=== PATIENT | male | born 1955 | race Caucasian/White ===

== ENCOUNTER 2021-12-29 08:08 | Outpatient (CLI) | payer OTHER, SELFPAY ==
--- NOTE | ~2021-12-29 | XR_ITS ---
XR abdomen/kub 1V 12/29/2021 08:18 INDICATION: Renal stones TECHNIQUE: KUB COMPARISON: None FINDINGS: Bowel gas pattern is normal. Moderate colonic fecal loading. There is no evidence of free a ir, mass, organomegaly, ascites or obstruction. No abnormal calculi are seen. The bones appear inta ct. IMPRESSION: 1: No acute abdominal abnormality identified. Reviewed, dictated and finalized at location B.
== END 2021-12-29 08:09 | disposition home or self-care (01) ==
PROVIDERS: PCP Family Medicine; Visit Provider Family Medicine
DX: Z00.00 Encounter for general adult medical examination without abnormal findings (principal); N20.0 Calculus of kidney
CPT/HCPCS: 74018

== ENCOUNTER 2022-06-02 14:26 | Outpatient (CLI) | payer MEDICARE, SELFPAY ==
[2022-06-02 20:29] LABS: Basophils Absolute Auto 0.1 K/mm3 (0.0-0.1); Basophils Percent Auto 0.6 % (0.2-1.2); Eosinophils Absolute Auto 0.2 K/mm3 (0-0.3); Eosinophils Percent Auto 2.6 % (0-4.4); Hematocrit 42.1 % (42.0-52.0); Hemoglobin 14.1 g/dL (14.0-18.0); Immature Granulocyte Absolute 0.05 K/mm3 (0.00-0.031); Immature Granulocyte Percent A 0.6 % (0-0.5); Lymphocytes Absolute Auto 2.09 K/mm3 (0.9-3.2); Lymphocytes Percent Auto 24.6 % (18.3-44.2); Mean Corpuscular HGB Conc 33.5 g/dl (32-36); Mean Corpuscular Hemoglobin 32.3 pg (26-34); Mean Corpuscular Volume 96.6 fl (80-100); Mean Platelet Volume 10.9 fl (7.4-10.4); Monocytes Percent Auto 11.6 % (2.6-8.5); Neutrophils Absolute Auto 5.1 K/mm3 (1.3-6.7); Platelet Count Result 265 k/mm3 (150-375); Red Blood Count 4.36 M/mm3 (4.6-6.20); White Blood Count 8.5 K/mm3 (4.5-10.0)
[2022-06-02 20:52] LABS: Prostate Specific Antigen 0.3 ng/mL (< OR = 4.0)
[2022-06-02 21:16] LABS: Alanine Aminotransferase 25 U/L (6-50); Albumin Level 4.4 g/dL (3.5-5.1); Alkaline Phosphatase 56 U/L (38-126); Anion Gap 5 mmol/L (8-16); Aspartate Amino Transferase 38 U/L (17-59); Bilirubin,Total 0.4 mg/dL (0.2-1.3); Blood Urea Nitrogen 17 mg/dL (9-20); Calcium 9.3 mg/dL (8.4-10.2); Carbon Dioxide 31 mmol/L (22-30); Chloride 102 mmol/L (98-107); Estimated Glomerular Filt Rate > 60; Glucose 85 mg/dL (65-110); HDL Direct 59 mg/dL; Potassium 4.6 mmol/L (3.4-5.0); Sodium 138 mmol/L (137-145); Triglycerides 96 mg/dL (<150)
[2022-06-02 21:22] LABS: Creatinine Urine 55.4 mg/dL
[2022-06-02 22:09] LABS: MALB Creatinine Ratio < 10.8 mg/g (0-30); Microalbumin Urine Random < 6.0 mg/L (0-16.7)
[2022-06-02 22:15] LABS: LDL Cholesterol Direct 63 mg/dL
[2022-06-02 22:19] LABS: Cholesterol 144 mg/dL (0-200)
[2022-06-04 11:24] LABS: Hemoglobin A1C 5.6 % (<5.7)
== END 2022-06-02 14:27 | disposition home or self-care (01) ==
PROVIDERS: PCP Family Medicine; Visit Provider Family Medicine
DX: E11.9 Type 2 diabetes mellitus without complications (principal); Z12.5 Encounter for screening for malignant neoplasm of prostate
CPT/HCPCS: 36415; 80053; 80061; 82043; 83036; 84153; 85025; G0103

== ENCOUNTER 2022-06-08 14:38 | Outpatient (CLI) | payer MEDICARE, SELFPAY ==
[2022-06-08 21:28] LABS: Appearance Urine Cloudy (Clear); Bilirubin Urine Negative (Negative); Blood Urine Negative (Negative); Color Urine Yellow (Yellow); Glucose Urine UA Negative (Negative); Ketones Urine Trace mg/dL (Negative); Leukocyte Esterase Ur 1+ LEU/UL (Negative); Nitrate Urine Positive (Negative); Protein Urine 1+ mg/dL (Negative); Specific Grav Ur 1.025 (1.001-1.035); pH Urine 5.5 (5.0-9.0)
[2022-06-08 21:38] LABS: Bacteria Urine Trace /hpf; Calcium Oxalate Crystals Urine Present /hpf; Mucus Urine Moderate /lpf; Squamous Epithelial Cell Urine Rare /hpf (Few); WBC Urine >75 /hpf
[2022-06-08 21:39] LABS: Add Urine Microscopic? YES
== END 2022-06-08 14:39 | disposition home or self-care (01) ==
PROVIDERS: PCP Family Medicine; Visit Provider Family Medicine
DX: R31.9 Hematuria, unspecified (principal)
CPT/HCPCS: 81001; 87077; 87086; 87186

== ENCOUNTER 2022-07-14 13:52 | Outpatient (CLI) | payer MEDICARE, SELFPAY ==
--- NOTE | ~2022-07-14 | XR_ITS ---
EXAMINATION: XR chest 2V Exam Date/Time: 07/14/2022 13:55 DIRECTOR OF RADIO SERVICES HISTORY: R50.9 - Fever, unspecified Comparison: None available. RESULT: Lines, tubes, and devices: None. Lungs and pleura: Increased AP diameter and diaphragm flattening. Mild cuffing and scattered reticul onodular opacities. Multiple calcified granulomas. Cardiomediastinal silhouette: Mild arch calcification. Other: No acute osseous or upper abdominal finding. Old right distal clavicular fracture, healed in deformity. IMPRESSION: Pulmonary opacities may represent mild bronchiolitis, as can be seen with atypical infection, asthma, aspiration, and small airways disease, overlying chronic emphysematous change. Reviewed, dictated and finalized at location K. [employer]OR OF RADIO SERVICES IMPRESSION: Pulmonary opacities may represent mild bronchiolitis, as can be seen with atypi norma infection, asthma, aspiration, and small airways disease, overlying chronic emphysematous change.
[2022-07-14 18:43] LABS: Hematocrit 40.8 % (42.0-52.0); Hemoglobin 13.6 g/dL (14.0-18.0); Mean Corpuscular HGB Conc 33.3 g/dl (32-36); Mean Corpuscular Hemoglobin 33.2 pg (26-34); Mean Corpuscular Volume 99.5 fl (80-100); Mean Platelet Volume 11.3 fl (7.4-10.4); Platelet Count Result 224 k/mm3 (150-375); Red Cell Distribution Width 12.1 % (11.5-14.5); White Blood Count 9.1 K/mm3 (4.5-10.0)
[2022-07-14 19:30] LABS: Appearance Urine Clear (Clear); Bilirubin Urine Negative (Negative); Blood Urine 2+ (Negative); Color Urine Yellow (Yellow); Glucose Urine UA Negative (Negative); Ketones Urine Negative (Negative); Leukocyte Esterase Ur 1+ LEU/UL (NEGATIVE); Nitrate Urine Negative (Negative); Protein Urine Negative (Negative)
[2022-07-14 19:31] LABS: Bacteria Urine Trace /hpf; Mucus Urine Rare /lpf; Squamous Epithelial Cell Urine Rare /hpf (Few); WBC Urine 21-30 /hpf (0-3)
[2022-07-14 19:58] LABS: Add Urine Microscopic? YES
== END 2022-07-14 13:53 | disposition home or self-care (01) ==
LOC: ANHBWCLAB 13:53
PROVIDERS: PCP Family Medicine; Visit Provider Family Medicine
DX: R50.9 Fever, unspecified (principal); R91.8 Other nonspecific abnormal finding of lung field
CPT/HCPCS: 36415; 71046; 81001; 85027; 87077; 87086; 87186

== ENCOUNTER 2022-11-04 08:27 | Outpatient (CLI) | payer MEDICARE, SELFPAY ==
[2022-11-04 19:50] LABS: Hematocrit 40.8 % (42.0-52.0); Hemoglobin 13.3 g/dL (14.0-18.0); Mean Corpuscular HGB Conc 32.6 g/dl (32-36); Mean Corpuscular Hemoglobin 32.5 pg (26-34); Mean Corpuscular Volume 99.8 fl (80-100); Platelet Count Result 254 k/mm3 (150-375); Red Blood Count 4.09 M/mm3 (4.6-6.20); White Blood Count 7.5 K/mm3 (4.5-10.0)
[2022-11-04 20:24] LABS: Anion Gap 8 mmol/L (8-16); Blood Urea Nitrogen 18 mg/dL (9-20); Carbon Dioxide 30 mmol/L (22-30); Chloride 99 mmol/L (98-107); Cholesterol 120 mg/dL (0-200); Estimated Glomerular Filt Rate > 60; Glucose 85 mg/dL (65-110); HDL Direct 50 mg/dL; Potassium 4.2 mmol/L (3.4-5.0); Sodium 137 mmol/L (137-145); Triglycerides 68 mg/dL (<150)
[2022-11-04 20:34] LABS: LDL Cholesterol Direct 54 mg/dL
[2022-11-04 22:29] LABS: Hemoglobin A1C 5.5 % (<5.7)
== END 2022-11-04 08:28 | disposition home or self-care (01) ==
LOC: ANHBWCLAB 08:28
PROVIDERS: PCP Family Medicine; Visit Provider Nurse Practitioner Adult Health
DX: D64.9 Anemia, unspecified (principal); E11.9 Type 2 diabetes mellitus without complications
CPT/HCPCS: 36415; 80048; 80061; 83036; 85027

== ENCOUNTER 2022-12-09 12:13 | Outpatient (CLI) | payer MEDICARE, SELFPAY ==
[2022-12-09 19:40] LABS: Iron 117 ug/dL (49-181)
[2022-12-09 19:49] LABS: Percent Iron Saturation 36 % (20-50)
== END 2022-12-09 12:14 | disposition home or self-care (01) ==
PROVIDERS: PCP Family Medicine; Visit Provider Nurse Practitioner Adult Health
DX: D64.9 Anemia, unspecified (principal)
CPT/HCPCS: 36415; 82728; 83540; 83550

== ENCOUNTER 2022-12-10 12:52 | Outpatient (CLI) | payer MEDICARE, SELFPAY ==
[2022-12-10 20:58] LABS: IFOB Positive Control Positive; Immunochemical Fecal Occult Bl Negative (N)
== END 2022-12-10 12:53 | disposition home or self-care (01) ==
LOC: ANHBWCLAB 12:53
PROVIDERS: PCP Family Medicine; Visit Provider Nurse Practitioner Adult Health
DX: D64.9 Anemia, unspecified (principal)
CPT/HCPCS: 82274

== ENCOUNTER 2023-01-19 15:01 | Outpatient (CLI) | payer MEDICARE, SELFPAY ==
--- NOTE | ~2023-01-19 | CT_ITS ---
EXAMINATION: CT abdomen pelvis wo con DATE: 01/19/2023 15:15 INDICATION: Umbilical hernia without gangrene TECHNIQUE: Computed tomography (CT) of the abdomen and pelvis was performed without intravenous contr ast. The dose-length product (DLP) was 790.12 mGy-cm. Automated exposure control and iterative recons truction technique were employed. COMPARISON: None FINDINGS: Minimal dependent atelectasis is present in the lung bases. The heart size is normal. There is a 3 mm nodule of the left lower lobe, likely old granulomatous disease. Punctate calcifications i n an otherwise normal spleen likely represent healed granulomatous disease. The liver, pancreas, gall bladder, and adrenal glands are normal. There is a 4 mm nonobstructing stone of the right kidney uppe r pole. There is a 4 mm stone of the proximal right ureter without significant hydronephrosis. The le ft kidney is unremarkable. No pathologically enlarged abdominal or pelvic lymph nodes are identified. No free intraperitoneal gas or evidence of bowel obstruction. There is a small fat-containing umbili norma hernia with a 12 mm mild. There are moderate size right, and small left inguinal hernias containi ng fat. 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 IMPRESSION: 1. Umbilical and bilateral inguinal hernias containing fat. 2. 4 mm stone of the proximal right ureter without significant hydronephrosis. 3. Nonobstructing right nephrolithiasis. Reviewed, dictated and finalized at location L.
== END 2023-01-19 15:02 | disposition home or self-care (01) ==
PROVIDERS: PCP Family Medicine; Visit Provider Nurse Practitioner Adult Health
DX: K42.9 Umbilical hernia without obstruction or gangrene (principal); K40.20 Bilateral inguinal hernia, without obstruction or gangrene, not specified as recurrent; N20.0 Calculus of kidney; N20.1 Calculus of ureter
CPT/HCPCS: 74176

== ENCOUNTER 2023-03-16 10:59 | Outpatient (CLI) | payer MEDICARE, SELFPAY ==
--- NOTE | 2023-03-16 11:09 | ECG_ITS ---
Measurements Intervals [place] Rate: 64 P: 62 TX: 156 QRS: 61 QRSD: 85 T: 62 QT: 406 QTc: 421 Interpretive Statements SINUS RHYTHM EARLY REPOLARIZATION [ST ELEVATION WITH NORMALLY INFLECTED T WAVE] NO PREVIOUS ECG AVAILABLE FOR COMPARISON Electronically Signed On 03-16-2023 11:44:09 CDT by Rachid Holder M.D.
[2023-03-16 12:34] LABS: Anion Gap 7 mmol/L (8-16); Blood Urea Nitrogen 13 mg/dL (9-20); Calcium 9.1 mg/dL (8.4-10.2); Carbon Dioxide 28 mmol/L (22-30); Chloride 101 mmol/L (98-107); Estimated Glomerular Filt Rate 41; Glucose 97 mg/dL (65-110); Potassium 4.4 mmol/L (3.4-5.0); Sodium 136 mmol/L (137-145)
== END 2023-03-16 11:00 | disposition home or self-care (01) ==
LOC: ANHSURGERY 11:06
PROVIDERS: Anesthesiology; PCP Family Medicine; Visit Provider Surgery
DX: Z01.818 Encounter for other preprocedural examination (principal); K43.9 Ventral hernia without obstruction or gangrene; I15.2 Hypertension secondary to endocrine disorders; E11.59 Type 2 diabetes mellitus with other circulatory complications
CPT/HCPCS: 36415; 80048; 86850; 86900; 86901; 93005

== ENCOUNTER 2023-03-19 05:14 | Day surgery (SDC) | payer MEDICARE, SELFPAY ==
--- NOTE | 2023-03-15 09:08 | PC.NURSE ---
Report to the Outpatient Waiting Room, entrance under the green pavilion located off [facility], at time _0830 on date __03/19/23 . Planned Procedure Time: ___1030 . Time changes happen often and if your time is changed the preop area will call you the afternoon before. - You and your visitor will be asked to self-screen and do not enter if you have any COVID symptoms. - A mask is optional within the hospital at this time. Patients may have clear liquids (water, carbonated beverages, clear teas, apple juice) until 3 hours prior to surgery with a maximum of 20 ounces. - No food from midnight until time of surgery - Infants may have breast milk until 4 hours before surgery, infant formula 6 hours prior to surgery. - Children will be allowed to drink immediately following surgery. If applicable, please bring a bottle or sippy cup to assist with drinking. Juice, water, soda, and popsicles are readily available. For infants on formula, please bring formula the day of surgery. Pacifiers are allowed. Take the following medications with a SIP of water the morning of surgery: ____NONE DO NOT STOP ANY OF YOUR OTHER PRESCRIPTION MEDICATIONS PRIOR TO SURGERY ?EXCEPT THE FOLLOWING Medications to discontinue per physician ___ALL VITAMINS AND SUPPLEMENTS 3 DAYS PRE OP.LAST DOSE 03/15/23 HIBICLENS SHOWER MORNING OF SURGERY Please no make-up, nail haitian, hairspray, perfume, deodorant, or body powder the day of surgery. No jewelry (including any body piercings) or valuables the day of surgery, leave them at home. Please take a shower or bath the night before, or the morning of, surgery with an antibacterial soap. Wear comfortable, loose fitting clothing. Children are encouraged to wear pajamas. - Jewelry must be removed prior to entering the operating room. Rings and piercings that are not removed may be cut off. - The hospital will not accept responsibility for valuables. - Please leave all valuables, including medications, at home the day of surgery. If you are going home after surgery, a licensed form setter/driver must drive you home. - NO public transportation without another adult if you receive anesthesia. - We recommend that an adult stay with you for 24 hours following discharge. - We also recommend that you do not drive, make important decision, drink alcoholic beverages, or take any drugs that were not prescribed by your health care provider for at least 24 hours after your discharge time. For Pediatric surgeries, we recommend two adults accompany the child home. Follow any additional instructions given to you from your surgeon. If you or anyone in your household have experienced Covid symptoms in the past week, please notify your surgeon or the nurse liaison at the phone number below for possible testing. Telephone instructions given to ___PATIENT and asked if any additional questions and then verbalized understanding. Patient advised to call surgeon office or pre surgery nurse liaison [phone] if any additional questions.
[2023-03-15 09:14] VITALS: BMI 31.1
[2023-03-19] VITALS (11 sets, daily range): BP systolic 103–121; BP diastolic 62–80; PULSE 61–71; RESP 16–18; TEMP 36.1–36.5; O2SAT 97–100
[2023-03-19] MEDS: KETOROLAC 15 MG/ML VIAL (*BKC) IV PUSH (09:00)
[2023-03-19] MEDS: ACETAMINOPHEN 500 MG TABLET 1000 MG PO (09:00)
[2023-03-19] MEDS: LACTATED RINGERS 1,000 ML 30 ML IV CONT ×2 (09:00→13:20)
--- NOTE | 2023-03-19 09:24 | WPDANESEPPF ---
Anes - Initial Pre Proc Eval Procedure: Operation Date: 03/19/23 10:30 Proposed Procedures p Robotic Assisted Laparoscopic Ventral Hernia Repair With Mesh - Jeffry Burton MD Date/Time: 03/19/23 09:24 Surgeon: Jeffry Burton MD Pre Op Diagnosis: Reducible Ventral Hernia Patient Data Age: 67 Gender: M Height: 1.73 m Weight: 92.99 kg Allergies Allergy/AdvReac Type Severity Reaction Status Date / Time No Known Allergies Allergy Verified 03/15/23 09:03 Home Medications Medication Instructions Recorded Confirmed Type atorvastatin 20 mg tablet See Rx Instructions .Route 01/25/23 03/15/23 Rx .COMPLEX #90 tabs metformin 1,000 mg tablet See Rx Instructions .Route 01/25/23 03/15/23 Rx .COMPLEX #180 tabs olmesartan 40 mg tablet See Rx Instructions .Route 01/25/23 03/15/23 Rx .COMPLEX #90 tabs pantoprazole 40 mg tablet,delayed See Rx Instructions .Route 01/25/23 03/15/23 Rx release .COMPLEX #90 tabs cholecalciferol (vitamin D3) 50 50 mcg PO DAILY 03/15/23 03/15/23 History mcg (2,000 unit) capsule multivit with minerals-iron 18 1 tablet PO DAILY 03/15/23 03/15/23 History mg-folic ac 400 mcg-vit K 25 mcg tablet (Adults Multivitamin) Patient hx anesthesia problems: post op nausea/vomiting Family hx anesthesia problems: none Results Review: All pre-operative results and documents have been reviewed as part of the pre-operative evaluation. [facility] Past Medical History Medical History Diabetes Type 2 GERD (gastroesophageal reflux disease) Hepatitis C Hypertension Surgical History Surgical History History of appendectomy 1978 History of hernia surgery 1984 History of rotator cuff surgery Both R and L shoulders in 2011 and 2016 Family History Family History Father Alcohol abuse Asthma Cancer Hypertension Diabetes mellitus Mother Hypertension Cerebrovascular accident Grandparent Cancer Heart disease Grandparent Cancer Social History Social History Smoking status: Never smoker Second hand tobacco smoke exposure: No Alcohol intake: never Substance use: never Substance use type: does not use Lack of Transportation: No Lack of Food: Never True Current Housing: I Have Housing Concerned About Future Housing: No Difficulty Paying Gas/Electric Bills: No Difficulty Paying for Meds: No Currently Unemployed: No Education: High School Diploma/GED Difficulty w/ Childcare or Family Care: No Living arrangements: with family Occupation/Education: retired Gender identity (if verbalized by the patient): Male Spiritual care concerns: No Agree to blood products: Yes Anes - Eval Final PreProcedure Day of Procedure 03/19/23 09:24 Patient weight: obese Heart: regular rate and rhythm Lungs: clear to auscultation Airway: Mallampati scale class II Neurological: alert and oriented Last oral intake: >/= 8 hours ASA classification: III Emergent: no Anesthetic plan: proceed Anesthesia type and monitoring: general ETT and standard monitoring Results Review: All pre-operative results and documents have been reviewed as part of the pre-operative evaluation. Informed Consent: The patient's anesthetic plan and its attendant risks and benefits were discussed with the patient/family/POA. Questions were solicited and answers provided to the satisfaction of the patient/family/POA.
[2023-03-19 09:44] LABS: Glucose Point of Care 109 mg/dl (65-105)
[2023-03-19] MEDS: SCOPOLAMINE 1.5 MG PATCH TRANSDERM (10:08)
--- NOTE | 2023-03-19 10:20 | PM.IMHP ---
H&P: HPI History of Present Illness Date/Time: 03/19/23 10:20 Chief Complaint: Ventral hernia Narrative: Aquilino is a 67 y/o male who presents with an umbilical hernia at the request of Heather Yeboah APRN. Patient reports symptoms starting over a year ago. He has a bulge that is causing discomfort with pressure and is reducible. CT abdomen pelvis wo con was done on 01/19/23 which showed an umbilical and bilateral inguinal hernias containing fat. He has a surgical history of open appendectomy and left inguinal hernia repair. He is a type 2 diabetic and currently takes Metformin daily. His last HbA1c was 5.6. Review of Systems Review of Systems: The remainder of the review of systems to include constitutional, HEENT, cardiovascular, respiratory, GI, , integumentary, musculoskeletal, endocrine, immunologic, hematologic, psychiatric, and neurologic are all negative except for which is mentioned above in the HPI. [facility] Past Medical History Medical History Diabetes Type 2 GERD (gastroesophageal reflux disease) Hepatitis C Hypertension Surgical History Surgical History History of appendectomy 1979 History of hernia surgery 1984 History of rotator cuff surgery Both R and L shoulders in 2011 and 2016 Family History Family History Father Alcohol abuse Asthma Cancer Hypertension Diabetes mellitus Mother Hypertension Cerebrovascular accident Grandparent Cancer Heart disease Grandparent Cancer Social History Social History Smoking status: Never smoker Second hand tobacco smoke exposure: No Alcohol intake: never Substance use: never Substance use type: does not use Lack of Transportation: No Lack of Food: Never True Current Housing: I Have Housing Concerned About Future Housing: No Difficulty Paying Gas/Electric Bills: No Difficulty Paying for Meds: No Currently Unemployed: No Education: High School Diploma/GED Difficulty w/ Childcare or Family Care: No Living arrangements: with family Occupation/Education: retired Gender identity (if verbalized by the patient): Male Spiritual care concerns: No Agree to blood products: Yes Meds Home Medications and Allergies Home Medications Medication Instructions Recorded Confirmed Type atorvastatin 20 mg tablet See Rx Instructions .Route 01/25/23 03/15/23 Rx .COMPLEX #90 tabs metformin 1,000 mg tablet See Rx Instructions .Route 01/25/23 03/15/23 Rx .COMPLEX #180 tabs olmesartan 40 mg tablet See Rx Instructions .Route 01/25/23 03/15/23 Rx .COMPLEX #90 tabs pantoprazole 40 mg tablet,delayed See Rx Instructions .Route 01/25/23 03/15/23 Rx release .COMPLEX #90 tabs cholecalciferol (vitamin D3) 50 50 mcg PO DAILY 03/15/23 03/15/23 History mcg (2,000 unit) capsule multivit with minerals-iron 18 1 tablet PO DAILY 03/15/23 03/15/23 History mg-folic ac 400 mcg-vit K 25 mcg tablet (Adults Multivitamin) Allergies Allergy/AdvReac Type Severity Reaction Status Date / Time No Known Allergies Allergy Verified 03/19/23 10:00 Vital Signs Vital Signs - 24 hr 03/19/23 10:01 Temperature 36.5 C Pulse Rate 61 Respiratory Rate 16 Blood Pressure 120/72 Pulse Oximetry 98 Oxygen Delivery Room Air Exam Const: General: comfortable and no acute distress Neck: Neck: supple and no JVD Resp: Effort & Inspection: normal respiratory effort Auscultation: clear to auscultation bilaterally Cardio: Rate: regular rate Rhythm: regular rhythm GI: Other: Inspection: normal to inspection Palpation/Percussion: Yes non-tender, Yes no guarding and No Rebound tenderness present Other: 1.5cm umbilical hernia defect that is easily reducible. In the epigastric region he also has a rectus skyler
--- NOTE | 2023-03-19 10:22 | WPDHPUPDATE1 ---
History and Physical Update Update Date/Time: 03/19/23 10:22 History and Physical has been reviewed, including an updated exam of the patient. There are NO changes in the patient's condition. Risks, benefits, and alternatives have been discussed and questions answered. Patient agrees to proceed with procedure.
[2023-03-19] MEDS: ceFAZolin 2 GM/D5W 50 ML 2 GM/50 ML BAG IVPB (10:33)
[2023-03-19] MEDS: BUPivacaine HCL 0.5% PF 30 ML VIAL 20 ML INFILTRATE (11:19)
[2023-03-19] MEDS: LIDO 1%/EPINEPHRINE 1:100,000 20 ML VIAL INFILTRATE (11:19)
[2023-03-19 13:44] LABS: Glucose Point of Care 101 mg/dl (65-105)
[2023-03-19] MEDS: fentaNYL CITRATE INJ (*CRX) 100 MCG/2 ML VIAL 25 MCG IV PUSH ×4 (14:19→14:31)
[2023-03-19] MEDS: oxyCODONE HCL (*CRX) 5 MG TAB IR PO (15:17)
--- NOTE | 2023-03-19 21:37 | W.PM.PROC2 ---
Procedure Note - Detailed Date of Procedure 03/19/23 Pre-op Diagnosis Reducible Ventral Hernia Post-op Diagnosis Same Procedure Performed Robotic assisted laparoscopic reducible ventral hernia repair with transabdominal pre-peritoneal placement (DYLAN) of Bard Soft Mesh (defect = 2 cm) Surgeon Jeffry Burton MD Corporate Associate Attorney [employer] Anesthesia General Indications Pt has a 2 cm reducible periumbilical primary ventral hernia that is enlarging and starting to cause soreness. Findings 2 cm reducible periumbilical ventral hernia. Small associated lower epigastric diastasis with about 2 cm. Description of Procedure After informed consent was obtained, the patient was taken to the OR and placed supine on the OR table. General endotracheal anesthesia was induced and a matthews catheter was placed to decompress the bladder. The abdomen was then prepped and draped in the usual sterile fashion. A time out was performed confirming the patient's name and procedure to be done and confirming that he got perioperative IV abx. I then started by placing a 10 mm Optiview port in the LUQ abd wall under direct vision. Once inside the abdomen, I insufflated to a pressure of 15 mm of mercury with CO2. I then placed additional 8 mm robotic trocars along the left lateral abdominal wall under direct vision. The robot was docked to the pt's right side and the arms were attached to the ports. I then scrubbed out of the procedure to sit down at the robotic console. I first started by creating a pre-peritoneal flap on the left side and carefully extending it across the midline taking care to not make any holes in the peritoneum. The dissection was done superiorly to the upper epigastric region and inferiorly to about 8 cm below the umbilicus. I continued the pre-peritoneal dissection to the right side of the abdominal wall until I had at least 5 cm of space to place the mesh around the defect. Lastly I reduced the hernia sac out of the defect. I then closed the defect which was 2 cm in diameter and the epigastric diastasis with a running #1 PDS Stratifix suture. This closed the defect and recreated the inverted umbilicus as well as plication of the epigastric diastasis. I then chose a piece of Bard Soft Mesh measuring 15 x 15 cm and placed it in the abdomen through the scheduling assistant port. I then placed the mesh in the dissected pre-peritoneal space in a waqar configuration. I then cut away the excess mesh and removed it from the abdomen. I secured the mesh circumferentially with multiple running 2-0 absorbable V-lock sutures. I then reapproximated the edges of the peritoneum with a running 2-0 V-lock suture covering all the mesh and excluding the bare mesh from coming in direct contact with the viscera. I then had the robot undocked from the pt's bedside and the robotic instruments removed. I scrubbed back into the procedure and removed all the ports under direct visualization. All the port sites were hemostatic. I then irrigated the port sites with saline solution and closed the 10 mm port site at the fascia level with a 0 vicryl suture. The port sites were then closed at the skin with a running 4-0 monocryl suture. Skin glue and an abdominal binder was placed. The patient tolerated the procedure well no complications. All sponges, needles, and instrument counts were correct at the end procedure. EBL was 25___cc. The patient was awakened and taken to recovery in stable and satisfactory condition. Implants 15 x 15 cm Bard Soft Mesh in pre-peritoneal space. Estimated Blood Loss 25 Urine Output -200.0 Drains No Packing No Pathology None sent Complications No immediate complications Condition Stable Disposition PACU [facility] Billing Surgery - Charge Forward: Surgery Billing
== END 2023-03-19 16:30 | disposition home or self-care (01) ==
PROVIDERS: PCP Family Medicine; Visit Provider Surgery
PROC: (CPT 49591; principal; 2023-03-19 10:30)
DX: K43.9 Ventral hernia without obstruction or gangrene (principal); E11.9 Type 2 diabetes mellitus without complications; I10 Essential (primary) hypertension; K21.9 Gastro-esophageal reflux disease without esophagitis; Z86.19 Personal history of other infectious and parasitic diseases; E66.9 Obesity, unspecified; Z68.31 Body mass index [BMI] 31.0-31.9, adult; Z79.84 Long term (current) use of oral hypoglycemic drugs
CPT/HCPCS: 49591; S2900; 36415; 80048; 82948; 86850; 86900; 86901; 93005; A9270; C1781; J0690; J1170; J1885; J2250; J2405; J2704; J3010; J7120

== ENCOUNTER 2023-03-21 11:36 | Emergency (ER) | payer MEDICARE, SELFPAY ==
[2023-03-21] VITALS (27 sets, daily range): BP systolic 114–129; BP diastolic 61–79; PULSE 55–70; RESP 10–21; TEMP 36.3; O2SAT 94–100
--- NOTE | ~2023-03-21 | CT_ITS ---
EXAMINATION: CT abdomen pelvis w con DATE: 03/21/2023 15:35 INDICATION: Nausea, vomiting and leukocytosis post recent umbilical hernia repair TECHNIQUE: Computed tomography (CT) of the abdomen and pelvis was performed with 100 mL Omnipaque-350 intravenous contrast. Automated exposure control and iterative reconstruction technique were employe d. The dose-length product was 1015.13 mGy-cm. COMPARISON: 01/19/2023 FINDINGS: Atelectasis in the lingula and bilateral lower lobes. Calcified nodules in the right middle and left lower lobes in a few scattered small splenic calcific lesions consistent with old granulomatous disea se. Heart size is normal. No pericardial or pleural effusion. Mild focal hepatic steatosis at the lig amentum teres. Mild focal thickening of the gallbladder wall thickening of the fundus which is typica l for focal adenomyomatosis. Pancreas, left kidney and bilateral adrenal glands are normal. There are a couple 3-4 mm nonobstructing stones at an upper pole calyx of the left kidney. Additional 304 mm s tone at the distal right ureter positioned 2 cm above the level of the ureterovesicular junction. The re is however no associated hydroureteronephrosis. 5 mm low-attenuation cyst at the lower pole of the right kidney. Postoperative change of interval umbilical hernia repair with mild stranding in the im mediately underlying fat. Bowels are unremarkable. Moderate-sized fat-containing right inguinal herni a. Bladder is normal. Prostatomegaly measuring 4.3 x 3.6 cm. No free intraperitoneal gas or fluid. No pathologically enlarged abdominal or pelvic lymphadenopathy. Osteitis pubis and mild lumbar and lowe r thoracic spondylosis. IMPRESSION: 1. Right urolithiasis including a 3 to 4 mm stone in the distal right ureter but without hydrouretero nephrosis. 2. Moderate-sized fat-containing right inguinal hernia. 3. Postoperative change of interval umbilical hernia repair. Reviewed, dictated and finalized at location A. [facility] [employer] IMPRESSION: 1. Right urolithiasis including a 3 to 4 mm stone in the distal right ureter bu t without hydroureteronephrosis. 2. Moderate-sized fat-containing right inguinal hernia. 3. Postoperative change of interval umbilical hernia repair.
--- NOTE | ~2023-03-21 | CT_ITS ---
EXAMINATION: CT brain wo con INDICATION: Dizziness and vertigo COMPARISON: None TECHNIQUE: Standard unenhanced head CT. The dose-length product (DLP) was 605.33 mGy-cm. The mA was a djusted according to patient size. Iterative reconstruction technique was employed. FINDINGS: No intracranial hemorrhage, acute infarction, or abnormal mass lesion. The ventricles are n ormal. No abnormal mass effect or midline shift. The roca-white matter differentiation is normal. The basal cisterns are patent. The orbits are normal. The paranasal sinuses, mastoids and calvarium are normal. IMPRESSION: 1. No acute intracranial abnormality. Reviewed, dictated and finalized at location F. N'S STUDIES PROFESSOR
[2023-03-21 12:00] LABS: Basophils Percent Auto 0.3 % (0.2-1.2); Eosinophils Absolute Auto 0.1 K/mm3 (0-0.3); Eosinophils Percent Auto 0.7 % (0-4.4); Hematocrit 39.6 % (42.0-52.0); Hemoglobin 13.2 g/dL (14.0-18.0); Immature Granulocyte Absolute 0.04 K/mm3 (0.00-0.031); Immature Granulocyte Percent A 0.3 % (0-0.5); Lymphocytes Absolute Auto 0.83 K/mm3 (0.9-3.2); Lymphocytes Percent Auto 6.8 % (18.3-44.2); Mean Corpuscular HGB Conc 33.3 g/dl (32-36); Mean Corpuscular Hemoglobin 32.4 pg (26-34); Mean Corpuscular Volume 97.3 fl (80-100); Mean Platelet Volume 10.4 fl (7.4-10.4); Monocytes Percent Auto 8.4 % (2.6-8.5); Neutrophils Absolute Auto 10.2 K/mm3 (1.3-6.7); Neutrophils Percent Auto 83.5 % (45.5-73.1); Platelet Count Result 244 k/mm3 (150-375); Red Blood Count 4.07 M/mm3 (4.6-6.20); Red Cell Distribution Width 11.8 % (11.5-14.5); White Blood Count 12.2 K/mm3 (4.5-10.0)
[2023-03-21 12:18] LABS: Alanine Aminotransferase 21 U/L (6-50); Albumin Level 4.3 g/dL (3.5-5.1); Alkaline Phosphatase 61 U/L (38-126); Anion Gap 6 mmol/L (8-16); Aspartate Amino Transferase 29 U/L (17-59); Bilirubin,Total 0.9 mg/dL (0.2-1.3); Blood Urea Nitrogen 12 mg/dL (9-20); Calcium 9.4 mg/dL (8.4-10.2); Carbon Dioxide 29 mmol/L (22-30); Chloride 100 mmol/L (98-107); Estimated CRCL calculation 79 ml/min; Estimated Glomerular Filt Rate > 60; Glucose 191 mg/dL (65-110); Lipase 28 U/L (23-300); Sodium 135 mmol/L (137-145)
[2023-03-21 12:52] LABS: Appearance Urine Clear (Clear); Bacteria Urine None Seen /hpf; Bilirubin Urine Negative (Negative); Blood Urine 1+ (Negative); Color Urine Yellow (Yellow); Glucose Urine UA 2+ mg/dL (Negative); Ketones Urine 3+ mg/dL (Negative); Leukocyte Esterase Ur Trace LEU/UL (Negative); Nitrate Urine Negative (Negative); Non Pathogenic Casts 0-2; Protein Urine Trace mg/dL (Negative); Specific Grav Ur 1.021 (1.001-1.035); Squamous Epithelial Cell Urine None seen /hpf (Few); WBC Urine 0-5 /hpf
[2023-03-21 13:11] LABS: Add Urine Microscopic? YES
[2023-03-21] MEDS: SODIUM CHLORIDE 0.9% IV 1,000 ML 999 ML IV CONT ×2 (13:23)
[2023-03-21] MEDS: MECLIZINE HCL 25 MG TABLET PO (13:23)
--- NOTE | 2023-03-21 14:12 | ED.NAVMDI ---
HPI - Nausea/Vomiting/Diarrhea General Chief complaint: Nausea/Vomiting/Diarrhea Stated complaint: N/V x 2.5 hours Time Seen by Provider: 03/21/23 12:32 Source: patient Mode of arrival: EMS Limitations: no limitations History of Present Illness HPI Narrative: Patient is a 67-year-old male who presents to the ED via EMS with report of dizziness, nausea, vomiting. Patient reports he had an umbilical hernia repair on 03/[address] Burton. Patient has been taking oxycodone at home for the pain and doing fairly well. He states pain was improved this morning but patient suddenly developed room spinning dizziness while drinking his coffee this morning. He began having nausea and vomiting. Unable to keep down food or drink, which prompted him to contact EMS. EMS did administer 4 mg of morphine in route to the ED. Patient does still feel slightly dizzy, denies current nausea. No previous history of vertigo. Denies ear pain, focal weakness or numbness, confusion, vision changes, headache, slurred speech. Related Data Home Medications Medication Instructions Recorded Confirmed cholecalciferol (vitamin D3) 50 50 mcg PO DAILY 03/15/23 03/15/23 mcg (2,000 unit) capsule multivit with minerals-iron 18 1 tablet PO DAILY 03/15/23 03/15/23 mg-folic ac 400 mcg-vit K 25 mcg tablet (Adults Multivitamin) Allergies Allergy/AdvReac Type Severity Reaction Status Date / Time No Known Allergies Allergy Verified 03/19/23 10:00 Review of Systems Review of Systems: CONSTITUTIONAL: Denies fever, chills, or sweats. EYES: Denies visual changes. CARDIOVASCULAR: Denies chest pain. RESPIRATORY: Denies dyspnea. GASTROINTESTINAL: See HPI. GENITOURINARY: Denies dysuria or hematuria. MUSCULOSKELETAL: Denies back pain, joint pain, or myalgia. NEUROLOGIC: See HPI. All systems reviewed & are unremarkable except as noted in HPI and below PMFSH Past Medical History Medical History Diabetes Type 2 GERD (gastroesophageal reflux disease) Hepatitis C Hypertension Surgical History Surgical History History of appendectomy 1978 History of hernia surgery 1983 History of rotator cuff surgery Both R and L shoulders in 2012 and 2016 Family History Family History Father Alcohol abuse Asthma Cancer Hypertension Diabetes mellitus Mother Hypertension Cerebrovascular accident Grandparent Cancer Heart disease Grandparent Cancer Social History Social History Smoking status: Never smoker Second hand tobacco smoke exposure: No Alcohol intake: never Substance use: never Substance use type: does not use Lack of Transportation: No Lack of Food: Never True Current Housing: I Have Housing Concerned About Future Housing: No Difficulty Paying Gas/Electric Bills: No Difficulty Paying for Meds: No Currently Unemployed: No Education: High School Diploma/GED Difficulty w/ Childcare or Family Care: No Living arrangements: with family Occupation/Education: retired Gender identity (if verbalized by the patient): Male Spiritual care concerns: No Agree to blood products: Yes Exam Narrative: GENERAL: Well appearing, obese with BMI of 31.2, non-toxic, in no acute distress. HEAD: Normocephalic, atraumatic. EENT: PERRL/EOMI, conjunctivae clear bilaterally. Very slight left-sided fatigable nystagmus. TMs clear bilaterally. No cerumen impaction. No evidence of AOE/AOM. THROAT: Pharynx clear, no exudate. MMs dry. NECK: Supple. No adenopathy, no masses. RESPIRATORY: Airway patent, respirations nonlabored. Clear to auscultation bilaterally, no rales, rhonchi, wheezing. CARDIOVASCULAR: Regular rate and rhythm without murmurs, rubs, or gallops. Peripheral pulses 2+
== END 2023-03-21 16:43 | disposition home or self-care (01) ==
PROVIDERS: Student in an Organized Health Care Education/Training Program; Emergency Provider Physician Assistant; PCP Family Medicine
DX: N20.1 Calculus of ureter (principal); E86.0 Dehydration; H81.10 Benign paroxysmal vertigo, unspecified ear; R11.2 Nausea with vomiting, unspecified; E11.9 Type 2 diabetes mellitus without complications; I10 Essential (primary) hypertension; Z79.891 Long term (current) use of opiate analgesic
CPT/HCPCS: 36415; 70450; 74177; 80053; 81001; 83690; 85025; 96360; 99284; A9270; J7030; Q9967

== ENCOUNTER 2023-08-24 11:20 | Outpatient (CLI) | payer MEDICARE, SELFPAY ==
[2023-08-24 18:51] LABS: Hematocrit 42.8 % (42.0-52.0); Hemoglobin 13.5 g/dL (14.0-18.0); Mean Corpuscular HGB Conc 31.5 g/dl (32-36); Mean Corpuscular Hemoglobin 32.1 pg (26-34); Mean Corpuscular Volume 101.9 fl (80-100); Mean Platelet Volume 11.4 fl (7.4-10.4); Platelet Count Result 280 k/mm3 (150-375); Red Cell Distribution Width 12.2 % (11.5-14.5); White Blood Count 5.3 K/mm3 (4.5-10.0)
[2023-08-24 19:15] LABS: Alanine Aminotransferase 28 U/L (6-50); Albumin Level 4.6 g/dL (3.5-5.1); Alkaline Phosphatase 57 U/L (38-126); Anion Gap 7 mmol/L (4-12); Aspartate Amino Transferase 63 U/L (17-59); Bilirubin,Total 0.8 mg/dL (0.2-1.3); Blood Urea Nitrogen 12 mg/dL (9-20); Calcium 9.7 mg/dL (8.4-10.2); Carbon Dioxide 28 mmol/L (22-30); Chloride 103 mmol/L (98-107); Cholesterol 135 mg/dL (0-200); Estimated Glomerular Filt Rate > 60; Glucose 115 mg/dL (65-110); HDL Direct 52 mg/dL; Potassium 4.5 mmol/L (3.4-5.0); Sodium 138 mmol/L (137-145); Triglycerides 72 mg/dL (<150)
[2023-08-24 19:26] LABS: LDL Cholesterol Direct 72 mg/dL
[2023-08-24 20:15] LABS: Prostate Specific Antigen 0.3 ng/mL (< OR = 4.0)
[2023-08-24 20:27] LABS: Iron 121 ug/dL (49-181)
[2023-08-24 20:39] LABS: Percent Iron Saturation 39 % (20-50)
[2023-08-24 21:18] LABS: Creatinine Urine 57.2 mg/dL
[2023-08-24 21:20] LABS: MALB Creatinine Ratio 16.8 mg/g (0-30); Microalbumin Urine Random 9.6 mg/L (0-16.7)
[2023-08-24 22:47] LABS: Hemoglobin A1C 5.6 % (<5.7)
== END 2023-08-24 11:21 | disposition home or self-care (01) ==
PROVIDERS: PCP Family Medicine; Visit Provider Family Medicine
DX: Z12.5 Encounter for screening for malignant neoplasm of prostate (principal); D64.9 Anemia, unspecified; E11.59 Type 2 diabetes mellitus with other circulatory complications; I15.2 Hypertension secondary to endocrine disorders; K42.9 Umbilical hernia without obstruction or gangrene; R35.0 Frequency of micturition; L98.9 Disorder of the skin and subcutaneous tissue, unspecified
CPT/HCPCS: 36415; 80053; 80061; 82043; 82607; 83036; 83540; 83550; 84153; 85027; G0103

== ENCOUNTER 2023-09-21 07:00 | Outpatient (NON) | payer MEDICARE, SELFPAY | END 2023-09-21 07:01 | disposition home or self-care (01) | LOC: ANHLAB 09-22 08:50 | PROVIDERS: PCP Family Medicine; Visit Provider Internal Medicine Gastroenterology | DX: Z12.11 Encounter for screening for malignant neoplasm of colon (principal); D12.5 Benign neoplasm of sigmoid colon | CPT/HCPCS: 88305 ==

== ENCOUNTER 2023-09-21 08:08 | Day surgery (SDC) | payer MEDICARE, SELFPAY ==
[2023-08-24 15:17] VITALS: BMI 33.1
[2023-09-06 08:44] VITALS: BMI 31.1
[2023-09-21 09:04] VITALS: BP 130/79; PULSE 56; RESP 18; TEMP 36.3; O2SAT 100
[2023-09-21] MEDS: LACTATED RINGERS 1,000 ML 150 ML IV CONT (09:08)
[2023-09-21 09:17] LABS: Glucose Point of Care 110 mg/dl (65-105)
--- NOTE | 2023-09-21 09:17 | WPDANESEPPF ---
Anes - Initial Pre Proc Eval Procedure: Operation Date: 09/21/23 10:30 Proposed Procedures p Screening Colonoscopy - Parveen Blanca MD Date/Time: 09/21/23 09:17 Surgeon: Parveen Blanca MD Pre Op Diagnosis: Neoplasm Screening Patient Data Age: 68 Gender: M Height: 1.73 m Weight: 92.3 kg Last Vital Signs Temp 36.3 C L 09/21/23 09:04 Pulse 56 L 09/21/23 09:04 Resp 18 09/21/23 09:04 BP 130/79 09/21/23 09:04 Pulse Ox 100 09/21/23 09:04 O2 Del Method Room Air 09/21/23 09:04 Allergies Allergy/AdvReac Type Severity Reaction Status Date / Time No Known Allergies Allergy Verified 09/21/23 09:03 Home Medications Medication Instructions Recorded Confirmed Type cholecalciferol (vitamin D3) 50 50 mcg PO DAILY 03/15/23 09/21/23 History mcg (2,000 unit) capsule multivit with minerals-iron 18 1 tablet PO DAILY 03/15/23 09/21/23 History mg-folic ac 400 mcg-vit K 25 mcg tablet (Adults Multivitamin) atorvastatin 20 mg tablet 20 mg PO DAILY 09/06/23 09/21/23 History metformin 1,000 mg tablet 1,000 mg PO DAILY 09/06/23 09/21/23 History olmesartan 40 mg tablet 40 mg PO DAILY 09/06/23 09/21/23 History pantoprazole 40 mg tablet,delayed 40 mg PO DAILY 09/06/23 09/21/23 History release vitamin B complex 1 cap PO DAILY 09/06/23 09/21/23 History Patient hx anesthesia problems: none Family hx anesthesia problems: none Results Review: All pre-operative results and documents have been reviewed as part of the pre-operative evaluation. [facility] Past Medical History Medical History Diabetes Type 2 GERD (gastroesophageal reflux disease) Hepatitis C Hypertension Surgical History Surgical History History of appendectomy 1978 History of hernia surgery 1983 History of rotator cuff surgery Both R and L shoulders in 2011 and 2016 History of ventral hernia repair Robotic assisted laparoscopic reducible ventral hernia repair with transabdominal pre-peritoneal placement (DYLAN) of Bard Soft Mesh (defect = 2 cm) on 03/19/23 Family History Family History Father Alcohol abuse Asthma Cancer Hypertension Diabetes mellitus Mother Hypertension Cerebrovascular accident Grandparent Cancer Heart disease Grandparent Cancer Social History Social History Smoking status: Never smoker Second hand tobacco smoke exposure: No Alcohol intake: never Substance use: current Substance use type: marijuana Last use: 2X weekly Lack of Transportation: No Lack of Food: Never True Current Housing: I Have Housing Concerned About Future Housing: No Difficulty Paying Gas/Electric Bills: No Difficulty Paying for Meds: No Currently Unemployed: No Education: High School Diploma/GED Difficulty w/ Childcare or Family Care: No Living arrangements: with family Occupation/Education: retired Gender identity (if verbalized by the patient): Male Spiritual care concerns: No Agree to blood products: Yes Anes - Eval Final PreProcedure Day of Procedure 09/21/23 09:17 Patient weight: obese Heart: regular rate and rhythm Lungs: clear to auscultation Airway: Mallampati scale class II Neurological: alert and oriented Last oral intake: >/= 8 hours ASA classification: III Emergent: no Anesthetic plan: proceed Anesthesia type and monitoring: general GIVS and standard monitoring Results Review: All pre-operative results and documents have been reviewed as part of the pre-operative evaluation. Informed Consent: The patient's anesthetic plan and its attendant risks and benefits were discussed with the patient/family/POA. Questions were solicited and answers provided to the satisfaction of the patient/family/POA.
--- NOTE | 2023-09-21 09:18 | PM.HPGS ---
History of Present Illness History of Present Illness Consent: Risks, benefits, and alternatives have been discussed and questions answered. Patient agrees to proceed with procedure. Chief complaint: Neoplasm Screening Narrative: Aquilino Esparza is a 68 year old male referred for colon cancer screening. He has history of colon polyps. His colonoscopy was 5 years ago. Review of Systems Review of Systems: All systems reviewed & are unremarkable except as noted in HPI and below PMFSH Past Medical History Medical History Diabetes Type 2 GERD (gastroesophageal reflux disease) Hepatitis C Hypertension Surgical History Surgical History History of appendectomy 1978 History of hernia surgery 1983 History of rotator cuff surgery Both R and L shoulders in 2011 and 2015 History of ventral hernia repair Robotic assisted laparoscopic reducible ventral hernia repair with transabdominal pre-peritoneal placement (DYLAN) of Bard Soft Mesh (defect = 2 cm) on 03/19/23 Family History Family History Father Alcohol abuse Asthma Cancer Hypertension Diabetes mellitus Mother Hypertension Cerebrovascular accident Grandparent Cancer Heart disease Grandparent Cancer Social History Social History Smoking status: Never smoker Second hand tobacco smoke exposure: No Alcohol intake: never Substance use: current Substance use type: marijuana Last use: 2X weekly Lack of Transportation: No Lack of Food: Never True Current Housing: I Have Housing Concerned About Future Housing: No Difficulty Paying Gas/Electric Bills: No Difficulty Paying for Meds: No Currently Unemployed: No Education: High School Diploma/GED Difficulty w/ Childcare or Family Care: No Living arrangements: with family Occupation/Education: retired Gender identity (if verbalized by the patient): Male Spiritual care concerns: No Agree to blood products: Yes Meds Home Medications and Allergies Home Medications Medication Instructions Recorded Confirmed Type cholecalciferol (vitamin D3) 50 50 mcg PO DAILY 03/15/23 09/21/23 History mcg (2,000 unit) capsule multivit with minerals-iron 18 1 tablet PO DAILY 03/15/23 09/21/23 History mg-folic ac 400 mcg-vit K 25 mcg tablet (Adults Multivitamin) atorvastatin 20 mg tablet 20 mg PO DAILY 09/06/23 09/21/23 History metformin 1,000 mg tablet 1,000 mg PO DAILY 09/06/23 09/21/23 History olmesartan 40 mg tablet 40 mg PO DAILY 09/06/23 09/21/23 History pantoprazole 40 mg tablet,delayed 40 mg PO DAILY 09/06/23 09/21/23 History release vitamin B complex 1 cap PO DAILY 09/06/23 09/21/23 History Allergies Allergy/AdvReac Type Severity Reaction Status Date / Time No Known Allergies Allergy Verified 09/21/23 09:03 Vital Signs Vital Signs - 24 hr 09/21/23 09:04 Temperature 36.3 C L Pulse Rate 56 L Respiratory Rate 18 Blood Pressure 130/79 Pulse Oximetry 100 Oxygen Delivery Room Air Exam Const: General: alert Orientation/consciousness: patient oriented x3 Resp: Auscultation: clear to auscultation bilaterally Cardio: Rate: regular rate Rhythm: regular rhythm GI: GI Palp: Yes Soft to palpation and No Tenderness to palpation present (GI) Neuro: General: patient oriented x3 Assessment and Plan Assessment and plan (1) Colon cancer screening: Code(s): Z12.11 - Encounter for screening for malignant neoplasm of colon Status: Acute Assessment and Plan: Colonoscopy with possible biopsy or polypectomy or cautery or injection of substances.
[2023-09-21 10:30] VITALS: BP 94/63; PULSE 57; RESP 14; O2SAT 97
[2023-09-21 10:40] VITALS: BP 97/70; PULSE 58; RESP 16; O2SAT 98
--- NOTE | 2023-09-21 10:42 | WPDANESPN ---
Anes - Prog Note Post-Op Date/Time: 09/21/23 10:42 Cardiovascular status: normal Respiratory status: normal Airway patency: baseline Mental status: baseline Post-Op hydration status: normal Vital Signs: Last Vital Signs Temp 36.3 C L 09/21/23 09:04 Pulse 57 L 09/21/23 10:30 Resp 14 09/21/23 10:30 BP 94/63 L 09/21/23 10:30 Pulse Ox 97 09/21/23 10:30 O2 Del Method Room Air 09/21/23 10:30 Pain Score (VAS): 0/10 I/O: Intake & Output 09/20/23 09/21/23 09/21/23 23:59 07:59 15:59 Intake Total 400 Balance 400 09/21/23 09:12 POC Capillary Glucose 110 H Patient Feedback: Patient satisfied with anesthetic care.
[2023-09-21 10:50] VITALS: BP 114/72; PULSE 54; RESP 16; O2SAT 100
== END 2023-09-21 11:10 | disposition home or self-care (01) ==
PROVIDERS: PCP Family Medicine; Visit Provider Internal Medicine Gastroenterology
PROC: 0DJD8ZZ Inspection of Lower Intestinal Tract, Via Natural or Artificial Opening Endoscopic (ICD-10-PCS; CPT 45378; principal; 2023-09-21 10:30)
DX: Z12.11 Encounter for screening for malignant neoplasm of colon (principal); D12.5 Benign neoplasm of sigmoid colon; K64.4 Residual hemorrhoidal skin tags
CPT/HCPCS: 45385

== ENCOUNTER 2024-01-24 09:42 | Outpatient (CLI) | payer MEDICARE, SELFPAY ==
[2024-01-24 19:12] LABS: Alanine Aminotransferase 33 U/L (6-50); Albumin Level 3.9 g/dL (3.5-5.1); Alkaline Phosphatase 62 U/L (38-126); Aspartate Amino Transferase 84 U/L (17-59); Bilirubin,Total 0.5 mg/dL (0.2-1.3)
[2024-01-24 20:44] LABS: Hepatitis B Surface Antigen Negative (Negative)
[2024-01-24 20:50] LABS: HAV RESULT Negative (Negative); Hepatitis B Core IgM Result Negative (Negative)
[2024-01-24 21:09] LABS: Hepatitis C Virus Antibody Reactive (Negative)
[2024-01-25 00:36] LABS: Iron 103 ug/dL (49-181)
[2024-01-25 00:46] LABS: Percent Iron Saturation 36 % (20-50)
[2024-01-27 15:39] LABS: Hepatitis C RNA, Quant PCR <15 NOT DETECTED IU/mL (NOT DETECTED)
== END 2024-01-24 09:43 | disposition home or self-care (01) ==
PROVIDERS: PCP Family Medicine; Visit Provider Family Medicine
DX: R74.01 Elevation of levels of liver transaminase levels (principal); D64.9 Anemia, unspecified
CPT/HCPCS: 36415; 80074; 80076; 82728; 83540; 83550; 87522

== ENCOUNTER 2024-01-31 15:08 | Outpatient (CLI) | payer MEDICARE, SELFPAY ==
--- NOTE | ~2024-01-31 | XR_ITS ---
3 VIEWS LUMBAR SPINE Ordering provider: Heather Yeboah APRN History: . M54.50 - Low back pain, unspecified . Comparison: None. FINDINGS: VERTEBRAL BODIES: No visible fracture or subluxation. DISK SPACES: Narrowing of the disc T12-L1, L1-L2, L4-L5 and L5-S1. SOFT TISSUES: Normal. Left sacroiliitis. IMPRESSION: No acute osseous abnormality lumbar spine. Reviewed, dictated and finalized at location A.
== END 2024-01-31 15:09 | disposition home or self-care (01) ==
PROVIDERS: PCP Nurse Practitioner Adult Health; Visit Provider Nurse Practitioner Adult Health
DX: M54.50 Low back pain, unspecified (principal); E11.9 Type 2 diabetes mellitus without complications
CPT/HCPCS: 72100

== ENCOUNTER 2024-02-01 09:58 | Outpatient (CLI) | payer MEDICARE, SELFPAY ==
[2024-02-01 18:50] LABS: Cholesterol 123 mg/dL (0-200); HDL Direct 41 mg/dL; Triglycerides 68 mg/dL (<150)
[2024-02-01 19:01] LABS: LDL Cholesterol Direct 66 mg/dL
[2024-02-01 19:32] LABS: Hemoglobin A1C 6.1 % (<5.7)
== END 2024-02-01 09:59 | disposition home or self-care (01) ==
PROVIDERS: PCP Nurse Practitioner Adult Health; Visit Provider Nurse Practitioner Adult Health
DX: E11.9 Type 2 diabetes mellitus without complications (principal)
CPT/HCPCS: 36415; 80061; 83036

== ENCOUNTER 2024-04-05 09:10 | Outpatient (CLI) | payer MEDICARE, SELFPAY ==
--- NOTE | ~2024-04-05 | US_ITS ---
EXAMINATION: US soft tissue groin RT DATE: 04/05/2024 09:33 INDICATION: Other specified soft tissue disorders. Right groin lump. TECHNIQUE: Multiple grayscale and Doppler ultrasound images of the right groin were obtained. COMPARISON: CT abdomen and pelvis 03/21/2023 FINDINGS: There is prominent fat in the right inguinal canal. IMPRESSION: 1. Prominent fat in the right inguinal canal, which may be a hernia or may be the normal postoperativ e appearance after hernia surgery. Reviewed, dictated and finalized at location A. ERSHIP RECRUITER IMPRESSION: 1. Prominent fat in the right inguinal canal, which may be a hernia or may be t he normal postoperative appearance after hernia surgery.
== END 2024-04-05 09:11 | disposition home or self-care (01) ==
LOC: GOSHIMG 09:11
PROVIDERS: PCP Surgery; Visit Provider Nurse Practitioner Adult Health
DX: M79.89 Other specified soft tissue disorders (principal)
CPT/HCPCS: 76882

== ENCOUNTER 2024-05-01 10:23 | Outpatient (CLI) | payer MEDICARE, SELFPAY ==
--- NOTE | 2024-05-01 10:30 | ECG_ITS ---
Test Date: 2024-05-01 10:43:53 Measurements Intervals [place] Rate: 73 P: 53 [place]: 161 QRS: 59 QRSD: 86 T: 50 QT: 387 QTc: 428 Interpretive Statements SINUS RHYTHM WARNING: DATA QUALITY MAY AFFECT INTERPRETATION No previous ECG available for comparison Electronically Signed On 05-01-2024 12:06:30 TILE APPLICATOR by Rashaun Freeman M.D.
[2024-05-01 11:17] LABS: Anion Gap 6 mmol/L (4-12); Blood Urea Nitrogen 22 mg/dL (9-20); Calcium 9.5 mg/dL (8.4-10.2); Carbon Dioxide 30 mmol/L (22-30); Chloride 101 mmol/L (98-107); Estimated Glomerular Filt Rate 60; Glucose 118 mg/dL (65-110); Potassium 4.2 mmol/L (3.4-5.0); Sodium 137 mmol/L (137-145)
== END 2024-05-01 10:24 | disposition home or self-care (01) ==
LOC: ANHSURGERY 10:28
PROVIDERS: Anesthesiology; PCP Nurse Practitioner Adult Health; Visit Provider Surgery
DX: Z01.818 Encounter for other preprocedural examination (principal); K40.90 Unilateral inguinal hernia, without obstruction or gangrene, not specified as recurrent; E11.59 Type 2 diabetes mellitus with other circulatory complications; I15.2 Hypertension secondary to endocrine disorders
CPT/HCPCS: 36415; 80048; 86850; 86900; 86901; 93005

== ENCOUNTER 2024-05-03 00:02 | Day surgery (SDC) | payer MEDICARE, SELFPAY ==
[2024-04-24 12:03] VITALS: BMI 30.4
--- NOTE | 2024-04-27 08:37 | PC.NURSE ---
Report to the Outpatient Waiting Room, entrance under the green pavilion located off [facility], at time ___10:30____ on date ___05/13/24____. Planned Procedure Time: ____12:30pm____.? Time changes happen often and if your time is changed the preop area will call you the afternoon before. - You and your visitor will be asked to self-screen and do not enter if you have any COVID symptoms. Please call surgeon if you need to reschedule. - A mask is optional within the hospital at this time. Patients may have clear liquids (water, carbonated beverages, clear teas, apple juice) until 3 hours prior to surgery(9:30am) with a maximum of 20 ounces. - No food from midnight until time of surgery and no smoking. This includes no chewing gum, candy or mints. Take only the following medications with a SIP of water on the morning of surgery: ___none DO NOT STOP ANY OF YOUR OTHER PRESCRIPTION MEDICATIONS PRIOR TO SURGERY EXCEPT THE FOLLOWING Medications to discontinue per physician hold all vitamins/supplements 3 days pre-op per anesthesia Date to take last dose 04/29/24 Please no make-up, nail telugu, hairspray, perfume, deodorant, or body powder the day of surgery.? No jewelry (including any body piercings) or valuables the day of surgery, leave them at home.? Please take a shower or bath the night before, or the morning of, surgery with an antibacterial soap.? Wear comfortable, loose fitting clothing.? Children are encouraged to wear pajamas. - Jewelry must be removed prior to entering the operating room.? Rings and piercings that are not removed may be cut off. - The hospital will not accept responsibility for valuables.? - Please leave all valuables, including medications, at home the day of surgery. If you are going home after surgery, a licensed bellman driver must drive you home.? - NO public transportation without another adult if you receive anesthesia. - We recommend that an adult stay with you for 24 hours following discharge. - We also recommend that you do not drive, make important decision, drink alcoholic beverages, or take any drugs that were not prescribed by your health care provider for at least 24 hours after your discharge time. Follow any additional instructions given to you from your surgeon. Telephone instructions given to ___patient and asked if any additional questions and then verbalized understanding. Patient advised to call surgeon office or pre surgery nurse liaison [phone] if any additional questions.
[2024-05-03] VITALS (9 sets, daily range): BP systolic 106–125; BP diastolic 53–77; PULSE 60–72; RESP 14–20; TEMP 36.2–36.3; O2SAT 92–100
[2024-05-03] MEDS: ACETAMINOPHEN 500 MG TABLET 1000 MG PO (11:00)
[2024-05-03] MEDS: LACTATED RINGERS 1,000 ML 30 ML IV CONT ×2 (11:10→14:44)
[2024-05-03] MEDS: KETOROLAC 15 MG/ML VIAL (*BKC) IV PUSH ×2 (11:12→14:18)
[2024-05-03 11:15] LABS: Glucose Point of Care 88 mg/dl (65-105)
--- NOTE | 2024-05-03 11:36 | P.PNAN_ITS ---
Anes - Initial Pre Proc Eval Procedure: Operation Date: 05/03/24 12:30 Proposed Procedures p Robotic Assisted Laparoscopic Right Inguinal Hernia Repair with Mesh - Jeffry Burton MD Date/Time: 05/03/24 11:36 Surgeon: Jeffry Burton MD Pre Op Diagnosis: Reducible Rt Ing Hernia Patient Data Age: 69 Gender: M Height: 1.73 m Weight: 91 kg Allergies Allergy/AdvReac Type Severity Reaction Status Date / Time No Known Allergies Allergy Verified 05/03/24 10:51 Home Medications ?Medication ?Instructions ?Recorded ?Confirmed ?Type cholecalciferol (vitamin D3) 50 50 mcg PO DAILY 03/15/23 05/03/24 History mcg (2,000 unit) capsule multivit with minerals-iron 18 1 tablet PO DAILY 03/15/23 05/03/24 History mg-folic ac 400 mcg-vit K 25 mcg tablet (Adults Multivitamin) vitamin B complex 1 cap PO DAILY 09/06/23 05/03/24 History atorvastatin 20 mg tablet 20 mg PO DAILY #90 tabs 11/22/23 05/03/24 Rx olmesartan 40 mg tablet 40 mg PO DAILY #90 tabs 11/22/23 05/03/24 Rx metformin 1,000 mg tablet See Rx Instructions .Route 12/02/23 05/03/24 Rx .COMPLEX #180 tabs pantoprazole 40 mg tablet,delayed See Rx Instructions .Route 01/18/24 05/03/24 Rx release .COMPLEX #90 tabs ciprofloxacin HCl 500 mg tablet 500 mg PO BID 04/24/24 05/03/24 History Laboratory Tests 05/03/24 11:10 POC Capillary Glucose 88 mg/dl (65-105) Patient hx anesthesia problems: none Family hx anesthesia problems: none Results Review: All pre-operative results and documents have been reviewed as part of the pre- operative evaluation. [facility] Past Medical History Medical History Hypertension GERD (gastroesophageal reflux disease) Hepatitis C Diabetes Type 2 Surgical History Surgical History History of ventral hernia repair Robotic assisted laparoscopic reducible ventral hernia repair with transabdominal pre-peritoneal placement (DYLAN) of Bard Soft Mesh (defect = 2 cm) on 11/3/23 History of hernia surgery 1984 History of rotator cuff surgery Both R and L shoulders in 2012 and 2016 History of appendectomy 1979 Family History Family History Father Alcohol abuse Asthma Cancer Hypertension Diabetes mellitus Mother Hypertension Cerebrovascular accident Grandparent Cancer Heart disease Grandparent Cancer Social History Social History Smoking status: Never smoker Second hand tobacco smoke exposure: No Alcohol intake: never Substance use: current Substance use type: marijuana Last use: 2X weekly Lack of Transportation: No Lack of Food: Never True Current Housing: I Have Housing Concerned About Future Housing: No Difficulty Paying Gas/Electric Bills: No Difficulty Paying for Meds: No Currently Unemployed: No Education: High School Diploma/GED Difficulty w/ Childcare or Family Care: No Living arrangements: with family Occupation/Education: retired Gender identity (if verbalized by the patient): Male Spiritual care concerns: No Agree to blood products: Yes Anes - Eval Final PreProcedure Day of Procedure 05/03/24 11:36 Patient weight: obese Heart: regular rate and rhythm Lungs: clear to auscultation Airway: Mallampati scale class II Neurological: alert and oriented Last oral intake: >/= 8 hours ASA classification: III Emergent: no Anesthetic plan: proceed Anesthesia type and monitoring: general ETT and standard monitoring Results Review: All pre-operative results and documents have been reviewed as part of the pre- operative evaluation. Informed Consent: The patient's anesthetic plan and its attendant risks and benefits were discussed with the patient/family/POA. Questions were solicited and answers provided to the satisfaction of the patient/family/POA.
--- NOTE | 2024-05-03 11:37 | WPDHPUPDATE1 ---
History and Physical Update Update Date/Time: 05/03/24 11:37 History and Physical has been reviewed, including an updated exam of the patient. There are NO changes in the patient's condition. Risks, benefits, and alternatives have been discussed and questions answered. Patient agrees to proceed with procedure.
[2024-05-03] MEDS: ceFAZolin 2 GM/D5W 50 ML 2 GM/50 ML BAG IVPB (11:51)
[2024-05-03] MEDS: BUPivacaine HCL 0.5% PF 30 ML VIAL INFILTRATE (12:14)
[2024-05-03] MEDS: LIDO 1%/EPINEPHRINE 1:100,000 20 ML VIAL 30 ML INFILTRATE (12:15)
[2024-05-03] MEDS: oxyCODONE HCL (*CRX) 5 MG TAB IR PO (16:13)
[2024-05-03 16:20] LABS: Glucose Point of Care 67 mg/dl (65-105)
[2024-05-03 16:20] LABS: Glucose Point of Care 102 mg/dl (65-105)
--- NOTE | 2024-05-03 16:46 | W.PM.PROC2 ---
Procedure Note - Detailed Date of Procedure 05/03/24 Pre-op Diagnosis Reducible Rt Ing Hernia Post-op Diagnosis Other (Incarcerated indirect right inguinal hernia) Procedure Performed robotic assisted laparoscopic incarcerated right inguinal hernia repair with Bard 3D mid weight mesh. Surgeon Jeffry Burton MD Item Repair Manager ALBER Roberts Anesthesia General Indications Patient is a 69-year-old gentleman presented with complaints of having a bulge in his right groin region. On examination he was found have a moderate size reducible right inguinal hernia. He presents now for a robotic assisted laparoscopic right inguinal hernia repair with mesh. Findings The patient had an indirect right inguinal hernia defect. It was rather large. There was a large hernia sac which protruded into the right inguinal canal. Within the hernia sac was incarcerated adherent cecum which was not constricted to cause a bowel obstruction. There also adhesions of the omentum to the right lower quadrant abdominal wall as well as adhesions of the proximal ascending colon to the abdominal wall which had to be dissected free to get to the right groin. A [id number] extra-large Bard 3D mid weight mesh was used for the repair. Description of Procedure After informed consent was obtained patient brought to the operating room where he was placed supine position and general endotracheal anesthesia was administered. The abdomen and bilateral groin regions were then prepped and draped usual sterile fashion. A time-out was then performed correctly identifying the patient as well as procedure to be performed. Site marking was verified. He was given perioperative IV antibiotics. I then entered the left upper quadrant the abdomen utilizing a 5mm Optiview port. Once inside the abdomen insufflated to adequate pneumoperitoneum of 15mmHg of CO2. There were few adhesions of the omentum to the periumbilical region where there was a piece of old mesh from a prior hernia repair of the abdominal wall. I placed additional robotic trocar ports across the mid abdomen and then proceeded to divide these adhesions with laparoscopic hook cautery so that I could see the right lower quadrant of the abdomen. In the right lower quadrant the abdomen there were adhesions of the omentum to the anterior abdominal wall into the lateral abdominal wall as well as some adhesions of the proximal ascending colon to that area. I could also see that there was a indirect right inguinal hernia defect which was rather large and a portion of the cecum was incarcerated in the hernia sac although was not causing a bowel obstruction. The cecum could be partially reduced but was still adherent to the hernia sac. I then proceeded to bring the App[employer] robot to the patient's bedside and docked and attaching the robotic arms to the robotic ports. Robotic instruments were then advanced into the abdomen under direct visualization. Then switched out the mm bedside trocar system port to a 10mm trocar port. I scrubbed out the procedure sent down the robotic console to perform the dissection robotically. Utilizing hook cautery and a Cadiere grasper I very carefully performed adhesiolysis of the omentum and proximal ascending colon off of the right lower quadrant abdominal wall. This then allowed me to further visualize the anatomy and felt to be best to try to dissect in a pre transversalis plane laterally due to the stripping of the peritoneum with the adhesiolysis of the proximal ascending colon off the abdominal wall. I then started flap laterally just medial to the anterior suprailiac spine on the right side. It was carried across the lower abdominal wall past the midline actually to the left median umbilical ligament. I dissected in the midline taking down the bladder and continued dissection down to the pubic symphysis and the right pubic tubercle. Laterally I then entered the pre transversalis plane dissected this flap medially until I got to the cord structures and internal ring were I then transitioned into a preperitoneal flap. I was then able to dissect to the large indirect inguinal hernia sac out of the dilated internal ring. The cecum which was adherent to the hernia sac was reduced out of the internal ring and inguinal canal. I then continued dissection of the transversalis fascia and peritoneal flap proximally up onto the psoas muscle. The vas deferens and testicular vessels were identified preserved without injury. The flap was dissected back proximally so that after placement of the mesh the edge of the mesh were not roll up with closure of the flap. I then measured the space and confirmed that a piece of Bard 3D mid weight mesh measuring [id number] would be appropriate for the repair. The mesh was placed into the abdomen through the bedside university administrative assistant port site and then spread out over the floor of the pelvis to cover the internal ring and indirect space as well as the intact direct space and the femoral space. The mesh was then secured to the tissues at the pubic tubercle with interrupted 2-0 Vicryl sutures. Laterally the mesh was secured to the muscle medial and anterior to the right anterior suprailiac spine. Additional suture was placed at the area the potential direct space. The mesh laid out very nicely and was secured in place without any tension. I then made sure all the area was hemostatic. I then proceeded to close the peritoneal flap utilizing a running 2-0 absorbable V lock suture. Once the flap was completely closed a couple small holes within the peritoneal flap was then closed utilizing interrupted 2-0 Vicryl sutures. At this point the mesh was completely excluded from the intra-abdominal viscera. I then proceeded to scrub back in the procedure and had the de Damaso robot and instruments undocked from the patient's bedside. Under direct visualization I then had all the instruments and robotic ports removed from the abdomen. The periumbilical trocar port fascial defect was closed utilizing a 0 Prolene suture due to having placed the port through the area the mesh. The left upper quadrant 10mm trocar port fascial defect was closed utilizing a 0 Vicryl suture. All the incisions were then cleaned and then closed with a running subcuticular 4 Monocryl suture at the skin level. Skin glue was then applied all the incisions. The patient tolerated the procedure well no complications. All sponges, needles, and instrument counts were correct at the end procedure. EBL was _20__cc. The patient was awakened and taken to recovery in stable and satisfactory condition. Implants extra-large Bard 3D mid weight mesh measuring [id number] oriented for right groin region. Estimated Blood Loss 20 Drains No Packing No Pathology None sent Complications No immediate complications Condition Stable Disposition PACU [facility] Billing Surgery - Charge Forward: Surgery Billing
== END 2024-05-03 17:11 | disposition home or self-care (01) ==
PROVIDERS: PCP Nurse Practitioner Adult Health; Visit Provider Surgery
PROC: 8E0Y4CZ Robotic Assisted Procedure of Lower Extremity, Percutaneous Endoscopic Approach (ICD-10-PCS; CPT 49650; principal; 2024-05-03 12:30)
DX: K40.30 Unilateral inguinal hernia, with obstruction, without gangrene, not specified as recurrent (principal); E11.9 Type 2 diabetes mellitus without complications; I10 Essential (primary) hypertension; Z79.84 Long term (current) use of oral hypoglycemic drugs; F12.90 Cannabis use, unspecified, uncomplicated; E66.9 Obesity, unspecified; Z68.31 Body mass index [BMI] 31.0-31.9, adult
CPT/HCPCS: 49650; S2900; 82948; A9270; C1781; J0690; J1885; J2003; J2004; J2250; J2371; J2405; J2704; J3010; J7030; J7120

== ENCOUNTER 2024-06-06 12:18 | Outpatient (CLI) | payer MEDICARE, SELFPAY ==
--- NOTE | ~2024-06-06 | MR_ITS ---
MRI of the lumbar spine Clinical History: Back pain Technique: Axial T2-weighted images, and sagittal T1-weighted, T2-weighted, and T2 fat-sat images wer e acquired. Findings: There is no fracture or subluxation of the lumbar spine. Vertebral bodies maintain normal h eight and alignment. There are mild reactive bony changes about the L4-L5 disc space. No suspicious b one marrow signal abnormalities seen. At L1-L2, L2-L3, L3-L4, there is no significant disc bulge or herniation. There are mild facet joint degenerative changes at these levels. No spinal canal stenosis or neural foraminal narrowing at these levels. At L4-L5, there is severe degenerative disc narrowing. There is diffuse disc bulge with possible supe rimposed left paracentral protrusion, with severe facet arthropathy. There is mild central canal sten osis/thecal sac compression with left lateral recess stenosis. There is moderate to advanced left kailee ral foraminal narrowing. Right neural foramen preserved. At L5-S1, there is minimal disc bulge with moderate facet arthropathy. No central canal stenosis or n eural foraminal narrowing. Paravertebral soft tissues are unremarkable. Impression: Advanced degenerative spondylosis at L4-L5 level, as detailed above. Mild degenerative changes otherwise. Reviewed, dictated and finalized at location . [employer] Impression: Advanced degenerative spondylosis at L4-L5 level, as detailed above. Mild degenerative changes otherwise.
== END 2024-06-06 12:19 | disposition home or self-care (01) ==
PROVIDERS: PCP Anesthesiology Pain Medicine; Visit Provider Anesthesiology Pain Medicine
DX: M47.817 Spondylosis without myelopathy or radiculopathy, lumbosacral region (principal); M54.50 Low back pain, unspecified; G89.29 Other chronic pain
CPT/HCPCS: 72148

== ENCOUNTER 2024-07-18 07:05 | Day surgery (SDC) | payer MEDICARE, SELFPAY ==
[2024-06-28 14:31] VITALS: BMI 29.8
--- NOTE | 2024-07-18 07:50 | PM.HPGS ---
History of Present Illness History of Present Illness Consent: Risks, benefits, and alternatives have been discussed and questions answered. Patient agrees to proceed with procedure. Chief complaint: Lumbosacral spondylosis, chronic low back pain Narrative: Aquilino Esparza is a 69 year old male with chronic, recalcitrant and disabling bilateral lumbosacral back pain secondary to degenerative spondylosis with failure to respond to aggressive conservative measures including PT, oral and topical analgesics, opioid and nonopioid analgesics, rest, time and activity/behavioral modification over the past 1-2 years who presents for diagnostic/prognostic medial branch blocks of the bilateral L3, L4, L5 medial branches/dorsal ramus(#1) addressing the ipsilateral L4-5, L5-S1 facet joints under fluoroscopic guidance and with contrast control. Review of Systems Review of Systems: Patient denies any new infectious, allergic, cardiopulmonary, neurologic or constitutional symptoms or changes in activity tolerance or exercise capacity including new or progressive SOB/PICHARDO, peripheral edema, productive cough, dysuria, nausea/vomiting, diarrhea, weight change, fevers/chills/night sweats, new or progressive neurologic deficit, cognitive or mood changes since last seen, except as documented in the HPI. All systems reviewed & are unremarkable except as noted in HPI and below PMFSH Past Medical History Medical History (Updated 05/29/24 @ 13:44 by Jose Randhawa MD) Sacroiliitis Hypertension GERD (gastroesophageal reflux disease) Hepatitis C Diabetes Type 2 Surgical History Surgical History H/O inguinal hernia repair 05/03/24 robotic assisted laparoscopic incarcerated right inguinal hernia repair with Bard 3D mid weight mesh Dr. Burton History of ventral hernia repair Robotic assisted laparoscopic reducible ventral hernia repair with transabdominal pre-peritoneal placement (DYLAN) of Bard Soft Mesh (defect = 2 cm) on 03/19/23 History of hernia surgery 1983 History of rotator cuff surgery Both R and L shoulders in 2011 and 2016 History of appendectomy 1978 Family History Family History Father Alcohol abuse Asthma Cancer Hypertension Diabetes mellitus Mother Hypertension Cerebrovascular accident Grandparent Cancer Heart disease Grandparent Cancer Social History Social History Smoking status: Never smoker Second hand tobacco smoke exposure: No Alcohol intake: never Substance use: never Substance use type: does not use Last use: 2X weekly Lack of Transportation: No Lack of Food: Never True Current Housing: I Have Housing Concerned About Future Housing: No Difficulty Paying Gas/Electric Bills: No Difficulty Paying for Meds: No Currently Unemployed: No Education: High School Diploma/GED Difficulty w/ Childcare or Family Care: No Living arrangements: with family Additional living arrangements comments: Occupation/Education: retired Gender identity (if verbalized by the patient): Male Spiritual care concerns: No Agree to blood products: Yes Meds Home Medications and Allergies Home Medications ?Medication ?Instructions ?Recorded ?Confirmed ?Type cholecalciferol (vitamin D3) 50 50 mcg PO DAILY 03/15/23 07/18/24 History mcg (2,000 unit) capsule multivit with minerals-iron 18 1 tablet PO DAILY 03/15/23 07/18/24 History mg-folic ac 400 mcg-vit K 25 mcg tablet (Adults Multivitamin) vitamin B complex 1 cap PO DAILY 09/06/23 07/18/24 History atorvastatin 20 mg tablet 20 mg PO DAILY #90 tabs 11/22/23 07/18/24 Rx olmesartan 40 mg tablet 40 mg PO DAILY #90 tabs 11/22/23 07/18/24 Rx metformin 1,000 mg tablet See Rx Instructions .Route 12/02/23 07/18/24 Rx .COMPLEX #180 tabs pantoprazole 40 mg tablet,delayed See Rx Instructions .Route 01/18/24 07/18/24 Rx release .COMPLEX #90 tabs Allergies Allergy/AdvReac Type Severity Reaction Status Date / Time No Known Allergies Allergy Verified 07/18/24 07:42 Exam Narrative: The patient's physical exam is essentially unchanged from prior examination on 05/29/2024. Specifically, patient demonstrates normal lung capacity, tidal volume and respiratory rate without wheezes, crackles, rales or rubs. Heart rate and rhythm are regular without murmurs, gallops or rubs. No JVD. Pulses 2+ globally without increasing peripheral edema. AAOx3 with no evidence of confusion, intoxication or altered mental state, NC/AT without acute distress or altered consciousness. Speech, cognition, mood, insight and judgment at baseline and within normal limits. Assessment and Plan Assessment and plan (1) Lumbosacral spondylosis without myelopathy: Code(s): M47.817 - Spondylosis without myelopathy or radiculopathy, lumbosacral region Status: Acute Assessment and Plan: Proceed as planned with diagnostic/prognostic medial branch blocks of the bilateral L3, L4, L5 medial branches/dorsal ramus(#1) addressing the ipsilateral L4-5, L5-S1 facet joints under fluoroscopic guidance and with contrast control. (2) Chronic low back pain: Code(s): M54.50 - Low back pain, unspecified; G89.29 - Other chronic pain Status: Acute
--- NOTE | 2024-07-18 07:52 | WPDHPUPDATE1 ---
History and Physical Update Update Date/Time: 07/18/24 07:52 History and Physical has been reviewed, including an updated exam of the patient. There are NO changes in the patient's condition. Risks, benefits, and alternatives have been discussed and questions answered. Patient agrees to proceed with procedure.
--- NOTE | 2024-07-18 07:52 | W.PM.PROC2 ---
Procedure Note - Detailed Date of Procedure 07/18/24 Pre-op Diagnosis Lumbosacral spondylosis, chronic low back pain Post-op Diagnosis Same Procedure Performed Diagnostic bilateral Lumbar Medial Branch/Dorsal Ramus Blocks at L3, L4, L5 Treating the bilateral L4-5, L5-S1 Facet Joints Under Fluoroscopic Guidance and with Contrast Control. (4 levels blocked). Surgeon Jose Randhawa MD Pattern Grader None. Anesthesia Local Description of Procedure INFORMED CONSENT: Risks, benefits and alternatives to the procedure were discussed in detail with the patient who expressed explicit understanding and consent to proceed. Patient was informed verbally and in written form regarding the risks associated with the procedure including the low risk of serious infection, bleeding/bruising, allergic reaction, nerve or organ injury, paralysis, procedural site pain or discomfort, worsening pain and/or mobility, failure to treat and/or disfigurement. The patient expressed explicit understanding and consent to proceed. All materials required for the procedure were available prior to procedure start. Site and side were marked prior to procedure and confirmed in the presence of the patient. PROCEDURE IN DETAIL: The patient was brought to the procedural suite and placed in the prone position. Patient was made comfortable with use of pillows under the head/chest, hips and ankles. Skin overlying the injection site on the affected side(s) was prepared broadly with ChloraPrep applicator and draped in a sterile manner. Aseptic technique was used throughout. The endplates of the vertebral bodies at the site(s) of interest were aligned in the AP view. Ipsilateral oblique angulation was utilized to optimize visualization of the intersection between the superior articulating process and transverse process at each target site. Local anesthesia was established by infiltration with approximately 5 mL of 1% lidocaine via a 1-1/2 inch 27-gauge needle. A 25-gauge 5.0 inch Quincke spinal needle was advanced until the needle tip contacted periosteum at the target site, right L3. Lateral view was utilized to confirm the appropriate placement of the needle tip just anterior to the facet line and superior to the pedicle. In the Lateral view, 0.25 mL of Omnipaque 300 contrast medium was injected after negative aspiration for CSF, blood or other bodily fluid, showing appropriate extra-articular spread of contrast without evidence of intravascular, foraminal or intrathecal placement. A 0.5 mL solution of 0.5% PF bupivacaine was injected after negative repeat aspiration. Appropriate spread of the injectate was confirmed with washout of previously injected contrast. No parasthesias were elicited. Needle was removed completely intact without difficulty. The same exact procedure was repeated for all remaining levels on the ipsilateral side, right L4, L5 medial branches/dorsal ramus, modified as necessary to accommodate for the new target location with identical findings and results and no evidence of complication. The same exact procedure was repeated for all remaining levels on the contralateral side, left L3, L4, L5 medial branches/dorsal ramus, modified as necessary to accommodate for the new target location with identical findings and results and no evidence of complication. Images were saved and documented in the patient chart. Patient's skin was cleaned and sterile bandage applied. The patient tolerated the procedure well. The patient was transported to the recovery area in stable condition where they were observed for an appropriate amount of time prior to discharge, without evidence of complication. Patient was instructed on the appropriate completion of a pain diary over the next 12-24 hours. The patient was instructed to avoid excessive activity for the next 48 hours, including climbing and frequent use of stairs. Showers only for 48 hours. They were instructed not to drive or operate heavy machinery for 24 hours. They are to monitor for severe headaches, fevers, chills, night sweats, erythema/swelling at the site or any other signs of infection, bleeding/bruising, bowel or bladder changes as well as new pain, weakness or numbness in the upper or lower extremity. Should they notice these changes, they are instructed to call our office immediately or report directly to the nearest Emergency Department if no answer or if after posted office hours. COMPLICATIONS: None COMMENTS: None CONTRAST WASTED: 28.5mL Omnipaque 300. Complications No immediate complications Condition Stable Disposition Same day [facility] Billing Surgery - Charge Forward: Surgery Billing
[2024-07-18 07:53] VITALS: BMI 30.5
[2024-07-18 07:54] VITALS: BP 111/83; PULSE 60; RESP 20; TEMP 36.3; O2SAT 97
[2024-07-18 08:22] VITALS: BP 114/59; PULSE 58; RESP 16; O2SAT 95
[2024-07-18 08:27] VITALS: BP 119/69; PULSE 63; RESP 12; O2SAT 97
[2024-07-18 08:33] VITALS: BP 131/74; PULSE 63; RESP 12; O2SAT 97
[2024-07-18] MEDS: LIDOCAINE 1% PF INJ 5 ML VIAL XX (08:34)
[2024-07-18] MEDS: BUPivacaine HCL 0.5% 10 ML AMP INFILTRATE (08:35)
[2024-07-18 08:40] VITALS: BP 109/77; PULSE 58; RESP 18; O2SAT 96
== END 2024-07-18 08:52 | disposition home or self-care (01) ==
PROVIDERS: PCP Nurse Practitioner Adult Health; Visit Provider Anesthesiology Pain Medicine
PROC: (CPT 64493; principal; 2024-07-18 08:30)
DX: M47.817 Spondylosis without myelopathy or radiculopathy, lumbosacral region (principal); M54.50 Low back pain, unspecified; G89.29 Other chronic pain
CPT/HCPCS: 64493; 64494 ×2; 64495 ×2; 99199

== ENCOUNTER 2024-08-01 11:03 | Outpatient (CLI) | payer MEDICARE, SELFPAY ==
--- OUTSIDE RECORDS SUMMARY | 2024-08-01 12:42 | XMS_ITS | Encounter Summary ---
Author Organization [facility] [place] Address [address] [place] [address] Care Team Providers Care Jackspooler Name Role Phone Unavailable Primary Care Provider Unavailabl e Prior Encounters Date Type Department Care Team Description 02/04/2022 8:30 AM CDT Office Visit [facility] [address] [place] [phone] Rhea Meyer DDS 12/13/2021 11:00 AM CDT Office Visit [facility] [address] [place] [address] [place] [phone] Rhea Meyer DDS 12/12/2021 9:15 AM CDT Office Visit [facility] [address] [place] [phone] Rhea Meyer DDS 12/12/2021 9:00 AM CDT Office Visit [facility] [address] [place], [place] [address] [phone] 09/18/2021 11:00 AM CDT Office Visit [facility] [address] [place] [address] [place] [phone] 06/05/2019 Converted CPS Chart Documents [facility] [address] [place] [phone] <No scans attached> 06/05/2019 Converted 13x Documents [facility] [address], [place] [address] <No scans attached> Last Filed Vital Signs Vital Sign Reading Time Taken Comments Blood Pressure 115/67 12/13/2021 11:31 AM CDT Pulse 69 12/13/2021 11:31 AM CDT Temperature - - Respiratory Rate - - Oxygen Saturation - - Inhaled Oxygen Concentration - - Weight - - Height - - Body Mass Index - - Plan of Treatment Not on file Procedures Procedure Name Priority Date/Time Associated Diagnosis Comments 31 CEMENT CROWN Routine 02/04/2022 8:30 AM CDT NC X-RAY Routine 02/04/2022 8:30 AM CDT NC X-RAY Routine 02/04/2022 8:30 AM CDT 18 CEMENT CROWN Routine 02/04/2022 8:30 AM CDT 31 CORE BUILDUP, INCLUDING ANY PINS WHEN REQUIRED Routine 12/13/2021 11:00 AM CDT 31 [facility] MADE CROWN POST Routine 12/13/2021 11:00 AM CDT 18 CORE BUILDUP, INCLUDING ANY PINS WHEN REQUIRED Routine 12/13/2021 11:00 AM CDT 18 [facility] MADE CROWN POST Routine 12/13/2021 11:00 AM CDT PERIODIC ORAL EVALUATION - ESTABLISHED PATIENT Routine 12/12/2021 9:15 AM CDT ORAL HYGIENE INSTRUCTIONS Routine 2021 9:00 AM CDT TOPICAL APPLICATION OF FLUORIDE VARNISH Routine 12/12/2021 9:00 AM CDT PERIO MAINTENANCE Routine 12/12/2021 9:0 0 AM CDT RADHA DECON Routine 12/12/2021 9:00 AM CDT ORAL HYGIENE INSTRUCTIONS Routine 2021 11:00 AM CDT RADHA DECON Routine 09/18/2021 11:00 AM CDT PERIO MAINTENANCE Routine 09/18/2021 11: 00 AM CDT PERIODIC ORAL EVALUATION - ESTABLISHED PATIENT Routine 06/11/2021 2:00 AM MANAGER OFFICE SERVICES PERIO MAINTENANCE Routine 06/11/2021 2:0 0 AM MANAGER OFFICE SERVICES ORAL HYGIENE INSTRUCTIONS Routine 2021 2:00 AM MANAGER OFFICE SERVICES 1 RADHA DECON Routine 06/11/2021 2:00 AM MANAGER OFFICE SERVICES CANCELLED APPOINTMENT Routine 05/30/2021 2:00 AM MANAGER OFFICE SERVICES 19 LIMITED ORAL EVALUATION - PROBLEM FOCUSED Routine 04/16/2021 2:00 AM MANAGER OFFICE SERVICES ADDITIONAL X-RAY Routine 04/16/2021 2:00 AM MANAGER OFFICE SERVICES SINGLE X-RAY Routine 04/16/2021 2:00 AM MANAGER OFFICE SERVICES INTRAORAL PHOTO Routine 04/16/2021 2:00 AM MANAGER OFFICE SERVICES PERIODIC ORAL EVALUATION - ESTABLISHED PATIENT Routine 02/12/2021 2:00 AM CDT PERIO MAINTENANCE Routine 02/10/2021 2:0 0 AM CDT ORAL HYGIENE INSTRUCTIONS Routine 2020 2:00 AM CDT 1 RADHA DECON Routine 02/10/2021 2:00 AM CDT PERIO MAINTENANCE Routine 11/05/2020 2:0 0 AM CDT ORAL HYGIENE INSTRUCTIONS Routine 2020 2:00 AM CDT 1 RADHA DECON Routine 11/05/2020 2:00 AM CDT ORAL HYGIENE INSTRUCTIONS Routine 2020 2:00 AM MANAGER OFFICE SERVICES LL RADHA DECON/QD Routine 07/22/2020 2:00 AM MANAGER OFFICE SERVICES LL PERIODONTAL SCALING AND ROOT PLANING - ONE TO THREE TEETH PER QUADRANT Routine 07/22/2020 2:00 AM MANAGER OFFICE SERVICES LL ANTIBACT IRR/QUAD Routine 07/22/2020 2:00 AM MANAGER OFFICE SERVICES PERIODIC ORAL EVALUATION - ESTABLISHED PATIENT Routine 06/26/2020 2:00 AM MANAGER OFFICE SERVICES ORAL HYGIENE INSTRUCTIONS Routine 2020 2:00 AM MANAGER OFFICE SERVICES LR RADHA DECON/QD Routine 06/26/2020 2:00 AM MANAGER OFFICE SERVICES UR RADHA DECON/QD Routine 06/26/2020 2:00 AM MANAGER OFFICE SERVICES UR PERIODONTAL SCALING AND ROOT PLANING - ONE TO THREE TEETH PER QUADRANT Routine 06/26/2020 2:00 AM MANAGER OFFICE SERVICES LR PERIODONTAL SCALING AND ROOT PLANING - ONE TO THREE TEETH PER QUADRANT Routine 06/26/2020 2:00 AM MANAGER OFFICE SERVICES UR ANTIBACT IRR/QUAD Routine 06/26/2020 2:00 AM MANAGER OFFICE SERVICES LR ANTIBACT IRR/QUAD Routine 06/26/2020 2:00 AM MANAGER OFFICE SERVICES CHLORHEXIDINE Routine 06/26/2020 2:00 AM MANAGER OFFICE SERVICES INTRAORAL - COMPREHENSIVE SERIES OF RADIOGRAPHIC IMAGES Routine 06/26/2020 2:00 AM MANAGER OFFICE SERVICES INTRAORAL PHOTO Routine 06/26/2020 2:00 AM MANAGER OFFICE SERVICES INTRAORAL PHOTO Routine 06/26/2020 2:00 AM MANAGER OFFICE SERVICES INTRAORAL PHOTO Routine 06/26/2020 2:00 AM MANAGER OFFICE SERVICES INTRAORAL PHOTO Routine 06/26/2020 2:00 AM MANAGER OFFICE SERVICES INTRAORAL PHOTO Routine 06/26/2020 2:00 AM MANAGER OFFICE SERVICES INTRAORAL PHOTO Routine 06/26/2020 2:00 AM MANAGER OFFICE SERVICES INTRAORAL PHOTO Routine 06/26/2020 2:00 AM MANAGER OFFICE SERVICES INTRAORAL PHOTO Routine 06/26/2020 2:00 AM MANAGER OFFICE SERVICES CANCELLED APPOINTMENT Routine 02/24/2020 2:00 AM CDT MISSED APPOINTMENT Routine 02/13/2020 2: 00 AM CDT PERIO CONSULT Routine 02/12/2020 2:00 AM CDT CANCELLED APPOINTMENT Routine 12/25/2019 2:00 AM CDT PERIODIC ORAL EVALUATION - ESTABLISHED PATIENT Routine 06/22/2019 2:00 AM MANAGER OFFICE SERVICES ORAL HYGIENE INSTRUCTIONS Routine 2019 2:00 AM MANAGER OFFICE SERVICES PROPHYLAXIS - ADULT Routine 06/22/2019 2 :00 AM MANAGER OFFICE SERVICES 13 DO AMALGAM 2 SURFACE Routine 11/12/19 19 2:00 AM CDT 31 O AMALGAM 1 SURFACE Routine 9 2:00 AM CDT 12 O AMALGAM 1 SURFACE Routine 9 2:00 AM CDT 4 O AMALGAM 1 SURFACE Routine 11/11/2018 2:00 AM CDT 29 ENDODONTIC THERAPY, MOLAR TOOTH (EXCLUDING FINAL SCIENTOLOGIST) Routine 11/11/2018 2:00 AM CDT 14 ENDODONTIC THERAPY, MOLAR TOOTH (EXCLUDING FINAL SCIENTOLOGIST) Routine 11/11/2018 2:00 AM CDT 14 CROWN PFG POST Routine 11/11/2018 2:0 0 AM CDT 30 CROWN PFM POST Routine 11/11/2018 2:0 0 AM CDT 19 CROWN PFM POST Routine 11/11/2018 2:0 0 AM CDT 3 CROWN PFM POST Routine 11/11/2018 2:00 AM CDT COMPREHENSIVE ORAL EVALUATION - NEW OR ESTABLISHED PATIENT Routine 11/11/2018 2:00 AM CDT ORAL HYGIENE INSTRUCTIONS Routine 2018 2:00 AM CDT PROPHYLAXIS - ADULT Routine 11/11/2018 2 :00 AM CDT PANORAMIC RADIOGRAPHIC IMAGE Routine 11/11/2018 2:00 AM CDT INTRAORAL - COMPREHENSIVE SERIES OF RADIOGRAPHIC IMAGES Routine 11/11/2018 2:00 AM CDT INTRAORAL PHOTO Routine 11/11/2018 2:00 AM CDT INTRAORAL PHOTO Routine 11/11/2018 2:00 AM CDT INTRAORAL PHOTO Routine 11/11/2018 2:00 AM CDT INTRAORAL PHOTO Routine 11/11/2018 2:00 AM CDT 2 MOD COMPOSITE FILLING Routine 11/12/19 19 2:00 AM CDT 20 O COMPOSITE FILLING Routine 9 2:00 AM CDT 18 O COMPOSITE FILLING Routine 9 2:00 AM CDT 15 O COMPOSITE FILLING Routine 9 2:00 AM CDT Visit Diagnoses Not on file Insurance [address] [place], [place] [address]O
--- OUTSIDE RECORDS SUMMARY | 2024-08-01 12:42 | XMS_ITS | Data Portability ---
Author Organization [facility], Main Office Address [address] [address] Assessment Encounter Date Assessment Date Assessment LastModified by Organization Details LastModified Time 08/12/2017 08/12/2017 Pending labs for chronic medical conditions. Not available 08/12/2017 19:12:12 Plan of Treatment Reminders Order Date Submit Date Provider Last Modified By Organization Details Last Modified Time Details Appointments None recorded. Lab uric acid, serum or plasma 2019 020 [facility], [address], [address], 0 05:02:26 urinalysis complete, reflex culture 2019 020 [facility], [address] [address], [place], [address], 0 05:02:26 CBC w/ auto diff 2019 020 [facility], [address] [address], [place], [address], 0 05:02:26 lipid panel, serum 2019 020 [facility], [address] [address], [place], [address], 0 05:02:26 CMP, serum or plasma 2019 020 [facility], [address] [facility] [address], [place], [address], 0 05:02:26 microalbum in, urine 2019 020 [facility], [address], [place], [address], 0 05:02:26 HbA1c (hemoglobi n A1c), blood 2019 020 [facility], [address], [place], [address], 0 05:02:26 uric acid, serum or plasma 2018 019 [facility], [address], [place], [address], 0 05:02:57 CMP, serum or plasma 2018 019 [facility], [address] [facility] [address], [place], [address], 0 05:02:57 lipid panel, serum 2018 019 [facility], [address], [place], [address], 0 05:02:57 CBC w/ auto diff 2018 019 [facility], [address] [facility] [address], [place], [address], 0 05:02:57 glucose, fingerstic k, blood 2018 019 [email or web address] Main Office, [address] [facility], [address], [place], [address], 9 12:11:10 HbA1c (hemoglobi n A1c), blood 2018 019 [facility], [address], [place], [address], 0 05:02:57 microalbum in, urine 2018 019 [facility], [address], [place], [address], 0 05:02:57 uric acid, serum or plasma 2018 019 [facility], [address] [facility] [address], [place], [address], 9 05:02:28 urinalysis complete, reflex culture 2018 019 [facility], [facility] [address] [facility] [address], [place], [address], 9 05:02:28 CBC w/ auto diff 2018 019 [facility], [facility] [address] [facility], [place], [address], 9 05:02:28 glucose, fingerstic k, blood 2018 019 [email or web address] Main Office, [address] [facility], [address], [place], [address], 9 09:24:19 microalbum in, urine 2018 019 [facility], [facility] [address] [facility], [place], [address], 9 05:02:28 HbA1c (hemoglobi n A1c), blood 2018 019 [facility], [facility] [address] [facility], [place], [address], 9 05:02:28 lipid panel, serum 2018 019 [facility], [facility] [address], [place], [address], 9 05:02:28 CMP, serum or plasma 2018 019 [facility], [facility] [address] [address], [place], [address], 9 05:02:28 hepatitis C RNA, quant, PCR, serum 2017 018 [facility], [facility] [address] [address], [place], [address], 9 05:00:49 uric acid, serum or plasma 2017 018 [facility], [facility] [address] [address], [place], [address], 9 05:00:48 urinalysis complete, reflex culture 2017 018 [facility], [facility] [address] [address], [place], [address], 9 05:00:48 CMP, serum or plasma 2017 018 [facility], [facility] [address] [address], [place], [address], 9 05:00:48 lipid panel, serum 2017 018 [facility], [facility] [address] [address], [place], [address], 9 05:00:49 microalbum in, urine 2017 018 [facility], [facility] [address] [address], [place], [address], 9 05:00:49 HbA1c (hemoglobi n A1c), blood 2017 018 [facility], [facility] [address] [address], [place], [address], 9 05:00:48 microalbum in, urine 2017 018 [facility], [facility] [address] [address], [place], [address], 8 05:00:43 HbA1c (hemoglobi n A1c), blood 2017 018 [facility], [address], [place], [address], 8 05:00:43 CMP, serum or plasma 2017 018 [facility], [address], [place], [address], 8 05:00:43 lipid panel, serum 2017 018 [facility], [address], [place], [address], 8 05:00:43 urinalysis complete, reflex culture 2017 018 [facility], [address], [place], [address], 8 05:00:44 uric acid, serum or plasma 2017 018 [facility], [address], [place], [address], 8 05:00:44 CBC w/ auto diff 2017 018 [facility], [address], [place], [address], 8 05:00:43 PT/PTT, plasma 2017 018 [facility], [address], [place], [address], 8 05:00:43 Referral None recorded. Procedures None recorded. Surgeries None recorded. Imaging XR, chest, 2 view 2017 018 SONIDO Ezchrist, [address], [place], [address], 8 17:42:07 Medication Orders olmesartan 40 mg tablet 2019 020 [id number] [address] [place], [address], 0 11:20:28 pantoprazo le 40 mg tablet,del ayed release 2019 020 [id number], [address] [place], [address], 0 12:46:10 metformin ER 1,000 mg tablet,ext ended release 24hr (osmotic) 2019 020 [id number], [address] [place], [address], 0 12:46:10 pantoprazo le 40 mg tablet,del ayed release 2018 019 INTERFACE [facility], [facility] [place], [address], 9 15:13:05 olmesartan 40 mg tablet 2018 019 INTERFACE [facility], [facility] [place], [address], 9 12:11:12 metformin ER 1,000 mg tablet,ext ended release 24hr (osmotic) 2018 019 INTERFACE [facility], [facility] [place], [address], 9 15:13:05 irbesartan 300 mg tablet 2018 019 [email or web address] [facility], [facility] [place], [address], 9 11:39:49 pantoprazo le 40 mg tablet,del ayed release 2018 019 INTERFACE [facility], [facility], BERENICE [place], [address], 9 09:24:22 metformin ER 1,000 mg tablet,ext ended release 24hr (osmotic) 2018 019 INTERFACE [facility], [facility] [place], [address], 9 09:24:24 Patient TargetsNo targets recorded. Patient InstructionsNo instructions recorded. Reason for Referral None Reported. Results Created Date Observation Date Name Description Value Unit Range Abnormal Flag Note LastModifiedBy Organization Detail LastModifiedTime 02/07/20 19 02/06/2019 gluco love doane rstic k, blood Blood Glucose: mg/dl 126 Not Available Main O ffice [address] [facility] [address], [place], [address], 02/06/2019 11:43:02 08/17/19 19 08/16/2018 gluco love doane rstic k, blood Blood Glucose: mg/dl 107 Not Available Main O ffice [address] [facility] [address], [place], [address], 08/16/2018 09:11:53 08/14/19 18 08/13/2017 CBC w/ auto diff WBC 5.9 K/uL 3.8-10 .6 Not Available [facility] [address] [facility] [address], [place], [address], 08/14/2017 06:09:41 08/14/19 18 08/13/2017 CBC w/ auto diff RBC 4.58 M/uL 4.40-5 .90 Not Available [facility] [address] [facility] [address], [place], [address], 08/14/2017 06:09:41 08/14/19 18 08/13/2017 CBC w/ auto diff hemoglobin 14.3 gm/dL 14.0-1 8.0 Not Available [facility] [address] [facility] [address], [place], [address], 08/14/2017 06:09:41 08/14/19 18 08/13/2017 CBC w/ auto diff hematocrit 40.9 % 40.0-5 2.0 Not Available [facility] [address] [address], [place], [address], 08/14/2017 06:09:41 08/14/19 18 08/13/2017 CBC w/ auto diff MCV 89 fL 80-100 Not Available [facility] [address] [address], [place], [address], 08/14/2017 06:09:41 08/14/19 18 08/13/2017 CBC w/ auto diff MCH 31.2 pg 26.0-3 4.0 Not Available [facility] [address] [address], [place], [address], 08/14/2017 06:09:41 08/14/19 18 08/13/2017 CBC w/ auto diff MCHC 35.0 g/dL 31.0-3 7.0 Not Available [facility] [address] [place] [address], [place], [address], 08/14/2017 06:09:41 08/14/19 18 08/13/2017 CBC w/ auto diff RDW 11.8 % 12.0-1 5.0 low Not Available [facility] [address] [place] [address], [place], [address], 08/14/2017 06:09:41 08/14/19 18 08/13/2017 CBC w/ auto diff MPV 11.0 fL 9.4-12 .9 Not Available [facility] [address] [address], [place], [address], 08/14/2017 06:09:41 08/14/19 18 08/13/2017 CBC w/ auto diff platelet count 269 K/uL 130-40 0 Not Available [facility] [address] [address], [place], [address], 08/14/2017 06:09:41 08/14/19 18 08/13/2017 CBC w/ auto diff diff type Automa benny diff Not Available [facility] [address] [address], [place], [address], 08/14/2017 06:09:41 08/14/19 18 08/13/2017 CBC w/ auto diff abs neutrophils 2.9 K/uL 1.8-7. 7 Not Available [facility] [address] [address], [place], [address], 08/14/2017 06:09:41 08/14/19 18 08/13/2017 CBC w/ auto diff abs lymphocytes 2.0 K/uL 1.0-4. 8 Not Available [facility] [address] [address], [place], [address], 08/14/2017 06:09:41 08/14/19 18 08/13/2017 CBC w/ auto diff abs monocytes 0.8 K/uL 0.12-1 .00 Not Available [facility] [address] [address], [place], [address], 08/14/2017 06:09:41 08/14/19 18 08/13/2017 CBC w/ auto diff abs eosinophils 0.2 K/uL 0.00-0 .60 Not Available [facility] [address] [address], [place], [address], 08/14/2017 06:09:41 08/14/19 18 08/13/2017 CBC w/ auto diff abs basophils 0.1 K/uL 0.00-0 .30 Not Available [facility] [address] [address], [place], [address], 08/14/2017 06:09:41 08/14/19 18 08/13/2017 CBC w/ auto diff neutrophil 48 % 45-73 Not Available [facility] [address] [address], [place], [address], 08/14/2017 06:09:41 08/14/19 18 08/13/2017 CBC w/ auto diff lymphocyte 35 % 18-44 Not Available [facility] [address] [address], [place], [address], 08/14/2017 06:09:41 08/14/19 18 08/13/2017 CBC w/ auto diff monocyte 13 % 4-10 high Not Available [facility] [address] [address], [place], [address], 08/14/2017 06:09:41 08/14/19 18 08/13/2017 CBC w/ auto diff eosinophil 3 % 0-4 Not Available [facility] [address] [address], [place], [address], 08/14/2017 06:09:41 08/14/19 18 08/13/2017 CBC w/ auto diff basophil 1 % 0-1 [facility] n [address] [facility] [address] [facility] [address] [phone] Ronald ramires MD Not Available [facility] [address] [place] [address], [place], [address], 08/14/2017 06:09:41 08/14/19 18 08/13/2017 urina lysis compl ete, refle x cultu re urine color Yellow yellow Not Available [facility] [address] [place] [address], [place], [address], 08/14/2017 06:29:45 08/14/19 18 08/13/2017 urina lysis compl ete, refle x cultu re urine clarity Clear clear Not Available [facility] [address] [place] [address], [place], [address], 08/14/2017 06:29:45 08/14/19 18 08/13/2017 urina lysis compl ete, refle x cultu re urine specific gravity 1.019 1.005- 1.030 Not Available [facility] [address] [place] [address], [place], [address], 08/14/2017 06:29:45 08/14/19 18 08/13/2017 urina lysis compl ete, refle x cultu re urine pH 6.0 5.0-8. 5 Not Available [address] [address], [place], [address], 08/14/2017 06:29:45 08/14/19 18 08/13/2017 urina lysis compl ete, refle x cultu re urine glucose Negati ve mg/dL negati ve Not Available [address] [address], [place], [address], 08/14/2017 06:29:45 08/14/19 18 08/13/2017 urina lysis compl ete, refle x cultu re urine ketones Negati ve mg/dL negati ve Not Available [address] [address], [place], [address], 08/14/2017 06:29:45 08/14/19 18 08/13/2017 urina lysis compl ete, refle x cultu re urobilinogen 1.0 eu/dL 0.2-1. 0 Not Available [address] [address], [place], [address], 08/14/2017 06:29:45 08/14/19 18 08/13/2017 urina lysis compl ete, refle x cultu re urine bilirubin Negati ve negati ve Not Available [address] [address], [place], [address], 08/14/2017 06:29:45 08/14/19 18 08/13/2017 urina lysis compl ete, refle x cultu re urine blood Negati ve negati ve Not Available [address] [address], [place], [address], 08/14/2017 06:29:45 08/14/19 18 08/13/2017 urina lysis compl ete, refle x cultu re urine protein Negati ve negati ve Not Available [address] [address], [place], [address], 08/14/2017 06:29:45 08/14/19 18 08/13/2017 urina lysis compl ete, refle x cultu re leukocyte esterase Negati ve negati ve Not Available [facility] [address] [address], [place], [address], 08/14/2017 06:29:45 08/14/19 18 08/13/2017 urina lysis compl ete, refle x cultu re urine nitrates Negati ve negati ve Not Available [facility] [address] [address], [place], [address], 08/14/2017 06:29:45 08/14/19 18 08/13/2017 urina lysis compl ete, refle x cultu re white cells 1 /hpf 0-4 Not Available [facility] [address] [address], [place], [address], 08/14/2017 06:29:45 08/14/19 18 08/13/2017 urina lysis compl ete, refle x cultu re red cells 2 /hpf 0-5 [facility] [address] [address], [place], [address], 08/14/2017 06:29:45 08/14/19 18 08/13/2017 urina lysis compl ete, refle x cultu re squamous epithelial cells <1 /hpf 0-2 Not Available [facility] [address] [address], [place], [address], 08/14/2017 06:29:45 08/14/19 18 08/13/2017 urina lysis compl ete, refle x cultu re urine bacteria Negati ve negati ve Not Available [facility] [address] [facility] [address], [place], [address], 08/14/2017 06:29:45 08/14/19 18 08/13/2017 urina lysis compl ete, refle x cultu re cast <1 /lpf Not Available [facility] [address] [address], [place], [address], 08/14/2017 06:29:45 08/14/19 18 08/13/2017 urina lysis compl ete, refle x cultu re reflex to culture Result s Below CULTU RE NOT INDIC ATED [facility] [address] [facility] [address] [facility] [address] [phone] Ronald ramires MD Not Available [facility] [address] [place] [address], [place], [address], 08/14/2017 06:29:45 08/14/19 18 08/13/2017 micro album in, urine creatinine, urine 130.0 mg/dL (Note ) Range not estab lishe d for urine Not Available [facility] [address] [place] [address], [place], [address], 08/14/2017 06:49:42 08/14/19 18 08/13/2017 micro album in, urine microalbumin , urine 6 mg/L <30 Not Available Med [facility]ance [address] [place] [address], [place], [address], 08/14/2017 06:49:42 08/14/19 18 08/13/2017 micro album in, urine microalbumin /creat ratio 5 mg/g_ cret 0-30 [facility] n [address] [facility] [address] [facility] [address] [phone] Ronald ramires MD Not Available [facility] [address] [place] [address], [place], [address], 08/14/2017 06:49:42 08/14/19 18 08/13/2017 CMP, serum or plasm a glucose, fasting 130 mg/dL 70-99 high Not Available [facility] [address] [place] [address], [place], [address], 08/14/2017 07:19:59 08/14/19 18 08/13/2017 CMP, serum or plasm a BUN 16 mg/dL 9-23 Not Available [facility] [address] [place] [address], [place], [address], 08/14/2017 07:19:59 08/14/19 18 08/13/2017 CMP, serum or plasm a creatinine 0.93 mg/dL 0.60-1 .30 Not Available [facility] [address] [facility] 121, [place], [address], 08/14/2017 07:19:59 08/14/19 18 08/13/2017 CMP, serum or plasm a sodium 138 mEq/L 132-14 6 Not Available [facility] [address] [address], [place], [address], 08/14/2017 07:19:59 08/14/19 18 08/13/2017 CMP, serum or plasm a potassium 4.2 mEq/L 3.5-5. 5 Not Available [facility] [address] [address], [place], [address], 08/14/2017 07:19:59 08/14/19 18 08/13/2017 CMP, serum or plasm a chloride 102 mEq/L 99-109 Not Available [facility] [address] [address], [place], [address], 08/14/2017 07:19:59 08/14/19 18 08/13/2017 CMP, serum or plasm a CO2 27 mEq/L 22-33 Not Available [facility] [address] [address], [place], [address], 08/14/2017 07:19:59 08/14/19 18 08/13/2017 CMP, serum or plasm a anion gap 13.2 mEq/L 10-20 Not Available [facility] [address] [address], [place], [address], 08/14/2017 07:19:59 08/14/19 18 08/13/2017 CMP, serum or plasm a calcium 9.7 mg/dL 8.7-10 .4 Not Available [facility] [address] [address], [place], [address], 08/14/2017 07:19:59 08/14/19 18 08/13/2017 CMP, serum or plasm a albumin 4.3 g/dL 3.2-4. 8 Not Available [facility] [address], [place], [address], 08/14/2017 07:19:59 08/14/19 18 08/13/2017 CMP, serum or plasm a protein, total 6.4 g/dL 5.7-8. 2 Not Available [facility] [address], [place], [address], 08/14/2017 07:19:59 08/14/19 18 08/13/2017 CMP, serum or plasm a bilirubin, total 0.7 mg/dL 0.3-1. 2 Not Available [facility] [address] [facility] 121, [place], [address], 08/14/2017 07:19:59 08/14/19 18 08/13/2017 CMP, serum or plasm a ALT (SGPT) 34 U/L 10-49 Not Available [facility] [address] [facility] [address], [place], [address], 08/14/2017 07:19:59 08/14/19 18 08/13/2017 CMP, serum or plasm a AST (SGOT) 30 U/L 0-33 Not Available [facility] [address] [facility] [address], [place], [address], 08/14/2017 07:19:59 08/14/19 18 08/13/2017 CMP, serum or plasm a alk phosphatase 51 U/L 45-129 Not Available [facility] [address] [facility] [address], [place], [address], 08/14/2017 07:19:59 08/14/19 18 08/13/2017 CMP, serum or plasm a BUN/creatini ne ratio 17.2 ratio 10-26 Not Available [facility] [address] [facility] [address], [place], [address], 08/14/2017 07:19:59 08/14/19 18 08/13/2017 CMP, serum or plasm a globulin calculated 2.1 g/dL 2.0-3. 8 Not Available [facility] [address] [address], [place], [address], 08/14/2017 07:19:59 08/14/19 18 08/13/2017 CMP, serum or plasm a A/G ratio 2.0 ratio 0.9-2. 5 Not Available [facility] [address] [place] [address] [address], [place], [address], 08/14/2017 07:19:59 08/14/19 18 08/13/2017 CMP, serum or plasm a eGFR aa >90 mL/mi n/1.7 3m2 >60 Not Available [facility] [address] [place] [address] [address], [place], [address], 08/14/2017 07:19:59 08/14/19 18 08/13/2017 CMP, serum or plasm a eGFR 88 mL/mi n/1.7 3m2 >60 eGFR Refer ence Range s: Kat l: >90 mL/mi n/1.7 3m2 Moder ate Decre ase: 30-59 mL/mi n/1.7 3m2 Sever e Decre ase: 15-29 mL/mi n/1.7 3m2 Kidne y Failu re: <15 mL/mi n/1.7 3m2 Note: Estim ation of GFR using the MDRD equat ion is only valid for patie nts with an eGFR less than 60 mL/mi n/1.7 3m2. The repor t conta ins both eGFR for non-A f[place] n Ameri cans and eGFR AA for Afric an Ameri cans. F med fusio n [address] [facility] [address] [facility] [address] [phone] Ronald ramires MD Not Available [facility] [address] [place] [address] [address], [place], [address], 08/14/2017 07:19:59 08/14/19 18 08/13/2017 lipid panel , serum cholesterol, total 210 mg/dL <200 high The [facility]io n[facility] [employer] i[employer] n and the Natio nal Maria G st[employer] l [employer]ca tion Progr am (NCEP ) have set the follo wing lipid panel guide lines for adult s ages 20 and up: Khanh able: < 200 mg/dL Borde rline high: 200-2 39 mg/dL High: > or = 240 mg/dL Not Available [facility] [address] [facility] 121, [place], [address], 08/14/2017 07:20:01 08/14/19 18 08/13/2017 lipid panel , serum triglyceride 87 mg/dL <150 The [facility]io nal Lipid Ass[employer] iatio n and the Natio nal Maria G [employer] l [employer]ca tion Progr am (NCEP ) have set the follo wing lipid panel guide lines for adult s ages 20 and up: Kat l: < 150 mg/dL Borde rline : 150 - 199 mg/dL High: 200 - 499 mg/dL Very High: > or = 500 mg/dL Not Available [facility] [address] [facility] 121, [place], [address], 08/14/2017 07:20:01 08/14/19 18 08/13/2017 lipid panel , serum HDL cholesterol 38 mg/dL >40 low The [facility]io n[employer] Lipid [employer] iatio n and the Natio nal [employer] l [employer]ca tion Progr am (NCEP ) have set the follo wing lipid panel guide lines for adult s ages 20 and up: Male: > or = 40 mg/dL Femal e: > or = 50 mg/dL Not Available [facility] [address] [facility] 121, [place], [address], 08/14/2017 07:20:01 08/14/19 18 08/13/2017 lipid panel , serum LDL calculated 155 mg/dL <100 high The Natio n[facility] Lipid Ass[employer] iatio n and the Natio nal Maria [employer]ero l Educa tion Progr am (NCEP ) have set the follo wing lipid panel guide lines for adult s ages 20 and up: Khanh able: < 100 mg/dL Above Khanh able: 100 - 129 mg/dL Borde rline high: 130 - 159 mg/dL High: 160 - 189 mg/dL Very High: > or = 190 mg/dL Not Available [facility] [address] [address], [place], [address], 08/14/2017 07:20:01 08/14/19 18 08/13/2017 lipid panel , serum ldlhdl 4.08 ratio Not Available [facility] [address] [address], [place], [address], 08/14/2017 07:20:01 08/14/19 18 08/13/2017 lipid panel , serum LDL/HDL risk See Note (Note ) Male Femal e Below Kellogg ge Risk 0.00- 2.28 0.00- 2.34 Kellogg ge Risk 2.29- 4.90 2.35- 4.12 Moder ate Risk 4.91- 7.12 4.13- 5.56 High Risk 7.13- 20.00 5.57- 20.00 Not Available [facility] [address] [address], [place], [address], 08/14/2017 07:20:01 08/14/19 18 08/13/2017 lipid panel , serum total chol/HDL ratio (calculat 5.5 ratio 0.0-5. 0 high [facility] med fusio n 2501 [facility] [address] [facility] [address] [phone] Ronald ramires MD Not Available [facility] [address] [address], [place], [address], 08/14/2017 07:20:01 08/14/19 18 08/13/2017 uric acid, serum or plasm a uric acid 5.7 mg/dL 3.7-9. 2 MD[facility] med fusio n [address] [facility] [address] [place] [address] [phone] Ronald ramires MD Not Available [facility] [address], [address], 08/14/2017 07:20:04 08/14/19 18 08/13/2017 HbA1c (hemo globi n A1c), blood hemoglobin A1C w/o EAG 6.9 % <5.7 high Per Ameri can Di[facility]ne Ass[facility] iatio n, in patie nts witho ut hemog lobin opath y, HbA1c >6.4% is diagn ostic of diabe dianne when accom panie d with unequ ivoca l hyper glyce zack. In the absen ce of unequ ivoca l hyper glyce zack, resul ts shoul d be confi rmed by faby jackson. (Note ) No inter feren ce has been obser malik with HbA1c fract ion quant ifica tion due to the prese nce of major abnor mal hemog lobin s Hb S, Hb C, Hb D and Hb E, excep t Gonzalo' s hemog lobin . Abnor mal life span of red blood cells , as found in hemol ytic anemi as, polyc ythem ia or posts plene ctomy , may affec t the level s of HbA1c . Indiv idual s with recen t signi fican t blood loss exhib it false ly low HbA1c value s due to a highe r fract ion of young red blood cells . [facility] med fusio n [address] [facility] [address] [facility] [address] [phone] Ronald ramires MD Not Available [facility] [address] [facility] 121, [place], [address], 08/14/2017 07:54:47 08/14/19 18 08/13/2017 PT/PT T, plasm a prothrombin time 11.7 sec 9.0-12 .0 Not Available [facility] [address] [facility] 121, [place], [address], 08/14/2017 09:49:51 08/14/19 18 08/13/2017 PT/PT T, plasm a INR 1.1 (Note ) Couma rin Antic oagul ant Thera peuti c Range s (INR) : 2.0-3 .0 Proph ylaxi s and Treat ment of Venou s Throm boemb olism 2.5-3 .5 Preve ntion of Recur rent Throm boemb olism or treat ment for Prost hetic Heart Valve s Not Available [facility] [address] [place] [address], [place], [address], 08/14/2017 09:49:51 08/14/19 18 08/13/2017 PT/PT T, plasm a APTT 25.2 sec 22-32 [facility] med slim n [address] [facility] [address] [place] [address] [phone] Ronald ramires MD Not Available [facility] [address] [place] [address], [place], [address], 08/14/2017 09:49:51 12/21/19 18 12/20/2017 urina lysis compl ete, refle x cultu re urine color Yellow yellow Not Available Med Shadi Varela[address] [place] [address], [address], 12/21/2017 07:09:55 12/21/19 18 12/20/2017 urina lysis compl ete, refle x cultu re urine clarity Clear clear Not Available Med Shadi Varela[address] [place] [address], [place], [address], 12/21/2017 07:09:55 12/21/19 18 12/20/2017 urina lysis compl ete, refle x cultu re urine specific gravity 1.014 1.005- 1.030 Not Available [facility] Nichole[address] [place] [address], [place], [address], 12/21/2017 07:09:55 12/21/19 18 12/20/2017 urina lysis compl ete, refle x cultu re urine pH 6.0 5.0-8. 5 Not Available [facility] Nichole[address] [place] [address], [place], [address], 12/21/2017 07:09:55 12/21/19 18 12/20/2017 urina lysis compl ete, refle x cultu re urine glucose Negati ve mg/dL negati ve Not Available [facility] [address] [place] [address] 121, [place], [address], 12/21/2017 07:09:55 12/21/19 18 12/20/2017 urina lysis compl ete, refle x cultu re urine ketones Negati ve mg/dL negati ve Not Available Med [address] [address], [place], [address], 12/21/2017 07:09:55 12/21/19 18 12/20/2017 urina lysis compl ete, refle x cultu re urobilinogen 0.2 eu/dL 0.2-1. 0 Not Available [address] [address], [place], [address], 12/21/2017 07:09:55 12/21/19 18 12/20/2017 urina lysis compl ete, refle x cultu re urine bilirubin Negati ve negati ve Not Available [address] [address], [place], [address], 12/21/2017 07:09:55 12/21/19 18 12/20/2017 urina lysis compl ete, refle x cultu re urine blood Negati ve negati ve Not Available [address] [address], [place], [address], 12/21/2017 07:09:55 12/21/19 18 12/20/2017 urina lysis compl ete, refle x cultu re urine protein Negati ve negati ve Not Available Med [address] [address], [place], [address], 12/21/2017 07:09:55 12/21/19 18 12/20/2017 urina lysis compl ete, refle x cultu re leukocyte esterase Negati ve negati ve Not Available Med [address] [address], [place], [address], 12/21/2017 07:09:55 12/21/19 18 12/20/2017 urina lysis compl ete, refle x cultu re urine nitrates Negati ve negati ve Not Available [facility] [address] [address], [place], [address], 12/21/2017 07:09:55 12/21/19 18 12/20/2017 urina lysis compl ete, refle x cultu re white cells <1 /hpf 0-4 Not Available Med Fu lee ann [address] [place] [address], [place], [address], 12/21/2017 07:09:55 12/21/19 18 12/20/2017 urina lysis compl ete, refle x cultu re red cells 1 /hpf 0-5 Not Available Med Fusi on [address] [place] [address], [place], [address], 12/21/2017 07:09:55 12/21/19 18 12/20/2017 urina lysis compl ete, refle x cultu re squamous epithelial cells <1 /hpf 0-2 Not Available Med Fu lee ann [address] [place] [address], [place], [address], 12/21/2017 07:09:55 12/21/19 18 12/20/2017 urina lysis compl ete, refle x cultu re urine bacteria Negati ve negati ve Not Available [facility] [address] [place] [address], [place], [address], 12/21/2017 07:09:55 12/21/19 18 12/20/2017 urina lysis compl ete, refle x cultu re cast <1 /lpf Not Available [facility] [address] [place] [address], [address], 12/21/2017 07:09:55 12/21/19 18 12/20/2017 urina lysis compl ete, refle x cultu re reflex to culture Result s Below CULTU RE NOT INDIC ATED MDF med fusio n [address] [place] [address] [address] [place] [address] [phone] Ronald ramires MD Not Available Med [facility] [address] [facility] 121, [place], [address], 12/21/2017 07:09:55 12/21/19 18 12/20/2017 CMP, serum or plasm a glucose, fasting 117 mg/dL 70-99 high Not Available [facility] Shadi nance [address] [facility] 121, [place], [address], 12/21/2017 08:19:58 12/21/19 18 12/20/2017 CMP, serum or plasm a BUN 10 mg/dL 9-23 Not Available [facility] [address] [facility] 121, [place], [address], 12/21/2017 08:19:58 12/21/19 18 12/20/2017 CMP, serum or plasm a creatinine 0.81 mg/dL 0.60-1 .30 Not Available [facility] Olu [address] [place] [address], [place], [address], 12/21/2017 08:19:58 12/21/1912/20/2017 CMP, serum or plasm a sodium 139 mEq/L 132-14 6 Not Available [address] [place] [address] [address] [address], [place], [address], 12/21/2017 08:19:58 12/21/1912/20/2017 CMP, serum or plasm a potassium 4.3 mEq/L 3.5-5. 5 Not Available [facility] [address] [address], [place], [address], 12/21/2017 08:19:58 12/21/19 18 12/20/2017 CMP, serum or plasm a chloride 104 mEq/L 99-109 Not Available Med Slim [address] [address], [place], [address], 12/21/2017 08:19:58 12/21/19 18 12/20/2017 CMP, serum or plasm a CO2 25 mEq/L 22-33 Not Available [facility] Fusion [address] [place] [address], [place], [address], 12/21/2017 08:19:58 12/21/19 18 12/20/2017 CMP, serum or plasm a anion gap 14.3 mEq/L 10-20 Not Available Med Fusi on [address] [facility] 121, [place], [address], 12/21/2017 08:19:58 12/21/19 18 12/20/2017 CMP, serum or plasm a calcium 9.3 mg/dL 8.7-10 .4 Not Available [facility] [address] [facility] 121, [place], [address], 12/21/2017 08:19:58 12/21/19 18 12/20/2017 CMP, serum or plasm a albumin 4.4 g/dL 3.2-4. 8 Not Available [facility] [address] [facility] 121, [place], [address], 12/21/2017 08:19:58 12/21/19 18 12/20/2017 CMP, serum or plasm a protein, total 6.9 g/dL 5.7-8. 2 Not Available [facility] [address] [facility] 121, [place], [address], 12/21/2017 08:19:58 12/21/19 18 12/20/2017 CMP, serum or plasm a bilirubin, total 0.8 mg/dL 0.3-1. 2 Not Available [facility] [address] [facility] 121, [place], [address], 12/21/2017 08:19:58 12/21/1912/20/2017 CMP, serum or plasm a ALT (SGPT) 29 U/L 10-49 Not Available Med Fus ion [address] [facility] 121, [place], [address], 12/21/2017 08:19:58 12/21/19 18 12/20/2017 CMP, serum or plasm a AST (SGOT) 24 U/L 0-33 Not Available Med [facility] [address] [facility] 121, [place], [address], 12/21/2017 08:19:58 12/21/19 18 12/20/2017 CMP, serum or plasm a alk phosphatase 51 U/L 45-129 Not Available [facility] Olu Matthews [address] [facility] 121, [place], [address], 12/21/2017 08:19:58 12/21/19 18 12/20/2017 CMP, serum or plasm a BUN/creatini ne ratio 12.3 ratio 10-26 Not Available [facility] Shadi Varela [address] [facility] 121, [place], [address], 12/21/2017 08:19:58 12/21/19 18 12/20/2017 CMP, serum or plasm a globulin calculated 2.5 g/dL 2.0-3. 8 Not Available [facility] Olu Matthews [address] [facility] 121, [place], [address], 12/21/2017 08:19:58 12/21/19 18 12/20/2017 CMP, serum or plasm a A/G ratio 1.8 ratio 0.9-2. 5 Not Available [facility] Olu Varela [address] [facility] 121, [place], [address], 12/21/2017 08:19:58 12/21/19 18 12/20/2017 CMP, serum or plasm a eGFR aa >90 mL/mi n/1.7 3m2 >60 Not Available [facility] Olu Varela [address] [facility] 121, [place], [address], 12/21/2017 08:19:58 12/21/19 18 12/20/2017 CMP, serum or plasm a eGFR >90 mL/mi n/1.7 3m2 >60 eGFR Refer ence Range s: Kat l: >90 mL/mi n/1.7 3m2 Moder ate Decre ase: 30-59 mL/mi n/1.7 3m2 Sever e Decre ase: 15-29 mL/mi n/1.7 3m2 Kidne y Failu re: <15 mL/mi n/1.7 3m2 Note: Estim ation of GFR using the MDRD equat ion is only valid for patie nts with an eGFR less than 60 mL/mi n/1.7 3m2. The repor t conta ins both eGFR for non-A f[place] n Ameri cans and eGFR AA for Afric an Ameri cans. MDF med fusio n [address] [facility] [address] [facility] [address] [phone] Ronald ramires MD Not Available [facility] [address] [facility] 121, [place], [address], 12/21/2017 08:19:58 12/21/19 18 12/20/2017 lipid panel , serum cholesterol, total 202 mg/dL <200 high The [employer]io n[employer] i[employer] n and the Natio nal [employer] t[employer] am (NCEP ) have set the follo wing lipid panel guide lines for adult s ages 20 and up: Khanh able: < 200 mg/dL Borde rline high: 200-2 39 mg/dL High: > or = 240 mg/dL Not Available [facility] [address] [facility] 121, [place], [address], 12/21/2017 08:20:01 12/21/19 18 12/20/2017 lipid panel , serum triglyceride 73 mg/dL <150 The [employer]io n[employer] i[employer] n and the Natio nal [employer]ca tion Progr am (NCEP ) have set the follo wing lipid panel guide lines for adult s ages 20 and up: Kat l: < 150 mg/dL Borde rline : 150 - 199 mg/dL High: 200 - 499 mg/dL Very High: > or = 500 mg/dL Not Available [facility] [address] [facility] 121, [place], [address], 12/21/2017 08:20:01 12/21/19 18 12/20/2017 lipid panel , serum HDL cholesterol 52 mg/dL >40 The Natio nal Lip[employer] i[employer] n and the Natio nal [employer]ca tion Progr am (NCEP ) have set the follo wing lipid panel guide lines for adult s ages 20 and up: Male: > or = 40 mg/dL Femal e: > or = 50 mg/dL Not Available [facility] [address] [facility] 121, [place], [address], 12/21/2017 08:20:01 12/21/19 18 12/20/2017 lipid panel , serum LDL calculated 135 mg/dL <100 high The Natio nal Lipid [employer] i[employer] n and the Natio nal [employer]ca tion Progr am (NCEP ) have set the [facility] lipid panel guide lines for adult s ages 20 and up: Khanh able: < 100 mg/dL Above Khanh able: 100 - 129 mg/dL Borde rline high: 130 - 159 mg/dL High: 160 - 189 mg/dL Very High: > or = 190 mg/dL Not Available [facility] [address] [place] [address] 121, [place], [address], 12/21/2017 08:20:01 12/21/19 18 12/20/2017 lipid panel , serum ldlhdl 2.60 ratio Not Available [facility] [address] [place] [address] 121, [place], [address], 12/21/2017 08:20:01 12/21/19 18 12/20/2017 lipid panel , serum LDL/HDL risk See Note (Note ) Male Femal e Below Kellogg ge Risk 0.00- 2.28 0.00- 2.34 Kellogg ge Risk 2.29- 4.90 2.35- 4.12 Moder ate Risk 4.91- 7.12 4.13- 5.56 High Risk 7.13- 20.00 5.57- 20.00 Not Available [facility] [address] [place] [address] 121, [place], [address], 12/21/2017 08:20:01 12/21/19 18 12/20/2017 lipid panel , serum total chol/HDL ratio (calculat 3.9 ratio 0.0-5. 0 MDF med fusio n [address] [facility] [address] [facility] [address] [phone] Ronald ramires MD Not Available [facility] [address] [facility] 121, [place], [address], 12/21/2017 08:20:01 12/21/19 18 12/20/2017 uric acid, serum or plasm a uric acid 6.3 mg/dL 3.7-9. 2 MD med fusio n 2501 [facility] 121,[address] [place] [address] [phone] Ronald ramires MD Not Available [facility] [address] [place] [address] 121, [place], [address], 12/21/2017 08:20:03 12/21/19 18 12/20/2017 HbA1c (hemo globi n A1c), blood hemoglobin A1C w/o EAG 5.5 % <5.7 (Note ) No inter feren ce has been obser malik with HbA1c fract ion quant ifica tion due to the prese nce of major abnor mal hemog lobin s Hb S, Hb C, Hb D and Hb E, excep t Gonzalo' s hemog lobin . Abnor mal life span of red blood cells , as found in hemol ytic anemi as, polyc ythem ia or posts plene ctomy , may affec t the level s of HbA1c . Indiv idual s with recen t signi fican t blood loss exhib it false ly low HbA1c value s due to a highe r fract ion of young red blood cells . med fusio n 25[address] [facility] 121,[address] [place] [address] [phone] Ronald ramires MD Not Available [facility] [address] [facility] 121, [place], [address], 12/21/2017 09:44:46 12/21/19 18 12/20/2017 micro album in, urine creatinine, urine 91.2 mg/dL (Note ) Range not estab lishe d for urine Not Available [facility] [address] [facility] 121, [place], [address], 12/21/2017 17:09:50 12/21/19 18 12/20/2017 micro album in, urine microalbumin , urine <6 mg/L <30 Not Available Med Shadi nance [address] [facility] 121, [place], [address], 12/21/2017 17:09:50 12/21/19 18 12/20/2017 micro album in, urine microalbumin /creat ratio <7 mg/g_ cret 0-30 MDF med vijayflorina n [address] [facility] [address] [place] [address] [phone] Ronald ramires MD Not Available [facility] Olu [address] [place] [address] 121, [place], [address], 12/21/2017 17:09:50 12/21/19 18 12/20/2017 hepat itis C RNA, quant , PCR, serum specimen source Serum Not Available [facility] Shadi nance [address] [place] [address], [place], [address], 12/22/2017 16:24:46 12/21/19 18 12/20/2017 hepat itis C RNA, quant , PCR, serum result UnDete ct undete ct HCV RNA is Not-D etect ed Not Available [facility] Olu [address] [place] [address] 121, [place], [address], 12/22/2017 16:24:46 12/21/19 18 12/20/2017 hepat itis C RNA, quant , PCR, serum linearity range Result s Below 15 to 100,0 00,00 0 IU/mL (1.18 to 8.00 log IU/mL ) Not Available [facility] Olu [address] [place] [address] 121, [place], [address], 12/22/2017 16:24:46 12/21/19 18 12/20/2017 hepat itis C RNA, quant , PCR, serum reference range Result s Below Refer ence Range : Targe t Not Detec benny (Note ) METHO DOLOG Y: Quant itati ve Real- Time Polym erase Chain React ion (PCR) . DISCL AIMER : NAN HCV Test 2.0 is not inten ded for use as a scree gigi test for the prese nce of virus in blood or blood produ cts. MDF med fusio n [address] [facility] [address] [place] [address] [phone] Ronald ramires MD Not Available [facility] [address] [facility] 121, [place], [address], 12/22/2017 16:24:46 08/17/19 19 08/16/2018 CBC w/ auto diff WBC 5.9 K/uL 3.8-10 .6 Not Available [facility] [address] [facility] 121, [place], [address], 08/17/2018 06:00:34 08/17/1908/16/2018 CBC w/ auto diff RBC 4.55 M/uL 4.40-5 .90 Not Available [facility] [address] [place] [address], [place], [address], 08/17/2018 06:00:34 08/17/19 19 08/16/2018 CBC w/ auto diff hemoglobin 14.6 g/dL 14.0-1 8.0 Not Available [facility] [address] [place] [address], [place], [address], 08/17/2018 06:00:34 08/17/1908/16/2018 CBC w/ auto diff hematocrit 43.4 % 40.0-5 2.0 Not Available [facility] [address] [place] [address], [place], [address], 08/17/2018 06:00:34 08/17/1908/16/2018 CBC w/ auto diff MCV 95 fL 80-100 Not Available [facility] [address] [place] [address], [place], [address], 08/17/2018 06:00:34 08/17/1908/16/2018 CBC w/ auto diff MCH 32.1 pg 26.0-3 4.0 Not Available [facility] [address] [place] [address], [place], [address], 08/17/2018 06:00:34 08/17/19 19 08/16/2018 CBC w/ auto diff MCHC 33.6 g/dL 31.0-3 7.0 Not Available [address], [address], 08/17/2018 06:00:34 08/17/19 19 08/16/2018 CBC w/ auto diff RDW 12.0 % 12.0-1 5.0 Not Available [address] [address], [place], [address], 08/17/2018 06:00:34 08/17/19 19 08/16/2018 CBC w/ auto diff MPV 10.7 fL 8.8-12 .8 Not Available [address], [address], 08/17/2018 06:00:34 08/17/1908/16/2018 CBC w/ auto diff platelet count 257 K/uL 130-40 0 Not Available [address], [address], 08/17/2018 06:00:34 08/17/1908/16/2018 CBC w/ auto diff diff type Automa benny diff Not Available [address], [address], 08/17/2018 06:00:34 08/17/19 19 08/16/2018 CBC w/ auto diff abs neutrophils 3.0 K/uL 1.8-7. 7 Not Available [address], [address], 08/17/2018 06:00:34 08/17/19 19 08/16/2018 CBC w/ auto diff abs lymphocytes 1.9 K/uL 1.0-4. 8 Not Available [address], [address], 08/17/2018 06:00:34 08/17/19 19 08/16/2018 CBC w/ auto diff abs monocytes 0.8 K/uL 0.1-1. 0 Not Available [facility] [address] [address], [place], [address], 08/17/2018 06:00:34 08/17/19 19 08/16/2018 CBC w/ auto diff abs eosinophils 0.2 K/uL 0.0-0. 6 Not Available [facility] [address] [address], [place], [address], 08/17/2018 06:00:34 08/17/19 19 08/16/2018 CBC w/ auto diff abs basophils 0.0 K/uL 0.0-0. 3 Not Available [facility] [address] [place] [address], [address], 08/17/2018 06:00:34 08/17/19 19 08/16/2018 CBC w/ auto diff neutrophil 50 % 45-73 Not Available Med Fus ion [address], [address], 08/17/2018 06:00:34 08/17/19 19 08/16/2018 CBC w/ auto diff lymphocyte 32 % 18-44 Not Available Med [facility] [address] [address], [place], [address], 08/17/2018 06:00:34 08/17/19 19 08/16/2018 CBC w/ auto diff monocyte 13 % 4-10 high Not Available Med Fusio n [address] [address], [place], [address], 08/17/2018 06:00:34 08/17/19 19 08/16/2018 CBC w/ auto diff eosinophil 4 % 0-4 Not Available Med Fus ion [address], [address], 08/17/2018 06:00:34 08/17/19 19 08/16/2018 CBC w/ auto diff basophil 1 % 0-1 MDF med fusio n [address] [facility] [address] [facility] [address] [phone] Ronald ramires MD Not Available [address] [address], [place], [address], 08/17/2018 06:00:34 08/17/1908/16/2018 urina lysis compl ete, refle x cultu re urine color Yellow yellow Not Available [address] [address], [place], [address], 08/17/2018 06:19:45 08/17/1908/16/2018 urina lysis compl ete, refle x cultu re urine clarity Clear clear Not Available [address] [address], [place], [address], 08/17/2018 06:19:45 08/17/1908/16/2018 urina lysis compl ete, refle x cultu re urine specific gravity 1.021 1.005- 1.030 Not Available [address] [address], [place], [address], 08/17/2018 06:19:45 08/17/1908/16/2018 urina lysis compl ete, refle x cultu re urine pH 6.0 5.0-8. 5 Not Available [address] [address], [place], [address], 08/17/2018 06:19:45 08/17/1908/16/2018 urina lysis compl ete, refle x cultu re urine glucose Negati ve mg/dL negati ve Not Available [address] [address], [place], [address], 08/17/2018 06:19:45 08/17/1908/16/2018 urina lysis compl ete, refle x cultu re urine ketones Negati ve mg/dL negati ve Not Available [address] [address], [place], [address], 08/17/2018 06:19:45 08/17/1908/1608/16/2018 urina lysis compl ete, refle x cultu re urobilinogen 0.2 eu/dL 0.2-1. 0 Not Available [facility] [address] [facility] 121, [place], [address], 08/17/2018 06:19:45 08/17/1908/16/2018 urina lysis compl ete, refle x cultu re urine bilirubin Negati ve negati ve Not Available [facility] [address] [facility] 121, [place], [address], 08/17/2018 06:19:45 08/17/1908/16/2018 urina lysis compl ete, refle x cultu re urine blood Negati ve negati ve Not Available [facility] [address] [facility] 121, [place], [address], 08/17/2018 06:19:45 08/17/1908/16/2018 urina lysis compl ete, refle x cultu re urine protein Negati ve negati ve Not Available Med [facility] [address] [facility] 121, [place], [address], 08/17/2018 06:19:45 08/17/1908/16/2018 urina lysis compl ete, refle x cultu re leukocyte esterase Negati ve negati ve Not Available [facility] [address] [facility] 121, [place], [address], 08/17/2018 06:19:45 08/17/1908/16/2018 urina lysis compl ete, refle x cultu re urine nitrates Negati ve negati ve Not Available [facility] [address] [facility] 121, [place], [address], 08/17/2018 06:19:45 08/17/1908/16/2018 urina lysis compl ete, refle x cultu re white cells <1 /hpf 0-4 Not Available Med Fu lee ann [address] [facility] 121, [place], [address], 08/17/2018 06:19:45 08/17/19 19 08/16/2018 urina lysis compl ete, refle x cultu re red cells 1 /hpf 0-5 Not Available Med Fusi on [address] [facility] 121, [place], [address], 08/17/2018 06:19:45 08/17/1908/16/2018 urina lysis compl ete, refle x cultu re squamous epithelial cells <1 /hpf 0-2 Not Available Med Fu lee ann [address] [facility] 121, [place], [address], 08/17/2018 06:19:45 08/17/1908/16/2018 urina lysis compl ete, refle x cultu re urine bacteria Negati ve negati ve Not Available [facility] [address] [place] [address], [place], [address], 08/17/2018 06:19:45 08/17/1908/16/2018 urina lysis compl ete, refle x cultu re cast,hyaline <1 /lpf Not Available Med F usion [address] [address], [place], [address], 08/17/2018 06:19:45 08/17/1908/16/2018 urina lysis compl ete, refle x cultu re reflex to culture Result s Below CULTU RE NOT INDIC ATED MDF med fusio n [address] [facility] [address] [place] [address] [phone] Ronald ramires MD Not Available [facility] [address] [place] [address] 121, [place], [address], 08/17/2018 06:19:45 08/17/1908/16/2018 CMP, serum or plasm a glucose, fasting 106 mg/dL 70-99 high Not Available Med Fu lee ann [address] [place] [address] 121, [place], [address], 08/17/2018 08:10:04 08/17/19 19 08/16/2018 CMP, serum or plasm a BUN 11 mg/dL 9-23 Not Available [facility] [address] [address], [place], [address], 08/17/2018 08:10:04 08/17/19 19 08/16/2018 CMP, serum or plasm a creatinine 0.92 mg/dL 0.60-1 .30 Not Available [facility] [address] [place] [address], [place], [address], 08/17/2018 08:10:04 08/17/19 19 08/16/2018 CMP, serum or plasm a sodium 140 mEq/L 132-14 6 Not Available [facility] [address] [place] [address], [place], [address], 08/17/2018 08:10:04 08/17/19 19 08/16/2018 CMP, serum or plasm a potassium 4.6 mEq/L 3.5-5. 5 Not Available [facility] [address] [place] [address], [place], [address], 08/17/2018 08:10:04 08/17/19 19 08/16/2018 CMP, serum or plasm a chloride 105 mEq/L 99-109 Not Available Med Fusio n [address] [place] [address], [place], [address], 08/17/2018 08:10:04 08/17/1908/16/2018 CMP, serum or plasm a CO2 28 mEq/L 22-33 Not Available [facility] [address] [place] [address], [place], [address], 08/17/2018 08:10:04 08/17/19 19 08/16/2018 CMP, serum or plasm a anion gap 11.6 mEq/L 10-20 Not Available Med Fusi on [address] [place] [address], [place], [address], 08/17/2018 08:10:04 08/17/19 19 08/16/2018 CMP, serum or plasm a calcium 9.4 mg/dL 8.7-10 .4 Not Available [facility] [address], [place], [address], 08/17/2018 08:10:04 08/17/1908/16/2018 CMP, serum or plasm a albumin 4.5 g/dL 3.2-4. 8 Not Available [facility] [address] [facility] 121, [place], [address], 08/17/2018 08:10:04 08/17/1908/16/2018 CMP, serum or plasm a protein, total 6.3 g/dL 5.7-8. 2 Not Available [facility] [address], [place], [address], 08/17/2018 08:10:04 08/17/1908/16/2018 CMP, serum or plasm a bilirubin, total 0.9 mg/dL 0.3-1. 2 Not Available [facility] [address] [facility] 121, [place], [address], 08/17/2018 08:10:04 08/17/1908/16/2018 CMP, serum or plasm a ALT (SGPT) 19 U/L 10-49 Not Available Med F[facility] ion [address] [facility] [address], [place], [address], 08/17/2018 08:10:04 08/17/1908/16/2018 CMP, serum or plasm a AST (SGOT) 24 U/L 15-40 Not Available Med [facility] [address] [facility] 121, [place], [address], 08/17/2018 08:10:04 08/17/1908/16/2018 CMP, serum or plasm a alk phosphatase 46 U/L 45-129 Not Available [facility] [address], [place], [address], 08/17/2018 08:10:04 08/17/1908/16/2018 CMP, serum or plasm a BUN/creatini ne ratio 12.0 ratio 10-26 Not Available Med Fu lee ann [address] [facility] 121, [place], [address], 08/17/2018 08:10:04 08/17/19 19 08/16/2018 CMP, serum or plasm a globulin calculated 1.8 g/dL 2.0-3. 8 low Not Available [facility] [facility] 121, [place], [address], 08/17/2018 08:10:04 08/17/19 19 08/16/2018 CMP, serum or plasm a A/G ratio 2.5 ratio 0.9-2. 5 Not Available [facility] [address] [place] [address] [address], [place], [address], 08/17/2018 08:10:04 08/17/19 19 08/16/2018 CMP, serum or plasm a eGFR aa >90 mL/mi n/1.7 3m2 >60 Not Available [facility] [address] [facility] [address], [place], [address], 08/17/2018 08:10:04 08/17/19 19 08/16/2018 CMP, serum or plasm a eGFR 89 mL/mi n/1.7 3m2 >60 eGFR Refer ence Range s: Kat l: >90 mL/mi n/1.7 3m2 Moder ate Decre ase: 30-59 mL/mi n/1.7 3m2 Sever e Decre ase: 15-29 mL/mi n/1.7 3m2 Kidne y Failu re: <15 mL/mi n/1.7 3m2 Note: Estim ation of GFR using the MDRD equat ion is only valid for patie nts with an eGFR less than 60 mL/mi n/1.7 3m2. The repor t conta ins both eGFR for non-A frica n Ameri cans and eGFR AA for Afric an Ameri cans. ALEXI med fusio n [address] [facility] ay [address] [facility] [address] [phone] Ronald ramires MD Not Available [facility] 2501 [facility] 121, [place], [address], 08/17/2018 08:10:04 08/17/19 19 08/16/2018 lipid panel , serum cholesterol, total 188 mg/dL <200 The Natio nal Lipid Ass[employer] iatio n and the Natio nal Maria G stero l Educa tion Progr am (NCEP ) have set the follo wing lipid panel guide lines for adult s ages 20 and up: Khanh able: < 200 mg/dL Borde rline high: 200-2 39 mg/dL High: > or = 240 mg/dL Not Available [facility] [address] [facility] 121, [place], [address], 08/17/2018 08:10:07 08/17/1908/16/2018 lipid panel , serum triglyceride 99 mg/dL <150 The Natio nal Lipid Assoc iatio n and the Natio nal Maria G stero l Educa tion Progr am (NCEP ) have set the follo wing lipid panel guide lines for adult s ages 20 and up: Kat l: < 150 mg/dL Borde rline : 150 - 199 mg/dL High: 200 - 499 mg/dL Very High: > or = 500 mg/dL Not Available [facility] [address] [facility] 121, [place], [address], 08/17/2018 08:10:07 08/17/1908/16/2018 lipid panel , serum HDL cholesterol 53 mg/dL >40 The Natio nal Lipid Assoc iatio n and the Natio nal Maria G stero l Educa tion Progr am (NCEP ) have set the follo wing lipid panel guide lines for adult s ages 20 and up: Male: > or = 40 mg/dL Femal e: > or = 50 mg/dL Not Available [facility] [facility], [place], [address], 08/17/2018 08:10:07 08/17/1908/16/2018 lipid panel , serum LDL calculated 115 mg/dL <100 high The Natio nal Lipid Assoc iatio n and the Natio nal Maria G stero l Educa tion Progr am (NCEP ) have set the follo wing lipid panel guide lines for adult s ages 20 and up: Khanh able: < 100 mg/dL Above Khanh able: 100 - 129 mg/dL Borde rline high: 130 - 159 mg/dL High: 160 - 189 mg/dL Very High: > or = 190 mg/dL Not Available [facility] [address] [address], [place], [address], 08/17/2018 08:10:07 08/17/19 19 08/16/2018 lipid panel , serum ldlhdl 2.17 ratio Not Available [facility] [address] [address], [place], [address], 08/17/2018 08:10:07 08/17/1908/16/2018 lipid panel , serum LDL/HDL risk See Note (Note ) Male Femal e Below Kellogg ge Risk 0.00- 2.28 0.00- 2.34 Kellogg ge Risk 2.29- 4.90 2.35- 4.12 Moder ate Risk 4.91- 7.12 4.13- 5.56 High Risk 7.13- 20.00 5.57- 20.00 Not Available [facility] [address] [address], [place], [address], 08/17/2018 08:10:07 08/17/19 19 08/16/2018 lipid panel , serum total chol/HDL ratio (calculat 3.5 ratio 0.0-5. 0 MDF med fusio n 2501 [facility] 121,[address] [facility] [address] [phone] Ronald ramires MD Not Available [facility] [address] [address], [place], [address], 08/17/2018 08:10:07 08/17/1908/16/2018 uric acid, serum or plasm a uric acid 5.4 mg/dL 3.7-9. 2 MDF med fusio n 2501 [facility] 121,[address] [facility] [address] [phone] Ronald ramires MD Not Available [facility] [address] [address], [place], [address], 08/17/2018 08:10:09 08/17/19 19 08/16/2018 HbA1c (hemo globi n A1c), blood hemoglobin A1C w/o EAG 6.1 % <5.7 high Per Ameri can Diabe dianne Assoc iatio n, patie nts who have an HbA1c from 5.7 to 6.4 are consi dered at an incre ased risk fro devel oping diabe dianne in the futur e. (Note ) No inter feren ce has been obser malik with HbA1c fract ion quant ifica tion due to the prese nce of major abnor mal hemog lobin s Hb S, Hb C, Hb D and Hb E, excep t Gonzalo' s hemog lobin . Abnor mal life span of red blood cells , as found in hemol ytic anemi as, polyc ythem ia or posts plene ctomy , may affec t the level s of HbA1c . Indiv idual s with recen t signi fican t blood loss exhib it false ly low HbA1c value s due to a highe r fract ion of young red blood cells . [facility],[address] [facility] [address] [phone] Ronald ramires MD Not Available [facility] 2501 [facility] 121, [place], [address], 08/17/2018 08:30:01 08/17/19 19 08/16/2018 micro album in, urine creatinine, urine 158.1 mg/dL (Note ) Range not estab lishe d for urine Not Available [facility] [facility], [place], [address], 08/17/2018 11:29:55 08/17/1908/16/2018 micro album in, urine microalbumin , urine <6 mg/L <30 Not Available Med [facility] lee ann [facility] [facility] 121, [place], [address], 08/17/2018 11:29:55 08/17/1908/16/2018 micro album in, urine microalbumin /creat ratio <4 mg/g_ cret 0-30 MDF med fusio n 2501 [facility] ay [address] [facility] [address] [phone] Ronald ramires MD Not Available [facility] [address] [place] [address], [place], [address], 08/17/2018 11:29:55 02/08/2002/07/2019 CBC w/ auto diff WBC 5.4 K/uL 3.8-10 .6 Not Available [facility] [address] [place] [address], [place], [address], 02/08/2019 07:38:57 02/08/2002/07/2019 CBC w/ auto diff RBC 4.44 M/uL 4.40-5 .90 Not Available [facility] [address] [place] [address], [place], [address], 02/08/2019 07:38:57 02/08/2002/07/2019 CBC w/ auto diff hemoglobin 14.3 g/dL 14.0-1 8.0 Not Available [facility] [address] [place] [address], [place], [address], 02/08/2019 07:38:57 02/08/2002/07/2019 CBC w/ auto diff hematocrit 43.9 % 40.0-5 2.0 Not Available [facility] [address] [place] [address], [place], [address], 02/08/2019 07:38:57 02/08/2002/07/2019 CBC w/ auto diff MCV 99 fL 80-100 Not Available [facility] [address] [place] [address], [address], 02/08/2019 07:38:57 02/08/2002/07/2019 CBC w/ auto diff MCH 32.2 pg 26.0-3 4.0 Not Available [facility] [address] [place] [address], [place], [address], 02/08/2019 07:38:57 02/08/20 19 02/07/2019 CBC w/ auto diff MCHC 32.6 g/dL 31.0-3 7.0 Not Available [facility] [address] [address], [place], [address], 02/08/2019 07:38:57 02/08/2002/07/2019 CBC w/ auto diff RDW 11.9 % 12.0-1 5.0 low Not Available [facility] [address] [place] [address], [place], [address], 02/08/2019 07:38:57 02/08/2002/07/2019 CBC w/ auto diff MPV 10.9 fL 8.8-12 .8 Not Available [facility] [address] [place] [address], [place], [address], 02/08/2019 07:38:57 02/08/2002/07/2019 CBC w/ auto diff platelet count 271 K/uL 130-40 0 Not Available [facility] [address] [place] [address], [place], [address], 02/08/2019 07:38:57 02/08/2002/07/2019 CBC w/ auto diff diff type Automa benny diff Not Available [facility] [address] [place] [address], [place], [address], 02/08/2019 07:38:57 02/08/2002/07/2019 CBC w/ auto diff abs neutrophils 2.8 K/uL 1.8-7. 7 Not Available [facility] [address] [place] [address], [place], [address], 02/08/2019 07:38:57 02/08/2002/07/2019 CBC w/ auto diff abs lymphocytes 1.8 K/uL 1.0-4. 8 Not Available [facility] [address] [place] [address], [place], [address], 02/08/2019 07:38:57 02/08/20 02/07/2019 CBC w/ auto diff abs monocytes 0.7 K/uL 0.1-1. 0 Not Available [facility] [address], [address], 02/08/2019 07:38:57 02/08/20 19 02/07/2019 CBC w/ auto diff abs eosinophils 0.1 K/uL 0.0-0. 6 Not Available [facility] [address] [place] [address], [address], 02/08/2019 07:38:57 02/08/20 19 02/07/2019 CBC w/ auto diff abs basophils 0.0 K/uL 0.0-0. 3 Not Available [facility] [address] [place] [address], [address], 02/08/2019 07:38:57 02/08/2002/07/2019 CBC w/ auto diff neutrophil 51 % 45-73 Not Available [facility] [address] [place] [address], [address], 02/08/2019 07:38:57 02/08/2002/07/2019 CBC w/ auto diff lymphocyte 33 % 18-44 Not Available [facility] [address] [place] [address], [address], 02/08/2019 07:38:57 02/08/2002/07/2019 CBC w/ auto diff monocyte 13 % 4-10 high Not Available [facility] [address] [address], [place], [address], 02/08/2019 07:38:57 02/08/2002/07/2019 CBC w/ auto diff eosinophil 2 % 0-4 Not Available Med [facility] [address], [address], 02/08/2019 07:38:57 02/08/2002/07/2019 CBC w/ auto diff basophil 1 % 0-1 MDF med fusio n 2501 [facility] 121,[address] [facility] [address] [phone] Ronald ramires MD Not Available [facility] [address] [place] [address], [place], [address], 02/08/2019 07:38:57 02/08/20 19 02/07/2019 urina lysis compl ete, refle x cultu re urine color Yellow yellow Not Available [facility] [address] [address], [place], [address], 02/08/2019 07:59:13 02/08/20 19 02/07/2019 urina lysis compl ete, refle x cultu re urine clarity Turbid clear abnormal Not Available [facility] [address] [address], [place], [address], 02/08/2019 07:59:13 02/08/2002/07/2019 urina lysis compl ete, refle x cultu re urine specific gravity 1.016 1.005- 1.030 Not Available [facility] [address] [place] [address], [place], [address], 02/08/2019 07:59:13 02/08/20 19 02/07/2019 urina lysis compl ete, refle x cultu re urine pH 6.5 5.0-8. 5 Not Available [address] [address], [place], [address], 02/08/2019 07:59:13 02/08/2002/07/2019 urina lysis compl ete, refle x cultu re urine glucose Negati ve mg/dL negati ve Not Available Med [address] [address], [place], [address], 02/08/2019 07:59:13 02/08/2002/07/2019 urina lysis compl ete, refle x cultu re urine ketones Negati ve mg/dL negati ve Not Available Med [address] [address], [place], [address], 02/08/2019 07:59:13 02/08/20 19 02/07/2019 urina lysis compl ete, refle x cultu re urobilinogen 0.2 eu/dL 0.2-1. 0 Not Available [facility] [address] [address], [place], [address], 02/08/2019 07:59:13 02/08/20 19 02/07/2019 urina lysis compl ete, refle x cultu re urine bilirubin Negati ve negati ve Not Available Med [address] [address], [place], [address], 02/08/2019 07:59:13 02/08/20 19 02/07/2019 urina lysis compl ete, refle x cultu re urine blood Negati ve negati ve Not Available [address] [address] [address], [place], [address], 02/08/2019 07:59:13 02/08/20 19 02/07/2019 urina lysis compl ete, refle x cultu re urine protein Negati ve negati ve Not Available [facility] [address] [address], [place], [address], 02/08/2019 07:59:13 02/08/20 19 02/07/2019 urina lysis compl ete, refle x cultu re leukocyte esterase Negati ve negati ve Not Available Med [address] [address], [place], [address], 02/08/2019 07:59:13 02/08/2002/07/2019 urina lysis compl ete, refle x cultu re urine nitrites Negati ve negati ve Not Available [facility] [address] [address], [place], [address], 02/08/2019 07:59:13 02/08/2002/07/2019 urina lysis compl ete, refle x cultu re white blood cells <1 /hpf 0-4 Not Available Med [facility] [address] [address], [place], [address], 02/08/2019 07:59:13 02/08/20 19 02/07/2019 urina lysis compl ete, refle x cultu re red blood cells 2 /hpf 0-5 Not Available [facility] Sh[address] [place] [address], [place], [address], 02/08/2019 07:59:13 02/08/20 19 02/07/2019 urina lysis compl ete, refle x cultu re squamous epithelial cells 1 /hpf 0-2 Not Available [address] [address], [place], [address], 02/08/2019 07:59:13 02/08/20 19 02/07/2019 urina lysis compl ete, refle x cultu re urine bacteria Negati ve negati ve Not Available [facility] Olu [address] [place] [address], [place], [address], 02/08/2019 07:59:13 02/08/20 19 02/07/2019 urina lysis compl ete, refle x cultu re cast, hyaline <1 /lpf 0-2 Not Available [facility] Shadi [address] [place] [address], [place], [address], 02/08/2019 07:59:13 02/08/20 19 02/07/2019 urina lysis compl ete, refle x cultu re reflex to culture Result s Below CULTU RE NOT INDIC ATED MDF med fusio n [facility] [address] [place] [address] [phone] Ronald ramires MD Not Available [facility] Olu [address] [place] [address], [place], [address], 02/08/2019 07:59:13 02/08/20 19 02/07/2019 CMP, serum or plasm a glucose, fasting 111 mg/dL 70-99 high Not Available [facility] Shadi lee annmadison [address] [place] [address], [place], [address], 02/08/2019 08:53:20 02/08/2002/07/2019 CMP, serum or plasm a BUN 13 mg/dL 9-23 Not Available [facility] [address] [address], [place], [address], 02/08/2019 08:53:20 02/08/2002/07/2019 CMP, serum or plasm a creatinine 0.88 mg/dL 0.60-1 .30 Not Available [facility] [address] [address], [place], [address], 02/08/2019 08:53:20 02/08/2002/07/2019 CMP, serum or plasm a sodium 140 mEq/L 132-14 6 Not Available [facility] [address] [place] [address], [place], [address], 02/08/2019 08:53:20 02/08/2002/07/2019 CMP, serum or plasm a potassium 4.9 mEq/L 3.5-5. 5 Not Available [facility] [address] [place] [address], [place], [address], 02/08/2019 08:53:20 02/08/2002/07/2019 CMP, serum or plasm a chloride 104 mEq/L 99-109 Not Available [facility] [address] [place] [address], [place], [address], 02/08/2019 08:53:20 02/08/2002/07/2019 CMP, serum or plasm a CO2 29 mEq/L 22-33 Not Available [facility] [address] [place] [address], [place], [address], 02/08/2019 08:53:20 02/08/2002/07/2019 CMP, serum or plasm a anion gap 11.9 mEq/L 10-20 Not Available [facility] on [address] [place] [address], [place], [address], 02/08/2019 08:53:20 02/08/2002/07/2019 CMP, serum or plasm a calcium 9.9 mg/dL 8.7-10 .4 Not Available [facility] [address], [place], [address], 02/08/2019 08:53:20 02/08/2002/07/2019 CMP, serum or plasm a albumin 4.6 g/dL 3.2-4. 8 Not Available [facility] [address] [facility] 121, [place], [address], 02/08/2019 08:53:20 02/08/2002/07/2019 CMP, serum or plasm a protein, total 6.6 g/dL 5.7-8. 2 Not Available [facility] [address], [place], [address], 02/08/2019 08:53:20 02/08/2002/07/2019 CMP, serum or plasm a bilirubin, total 0.7 mg/dL 0.3-1. 2 Not Available [facility] [address], [place], [address], 02/08/2019 08:53:20 02/08/2002/07/2019 CMP, serum or plasm a ALT (SGPT) 17 U/L 10-49 Not Available [facility] [address], [place], [address], 02/08/2019 08:53:20 02/08/2002/07/2019 CMP, serum or plasm a AST (SGOT) 25 U/L 15-40 Not Available [facility] [address], [place], [address], 02/08/2019 08:53:20 02/08/2002/07/2019 CMP, serum or plasm a alk phosphatase 46 U/L 45-129 Not Available [facility] [address], [place], [address], 02/08/2019 08:53:20 02/08/2002/07/2019 CMP, serum or plasm a BUN/creatini ne ratio 14.8 ratio 10-26 Not Available Med [facility] lee ann 2501 [facility] 121, [place], [address], 02/08/2019 08:53:20 02/08/2002/07/2019 CMP, serum or plasm a globulin calculated 2.0 g/dL 2.0-3. 8 Not Available [facility] [address] [place] [address] 121, [place], [address], 02/08/2019 08:53:20 02/08/2002/07/2019 CMP, serum or plasm a A/G ratio 2.3 ratio 0.9-2. 5 Not Available [facility] [address] [place] [address] 121, [place], [address], 02/08/2019 08:53:20 02/08/2002/07/2019 CMP, serum or plasm a eGFR aa >90 mL/mi n/1.7 3m2 >60 Not Available [facility] [address] [place] [address] 121, [place], [address], 02/08/2019 08:53:20 02/08/2002/07/2019 CMP, serum or plasm a eGFR >90 mL/mi n/1.7 3m2 >60 eGFR Refer ence Range s: Kat l: >90 mL/mi n/1.7 3m2 Moder ate Decre ase: 30-59 mL/mi n/1.7 3m2 Sever e Decre ase: 15-29 mL/mi n/1.7 3m2 Kidne y Failu re: <15 mL/mi n/1.7 3m2 Note: Estim ation of GFR using the MDRD equat ion is only valid for patie nts with an eGFR less than 60 mL/mi n/1.7 3m2. The repor t conta ins both eGFR for non-A frica n Ameri cans and eGFR AA for Afric an Ameri cans. ALEXI med fusio n [address] [facility] [address] [facility] [address] [phone] Ronald ramires MD Not Available [facility] [address] [facility] 121, [place], [address], 02/08/2019 08:53:20 02/08/2002/07/2019 lipid panel , serum cholesterol, total 194 mg/dL <200 The Natio nal Lipid Assoc iatio n and the Natio nal Maria G stero l Educa tion Progr am (NCEP ) have set the follo wing lipid panel guide lines for adult s ages 20 and up: Khanh able: < 200 mg/dL Borde rline high: 200-2 39 mg/dL High: > or = 240 mg/dL Not Available [facility] [address] [facility] 121, [place], [address], 02/08/2019 08:53:38 02/08/2002/07/2019 lipid panel , serum triglyceride 73 mg/dL <150 The Natio nal Lipid Assoc iatio n and the Natio nal Maria G stero l Educa tion Progr am (NCEP ) have set the follo wing lipid panel guide lines for adult s ages 20 and up: Kat l: < 150 mg/dL Borde rline : 150 - 199 mg/dL High: 200 - 499 mg/dL Very High: > or = 500 mg/dL Not Available [facility] [address] [place] [address] 121, [place], [address], 02/08/2019 08:53:38 02/08/2002/07/2019 lipid panel , serum HDL cholesterol 54 mg/dL >40 The Natio nal Lipid Assoc iatio n and the Natio nal Maria G stero l Educa tion Progr am (NCEP ) have set the follo wing lipid panel guide lines for adult s ages 20 and up: Male: > or = 40 mg/dL Femal e: > or = 50 mg/dL Not Available [facility] 25[address] [facility] 121, [place], [address], 02/08/2019 08:53:38 02/08/2002/07/2019 lipid panel , serum LDL calculated 125 mg/dL <100 high The Natio nal Lipid Assoc iatio n and the Natio nal Maria G stero l Educa tion Progr am (NCEP ) have set the [facility] lipid panel guide lines for adult s ages 20 and up: Khanh able: < 100 mg/dL Above Khanh able: 100 - 129 mg/dL Borde rline high: 130 - 159 mg/dL High: 160 - 189 mg/dL Very High: > or = 190 mg/dL Not Available [facility] [address] [address], [place], [address], 02/08/2019 08:53:38 02/08/2002/07/2019 lipid panel , serum ldlhdl 2.31 ratio Not Available [facility] [address] [address], [place], [address], 02/08/2019 08:53:38 02/08/2002/07/2019 lipid panel , serum LDL/HDL risk See Note (Note ) Male Femal e Below Kellogg ge Risk 0.00- 2.28 0.00- 2.34 Kellogg ge Risk 2.29- 4.90 2.35- 4.12 Moder ate Risk 4.91- 7.12 4.13- 5.56 High Risk 7.13- 20.00 5.57- 20.00 Not Available [facility] [address] [address], [place], [address], 02/08/2019 08:53:38 02/08/2002/07/2019 lipid panel , serum total chol/HDL ratio (calculat 3.6 ratio 0.0-5. 0 MDF med fusio n 25[address] [facility] [address] [facility] [address] [phone] Ronald ramires MD Not Available [facility] [address] [address], [place], [address], 02/08/2019 08:53:38 02/08/2002/07/2019 uric acid, serum or plasm a uric acid 5.1 mg/dL 3.7-9. 2 MDF med fusio n 2501 [facility] 121,[address] [facility] [address] [phone] Ronald ramires MD Not Available [facility], [place], [address], 02/08/2019 08:53:55 02/08/20 19 02/07/2019 HbA1c (hemo globi n A1c), blood hemoglobin A1C w/o EAG 5.8 % <5.7 high Per Ameri can [facility] Ass[facility] iatio n, patie nts who have an HbA1c from 5.7 to 6.4 are consi dered at an incre ased risk fro devel oping diabe dianne in the futur e. (Note ) No inter feren ce has been obser malik with HbA1c fract ion quant ifica tion due to the prese nce of major abnor mal hemog lobin s Hb S, Hb C, Hb D and Hb E, excep t Gonzalo' s hemog lobin . Abnor mal life span of red blood cells , as found in hemol ytic anemi as, polyc ythem ia or posts plene ctomy , may affec t the level s of HbA1c . Indiv idual s with recen t signi fican t blood loss exhib it false ly low HbA1c value s due to a highe r fract ion of young red blood cells . MDF med fusio n 2501 [facility] [address] [facility] [address] [phone] Ronald ramires MD Not Available [facility] [facility], [place], [address], 02/08/2019 12:57:27 08/10/19 20 08/10/2019 urina lysis compl ete, refle x cultu re urine color Yellow yellow Not Available Med [facility] ann [address] [facility] 121, [place], [address], 08/11/2019 06:00:12 08/10/1908/10/2019 urina lysis compl ete, refle x cultu re urine clarity Clear clear Not Available Med [facility] ann 2501 [facility] 121, [place], [address], 08/11/2019 06:00:12 08/10/19 20 08/10/2019 urina lysis compl ete, refle x cultu re urine specific gravity 1.028 1.005- 1.030 Not Available [address] [address], [place], [address], 08/11/2019 06:00:12 08/10/19 20 08/10/2019 urina lysis compl ete, refle x cultu re urine pH 6.0 5.0-8. 5 Not Available [address] [address], [place], [address], 08/11/2019 06:00:12 08/10/1908/10/2019 urina lysis compl ete, refle x cultu re urine glucose Negati ve mg/dL negati ve Not Available [address] [address], [place], [address], 08/11/2019 06:00:12 08/10/19 20 08/10/2019 urina lysis compl ete, refle x cultu re urine ketones Negati ve mg/dL negati ve Not Available [address] [address], [place], [address], 08/11/2019 06:00:12 08/10/19 20 08/10/2019 urina lysis compl ete, refle x cultu re urobilinogen 1.0 eu/dL 0.2-1. 0 Not Available [address] [address], [place], [address], 08/11/2019 06:00:12 08/10/1908/10/2019 urina lysis compl ete, refle x cultu re urine bilirubin Negati ve negati ve Not Available [address] [address], [place], [address], 08/11/2019 06:00:12 08/10/19 20 08/10/2019 urina lysis compl ete, refle x cultu re urine blood Negati ve negati ve Not Available [address] [address], [place], [address], 08/11/2019 06:00:12 08/10/19 20 08/10/2019 urina lysis compl ete, refle x cultu re urine protein Negati ve negati ve Not Available [address] [address], [place], [address], 08/11/2019 06:00:12 08/10/19 20 08/10/2019 urina lysis compl ete, refle x cultu re leukocyte esterase Negati ve negati ve Not Available [address] [address], [place], [address], 08/11/2019 06:00:12 08/10/19 20 08/10/2019 urina lysis compl ete, refle x cultu re urine nitrites Negati ve negati ve Not Available [address] [address], [place], [address], 08/11/2019 06:00:12 08/10/19 20 08/10/2019 urina lysis compl ete, refle x cultu re white blood cells 1 /hpf 0-4 Not Available [address] [address], [place], [address], 08/11/2019 06:00:12 08/10/19 20 08/10/2019 urina lysis compl ete, refle x cultu re red blood cells 1 /hpf 0-5 Not Available [address] [address], [place], [address], 08/11/2019 06:00:12 08/10/19 20 08/10/2019 urina lysis compl ete, refle x cultu re squamous epithelial cells 1 /hpf 0-2 Not Available [address] [address], [place], [address], 08/11/2019 06:00:12 08/10/19 20 08/10/2019 urina lysis compl ete, refle x cultu re urine bacteria Negati ve negati ve Not Available [facility] [address] [address], [place], [address], 08/11/2019 06:00:12 08/10/19 20 08/10/2019 urina lysis compl ete, refle x cultu re cast, hyaline <1 /lpf 0-2 Not Available Med [facility] [place] [address] [place] [address], [place], [address], 08/11/2019 06:00:12 08/10/19 20 08/10/2019 urina lysis compl ete, refle x cultu re reflex to culture Result s Below CULTU RE NOT INDIC ATED MDF med fusio n 2501 [facility] [address] [facility] [address] [phone] Ronald ramires MD Not Available [facility] [address] [place] [address], [place], [address], 08/11/2019 06:00:12 08/10/19 20 08/10/2019 CBC w/ auto diff WBC 5.8 K/uL 3.8-10 .6 Not Available [facility] [address] [place] [address], [place], [address], 08/11/2019 06:22:37 08/10/19 20 08/10/2019 CBC w/ auto diff RBC 4.79 M/uL 4.40-5 .90 Not Available [facility] [address] [place] [address], [place], [address], 08/11/2019 06:22:37 08/10/19 20 08/10/2019 CBC w/ auto diff hemoglobin 15.4 g/dL 14.0-1 8.0 Not Available [facility] [address] [place] [address], [id number], 08/11/2019 06:22:37 08/10/19 20 08/10/2019 CBC w/ auto diff hematocrit 45.4 % 40.0-5 2.0 Not Available [facility] [address] [place] [address], [address], 08/11/2019 06:22:37 08/10/19 20 08/10/2019 CBC w/ auto diff MCV 95 fL 80-100 Not Available [facility] [address] [address], [place], [address], 08/11/2019 06:22:37 08/10/1908/10/2019 CBC w/ auto diff MCH 32.2 pg 26.0-3 4.0 Not Available [facility] [address] [address], [place], [address], 08/11/2019 06:22:37 08/10/1908/10/2019 CBC w/ auto diff MCHC 33.9 g/dL 31.0-3 7.0 Not Available [facility] [address] [address], [place], [address], 08/11/2019 06:22:37 08/10/1908/10/2019 CBC w/ auto diff RDW 11.8 % 12.0-1 5.0 low Not Available [facility] [address] [place] [address], [place], [address], 08/11/2019 06:22:37 08/10/1908/10/2019 CBC w/ auto diff MPV 11.0 fL 8.8-12 .8 Not Available [facility] [address] [place] [address], [place], [address], 08/11/2019 06:22:37 08/10/1908/10/2019 CBC w/ auto diff platelet count 283 K/uL 130-40 0 Not Available [facility] [address] [address], [place], [address], 08/11/2019 06:22:37 08/10/1908/10/2019 CBC w/ auto diff diff type Automa benny diff Not Available [facility] [address] [place] [address], [place], [address], 08/11/2019 06:22:37 08/10/1908/10/2019 CBC w/ auto diff abs neutrophils 3.1 K/uL 1.8-7. 7 Not Available [facility] [address] [address], [place], [address], 08/11/2019 06:22:37 08/10/19 20 08/10/2019 CBC w/ auto diff abs lymphocytes 1.9 K/uL 1.0-4. 8 Not Available [facility] [address] [address], [place], [address], 08/11/2019 06:22:37 08/10/19 20 08/10/2019 CBC w/ auto diff abs monocytes 0.6 K/uL 0.1-1. 0 Not Available [facility] [address] [address], [place], [address], 08/11/2019 06:22:37 08/10/19 20 08/10/2019 CBC w/ auto diff abs eosinophils 0.2 K/uL 0.0-0. 6 Not Available [facility] [address] [address], [place], [address], 08/11/2019 06:22:37 08/10/19 20 08/10/2019 CBC w/ auto diff abs basophils 0.0 K/uL 0.0-0. 3 Not Available [facility] [address] [address], [place], [address], 08/11/2019 06:22:37 08/10/19 20 08/10/2019 CBC w/ auto diff neutrophil 54 % 45-73 Not Available [facility] [address] [address], [place], [address], 08/11/2019 06:22:37 08/10/19 20 08/10/2019 CBC w/ auto diff lymphocyte 32 % 18-44 Not Available [facility] [address] [address], [place], [address], 08/11/2019 06:22:37 08/10/19 20 08/10/2019 CBC w/ auto diff monocyte 10 % 4-10 Not Available [facility], [place], [address], 08/11/2019 06:22:37 08/10/19 20 08/10/2019 CBC w/ auto diff eosinophil 3 % 0-4 Not Available [facility] [address] [facility] 121, [place], [address], 08/11/2019 06:22:37 08/10/19 20 08/10/2019 CBC w/ auto diff basophil 1 % 0-1 [facility] med [facility] n [address] [facility] [address] [place] [address] [phone] Ronald ramires MD Not Available [facility] [address] [facility] 121, [place], [address], 08/11/2019 06:22:37 08/10/19 20 08/10/2019 HbA1c (hemo globi n A1c), blood hemoglobin A1C w/o EAG 5.8 % <5.7 high Per Ameri can [facility] n, patie nts who have an HbA1c from 5.7 to 6.4 are consi dered at an incre ased risk fro devel oping diabe dianne in the futur e. (Note ) No inter feren ce has been obser malik with HbA1c fract ion quant ifica tion due to the prese nce of major abnor mal hemog lobin s Hb S, Hb C, Hb D and Hb E, excep t Gonzalo' s hemog lobin . Abnor mal life span of red blood cells , as found in hemol ytic anemi as, polyc ythem ia or posts plene ctomy , may affec t the level s of HbA1c . Indiv idual s with recen t signi fican t blood loss exhib it false ly low HbA1c value s due to a highe r fract ion of young red blood cells . [facility] [facility] [place] [address] [phone] Ronald ramires MD Not Available [facility] [address] [facility] 121, [place], [address], 08/11/2019 07:54:29 08/10/1908/10/2019 CMP, serum or plasm a glucose, fasting 116 mg/dL 70-99 high Not Available [facility] [address] [facility] 121, [place], [address], 08/11/2019 08:15:23 08/10/19 20 08/10/2019 CMP, serum or plasm a BUN 16 mg/dL 9-23 Not Available [facility] [address] [facility] 121, [place], [address], 08/11/2019 08:15:23 08/10/1908/10/2019 CMP, serum or plasm a creatinine 0.92 mg/dL 0.60-1 .30 Not Available [facility] [address] [place] [address] 121, [place], [address], 08/11/2019 08:15:23 08/10/19 20 08/10/2019 CMP, serum or plasm a sodium 137 mEq/L 132-14 6 Not Available [address], [place], [address], 08/11/2019 08:15:23 08/10/19 20 08/10/2019 CMP, serum or plasm a potassium 4.6 mEq/L 3.5-5. 5 Not Available [facility] [address] [place] [address] 121, [place], [address], 08/11/2019 08:15:23 08/10/1908/10/2019 CMP, serum or plasm a chloride 101 mEq/L 99-109 Not Available [facility] [address] [facility] 121, [place], [address], 08/11/2019 08:15:23 08/10/1908/10/2019 CMP, serum or plasm a CO2 28 mEq/L 22-33 Not Available [facility] [address] [place] [address] 121, [place], [address], 08/11/2019 08:15:23 08/10/1903 0808/10/2019 CMP, serum or plasm a anion gap 12.6 mEq/L 10-20 Not Available [facility] [address] [address], [place], [address], 08/11/2019 08:15:23 08/10/19 20 08/10/2019 CMP, serum or plasm a calcium 10.0 mg/dL 8.7-10 .4 Not Available [facility] [address] [address], [place], [address], 08/11/2019 08:15:23 08/10/19 20 08/10/2019 CMP, serum or plasm a albumin 4.8 g/dL 3.2-4. 8 Not Available [facility] [address] [address], [place], [address], 08/11/2019 08:15:23 08/10/19 20 08/10/2019 CMP, serum or plasm a protein, total 6.7 g/dL 5.7-8. 2 Not Available [facility] [address] [address], [place], [address], 08/11/2019 08:15:23 08/10/19 20 08/10/2019 CMP, serum or plasm a bilirubin, total 0.9 mg/dL 0.3-1. 2 Not Available [facility] [address] [address], [place], [address], 08/11/2019 08:15:23 08/10/19 20 08/10/2019 CMP, serum or plasm a ALT (SGPT) 23 U/L 10-49 Not Available [facility] [address] [address], [place], [address], 08/11/2019 08:15:23 08/10/19 20 08/10/2019 CMP, serum or plasm a AST (SGOT) 20 U/L 15-40 Not Available [facility] [address] [address], [place], [address], 08/11/2019 08:15:23 08/10/19 20 08/10/2019 CMP, serum or plasm a alk phosphatase 45 U/L 45-129 Not Available [address] [address], [place], [address], 08/11/2019 08:15:23 08/10/19 20 08/10/2019 CMP, serum or plasm a BUN/creatini ne ratio 17.4 ratio 10-26 Not Available [facility] [address] [address], [place], [address], 08/11/2019 08:15:23 08/10/19 20 08/10/2019 CMP, serum or plasm a globulin calculated 1.9 g/dL 2.0-3. 8 low Not Available [address] [address], [place], [address], 08/11/2019 08:15:23 08/10/19 20 08/10/2019 CMP, serum or plasm a A/G ratio 2.5 ratio 0.9-2. 5 Not Available [address] [address], [place], [address], 08/11/2019 08:15:23 08/10/19 20 08/10/2019 CMP, serum or plasm a eGFR aa >90 mL/mi n/1.7 3m2 >60 Not Available [address] [address], [place], [address], 08/11/2019 08:15:23 08/10/19 20 08/10/2019 CMP, serum or plasm a eGFR 89 mL/mi n/1.7 3m2 >60 eGFR Refer ence Range s: Kat l: >90 mL/mi n/1.7 3m2 Moder ate Decre ase: 30-59 mL/mi n/1.7 3m2 Sever e Decre ase: 15-29 mL/mi n/1.7 3m2 Kidne y Failu re: <15 mL/mi n/1.7 3m2 Note: Estim ation of GFR using the MDRD equat ion is only valid for patie nts with an eGFR less than 60 mL/mi n/1.7 3m2. The repor t conta ins both eGFR for non-A frica n Ameri cans and eGFR AA for Afric an Ameri cans. [facility] [address] [facility] [address] [facility] [address] [phone] Ronald ramires MD Not Available [facility] [address] [facility] 121, [place], [address], 08/11/2019 08:15:23 08/10/19 20 08/10/2019 lipid panel , serum cholesterol, total 189 mg/dL <200 The [facility] n[facility] [employer] i[facility] n and the Natio nal [employer] t[employer] am (NCEP ) have set the follo wing lipid panel guide lines for adult s ages 20 and up: Khanh able: < 200 mg/dL Borde rline high: 200-2 39 mg/dL High: > or = 240 mg/dL Not Available [facility] [address] [facility] 121, [place], [address], 08/11/2019 08:15:42 08/10/19 20 08/10/2019 lipid panel , serum triglyceride 81 mg/dL <150 The [facility]io n[facility] Lip[employer] i[employer] n and the Natio nal [employer]ca tion Progr am (NCEP ) have set the follo wing lipid panel guide lines for adult s ages 20 and up: Kat l: < 150 mg/dL Borde rline : 150 - 199 mg/dL High: 200 - 499 mg/dL Very High: > or = 500 mg/dL Not Available [facility] [address] [facility] 121, [place], [address], 08/11/2019 08:15:42 08/10/19 20 08/10/2019 lipid panel , serum HDL cholesterol 49 mg/dL >40 The [facility]io n[facility] Lip[employer] iatio n and the Natio nal [employer]ca tion Progr am (NCEP ) have set the follo wing lipid panel guide lines for adult s ages 20 and up: Male: > or = 40 mg/dL Femal e: > or = 50 mg/dL Not Available [facility] [address] [facility] 121, [place], [address], 08/11/2019 08:15:42 08/10/19 20 08/10/2019 lipid panel , serum LDL calculated 124 mg/dL <100 high The Natio nal Lipid Ass[employer] iatio n and the Natio nal [employer]ca tion Progr am (NCEP ) have set the [facility] lipid panel guide lines for adult s ages 20 and up: Khanh able: < 100 mg/dL Above Khanh able: 100 - 129 mg/dL Borde rline high: 130 - 159 mg/dL High: 160 - 189 mg/dL Very High: > or = 190 mg/dL Not Available [facility] [address] [place] [address], [place], [address], 08/11/2019 08:15:42 08/10/19 20 08/10/2019 lipid panel , serum ldlhdl 2.53 ratio Not Available [facility] [address] [place] [address], [place], [address], 08/11/2019 08:15:42 08/10/19 20 08/10/2019 lipid panel , serum LDL/HDL risk See Note (Note ) Male Femal e Below Kellogg ge Risk 0.00- 2.28 0.00- 2.34 Kellogg ge Risk 2.29- 4.90 2.35- 4.12 Moder ate Risk 4.91- 7.12 4.13- 5.56 High Risk 7.13- 20.00 5.57- 20.00 Not Available [facility] [address] [place] [address] [address], [place], [address], 08/11/2019 08:15:42 08/10/19 20 08/10/2019 lipid panel , serum total chol/HDL ratio (calculat 3.9 ratio 0.0-5. 0 [facility] n [address] [place] [address] [address] [facility] [address] [phone] Ronald ramires MD Not Available [facility] [address] [place] [address] 121, [place], [address], 08/11/2019 08:15:42 08/10/19 20 08/10/2019 uric acid, serum or plasm a uric acid 6.1 mg/dL 3.7-9. 2 [facility] [address] [facility] [address] [facility] [address] [phone] Ronald ramires MD Not Available [facility] [address] [address], [place], [address], 08/11/2019 08:16:47 08/10/19 20 08/10/2019 micro album in, urine creatinine, urine 168.2 mg/dL (Note ) Range not estab lishe d for urine Not Available [facility] [address] [place] [address], [place], [address], 08/11/2019 15:08:31 08/10/19 20 08/10/2019 micro album in, urine microalbumin , urine 13 mg/L <30 Not Available [facility] [address] [address], [place], [address], 08/11/2019 15:08:31 08/10/19 20 08/10/2019 micro album in, urine microalbumin /creat ratio 8 mg/g_ cret 0-30 [facility] [address] [facility] [address] [facility] [address] [phone] Ronald ramires MD Not Available [facility] [address] [place] [address], [place], [address], 08/11/2019 15:08:31 08/13/19 18 08/12/2017 elect fridaar diogr am No observ ation record ed. [email or web address] Not Available 2017 09:12:09 08/18/19 18 XR, chest , 2 view No observ ation record ed. SONIDO Hernandez [address], [place], [address], 08/23/2017 11:16:36 Result Notes None recorded. Problems Name Problem SNOMED Code Status Onset Date Resolution Date Notes Provider Name and Address Organization Details Recorded Time Essential hypertension 62069351 Active 2016 [facility] 16:57:25 Diabetes mellitus 98543358 Active 2016 [facility] 16:57:33 Gastroesophage al reflux disease 806655505 Active 2016 [facility] 17:03:19 Problem Notes None recorded. Procedures Surgical History Date Name Laterality Status Provider Name and Address Organization Details Recorded Time 08/10/19 20 Pulse Oximetry completed [facility] 08/10/2019 10:55:59 08/17/19 19 Pulse Oximetry completed [facility] 08/16/2018 09:10:56 12/21/19 18 [facility] 10:09:57 08/13/19 18 Pulse Oximetry completed [facility] 08/12/2017 18:28:55 02/16/20 17 Pulse Oximetry completed [facility] 02/15/2017 17:09:33 01/09/20 12 Arthroscopic Surgery completed [facility] 08/16/2018 09:03:56 Appendectomy completed [facility] 02/15/2017 17:04:30 Hernia Repair completed [facility] 02/15/2017 17:04:49 Vasectomy completed [facility] 08/16/2018 09:03:56 Imaging Results Imaging Date Name Status LastModified by Organization Details LastModified Time 08/12/2017 electrocardiogram completed Informa tion not available 08/13/2017 09:12:09 08/17/2017 XR, chest, 2 view completed SONIDO Hernandez [address], [place], [address], 08/23/2017 11:16:36 Procedure Notes None recorded. Medical Equipment None Reported. Allergies No known drug allergies Medications Name Sig Start Date Stop Date Status Note LastModified by Organization Details LastModified Time cyclobenzap rine 10 mg tablet 08/09 completed Not Available Not Available Not Available acetazolami de 125 mg tablet Take 1 tablet twice a day by oral route. 08/09 completed Not Available Not Available Not Available ondansetron HCl 4 mg tablet 08/09 completed Not Available Not Available Not Available hydrocodone 10 mg-acetamin ophen 325 mg tablet 08/09 completed Not Available Not Available Not Available amoxicillin 400 mg-potassiu m clavulanate 57 mg/5 mL oral suspension 08/09 completed Not Available Not Available Not Available meloxicam 7.5 mg tablet active Not Available Not Available Not Available hydrocodone 7.5 mg-acetamin ophen 325 mg tablet 08/09 completed Not Available Not Available Not Available pantoprazol e 40 mg tablet,carmenza yed release TAKE 1 TABLET BY MOUTH EVERY DAY active Not Available Not Available No t Available metformin 1,000 mg tablet active Not Available Not Available Not Available scopolamine 1 mg over 3 days transdermal patch Apply 1 patch every 72 hours by transderm al route as needed. 08/09 completed Not Available Not Available Not Available methylpredn isolone 4 mg tablets in a dose pack active Not Available Not Available Not Available losartan 100 mg tablet Please specify direction s, refills and quantity active Not Available Not Available No t Available irbesartan 300 mg tablet TAKE 1 TABLET BY MOUTH EVERY DAY 02/06 completed Not Available Not Available Not Available olmesartan 40 mg tablet Take 1 tablet every day by oral route in the morning for 90 days. active Not Available Not Available No t Available metformin ER 1,000 mg tablet,exte nded release 24hr (osmotic) TAKE 1 TABLET BY MOUTH TWICE A DAY 2019 active Not Available Not Available Not Avai lable metformin ER 1,000 mg 24 hr tablet,exte nded release (gastric reten.) 02/15 completed Not Available Not Available Not Available Clenpiq 10 mg-3.5 gram-12 gram/160 mL oral solution 08/09 completed Not Available Not Available Not Available Vitals Date Recorded Body height Heart rate Body temperature Body mass index (BMI) Body weight Oxygen saturation Oxygen saturation in Arterial blood by Pulse oximetry Systolic blood pressure Diastolic blood pressure Provider Name and Address Organization Details Last Updated DateTime 9 172.72 cm 81 /min 98.5 [degF] 32.7 kg/m2 86205.3 6 g 98 % 98 % 130 mm[Hg] 78 mm[Hg] [facility] 9 11:39:38 Date Recorded Body height Body temperature Heart rate Body mass index (BMI) Body weight Oxygen saturation Oxygen saturation in Arterial blood by Pulse oximetry Systolic blood pressure Diastolic blood pressure Provider Name and Address Organization Details Last Updated DateTime 0 172.72 cm 98.1 [degF] 80 /min 33.5 kg/m2 82603.3 2 g 98 % 98 % 124 mm[Hg] 80 mm[Hg] [facility] 0 10:58:59 Date Recorded Body height Heart rate Body temperature Body mass index (BMI) Body weight Oxygen saturation Oxygen saturation in Arterial blood by Pulse oximetry Systolic blood pressure Diastolic blood pressure Provider Name and Address Organization Details Last Updated DateTime 8 172.72 cm 92 /min 98.8 [degF] 37.1 kg/m2 958844. 54 g 97 % 97 % 128 mm[Hg] 82 mm[Hg] [facility] 8 18:32:28 Date Recorded Body height Heart rate Body temperature Body mass index (BMI) Body weight Oxygen saturation Oxygen saturation in Arterial blood by Pulse oximetry Systolic blood pressure Diastolic blood pressure Provider Name and Address Organization Details Last Updated DateTime 8 172.72 cm 75 /min 98 [degF] 34.1 kg/m2 819661. 69 g 97 % 97 % 130 mm[Hg] 82 mm[Hg] [facility] 8 10:12:07 Date Recorded Body height Heart rate Body temperature Body mass index (BMI) Body weight Oxygen saturation Oxygen saturation in Arterial blood by Pulse oximetry Systolic blood pressure Diastolic blood pressure Provider Name and Address Organization Details Last Updated DateTime 9 172.72 cm 80 /min 98.5 [degF] 33.9 kg/m2 684132. 1 g 98 % 98 % 138 mm[Hg] 82 mm[Hg] [facility] 9 09:11:50 Social History Question Answer Notes LastModified by Organizat ion Details LastModified Time Tobacco Smoking Status Never Smoker Not Available [facility] 03/12/2020 03:15:14 What Is Your Level Of Alcohol Consumption? Occasional [id number] Information not available 03/12/2020 What Is Your Level Of Caffeine Consumption? Moderate [id number] Information not available 03/12/2020 What Was The Date Of Your Most Recent Tobacco Screening? 08/16/2018 [id number] Information not available 03/12/2020 Sex: Unknown Functional Status None recorded. Mental Status None recorded. Family History Relationship Description Onset Age of this Age Resolved Age Notes LastModified by Organization Details LastModified Time Father Family history of malignant neoplasm lung [email or web address] Not available 2016 17:03:41 Father Essential hypertension [email or web address] Not available 06/2016 17:03:59 Mother Essential hypertension [email or web address] Not available 06/2016 17:03:59 Medical History Condition Response Coronary Artery Disease N Other N Gout N Blood Diseases N Kidney Stones N Hyperthyroidism N Breast Cancer N Abuse/Domestic Violence (or history of) N Hypothyroidism N Lung Disease N Depression N COPD N Defects or Inherited Disease N Difficulty Swallowing N Anesthesia Complications N Headaches/Migraines N Meniere's disease N Anxiety Disorder N Breast Problem (or history of) N Muscle, Joint, or Bone Problems N Obesity N Vision or Eye Problems N Arthritis N Polyps N Infertility N Varicosities N Stroke N Endometriosis N Bladder or Kidney Problems N High Cholesterol N Liver Disease N Fibromyalgia N Kidney Disease N Allergies/Hayfever N Ear or Hearing Problems N Cancer (or history of) N Thyroid Problems N GI Problems N ADD/ADHD N Skin Problems N Eating Disorder N Anemia N MRSA exposure N Constipation N Mental Illness N Ovarian Cancer (or history of) N Diabetes Y Seizures/Epilepsy N Tuberculosis N AIDS/HIV N Congestive Heart Failure (CHF) N Eczema N Diverticulitis N Asthma N Reflux/GERD Y Hepatitis N Heart Disease N Pulmonary Embolism N Hypertension Y Chronic Ear Infections N Osteoporosis N Autism Spectrum Disorder (ASD) N Thrombophilias N Immunizations Vaccine Type Date Status Note Provider Nam e and Address Organization Details Recorded Time Hep B, adult 05/22/2015 [facility] 17:02:29 Hep A, adult 05/22/2015 [facility]2017 17:02:44 Past Encounters Encounter ID Performer Location Encounter Start Date Encounter Closed Date Diagnosis/Indication Diagnosis SNOMED-CT Code Diagnosis ICD10 Code Diagnosis Note [id number] Jerry Ayoub MD Main Office [id number] [facility] [address] [place] [address] 02/15/2017 16:54:19 02/15/2017 18:36:29 Essential hypertension 24764517 I10 Patient stable on current regimen. Discussed with patient the current diagnosis, prognosis, and treatment plan including risks, benefits, alternativ es, contraindi cations of any medication (s). Patient will monitor and record home blood pressures and return to clinic if average blood pressures >140 systolic and/or >90 diastolic, experienci ng any symptoms such as but not limited to chest pain, SOB, headaches, dizziness, peripheral edema, tachycardi a, palpitatio ns, syncope, or for any questions or concerns. Routine f/u for evaluation and labs advised every 6 months if patient continues to be stable on current regimen. All questions answered. Patient demonstrat ed understand ing. Gastroesop hageal reflux disease 591027449 K21.9 Patient stable on PPIs. Symptoms well-contr olled. Discussed dietary modificati ons, including reducing fatty food, caffeine, spicy food, carbonated beverage intake, to reduce episodes. Patient is {{willing not willing}} to adopt diet modificati ons.Discus sed elevating head of the bed and avoiding lying supine after meals. As noted above, discussed with patient the current diagnosis, prognosis, and treatment plan including risks, benefits, alternativ es, contraindi cations of any medication (s). F/U for any new or worsening symptoms. Otherwise f/u in 6 months. All questions answered. Patient demonstrat ed understand ing. Type 2 skyler betes mellitus without complication 752635204 E11.9 Pending labs. Discussed ADA recommenda tions concerning management of diabetes. Discussed with patient the current diagnosis, prognosis, and treatment plan including risks, benefits, alternativ es, contraindi cations of any medication (s). All questions answered. Patient [facility] understand ing. [id number] Jerry Ayoub MD Main Office [address] [address] 08/12/2017 18:20:53 08/12/2017 19:14:51 Pre-surgery evaluation [id number] Z01.818 Pending CXR, labs as requested. Will provide medical clearance pending results. Patient to call Dr Davis for cardiac clearance. EKG within normal limits. Diabetes mellitus 124418 09 E11.9 Essential hypertension 70012862 I10 [id number] Jerry Ayoub MD Main Office [address] [id number] 12/20/2017 09:56:30 12/20/2017 12:13:32 History of hepatitis C 6504085704 9101 Z86.19 Patient with a history of Hep C. Treated. Wants to check viral load. Diabetes mellitus 397770 09 E11.9 Pending labs for further eval. NO refills needed at this time. Discussed with patient the current diagnosis, prognosis, and treatment plan including risks, benefits, alternativ es, contraindi cations of any medication (s). All questions answered. [facility]. F/U after labs if uncontroll ed or sooner for any symptoms, questiosn, or concerns. Otherwise f/u recommende d every 6 mo. Essential hypertension 07092503 I10 Patient stable on current regimen. NO refills needed at this time.Discu ssed with patient the current diagnosis, prognosis, and treatment plan including risks, benefits, alternativ es, contraindi cations of any medication (s). Patient will monitor and record home blood pressures and return to clinic if average blood pressures >135 systolic and/or >85 diastolic, experienci ng any symptoms such as but not limited to chest pain, SOB, headaches, dizziness, peripheral edema, tachycardi a, palpitatio ns, syncope, or for any questions or concerns. Routine f/u for evaluation and labs advised at 6 month intervals if patient continues to be stable on current regimen. All questions answered. Patient [facility] [facility]. [id number] Jerry Ayoub MD Main Office [address] [facility] [address] [place] [address] 08/16/2018 09:00:24 08/16/2018 09:24:56 Type 2 diabetes mellitus without complication [id number] E11.9 Patient stable on current regimen. Discussed with patient the current diagnosis, prognosis, and treatment plan including risks, benefits, alternativ es, contraindi cations of any medication (s). Patient will monitor and record home blood glucose readings if above or below normal range or if experienci ng any symptoms such as but not limited to chest pain, SOB, headaches, dizziness, peripheral edema, tachycardi a, palpitatio ns, syncope, increased frequency of urination, increased thirt, vision changes, numbness/t ingling in the extremitie s, or for any questions or concerns. Routine f/u for evaluation and labs advised at 6 month intervals if patient continues to be stable on current regimen. All questions answered. Patient demonstrat ed understand ing. Gastroesop hageal reflux disease without esophagitis [id number] K21.9 Patient stable on PPIs. Symptoms well-contr olled. Discussed dietary modificati ons, including reducing fatty food, caffeine, spicy food, carbonated beverage intake, to reduce episodes. Patient is {{willing* not willing}} to adopt diet modificati ons.Discus sed elevating head of the bed and avoiding lying supine after meals. As noted above, discussed with patient the current diagnosis, prognosis, and treatment plan including risks, benefits, alternativ es, contraindi cations of any medication (s). F/U for any new or worsening symptoms. Otherwise f/u in 6 months. All questions answered. Patient demonstrat ed understand ing. Essential hypertension [id number] I10 Patient stable on current regimen.Di scussed with patient the current diagnosis, prognosis, and treatment plan including risks, benefits, alternativ es, contraindi cations of any medication (s). Patient will monitor and record home blood pressures and return to clinic if average blood pressures >130-135 systolic and/or >80-85 diastolic, experienci ng any symptoms such as but not limited to chest pain, SOB, headaches, dizziness, peripheral edema, tachycardi a, palpitatio ns, syncope, or for any questions or concerns. Routine f/u for evaluation and labs advised at 3-6 month intervals if patient continues to be stable on current regimen. All questions answered. [facility]. Hyperlipidemia [id number] E78.5 Not on statin at this time. Will recheck lipids.Dis cussed appropriat e dietary choices and intensifyi ng an exercise regimen as tolerated. Will follow-up after repeat labs if uncontroll ed or sooner for any symptoms, adverse effects, questions, or concerns. Otherwise follow-up at 3-6 month intervals. Discussed with patient the current diagnosis, prognosis, and treatment plan including risks, benefits, alternativ es, contraindi cations of any medication (s). All questions answered. [address] [facility] Main Office [address] [facility] [address] [place] [address] 02/06/2019 11:19:57 02/06/2019 12:00:42 Gastroesophageal reflux disease [id number] K21.9 Patient stable on PPIs. Symptoms well-contr olled. Discussed dietary modificati ons, including reducing fatty food, caffeine, spicy food, carbonated beverage intake, to reduce episodes. Patient is {{willing* not willing}} to adopt diet modificati ons.Discus sed elevating head of the bed and avoiding lying supine after meals. As noted above, discussed with patient the current diagnosis, prognosis, and treatment plan including risks, benefits, alternativ es, contraindi cations of any medication (s). F/U for any new or worsening symptoms. Otherwise f/u in 6 months. All questions answered. Patient [facility]. Essential hypertension [id number] I10 Patient stable on current regimen. Will get fasting labs.Discu ssed with patient the current diagnosis, prognosis, and treatment plan including risks, benefits, alternativ es, contraindi cations of any medication (s). Patient will monitor and record home blood pressures and return to clinic if average blood pressures >130-135 systolic and/or >80-85 diastolic, experienci ng any symptoms such as but not limited to chest pain, SOB, headaches, dizziness, peripheral edema, tachycardi a, palpitatio ns, syncope, or for any questions or concerns. Routine f/u for evaluation and labs advised at 6 months if patient continues to be stable on current regimen. All questions answered. Patient [facility]. Diabetes mellitus [id number] E11.9 Patient stable on current regimen. Discussed with patient the current diagnosis, prognosis, and treatment plan including risks, benefits, alternativ es, contraindi cations of any medication (s). Patient will monitor and record home blood glucose readings if above or below normal range or if experienci ng any symptoms such as but not limited to chest pain, SOB, headaches, dizziness, peripheral edema, tachycardi a, palpitatio ns, syncope, increased frequency of urination, increased thirt, vision changes, numbness/t ingling in the extremitie s, or for any questions or concerns. Routine f/u for evaluation and labs advised at 6 month intervals if patient continues to be stable on current regimen. All questions answered. Patient [facility]. [address] Jerry Ayoub MD Main Office [address] [facility] [address] [place] [address] 08/10/2019 10:39:11 08/10/2019 11:23:17 Essential hypertension [id number] I10 Patient stable on current regimen. Will get fasting labs. Blood pressures well-contr olled.Disc ussed with patient the current diagnosis, prognosis, and treatment plan including risks, benefits, alternativ es, contraindi cations of any medication (s). Patient will monitor and record home blood pressures and return to clinic if average blood pressures >130-135 systolic and/or >80-85 diastolic, experienci ng any symptoms such as but not limited to chest pain, SOB, headaches, dizziness, peripheral edema, tachycardi a, palpitatio ns, syncope, or for any questions or concerns. Routine f/u for evaluation and labs advised at 6 months if patient continues to be stable on current regimen. All questions answered. [facility]. Type 2 skyler betes mellitus without complication [id number] E11.9 Patient stable on current regimen. Diabetes well-contr olled per previous check.Disc ussed with patient the current diagnosis, prognosis, and treatment plan including risks, benefits, alternativ es, contraindi cations of any medication (s). Patient will monitor and record home blood glucose readings if above or below normal range or if experienci ng any symptoms such as but not limited to chest pain, SOB, headaches, dizziness, peripheral edema, tachycardi a, palpitatio ns, syncope, increased frequency of urination, increased thirt, vision changes, numbness/t ingling in the extremitie s, or for any questions or concerns. Routine f/u for evaluation and labs advised at 6 month intervals if patient continues to be stable on current regimen. All questions answered. Patient demonstrat ed understand ing. Gastroesop hageal reflux disease without esophagitis [id number] K21.9 Patient stable on PPIs. Symptoms well-contr olled. Discussed dietary modificati ons, including reducing fatty food, caffeine, spicy food, carbonated beverage intake, to reduce episodes. Patient is {{willing* not willing}} to adopt diet modificati ons.Discus sed elevating head of the bed and avoiding lying supine after meals. As noted above, discussed with patient the current diagnosis, prognosis, and treatment plan including risks, benefits, alternativ es, contraindi cations of any medication (s). F/U for any new or worsening symptoms. Otherwise f/u in 6 months. All questions answered. Patient demonstrat ed understand ing. Obesity [id number] E66.9 Patient is Class I obese by BMI. Body mass index 30+ - obesity [id number] Z68.33 Depression screening [id number] Z13.31 Screen for depression with PHQ-2/PHQ- 9 with a NEGATIVE result. Score 0 Health Concerns Section Related Observation LastModified by Organization Detai ls LastModified Time None Recorded Concern Status LastModified by Organization Details LastModified Time None Recorded Advance Directives Directive None Recorded Payers Encounter Date Sequence Insurance Name Policy Number Policy Rudd Covered Member ID Rudd Member ID Guarantor Name 08/12/2017 1 [facility] [id number] Jessie Clement Isaias [id number] [employer] 12/20/2017 1 [facility] [id number] Jessie Esparza [id number] Aquilino Isaias 08/16/2018 1 [facility] [id number] Jessie Esparza [id number] [facility] 02/06/2019 1 [facility] [id number] Jessie Esparza [id number] Aquilino Isaias 08/10/2019 1 [facility] [id number] Jessie Esparza [id number] [facility] Notes Date Note Type Note Provider Name and Address Organization Details Recorded Time 08/13/19 18 text/htm l Pre-OpReported bypatient.Surgery to be Performed:09/07/17 Context/Condition Being Addressed:Right shoulder rotator cuff repair Severity:moderate Risk Factorsno cognitive impairment; no functional impairment; no malnutrition; no frailty; able to climb a flight of stairs (exercise capacity>4 METS); no obstructive sleep apnea; non-smoker; no alcohol misuse; no illicit drug use; no chronic cardiopulmonary condition;obese Anesthesia hx:no hx of anesthesia complications; no allergy to anesthetic agents; no family history of anesthesia complications Functional Ability:able to walk up stairs; able to perform heavy work around the house; no difficulty walking up hills Post-Op Support:no need for assistanceNotes:Patient also required to [place] [address], [address] 08/12/2017 19:13:37 12/21/19 18 text/htm l DiabetesReported bypatient.Duration:chronic Control:usually well controlled Compliance:compliant with medications; compliant with follow-up visits Self Care:not monitoring home glucose Associated Symptoms:no weight gain; no weight loss; no dizziness; no sweats; no headaches; no confusion; no increased thirst; no increased appetite; no increased urination; no blurred vision; no numbness of feet; no calluses on feet; no fatigue; no blurred vision; no paresthesias; itching in legsNotes:Current medications: metformin ER 100mg tabs - 1 tab dailyPatient states that he has lost approx 20 pounds and is hoping to eventually discontinue his chronic meds.Hypertension F/UReported bypatient.Medications:taking medications as directed; no side effects from medication Lifestyle:regular exercise; limiting/avoiding salt Associated Symptoms:no dizziness; no lightheadedness; no chest pain; no shortness of breath; no palpitations; no edema; no calf pain with exertion; no headacheNotes:Current anti-HTN medications: irbesartan 300mg tabs - 1 tab po dailyConcomitant Chronic Conditions: DM, GERDReflux/GERDReported bypatient.Symptomsheartburn Quality:burning Severity:improving Duration:present 5 or more years Onset/Timing:abrupt onset Context:non-smoker Alleviating Factors:proton pump inhibitors Aggravating Factors:worsened by food Associated Symptoms:no frequent coughing; no feeling of fullness/mass in throat; no hoarsenessNotes:Symptoms well-controlled [place] [address] [facility] [address], [place], [address], [facility] 12/20/2017 12:12:36 08/17/19 19 text/htm l DiabetesReported bypatient.Duration:chronic Control:usually well controlled; hemoglobin A1C goal is less than 6.5 (5.5% (12/20/17)) Compliance:compliant with medications; compliant with follow-up visits Self Care:not monitoring home glucose Associated Symptoms:no weight gain; no weight loss; no dizziness; no sweats; no headaches; no confusion; no increased thirst; no increased appetite; no increased urination; no blurred vision; no numbness of feet; no calluses on feet; no fatigue; no blurred vision; no paresthesias; itching in legsNotes:current medications: metformin ER 1000 - 1 tab simon BIDHyperlipidemiaReported bypatient.Duration:chronic Control:usually well controlled (with lifestyle changes) Current Therapy:currently taking: (no medication); last cholesterol level: 202 date: (12/20/17); last LDL level: 132 date:; last triglyceride level: 73 date:; last HDL level: 52 date: Risk Factors:diabetes;hypertension;o besityHypertension F/UReported bypatient.Medications:taking medications as directed; no side effects from medication; checks blood pressure at home, range: Lifestyle:regular exercise; limiting/avoiding salt Associated Symptoms:no dizziness; no lightheadedness; no chest pain; no shortness of breath; no palpitations; no edema; no calf pain with exertion; no headacheNotes:Current anti-HTN medications: irbesartan 300mg - 1 tab po dailyConcomitant Chronic Conditions: DM, GERDReflux/GERDReported bypatient.Symptomsheartburn Quality:burning Severity:improving Duration:present 5 or more years Onset/Timing:abrupt onset Context:non-smoker Alleviating Factors:proton pump inhibitors Aggravating Factors:worsened by food Associated Symptoms:no frequent coughing; no feeling of fullness/mass in throat; no hoarsenessNotes:Requesting refill on pantoprazole DR 40mg - 1 [place] [address] [address] [address], [place], [address], [facility] 08/16/2018 09:24:36 02/07/20 19 text/htm l DiabetesReported bypatient.Review finger sticks:post breakfast: 126 Duration:chronic Control:usually well controlled; hemoglobin A1C goal is less than 6.5 (5.5% (12/20/17)) Compliance:compliant with medications; compliant with follow-up visits Self Care:not monitoring home glucose Associated Symptoms:no weight gain; no weight loss; no dizziness; no sweats; no headaches; no confusion; no increased thirst; no increased appetite; no increased urination; no blurred vision; no numbness of feet; no calluses on feet; no fatigue; no blurred vision; no paresthesias; itching in legsNotes:current medications: metformin ER 1000 - 1 tab simon BIDpatient requesting refill to mail orderHyperlipidemiaReported bypatient.Duration:chronic Control:usually well controlled (with lifestyle changes) Current Therapy:currently taking: (no medication); last cholesterol level: 202 date: (12/20/17); last LDL level: 132 date:; last triglyceride level: 73 date:; last HDL level: 52 date: Risk Factors:diabetes;hypertension;o besityHypertension F/UReported bypatient.Medications:taking medications as directed; no side effects from medication; checks blood pressure at home, range: Lifestyle:regular exercise; limiting/avoiding salt Associated Symptoms:no dizziness; no lightheadedness; no chest pain; no shortness of breath; no palpitations; no edema; no calf pain with exertion; no headacheNotes:Current anti-HTN medications: olmesartan 40mg 1 tab po daily.patient requesting refill to local pharmacy for this med only.Concomitant Chronic Conditions: DM, GERDReflux/GERDReported bypatient.Symptomsheartburn Quality:burning Severity:improving Duration:present 5 or more years Onset/Timing:abrupt onset Context:non-smoker Alleviating Factors:proton pump inhibitors Aggravating Factors:worsened by food Associated Symptoms:no frequent coughing; no feeling of fullness/mass in throat; no hoarsenessNotes:Requesting refill on pantoprazole DR 40mg - 1 tab po dailymail order [facility] 02/07/2019 10:13:43 08/10/19 20 text/htm l DiabetesReported bypatient.Review finger sticks:post breakfast: 126 Duration:chronic Control:usually well controlled; hemoglobin A1C goal is less than 6.5 (5.8 (02/07/19)) Compliance:compliant with medications; compliant with follow-up visits Self Care:not monitoring home glucose Associated Symptoms:no weight gain; no weight loss; no dizziness; no sweats; no headaches; no confusion; no increased thirst; no increased appetite; no increased urination; no blurred vision; no numbness of feet; no calluses on feet; no fatigue; no blurred vision; no paresthesias; itching in legsNotes:current medications: metformin ER 1000mg tabs - 1 tab simon BIDPatient requesting refill.Hypertension F/UReported bypatient.Medications:taking medications as directed; no side effects from medication; checks blood pressure at home, range: Lifestyle:regular exercise; limiting/avoiding salt Associated Symptoms:no dizziness; no lightheadedness; no chest pain; no shortness of breath; no palpitations; no edema; no calf pain with exertion; no headacheNotes:Current anti-HTN medications: olmesartan 40mg tabs - 1 tab po dailypatient requesting refill.Concomitant Chronic Conditions: DM, GERDReflux/GERDReported bypatient.Symptomsheartburn Quality:burning Severity:improving Duration:present 5 or more years Onset/Timing:abrupt onset Context:non-smoker Alleviating Factors:proton pump inhibitors Aggravating Factors:worsened by food Associated Symptoms:no frequent coughing; no feeling of fullness/mass in throat; no hoarsenessNotes:Requesting refill on pantoprazole DR 40mg tabs - 1 tab po dailyDoing well on current regimen. [place] [address] [address] [address], [place], [address], [facility] 08/10/2019 13:41:07
--- OUTSIDE RECORDS SUMMARY | 2024-08-01 12:43 | XMS_ITS | Clinical Summary ---
Author Organization [facility] [address] [place] [address] Care Team Providers Care Flux Plant Operator Name Role Phone Unavailable Primary Care Provider Unavailabl e Allergies Active Allergy Reactions Criticality Noted Date Comments Penicillins 06/30/2017 Medications atorvastatin (LIPITOR) 20 mg tablet 2 Active aspirin 81 mg chewable tablet Chew 81 mg 1 (one) time each day. Active atorvastatin (LIPITOR) 20 mg tablet TAKE 1 TABLET BY MOUTH EVERYDAY AT BEDTIME 2 Active atorvastatin (LIPITOR) 20 mg tablet TAKE 1 TABLET BY MOUTH EVERYDAY AT BEDTIME 2 Active cholecalciferol (VITAMIN D-3) 25 mcg (1,000 unit) capsule 1 Active diphenhydrAMINE (BENADRYL) 50 mg capsule Take 50 mg by mouth 1 (one) time each day if needed. Active metFORMIN (GLUCOPHAGE) 1,000 mg tablet Take 1,000 mg by mouth in the morning and 1,000 mg in the evening. Take with meals. 2 Active metFORMIN (GLUCOPHAGE) 1,000 mg tablet Take 1 tablet by mouth in the morning and 1 tablet in the evening. Take with meals. 2 Active metFORMIN (GLUMETZA) 1,000 mg 24 hr tablet 0 Active olmesartan (BENICAR) 40 mg tablet Take 1 tablet by mouth 1 (one) time each day. 2 Active olmesartan (BENICAR) 40 mg tablet Take 40 mg by mouth 1 (one) time each day. 2 Active pantoprazole (PROTONIX) 40 mg EC tablet 2 Active pantoprazole (PROTONIX) 40 mg EC tablet Take 40 mg by mouth 1 (one) time each day. 2 Active pseudoephedrine (SUDAFED) 30 mg tablet Take 30 mg by mouth 1 (one) time each day. Active salicylic acid 3 % ointment APPLY 1 PAD TOPICALLY 2 TIMES DAILY 2 Active tamsulosin (FLOMAX) 0.4 mg 24 hr capsule 2 Active tamsulosin (FLOMAX) 0.4 mg 24 hr capsule Take 0.4 mg by mouth. 2 Active Active Problems Problem Noted Date Diagnosed Date History of hepatitis C 09/18/2021 Overview (09/18/2021): successfully treated HLD (hyperlipidemia) 09/18/2021 SHILPA on CPAP 09/18/2021 Complete tear of right rotator cuff 07/14/2017 Fatty liver 09/11/2015 Immunity status testing 09/11/2015 GERD without esophagitis 01/30/2015 Overview (09/18/2021): Last Assessment & Plan: Diagnosed this year by Dr. Voss. Currently on Protonix 40 mg OD. Elevated liver enzymes 01/30/2015 Overview (09/18/2021): Last Assessment & Plan: Patient has hepatocellular pattern of liver injury. Etiology unclear. Could be related to underlying chronic Hep C infection. Will do comprehensive work up for diagnosis of other etiologies for elevated liver enzymes. Last Assessment & Plan: Patient has hepatocellular pattern of liver injury. Etiology unclear. Could be related to underlying chronic Hep C infection. Will do comprehensive work up for diagnosis of other etiologies for elevated liver enzymes. Essential hypertension 01/30/2015 Overview (09/18/2021): Last Assessment & Plan: BP relatively well controlled. On Irbesartan daily. Continue follow up with PCP. 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 He was never treated before. Will consider him starting treatment with [facility] for 12 week. 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 He was never treated before. Will consider him starting treatment with [facility] for 12 week. Diabetes type 2, controlled 05/17/2012 Social History Tobacco Use Types Packs/Day Years Used Date Smoking Tobacco: Never Smokeless Tobacco: Never Tobacco Cessation:Counseling Given: Not Answered Alcohol Use Standard Drinks/Week Comments Not Currently 0 (1 standard drink = 0.6 oz pur e alcohol) Sex and Gender Information Value Date Recorded Sex Assigned at Not on file Legal Sex Male 4:12 PM PST Gender Identity Not on file Sexual Orientation Not on file Last Filed Vital Signs Vital Sign Reading Time Taken Comments Blood Pressure 115/67 12/13/2021 11:31 AM CDT Pulse 69 12/13/2021 11:31 AM CDT Temperature - - Respiratory Rate - - Oxygen Saturation - - Inhaled Oxygen Concentration - - Weight - - Height - - Body Mass Index - - Plan of Treatment Health Maintenance Due Date Last Done Comments Dental X-Ray: Bitewings 12/25/2020 06/26/2020 Periodontal Maintenance 03/15/2022 12/13/19 22, 09/18/2021, 06/11/2021, Additional history exists Dental Oral Exam 06/15/2022 12/12/2021, , 02/12/2021, Additional history exists Scaling and Root Planing 08/05/2022 021, 06/26/2020, 06/26/2020 Dental X-Ray: Panoramic 12/29/2022 12/29/2019, 11/11 Dental X-Ray: Full Mouth 06/28/2024 022, 06/26/2020, 11/11/2018 Meningococcal B Vaccine Aged Out No l onger eligible based on patient's age to complete this topic Procedures Procedure Name Priority Date/Time Associated Diagnosis Comments PERIODIC ORAL EVALUATION - ESTABLISHED PATIENT Routine 12/12/2021 9:15 AM CDT PERIO MAINTENANCE Routine 12/12/2021 9:0 0 AM CDT LL PERIODONTAL SCALING AND ROOT PLANING - ONE TO THREE TEETH PER QUADRANT Routine 07/22/2020 2:00 AM FAITH DOCTOR INTRAORAL - COMPREHENSIVE SERIES OF RADIOGRAPHIC IMAGES Routine 06/26/2020 2:00 AM FAITH DOCTOR PANORAMIC RADIOGRAPHIC IMAGE Routine 11/11/2018 2:00 AM CDT from Last 3 Months or Most Recently Relevant to Health Maintenance Insurance [address] [place], [place] [id number]
[2024-08-01 19:43] LABS: Alanine Aminotransferase 31 U/L (6-50); Albumin Level 4.5 g/dL (3.5-5.1); Alkaline Phosphatase 62 U/L (38-126); Anion Gap 7 mmol/L (4-12); Aspartate Amino Transferase 71 U/L (17-59); Bilirubin,Total 0.9 mg/dL (0.2-1.3); Blood Urea Nitrogen 24 mg/dL (9-20); Calcium 9.5 mg/dL (8.4-10.2); Carbon Dioxide 29 mmol/L (22-30); Chloride 101 mmol/L (98-107); Cholesterol 150 mg/dL (0-200); Estimated Glomerular Filt Rate > 60; Glucose 108 mg/dL (65-110); HDL Direct 53 mg/dL; Potassium 4.7 mmol/L (3.4-5.0); Sodium 137 mmol/L (137-145); Triglycerides 71 mg/dL (<150)
[2024-08-01 19:54] LABS: LDL Cholesterol Direct 73 mg/dL
[2024-08-01 20:03] LABS: Hemoglobin A1C 5.4 % (<5.7)
[2024-08-01 20:04] LABS: Vitamin D 25 Hydroxy 66.5 ng/mL
[2024-08-01 20:13] LABS: Creatinine Urine 104.9 mg/dL
[2024-08-01 20:14] LABS: Prostate Specific Antigen 0.2 ng/mL (< OR = 4.0)
[2024-08-01 20:39] LABS: MALB Creatinine Ratio < 5.7 mg/g (0-30); Microalbumin Urine Random < 6.0 mg/L (0-16.7)
== END 2024-08-01 11:04 | disposition home or self-care (01) ==
LOC: ANHBWCLAB 11:04
PROVIDERS: PCP Nurse Practitioner Adult Health; Visit Provider Nurse Practitioner Adult Health
DX: E55.9 Vitamin D deficiency, unspecified (principal); E11.9 Type 2 diabetes mellitus without complications; Z12.5 Encounter for screening for malignant neoplasm of prostate
CPT/HCPCS: 36415; 80053; 80061; 82043; 82306; 82565; 83036; 84153; G0103

== ENCOUNTER 2024-08-17 10:17 | Outpatient (CLI) | payer MEDICARE, SELFPAY ==
--- OUTSIDE RECORDS SUMMARY | 2024-08-17 11:04 | XMS_ITS | Encounter Summary ---
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 Name Role Phone Unavailable Primary Care Provider Unavailabl e Prior Encounters Date Type Department Care Team Description 02/04/2022 8:30 AM CDT [facility] Visit [facility] [address] [place] [address] [place] [address] Rhea Meyer DDS 12/13/2021 11:00 AM CDT Office Visit [facility] [address] [place] [address] [place] [address] Rhea Meyer DDS 12/12/2021 9:15 AM CDT Office Visit [facility] [address] [place] [phone] Rhea Meyer DDS 12/12/2021 9:00 AM CDT Office Visit [facility] [address] [place], [place] [address] [address] 09/18/2021 11:00 AM CDT Office Visit [facility] [address] [place], [place] [address] [address] 06/05/2019 Converted CPS Chart Documents [facility] [address] [place] [id number] <No scans attached> 06/05/2019 Converted 13x Documents [facility] [address], [place] [address] <No scans attached> Last Filed [...] - ESTABLISHED PATIENT Routine 06/11/2021 2:00 AM NURSE OB PERIO MAINTENANCE Routine 06/11/2021 2:0 0 AM NURSE OB ORAL HYGIENE INSTRUCTIONS Routine 2021 2:00 AM NURSE OB 1 RADHA DECON Routine 06/11/2021 2:00 AM NURSE OB CANCELLED APPOINTMENT Routine 05/30/2021 2:00 AM NURSE OB 19 LIMITED ORAL EVALUATION - PROBLEM FOCUSED Routine 04/16/2021 2:00 AM NURSE OB ADDITIONAL X-RAY Routine 04/16/2021 2:00 AM NURSE OB SINGLE X-RAY Routine 04/16/2021 2:00 AM NURSE OB INTRAORAL PHOTO Routine 04/16/2021 2:00 AM NURSE OB PERIODIC ORAL EVALUATION - ESTABLISHED PATIENT Routine [...] ORAL HYGIENE INSTRUCTIONS Routine 2020 2:00 AM NURSE OB LL RADHA DECON/QD Routine 07/22/2020 2:00 AM NURSE OB LL PERIODONTAL SCALING AND ROOT PLANING - ONE TO THREE TEETH PER QUADRANT Routine 07/22/2020 2:00 AM NURSE OB LL ANTIBACT IRR/QUAD Routine 07/22/2020 2:00 AM NURSE OB PERIODIC ORAL EVALUATION - ESTABLISHED PATIENT Routine 06/26/2020 2:00 AM NURSE OB ORAL HYGIENE INSTRUCTIONS Routine 2020 2:00 AM NURSE OB LR RADHA DECON/QD Routine 06/26/2020 2:00 AM NURSE OB UR RADHA DECON/QD Routine 06/26/2020 2:00 AM NURSE OB UR PERIODONTAL SCALING AND ROOT PLANING - ONE TO THREE TEETH PER QUADRANT Routine 06/26/2020 2:00 AM NURSE OB LR PERIODONTAL SCALING AND ROOT PLANING - ONE TO THREE TEETH PER QUADRANT Routine 06/26/2020 2:00 AM NURSE OB UR ANTIBACT IRR/QUAD Routine 06/26/2020 2:00 AM NURSE OB LR ANTIBACT IRR/QUAD Routine 06/26/2020 2:00 AM NURSE OB CHLORHEXIDINE Routine 06/26/2020 2:00 AM NURSE OB INTRAORAL - COMPREHENSIVE SERIES OF RADIOGRAPHIC IMAGES Routine 06/26/2020 2:00 AM NURSE OB INTRAORAL PHOTO Routine 06/26/2020 2:00 AM NURSE OB INTRAORAL PHOTO Routine 06/26/2020 2:00 AM NURSE OB INTRAORAL PHOTO Routine 06/26/2020 2:00 AM NURSE OB INTRAORAL PHOTO Routine 06/26/2020 2:00 AM NURSE OB INTRAORAL PHOTO Routine 06/26/2020 2:00 AM NURSE OB INTRAORAL PHOTO Routine 06/26/2020 2:00 AM NURSE OB INTRAORAL PHOTO Routine 06/26/2020 2:00 AM NURSE OB INTRAORAL PHOTO Routine 06/26/2020 2:00 AM NURSE OB CANCELLED APPOINTMENT Routine 02/24/2020 2:00 AM CDT MISSED APPOINTMENT Routine 02/13/2020 2: 00 AM CDT PERIO CONSULT Routine 02/12/2020 2:00 AM CDT CANCELLED APPOINTMENT Routine 12/25/2019 2:00 AM CDT PERIODIC ORAL EVALUATION - ESTABLISHED PATIENT Routine 06/22/2019 2:00 AM NURSE OB ORAL HYGIENE INSTRUCTIONS Routine 2019 2:00 AM NURSE OB PROPHYLAXIS - ADULT Routine 06/22/2019 2 :00 AM NURSE OB 13 DO AMALGAM 2 SURFACE Routine 11/12/19 19 2:00 AM CDT 31 O AMALGAM 1 SURFACE Routine 9 2:00 AM CDT 12 O AMALGAM 1 SURFACE Routine 9 2:00 AM CDT 4 O AMALGAM 1 SURFACE Routine 11/11/2018 2:00 AM CDT 29 ENDODONTIC THERAPY, MOLAR TOOTH (EXCLUDING FINAL SAMARITAN) Routine 11/11/2018 2:00 AM CDT 14 ENDODONTIC THERAPY, MOLAR TOOTH (EXCLUDING FINAL SAMARITAN) Routine 11/11/2018 2:00 AM CDT 14 CROWN [...] CDT Visit Diagnoses Not on file Insurance [address] [place], [place] [address]
--- OUTSIDE RECORDS SUMMARY | 2024-08-17 11:05 | XMS_ITS | Clinical Summary ---
Author Organization [facility] Address [address] [facility] [place] [address] Care Team Providers Care Funeral Car Driver Name Role Phone Unavailable Primary Care Provider [...] TEETH PER QUADRANT Routine 07/22/2020 2:00 AM SHAFT MECHANIC INTRAORAL - COMPREHENSIVE SERIES OF RADIOGRAPHIC IMAGES Routine 06/26/2020 2:00 AM SHAFT MECHANIC PANORAMIC RADIOGRAPHIC IMAGE Routine 11/11/2018 2:00 AM CDT from Last 3 Months or Most Recently Relevant to Health Maintenance Insurance [address] [place], [place] [id number]
--- OUTSIDE RECORDS SUMMARY | 2024-08-17 11:05 | XMS_ITS | Data Portability ---
Author Organization [facility], Main Office Address [address] [address] Assessment Encounter Date Assessment Date Assessment LastModified by Organization Details LastModified Time 08/12/2017 08/12/2017 Pending labs for chronic medical conditions. Not available 08/12/2017 19:12:12 Plan of Treatment Reminders Order Date Submit Date Provider Last Modified By Organization Details Last Modified Time Details Appointments None recorded. Lab uric acid, serum or plasma 2019 020 [facility], [address], [address], 0 05:02:26 urinalysis complete, reflex culture 2019 020 [facility], [address] [address], [place], [address], 0 05:02:26 CBC w/ auto diff 2019 020 [facility], [address] [address], [place], [address], 0 05:02:26 lipid panel, serum 2019 020 [facility], [address] [address], [place], [address], 0 05:02:26 CMP, serum or plasma 2019 020 [facility], [address] [facility] [address], [place], [address], 0 05:02:26 microalbum in, urine 2019 020 [facility], [address], [place], [address], 0 05:02:26 HbA1c (hemoglobi n A1c), blood 2019 020 [facility], [address], [place], [address], 0 05:02:26 uric acid, serum or plasma 2018 019 [facility], [address], [place], [address], 0 05:02:57 CMP, serum or plasma 2018 019 [facility], [address] [facility], [place], [address], 0 05:02:57 lipid panel, serum 2018 019 [facility], [address], [place], [address], 0 05:02:57 CBC w/ auto diff 2018 019 [facility], [address] [facility], [place], [address], 0 05:02:57 glucose, fingerstic k, blood 2018 019 [email or web address] Main Office, [address] [facility] [address], [place], [address], 9 12:11:10 HbA1c (hemoglobi n A1c), blood 2018 019 [facility], [address], [place], [address], 0 05:02:57 microalbum in, urine 2018 019 [facility], [address], [place], [address], 0 05:02:57 uric acid, serum or plasma 2018 019 [facility], [address] [facility], [place], [address], 9 05:02:28 urinalysis complete, reflex culture 2018 019 [facility], [facility] [address] [facility] [address], [place], [address], 9 05:02:28 CBC w/ auto diff 2018 019 [facility], [facility] [address] [facility], [place], [address], 9 05:02:28 glucose, fingerstic k, blood 2018 019 [email or web address] Main Office, [address] [facility] [address], [place], [address], 9 09:24:19 microalbum in, urine 2018 019 [facility], [facility] [address] [facility], [place], [address], 9 05:02:28 HbA1c (hemoglobi n A1c), blood 2018 019 [facility], [facility] [address] [facility], [place], [address], 9 05:02:28 lipid panel, serum 2018 019 [facility], [facility] [address], [place], [address], 9 05:02:28 CMP, serum or plasma 2018 019 [facility], [facility] [address] [address], [place], [address], 9 05:02:28 hepatitis C RNA, quant, PCR, serum 2017 018 [facility], [facility] [address] [address], [place], [address], 9 05:00:49 uric acid, serum or plasma 2017 018 [facility], [facility] [address] [address], [place], [address], 9 05:00:48 urinalysis complete, reflex culture 2017 018 [facility], [facility] [address] [address], [place], [address], 9 05:00:48 CMP, serum or plasma 2017 018 [facility], [facility] [address] [address], [place], [address], 9 05:00:48 lipid panel, serum 2017 018 [facility], [facility] [address] [address], [place], [address], 9 05:00:49 microalbum in, urine 2017 018 [facility], [facility] [address] [address], [place], [address], 9 05:00:49 HbA1c (hemoglobi n A1c), blood 2017 018 [facility], [facility] [address] [address], [place], [address], 9 05:00:48 microalbum in, urine 2017 018 [facility], [facility] [address] [address], [place], [address], 8 05:00:43 HbA1c (hemoglobi n A1c), blood 2017 018 [facility], [address], [place], [address], 8 05:00:43 CMP, serum or plasma 2017 018 [facility], [address], [place], [address], 8 05:00:43 lipid panel, serum 2017 018 [facility], [address], [place], [address], 8 05:00:43 urinalysis complete, reflex culture 2017 018 [facility], [address], [place], [address], 8 05:00:44 uric acid, serum or plasma 2017 018 [facility], [address], [place], [address], 8 05:00:44 CBC w/ auto diff 2017 018 [facility], [address], [place], [address], 8 05:00:43 PT/PTT, plasma 2017 018 [facility], [address], [place], [address], 8 05:00:43 Referral None recorded. Procedures None recorded. Surgeries None recorded. Imaging XR, chest, 2 view 2017 018 SONIDO Ezchrist, [address], [place], [address], 8 17:42:07 Medication Orders olmesartan 40 mg tablet 2019 020 [id number], [address] [place], [address], 0 11:20:28 pantoprazo le 40 mg tablet,del ayed release 2019 020 [id number], [address] [place], [address], 0 12:46:10 metformin ER 1,000 mg tablet,ext ended release 24hr (osmotic) 2019 020 [id number], [address] [place], [address], 0 12:46:10 pantoprazo le 40 mg tablet,del ayed release [address] [facility] [place], [address], 9 15:13:05 olmesartan 40 mg tablet 2018 019 [facility]FACE [facility], [place], [address], 9 12:11:12 metformin ER 1,000 mg tablet,ext ended release 24hr (osmotic) [address] [facility], [place], [address], 9 15:13:05 irbesartan 300 mg tablet 2018 019 [email or web address] [facility], [place], [address], 9 11:39:49 pantoprazo le 40 mg tablet,del ayed release [address] [facility], [facility], BERENICE Milligan, [address], 9 09:24:22 metformin ER 1,000 mg tablet,ext ended release 24hr (osmotic) 2018 019 [facility], [place], [address], 9 09:24:24 Patient TargetsNo targets recorded. Patient InstructionsNo instructions recorded. Reason for Referral None Reported. Results Created Date Observation Date Name Description Value Unit Range Abnormal Flag Note LastModifiedBy Organization Detail LastModifiedTime 02/07/20 19 02/06/2019 gluco love doane rstic k, blood Blood Glucose: mg/dl 126 Not Available Main O ffice [address] [facility] [address], [place], [address], 02/06/2019 11:43:02 08/17/19 19 08/16/2018 gluco love doane rstic k, blood Blood Glucose: mg/dl 107 Not Available Main O ffice [address] [facility] [address], [place], [address], 08/16/2018 09:11:53 08/14/19 18 08/13/2017 CBC w/ auto diff WBC 5.9 K/uL 3.8-10 .6 Not Available [facility] [address] [facility] [address], [place], [address], 08/14/2017 06:09:41 08/14/19 18 08/13/2017 CBC w/ auto diff RBC 4.58 M/uL 4.40-5 .90 Not Available [facility] [address] [facility] [address], [place], [address], 08/14/2017 06:09:41 08/14/19 18 08/13/2017 CBC w/ auto diff hemoglobin 14.3 gm/dL 14.0-1 8.0 Not Available [facility] [address] [facility] [address], [place], [address], 08/14/2017 06:09:41 08/14/19 18 08/13/2017 CBC w/ auto diff hematocrit 40.9 % 40.0-5 2.0 Not Available [facility] [address] [address], [place], [address], 08/14/2017 06:09:41 08/14/19 18 08/13/2017 CBC w/ auto diff MCV 89 fL 80-100 Not Available [facility] [address] [address], [place], [address], 08/14/2017 06:09:41 08/14/19 18 08/13/2017 CBC w/ auto diff MCH 31.2 pg 26.0-3 4.0 Not Available [facility] [address] [address], [place], [address], 08/14/2017 06:09:41 08/14/19 18 08/13/2017 CBC w/ auto diff MCHC 35.0 g/dL 31.0-3 7.0 Not Available [facility] [address] [place] [address], [place], [address], 08/14/2017 06:09:41 08/14/19 18 08/13/2017 CBC w/ auto diff RDW 11.8 % 12.0-1 5.0 low Not Available [facility] [address] [place] [address], [place], [address], 08/14/2017 06:09:41 08/14/19 18 08/13/2017 CBC w/ auto diff MPV 11.0 fL 9.4-12 .9 Not Available [facility] [address] [address], [place], [address], 08/14/2017 06:09:41 08/14/19 18 08/13/2017 CBC w/ auto diff platelet count 269 K/uL 130-40 0 Not Available [facility] [address] [address], [place], [address], 08/14/2017 06:09:41 08/14/19 18 08/13/2017 CBC w/ auto diff diff type Automa benny diff Not Available [facility] [address] [address], [place], [address], 08/14/2017 06:09:41 08/14/19 18 08/13/2017 CBC w/ auto diff abs neutrophils 2.9 K/uL 1.8-7. 7 Not Available [facility] [address] [address], [place], [address], 08/14/2017 06:09:41 08/14/19 18 08/13/2017 CBC w/ auto diff abs lymphocytes 2.0 K/uL 1.0-4. 8 Not Available [facility] [address] [address], [place], [address], 08/14/2017 06:09:41 08/14/19 18 08/13/2017 CBC w/ auto diff abs monocytes 0.8 K/uL 0.12-1 .00 Not Available [facility] [address] [address], [place], [address], 08/14/2017 06:09:41 08/14/19 18 08/13/2017 CBC w/ auto diff abs eosinophils 0.2 K/uL 0.00-0 .60 Not Available [facility] [address] [address], [place], [address], 08/14/2017 06:09:41 08/14/19 18 08/13/2017 CBC w/ auto diff abs basophils 0.1 K/uL 0.00-0 .30 Not Available [facility] [address] [address], [place], [address], 08/14/2017 06:09:41 08/14/19 18 08/13/2017 CBC w/ auto diff neutrophil 48 % 45-73 Not Available [facility] [address] [address], [place], [address], 08/14/2017 06:09:41 08/14/19 18 08/13/2017 CBC w/ auto diff lymphocyte 35 % 18-44 Not Available [facility] [address] [address], [place], [address], 08/14/2017 06:09:41 08/14/19 18 08/13/2017 CBC w/ auto diff monocyte 13 % 4-10 high Not Available [facility] [address] [address], [place], [address], 08/14/2017 06:09:41 08/14/19 18 08/13/2017 CBC w/ auto diff eosinophil 3 % 0-4 Not Available [facility] [address] [address], [place], [address], 08/14/2017 06:09:41 08/14/19 18 08/13/2017 CBC w/ auto diff basophil 1 % 0-1 [facility] [address] [facility] [address] [facility] [address] [phone] Ronald ramires MD Not Available [facility] [address] [place] [address], [place], [address], 08/14/2017 06:09:41 08/14/19 18 08/13/2017 urina lysis compl ete, refle x cultu re urine color Yellow yellow Not Available [facility] [address] [place] [address], [place], [address], 08/14/2017 06:29:45 08/14/19 18 08/13/2017 urina lysis compl ete, refle x cultu re urine clarity Clear clear Not Available [facility] [address] [place] [address], [place], [address], 08/14/2017 06:29:45 08/14/19 18 08/13/2017 urina lysis compl ete, refle x cultu re urine specific gravity 1.019 1.005- 1.030 Not Available [facility] [address] [place] [address], [place], [address], 08/14/2017 06:29:45 08/14/19 18 08/13/2017 urina lysis compl ete, refle x cultu re urine pH 6.0 5.0-8. 5 Not Available [address] [address], [place], [address], 08/14/2017 06:29:45 08/14/19 18 08/13/2017 urina lysis compl ete, refle x cultu re urine glucose Negati ve mg/dL negati ve Not Available [address] [address], [place], [address], 08/14/2017 06:29:45 08/14/19 18 08/13/2017 urina lysis compl ete, refle x cultu re urine ketones Negati ve mg/dL negati ve Not Available [address] [address], [place], [address], 08/14/2017 06:29:45 08/14/19 18 08/13/2017 urina lysis compl ete, refle x cultu re urobilinogen 1.0 eu/dL 0.2-1. 0 Not Available [address] [address], [place], [address], 08/14/2017 06:29:45 08/14/19 18 08/13/2017 urina lysis compl ete, refle x cultu re urine bilirubin Negati ve negati ve Not Available [address] [address], [place], [address], 08/14/2017 06:29:45 08/14/19 18 08/13/2017 urina lysis compl ete, refle x cultu re urine blood Negati ve negati ve Not Available [address] [address], [place], [address], 08/14/2017 06:29:45 08/14/19 18 08/13/2017 urina lysis compl ete, refle x cultu re urine protein Negati ve negati ve Not Available [address] [address], [place], [address], 08/14/2017 06:29:45 08/14/19 18 08/13/2017 urina lysis compl ete, refle x cultu re leukocyte esterase Negati ve negati ve Not Available [facility] [address] [address], [place], [address], 08/14/2017 06:29:45 08/14/19 18 08/13/2017 urina lysis compl ete, refle x cultu re urine nitrates Negati ve negati ve Not Available [facility] [address] [address], [place], [address], 08/14/2017 06:29:45 08/14/19 18 08/13/2017 urina lysis compl ete, refle x cultu re white cells 1 /hpf 0-4 Not Available [facility] [address] [address], [place], [address], 08/14/2017 06:29:45 08/14/19 18 08/13/2017 urina lysis compl ete, refle x cultu re red cells 2 /hpf 0-5 [facility] [address] [address], [place], [address], 08/14/2017 06:29:45 08/14/19 18 08/13/2017 urina lysis compl ete, refle x cultu re squamous epithelial cells <1 /hpf 0-2 Not Available [facility] ann [address] [address], [place], [address], 08/14/2017 06:29:45 08/14/19 18 08/13/2017 urina lysis compl ete, refle x cultu re urine bacteria Negati ve negati ve Not Available [facility] [address] [facility] [address], [place], [address], 08/14/2017 06:29:45 08/14/19 18 08/13/2017 urina lysis compl ete, refle x cultu re cast <1 /lpf Not Available [facility] [address] [address], [place], [address], 08/14/2017 06:29:45 08/14/19 18 08/13/2017 urina lysis compl ete, refle x cultu re reflex to culture Result s Below CULTU RE NOT INDIC ATED [facility] [address] [facility] [address] [facility] [address] [phone] Ronald ramires MD Not Available [facility] [address] [place] [address], [place], [address], 08/14/2017 06:29:45 08/14/19 18 08/13/2017 micro album in, urine creatinine, urine 130.0 mg/dL (Note ) Range not estab lishe d for urine Not Available [facility] [address] [place] [address], [place], [address], 08/14/2017 06:49:42 08/14/19 18 08/13/2017 micro album in, urine microalbumin , urine 6 mg/L <30 Not Available Med Shadi nance [address] [place] [address], [place], [address], 08/14/2017 06:49:42 08/14/19 18 08/13/2017 micro album in, urine microalbumin /creat ratio 5 mg/g_ cret 0-30 [facility] [address] [facility] [address] [facility] [address] [phone] Ronald ramires MD Not Available [facility] [address] [place] [address], [place], [address], 08/14/2017 06:49:42 08/14/19 18 08/13/2017 CMP, serum or plasm a glucose, fasting 130 mg/dL 70-99 high Not Available [facility] [address] [place] [address], [place], [address], 08/14/2017 07:19:59 08/14/19 18 08/13/2017 CMP, serum or plasm a BUN 16 mg/dL 9-23 Not Available [facility] [address] [place] [address], [place], [address], 08/14/2017 07:19:59 08/14/19 18 08/13/2017 CMP, serum or plasm a creatinine 0.93 mg/dL 0.60-1 .30 Not Available [facility] [address] [facility] [address], [place], [address], 08/14/2017 07:19:59 08/14/19 18 08/13/2017 CMP, serum or plasm a sodium 138 mEq/L 132-14 6 Not Available [facility] [address] [address], [place], [address], 08/14/2017 07:19:59 08/14/19 18 08/13/2017 CMP, serum or plasm a potassium 4.2 mEq/L 3.5-5. 5 Not Available [facility] [address] [address], [place], [address], 08/14/2017 07:19:59 08/14/19 18 08/13/2017 CMP, serum or plasm a chloride 102 mEq/L 99-109 Not Available [facility] [address] [address], [place], [address], 08/14/2017 07:19:59 08/14/19 18 08/13/2017 CMP, serum or plasm a CO2 27 mEq/L 22-33 Not Available [facility] [address] [address], [place], [address], 08/14/2017 07:19:59 08/14/19 18 08/13/2017 CMP, serum or plasm a anion gap 13.2 mEq/L 10-20 Not Available [facility] [address] [address], [place], [address], 08/14/2017 07:19:59 08/14/19 18 08/13/2017 CMP, serum or plasm a calcium 9.7 mg/dL 8.7-10 .4 Not Available [facility] [address] [address], [place], [address], 08/14/2017 07:19:59 08/14/19 18 08/13/2017 CMP, serum or plasm a albumin 4.3 g/dL 3.2-4. 8 Not Available [facility] [address], [place], [address], 08/14/2017 07:19:59 08/14/19 18 08/13/2017 CMP, serum or plasm a protein, total 6.4 g/dL 5.7-8. 2 Not Available [facility] [address], [place], [address], 08/14/2017 07:19:59 08/14/19 18 08/13/2017 CMP, serum or plasm a bilirubin, total 0.7 mg/dL 0.3-1. 2 Not Available [facility] [address] [facility] [address], [place], [address], 08/14/2017 07:19:59 08/14/19 18 08/13/2017 CMP, serum or plasm a ALT (SGPT) 34 U/L 10-49 Not Available [facility] [address] [facility] [address], [place], [address], 08/14/2017 07:19:59 08/14/19 18 08/13/2017 CMP, serum or plasm a AST (SGOT) 30 U/L 0-33 Not Available [facility] [address] [facility] [address], [place], [address], 08/14/2017 07:19:59 08/14/19 18 08/13/2017 CMP, serum or plasm a alk phosphatase 51 U/L 45-129 Not Available [facility] [address] [facility] [address], [place], [address], 08/14/2017 07:19:59 08/14/19 18 08/13/2017 CMP, serum or plasm a BUN/creatini ne ratio 17.2 ratio 10-26 Not Available [facility] [address] [facility] [address], [place], [address], 08/14/2017 07:19:59 08/14/19 18 08/13/2017 CMP, serum or plasm a globulin calculated 2.1 g/dL 2.0-3. 8 Not Available [facility] [address] [address], [place], [address], 08/14/2017 07:19:59 08/14/19 18 08/13/2017 CMP, serum or plasm a A/G ratio 2.0 ratio 0.9-2. 5 Not Available [facility] [address] [place] [address] [address], [place], [address], 08/14/2017 07:19:59 08/14/19 18 08/13/2017 CMP, serum or plasm a eGFR aa >90 mL/mi n/1.7 3m2 >60 Not Available [facility] [address] [place] [address], [place], [address], 08/14/2017 07:19:59 08/14/19 18 08/13/2017 CMP, serum [...] Ameri cans. F med fusio n [address] [facility] [address] [facility] [address] [phone] Ronald ramires MD Not Available [facility] [address] [place] [address], [place], [address], 08/14/2017 07:19:59 08/14/19 18 08/13/2017 lipid panel [...] mg/dL Not Available [facility] [address] [facility] [address], [place], [address], 08/14/2017 07:20:01 08/14/19 18 08/13/2017 lipid panel [...] 500 mg/dL Not Available [facility] [address] [facility] 121, [place], [address], 08/14/2017 07:20:01 08/14/19 18 08/13/2017 lipid panel [...] 50 mg/dL Not Available [facility] [address] [facility] [address], [place], [address], 08/14/2017 07:20:01 08/14/19 18 08/13/2017 lipid panel [...] 190 mg/dL Not Available [facility] [address] [address], [place], [address], 08/14/2017 07:20:01 08/14/19 18 08/13/2017 lipid panel , serum ldlhdl 4.08 ratio Not Available [facility] [address] [address], [place], [address], 08/14/2017 07:20:01 08/14/19 18 08/13/2017 lipid panel , serum LDL/HDL risk See Note (Note ) Male Femal e Below Corder ge Risk 0.00- 2.28 0.00- 2.34 Corder ge Risk 2.29- 4.90 2.35- 4.12 Moder ate Risk 4.91- 7.12 4.13- 5.56 High Risk 7.13- 20.00 5.57- 20.00 Not Available [facility] [address] [address], [place], [address], 08/14/2017 07:20:01 08/14/19 18 08/13/2017 lipid panel , serum total chol/HDL ratio (calculat 5.5 ratio 0.0-5. 0 high [facility] med [facility] n [address] [facility] [address] [facility] [address] [phone] Ronald ramires MD Not Available [facility] [address] [address], [place], [address], 08/14/2017 07:20:01 08/14/19 18 08/13/2017 uric acid, serum or plasm a uric acid 5.7 mg/dL 3.7-9. 2 [facility] med [facility] n [address] [facility] [address] [facility] [place] [address] [phone] Ronald ramires MD Not Available [facility] [address], [address], 08/14/2017 07:20:04 08/14/19 18 08/13/2017 HbA1c (hemo [...] cells . [facility] med [facility] n [address] [facility] [address] [facility] [address] [phone] Ronald ramires MD Not Available [facility] [address] [facility] [address], [place], [address], 08/14/2017 07:54:47 08/14/19 18 08/13/2017 PT/PT T, plasm a prothrombin time 11.7 sec 9.0-12 .0 Not Available [facility] [address] [facility], [place], [address], 08/14/2017 09:49:51 08/14/19 18 08/13/2017 PT/PT T, plasm a INR 1.1 (Note ) Couma rin Antic oagul ant Thera peuti c Range s (INR) : 2.0-3 .0 Proph ylaxi s and Treat ment of Venou s Throm boemb olism 2.5-3 .5 Preve ntion of Recur rent Throm boemb olism or treat ment for Prost hetic Heart Valve s Not Available [facility] [address] [place] [address], [place], [address], 08/14/2017 09:49:51 08/14/19 18 08/13/2017 PT/PT T, plasm a APTT 25.2 sec 22-32 [facility] med slim n [address] [facility] [address] [facility] [place] [address] [phone] Ronald ramires MD Not Available [facility] [address] [place] [address], [place], [address], 08/14/2017 09:49:51 12/21/19 18 12/20/2017 urina lysis compl ete, refle x cultu re urine color Yellow yellow Not Available Med Shadi [address] [place] [address], [address], 12/21/2017 07:09:55 12/21/19 18 12/20/2017 urina lysis compl ete, refle x cultu re urine clarity Clear clear Not Available Med Shadi [address] [place] [address], [place], [address], 12/21/2017 07:09:55 12/21/19 18 12/20/2017 urina lysis compl ete, refle x cultu re urine specific gravity 1.014 1.005- 1.030 Not Available [facility] [address]ole[address] [place] [address], [place], [address], 12/21/2017 07:09:55 12/21/19 18 12/20/2017 urina lysis compl ete, refle x cultu re urine pH 6.0 5.0-8. 5 Not Available [facility] [address] [place] [address], [place], [address], 12/21/2017 07:09:55 12/21/19 18 12/20/2017 urina lysis compl ete, refle x cultu re urine glucose Negati ve mg/dL negati ve Not Available [facility] [address] [place] [address] [address], [place], [address], 12/21/2017 07:09:55 12/21/19 18 12/20/2017 urina lysis compl ete, refle x cultu re urine ketones Negati ve mg/dL negati ve Not Available Med [address] [address], [place], [address], 12/21/2017 07:09:55 12/21/19 18 12/20/2017 urina lysis compl ete, refle x cultu re urobilinogen 0.2 eu/dL 0.2-1. 0 Not Available [address] [address], [place], [address], 12/21/2017 07:09:55 12/21/19 18 12/20/2017 urina lysis compl ete, refle x cultu re urine bilirubin Negati ve negati ve Not Available [address] [address], [place], [address], 12/21/2017 07:09:55 12/21/19 18 12/20/2017 urina lysis compl ete, refle x cultu re urine blood Negati ve negati ve Not Available [address] [address], [place], [address], 12/21/2017 07:09:55 12/21/19 18 12/20/2017 urina lysis compl ete, refle x cultu re urine protein Negati ve negati ve Not Available Med [address] [address], [place], [address], 12/21/2017 07:09:55 12/21/19 18 12/20/2017 urina lysis compl ete, refle x cultu re leukocyte esterase Negati ve negati ve Not Available Med [address] [address], [place], [address], 12/21/2017 07:09:55 12/21/19 18 12/20/2017 urina lysis compl ete, refle x cultu re urine nitrates Negati ve negati ve Not Available [facility] [address] [address], [place], [address], 12/21/2017 07:09:55 12/21/19 18 12/20/2017 urina lysis compl ete, refle x cultu re white cells <1 /hpf 0-4 Not Available [facility] [place] [address] [place] [address], [place], [address], 12/21/2017 07:09:55 12/21/19 18 12/20/2017 urina lysis compl ete, refle x cultu re red cells 1 /hpf 0-5 Not Available [facility] [address] [place] [address], [place], [address], 12/21/2017 07:09:55 12/21/19 18 12/20/2017 urina lysis compl ete, refle x cultu re squamous epithelial cells <1 /hpf 0-2 Not Available [facility] [place] [address] [place] [address], [place], [address], 12/21/2017 07:09:55 12/21/19 18 12/20/2017 urina lysis compl ete, refle x cultu re urine bacteria Negati ve negati ve Not Available [facility] [address] [place] [address], [place], [address], 12/21/2017 07:09:55 12/21/19 18 12/20/2017 urina lysis compl ete, refle x cultu re cast <1 /lpf Not Available [facility] [address] [place] [address], [address], 12/21/2017 07:09:55 12/21/19 18 12/20/2017 urina lysis compl ete, refle x cultu re reflex to culture Result s Below CULTU RE NOT INDIC ATED MDF med fusio n [address] [place] [address] [address] [facility] [place] [address] [phone] Ronald ramires MD Not Available [facility] [address] [facility] [address], [place], [address], 12/21/2017 07:09:55 12/21/19 18 12/20/2017 CMP, serum or plasm a glucose, fasting 117 mg/dL 70-99 high Not Available [facility] Shadi nance [address] [facility] [address], [place], [address], 12/21/2017 08:19:58 12/21/19 18 12/20/2017 CMP, serum or plasm a BUN 10 mg/dL 9-23 Not Available [facility] [address] [facility] [address], [place], [address], 12/21/2017 08:19:58 12/21/19 18 12/20/2017 CMP, serum or plasm a creatinine 0.81 mg/dL 0.60-1 .30 Not Available [facility] Olu [address] [place] [address], [place], [address], 12/21/2017 08:19:58 12/21/1912/20/2017 CMP, serum or plasm a sodium 139 mEq/L 132-14 6 Not Available [address] [address], [place], [address], 12/21/2017 08:19:58 12/21/1912/20/2017 CMP, serum or plasm a potassium 4.3 mEq/L 3.5-5. 5 Not Available [facility] [address] [address], [place], [address], 12/21/2017 08:19:58 12/21/19 18 12/20/2017 CMP, serum or plasm a chloride 104 mEq/L 99-109 Not Available [facility] S[facility] read [address] [address], [place], [address], 12/21/2017 08:19:58 12/21/19 18 12/20/2017 CMP, serum or plasm a CO2 25 mEq/L 22-33 Not Available [facility] [address] [place] [address], [place], [address], 12/21/2017 08:19:58 12/21/19 18 12/20/2017 CMP, serum or plasm a anion gap 14.3 mEq/L 10-20 Not Available [facility] [address] [facility] [address], [place], [address], 12/21/2017 08:19:58 12/21/19 18 12/20/2017 CMP, serum or plasm a calcium 9.3 mg/dL 8.7-10 .4 Not Available [facility] [address] [facility] [address], [place], [address], 12/21/2017 08:19:58 12/21/19 18 12/20/2017 CMP, serum or plasm a albumin 4.4 g/dL 3.2-4. 8 Not Available [facility] [address] [facility] [address], [place], [address], 12/21/2017 08:19:58 12/21/19 18 12/20/2017 CMP, serum or plasm a protein, total 6.9 g/dL 5.7-8. 2 Not Available [facility] [address] [facility] [address], [place], [address], 12/21/2017 08:19:58 12/21/19 18 12/20/2017 CMP, serum or plasm a bilirubin, total 0.8 mg/dL 0.3-1. 2 Not Available [facility] [address] [facility] [address], [place], [address], 12/21/2017 08:19:58 12/21/1912/20/2017 CMP, serum or plasm a ALT (SGPT) 29 U/L 10-49 Not Available [facility] [address] [facility] [address], [place], [address], 12/21/2017 08:19:58 12/21/19 18 12/20/2017 CMP, serum or plasm a AST (SGOT) 24 U/L 0-33 Not Available [facility] [address] [facility] [address], [place], [address], 12/21/2017 08:19:58 12/21/19 18 12/20/2017 CMP, serum or plasm a alk phosphatase 51 U/L 45-129 Not Available [facility] Olu Matthews [address] [facility] [address], [place], [address], 12/21/2017 08:19:58 12/21/19 18 12/20/2017 CMP, serum or plasm a BUN/creatini ne ratio 12.3 ratio 10-26 Not Available [facility] Shadi Varela [address] [facility] [address], [place], [address], 12/21/2017 08:19:58 12/21/19 18 12/20/2017 CMP, serum or plasm a globulin calculated 2.5 g/dL 2.0-3. 8 Not Available [facility] Olu Matthews [address] [facility] [address], [place], [address], 12/21/2017 08:19:58 12/21/19 18 12/20/2017 CMP, serum or plasm a A/G ratio 1.8 ratio 0.9-2. 5 Not Available [facility] Olu Varela [address] [facility] [address], [place], [address], 12/21/2017 08:19:58 12/21/19 18 12/20/2017 CMP, serum or plasm a eGFR aa >90 mL/mi n/1.7 3m2 >60 Not Available [facility] Olu Varela [address] [facility] [address], [place], [address], 12/21/2017 08:19:58 12/21/19 18 12/20/2017 CMP, serum [...] Ameri cans. MDF med fusio n [address] [facility] [place] [address] [facility] [address] [phone] Ronald ramires MD Not Available [facility] [address] [facility] 121, [place], [address], 12/21/2017 08:19:58 12/21/19 18 12/20/2017 lipid panel [...] 240 mg/dL Not Available [facility] [address] [facility] 121, [place], [address], 12/21/2017 08:20:01 12/21/19 18 12/20/2017 lipid panel [...] 500 mg/dL Not Available [facility] [address] [facility] 121, [place], [address], 12/21/2017 08:20:01 12/21/19 18 12/20/2017 lipid panel [...] 50 mg/dL Not Available [facility] [address] [facility] 121, [place], [address], 12/21/2017 08:20:01 12/21/19 18 12/20/2017 lipid panel , serum LDL calculated 135 mg/dL <100 high The [employer] n[employer] Lip[employer] i[employer] n and the Natio nal Maria G [employer] l [employer]ca tion Progr am (NCEP ) have set the [facility] [place] lipid panel guide lines for adult s ages 20 and up: Khanh able: < 100 mg/dL Above Khanh able: 100 - 129 mg/dL Borde rline high: 130 - 159 mg/dL High: 160 - 189 mg/dL Very High: > or = 190 mg/dL Not Available [facility] [address] [place] [address] 121, [place], [address], 12/21/2017 08:20:01 12/21/19 18 12/20/2017 lipid panel , serum ldlhdl 2.60 ratio Not Available [facility] [address] [place] [address] 121, [place], [address], 12/21/2017 08:20:01 12/21/19 18 12/20/2017 lipid panel , serum LDL/HDL risk See Note (Note ) Male Femal e Below Corder ge Risk 0.00- 2.28 0.00- 2.34 Corder ge Risk 2.29- 4.90 2.35- 4.12 Moder ate Risk 4.91- 7.12 4.13- 5.56 High Risk 7.13- 20.00 5.57- 20.00 Not Available [facility] [address] [place] [address] 121, [place], [address], 12/21/2017 08:20:01 12/21/19 18 12/20/2017 lipid panel , serum total chol/HDL ratio (calculat 3.9 ratio 0.0-5. 0 MDF med fusio n [address] [facility] [address] [facility] [address] [phone] Ronald ramires MD Not Available [facility] [address] [facility] 121, [place], [address], 12/21/2017 08:20:01 12/21/19 18 12/20/2017 uric acid, serum or plasm a uric acid 6.3 mg/dL 3.7-9. 2 MD med fusio n [address] [facility] 121,[address] [facility] [place] [address] [phone] Ronald ramires MD Not Available [facility] [address] [place] [address] 121, [place], [address], 12/21/2017 08:20:03 12/21/19 18 12/20/2017 HbA1c (hemo [...] blood cells . med fusio n [address] [facility] 121,[address] [facility] [place] [address] [phone] Ronald ramires MD Not Available [facility] [address] [facility] 121, [place], [address], 12/21/2017 09:44:46 12/21/19 18 12/20/2017 micro album in, urine creatinine, urine 91.2 mg/dL (Note ) Range not estab lishe d for urine Not Available [facility] [address] [facility] 121, [place], [address], 12/21/2017 17:09:50 12/21/19 18 12/20/2017 micro album in, urine microalbumin , urine <6 mg/L <30 Not Available Med Shadi nance [address] [facility] 121, [place], [address], 12/21/2017 17:09:50 12/21/19 18 12/20/2017 micro album in, urine microalbumin /creat ratio <7 mg/g_ cret 0-30 MDF med vijayflorina n [address] [facility] ay [address] [facility] [place] [address] [phone] Ronald ramires MD Not Available [facility] Olu [address] [place] [address] 121, [place], [address], 12/21/2017 17:09:50 12/21/19 18 12/20/2017 hepat itis C RNA, quant , PCR, serum specimen source Serum Not Available [facility] Shadi nance [address] [place] [address], [place], [address], 12/22/2017 16:24:46 12/21/19 18 12/20/2017 hepat itis C RNA, quant , PCR, serum result UnDete ct undete ct HCV RNA is Not-D etect ed Not Available [facility] O[facility] [address] [place] [address] 121, [place], [address], 12/22/2017 16:24:46 12/21/19 18 12/20/2017 hepat itis C RNA, quant , PCR, serum linearity range Result s Below 15 to 100,0 00,00 0 IU/mL (1.18 to 8.00 log IU/mL ) Not Available [facility] Olu [address] [place] [address] 121, [place], [address], 12/22/2017 16:24:46 12/21/19 18 12/20/2017 hepat itis C RNA, quant , PCR, serum reference range Result s Below Refer ence Range : Targe t Not Detec benny (Note ) METHO DOLOG Y: Quant itati ve Real- Time Polym erase Chain React ion (PCR) . DISCL AIMER : ANN HCV Test 2.0 is not inten ded for use as a scree gigi test for the prese nce of virus in blood or blood produ cts. MDF med fusio n [address] [facility] [address] [facility] [place] [address] [phone] Ronald ramires MD Not Available [facility] [address] [facility] 121, [place], [address], 12/22/2017 16:24:46 08/17/19 19 08/16/2018 CBC w/ auto diff WBC 5.9 K/uL 3.8-10 .6 Not Available [facility] [address] [facility] 121, [place], [address], 08/17/2018 06:00:34 08/17/1908/16/2018 CBC w/ auto diff RBC 4.55 M/uL 4.40-5 .90 Not Available [facility] [address] [place] [address], [place], [address], 08/17/2018 06:00:34 08/17/19 19 08/16/2018 CBC w/ auto diff hemoglobin 14.6 g/dL 14.0-1 8.0 Not Available [facility] [address] [place] [address], [place], [address], 08/17/2018 06:00:34 08/17/1908/16/2018 CBC w/ auto diff hematocrit 43.4 % 40.0-5 2.0 Not Available [facility] [address] [place] [address], [place], [address], 08/17/2018 06:00:34 08/17/1908/16/2018 CBC w/ auto diff MCV 95 fL 80-100 Not Available [facility] [address] [place] [address], [place], [address], 08/17/2018 06:00:34 08/17/1908/16/2018 CBC w/ auto diff MCH 32.1 pg 26.0-3 4.0 Not Available [facility] [address] [place] [address], [place], [address], 08/17/2018 06:00:34 08/17/19 19 08/16/2018 CBC w/ auto diff MCHC 33.6 g/dL 31.0-3 7.0 Not Available [address], [address], 08/17/2018 06:00:34 08/17/19 19 08/16/2018 CBC w/ auto diff RDW 12.0 % 12.0-1 5.0 Not Available [address] [address], [place], [address], 08/17/2018 06:00:34 08/17/19 19 08/16/2018 CBC w/ auto diff MPV 10.7 fL 8.8-12 .8 Not Available [address], [address], 08/17/2018 06:00:34 08/17/1908/16/2018 CBC w/ auto diff platelet count 257 K/uL 130-40 0 Not Available [address], [address], 08/17/2018 06:00:34 08/17/1908/16/2018 CBC w/ auto diff diff type Automa benny diff Not Available [address], [address], 08/17/2018 06:00:34 08/17/19 19 08/16/2018 CBC w/ auto diff abs neutrophils 3.0 K/uL 1.8-7. 7 Not Available [address], [address], 08/17/2018 06:00:34 08/17/19 19 08/16/2018 CBC w/ auto diff abs lymphocytes 1.9 K/uL 1.0-4. 8 Not Available [address], [address], 08/17/2018 06:00:34 08/17/19 19 08/16/2018 CBC w/ auto diff abs monocytes 0.8 K/uL 0.1-1. 0 Not Available [facility] [address] [address], [place], [address], 08/17/2018 06:00:34 08/17/19 19 08/16/2018 CBC w/ auto diff abs eosinophils 0.2 K/uL 0.0-0. 6 Not Available [facility] [address] [address], [place], [address], 08/17/2018 06:00:34 08/17/19 19 08/16/2018 CBC w/ auto diff abs basophils 0.0 K/uL 0.0-0. 3 Not Available [facility] [address] [place] [address], [address], 08/17/2018 06:00:34 08/17/19 19 08/16/2018 CBC w/ auto diff neutrophil 50 % 45-73 Not Available [facility] [address], [address], 08/17/2018 06:00:34 08/17/19 19 08/16/2018 CBC w/ auto diff lymphocyte 32 % 18-44 Not Available [facility] [address] [address], [place], [address], 08/17/2018 06:00:34 08/17/19 19 08/16/2018 CBC w/ auto diff monocyte 13 % 4-10 high Not Available [facility] [address] [address], [place], [address], 08/17/2018 06:00:34 08/17/19 19 08/16/2018 CBC w/ auto diff eosinophil 4 % 0-4 Not Available [facility] [address], [address], 08/17/2018 06:00:34 08/17/19 19 08/16/2018 CBC w/ auto diff basophil 1 % 0-1 MDF med fusio n [address] [facility] [address] [facility] [address] [phone] Ronald ramires MD Not Available [address] [address], [place], [address], 08/17/2018 06:00:34 08/17/1908/16/2018 urina lysis compl ete, refle x cultu re urine color Yellow yellow Not Available [address] [address], [place], [address], 08/17/2018 06:19:45 08/17/1908/16/2018 urina lysis compl ete, refle x cultu re urine clarity Clear clear Not Available [address] [address], [place], [address], 08/17/2018 06:19:45 08/17/1908/16/2018 urina lysis compl ete, refle x cultu re urine specific gravity 1.021 1.005- 1.030 Not Available [address] [address], [place], [address], 08/17/2018 06:19:45 08/17/1908/16/2018 urina lysis compl ete, refle x cultu re urine pH 6.0 5.0-8. 5 Not Available [address] [address], [place], [address], 08/17/2018 06:19:45 08/17/1908/16/2018 urina lysis compl ete, refle x cultu re urine glucose Negati ve mg/dL negati ve Not Available [address] [address], [place], [address], 08/17/2018 06:19:45 08/17/1908/16/2018 urina lysis compl ete, refle x cultu re urine ketones Negati ve mg/dL negati ve Not Available [address] [address], [place], [address], 08/17/2018 06:19:45 08/17/1908/1608/16/2018 urina lysis compl ete, refle x cultu re urobilinogen 0.2 eu/dL 0.2-1. 0 Not Available [facility] [address] [facility] [address], [place], [address], 08/17/2018 06:19:45 08/17/1908/16/2018 urina lysis compl ete, refle x cultu re urine bilirubin Negati ve negati ve Not Available [facility] [address] [facility] [address], [place], [address], 08/17/2018 06:19:45 08/17/1908/16/2018 urina lysis compl ete, refle x cultu re urine blood Negati ve negati ve Not Available [facility] [address] [facility] [address], [place], [address], 08/17/2018 06:19:45 08/17/1908/16/2018 urina lysis compl ete, refle x cultu re urine protein Negati ve negati ve Not Available [facility] [address] [facility] [address], [place], [address], 08/17/2018 06:19:45 08/17/1908/16/2018 urina lysis compl ete, refle x cultu re leukocyte esterase Negati ve negati ve Not Available [facility] [address] [facility] [address], [place], [address], 08/17/2018 06:19:45 08/17/1908/16/2018 urina lysis compl ete, refle x cultu re urine nitrates Negati ve negati ve Not Available [facility] [address] [facility] [address], [place], [address], 08/17/2018 06:19:45 08/17/1908/16/2018 urina lysis compl ete, refle x cultu re white cells <1 /hpf 0-4 Not Available [facility] lee ann [address] [facility] [address], [place], [address], 08/17/2018 06:19:45 08/17/19 19 08/16/2018 urina lysis compl ete, refle x cultu re red cells 1 /hpf 0-5 Not Available [facility] [address] [facility] [address], [place], [address], 08/17/2018 06:19:45 08/17/1908/16/2018 urina lysis compl ete, refle x cultu re squamous epithelial cells <1 /hpf 0-2 Not Available Med [facility] lee ann [address] [facility] 121, [place], [address], 08/17/2018 06:19:45 08/17/1908/16/2018 urina lysis compl ete, refle x cultu re urine bacteria Negati ve negati ve Not Available [facility] [address] [place] [address], [place], [address], 08/17/2018 06:19:45 08/17/1908/16/2018 urina lysis compl ete, refle x cultu re cast,hyaline <1 /lpf Not Available [facility] [address] [address], [place], [address], 08/17/2018 06:19:45 08/17/1908/16/2018 urina lysis compl ete, refle x cultu re reflex to culture Result s Below CULTU RE NOT INDIC ATED MDF med fusio n [address] [facility] [address] [facility] [place] [address] [phone] Ronald ramires MD Not Available [facility] [address] [place] [address] 121, [place], [address], 08/17/2018 06:19:45 08/17/1908/16/2018 CMP, serum or plasm a glucose, fasting 106 mg/dL 70-99 high Not Available [facility] ann [address] [place] [address] 121, [place], [address], 08/17/2018 08:10:04 08/17/19 19 08/16/2018 CMP, serum or plasm a BUN 11 mg/dL 9-23 Not Available [facility] [address] [address], [place], [address], 08/17/2018 08:10:04 08/17/19 19 08/16/2018 CMP, serum or plasm a creatinine 0.92 mg/dL 0.60-1 .30 Not Available [facility] [address] [place] [address], [place], [address], 08/17/2018 08:10:04 08/17/19 19 08/16/2018 CMP, serum or plasm a sodium 140 mEq/L 132-14 6 Not Available [facility] [address] [place] [address], [place], [address], 08/17/2018 08:10:04 08/17/19 19 08/16/2018 CMP, serum or plasm a potassium 4.6 mEq/L 3.5-5. 5 Not Available [facility] [address] [place] [address], [place], [address], 08/17/2018 08:10:04 08/17/19 19 08/16/2018 CMP, serum or plasm a chloride 105 mEq/L 99-109 Not Available [facility] n [address] [place] [address], [place], [address], 08/17/2018 08:10:04 08/17/1908/16/2018 CMP, serum or plasm a CO2 28 mEq/L 22-33 Not Available [facility] [address] [place] [address], [place], [address], 08/17/2018 08:10:04 08/17/19 19 08/16/2018 CMP, serum or plasm a anion gap 11.6 mEq/L 10-20 Not Available [facility] [address] [place] [address], [place], [address], 08/17/2018 08:10:04 08/17/19 19 08/16/2018 CMP, serum or plasm a calcium 9.4 mg/dL 8.7-10 .4 Not Available [facility] [address], [place], [address], 08/17/2018 08:10:04 08/17/1908/16/2018 CMP, serum or plasm a albumin 4.5 g/dL 3.2-4. 8 Not Available [facility] [address] [facility] [address], [place], [address], 08/17/2018 08:10:04 08/17/1908/16/2018 CMP, serum or plasm a protein, total 6.3 g/dL 5.7-8. 2 Not Available [facility] [address], [place], [address], 08/17/2018 08:10:04 08/17/1908/16/2018 CMP, serum or plasm a bilirubin, total 0.9 mg/dL 0.3-1. 2 Not Available [facility] [address] [facility] 121, [place], [address], 08/17/2018 08:10:04 08/17/1908/16/2018 CMP, serum or plasm a ALT (SGPT) 19 U/L 10-49 Not Available Med F[facility] [address] [facility] 121, [place], [address], 08/17/2018 08:10:04 08/17/1908/16/2018 CMP, serum or plasm a AST (SGOT) 24 U/L 15-40 Not Available [facility] [address] [facility] 121, [place], [address], 08/17/2018 08:10:04 08/17/1908/16/2018 CMP, serum or plasm a alk phosphatase 46 U/L 45-129 Not Available [facility] [address], [place], [address], 08/17/2018 08:10:04 08/17/1908/16/2018 CMP, serum or plasm a BUN/creatini ne ratio 12.0 ratio 10-26 Not Available [facility] lee ann [address] [facility], [place], [address], 08/17/2018 08:10:04 08/17/19 19 08/16/2018 CMP, serum or plasm a globulin calculated 1.8 g/dL 2.0-3. 8 low Not Available [facility] [address] [facility] 121, [place], [address], 08/17/2018 08:10:04 08/17/19 19 08/16/2018 CMP, serum or plasm a A/G ratio 2.5 ratio 0.9-2. 5 Not Available [facility] [address] [place] [address] 121, [place], [address], 08/17/2018 08:10:04 08/17/19 19 08/16/2018 CMP, serum or plasm a eGFR aa >90 mL/mi n/1.7 3m2 >60 Not Available [facility] [address] [facility] 121, [place], [address], 08/17/2018 08:10:04 08/17/19 19 08/16/2018 CMP, serum [...] Ameri cans. ALEXI med fusio n [address] [facility] ay [address] [facility] [address] [phone] Ronald ramires MD Not Available [facility] [address] [facility] 121, [place], [address], 08/17/2018 08:10:04 08/17/19 19 08/16/2018 lipid panel [...] mg/dL Not Available [facility] [address] [facility], [place], [address], 08/17/2018 08:10:07 08/17/1908/16/2018 lipid panel , serum [...] mg/dL Not Available [facility] [address] [facility] [address], [place], [address], 08/17/2018 08:10:07 08/17/1908/16/2018 lipid panel , serum [...] 50 mg/dL Not Available [facility] [address] [facility] 121, [place], [address], 08/17/2018 08:10:07 08/17/1908/16/2018 lipid panel , serum [...] 190 mg/dL Not Available [facility] [address] [address], [place], [address], 08/17/2018 08:10:07 08/17/19 19 08/16/2018 lipid panel , serum ldlhdl 2.17 ratio Not Available [facility] [address] [address], [place], [address], 08/17/2018 08:10:07 08/17/1908/16/2018 lipid panel , serum LDL/HDL risk See Note (Note ) Male Femal e Below Corder ge Risk 0.00- 2.28 0.00- 2.34 Corder ge Risk 2.29- 4.90 2.35- 4.12 Moder ate Risk 4.91- 7.12 4.13- 5.56 High Risk 7.13- 20.00 5.57- 20.00 Not Available [facility] [address] [address], [place], [address], 08/17/2018 08:10:07 08/17/19 19 08/16/2018 lipid panel , serum total chol/HDL ratio (calculat 3.5 ratio 0.0-5. 0 MDF med fusio n 2501 [facility] [address] [facility] [address] [phone] Ronald ramires MD Not Available [facility] [address] [address], [place], [address], 08/17/2018 08:10:07 08/17/1908/16/2018 uric acid, serum or plasm a uric acid 5.4 mg/dL 3.7-9. 2 MDF med fusio n [address] [facility] [address] [facility] [address] [phone] Ronald ramires MD Not Available [facility] [address] [address], [place], [address], 08/17/2018 08:10:09 08/17/19 19 08/16/2018 HbA1c (hemo [...] cells . [facility] [facility] [facility] [address] [phone] Ronald ramires MD Not Available [facility] [address] [facility] 121, [place], [address], 08/17/2018 08:30:01 08/17/19 19 08/16/2018 micro album in, urine creatinine, urine 158.1 mg/dL (Note ) Range not estab lishe d for urine Not Available [facility] [address] [facility] 121, [place], [address], 08/17/2018 11:29:55 08/17/1908/16/2018 micro album in, urine microalbumin , urine <6 mg/L <30 Not Available Med [facility] lee ann [address] [facility] 121, [place], [address], 08/17/2018 11:29:55 08/17/1908/16/2018 micro album in, urine microalbumin /creat ratio <4 mg/g_ cret 0-30 MDF med fusio n [address] [facility] ay [address] [facility] [address] [phone] Ronald ramires MD Not Available [facility] [address] [place] [address], [place], [address], 08/17/2018 11:29:55 02/08/2002/07/2019 CBC w/ auto diff WBC 5.4 K/uL 3.8-10 .6 Not Available [facility] [address] [place] [address], [place], [address], 02/08/2019 07:38:57 02/08/2002/07/2019 CBC w/ auto diff RBC 4.44 M/uL 4.40-5 .90 Not Available [facility] [address] [place] [address], [place], [address], 02/08/2019 07:38:57 02/08/2002/07/2019 CBC w/ auto diff hemoglobin 14.3 g/dL 14.0-1 8.0 Not Available [facility] [address] [place] [address], [place], [address], 02/08/2019 07:38:57 02/08/2002/07/2019 CBC w/ auto diff hematocrit 43.9 % 40.0-5 2.0 Not Available [facility] [address] [place] [address], [place], [address], 02/08/2019 07:38:57 02/08/2002/07/2019 CBC w/ auto diff MCV 99 fL 80-100 Not Available [facility] [address] [place] [address], [address], 02/08/2019 07:38:57 02/08/2002/07/2019 CBC w/ auto diff MCH 32.2 pg 26.0-3 4.0 Not Available [facility] [address] [place] [address], [place], [address], 02/08/2019 07:38:57 02/08/20 19 02/07/2019 CBC w/ auto diff MCHC 32.6 g/dL 31.0-3 7.0 Not Available [facility] [address] [address], [place], [address], 02/08/2019 07:38:57 02/08/2002/07/2019 CBC w/ auto diff RDW 11.9 % 12.0-1 5.0 low Not Available [facility] [address] [place] [address], [place], [address], 02/08/2019 07:38:57 02/08/2002/07/2019 CBC w/ auto diff MPV 10.9 fL 8.8-12 .8 Not Available [facility] [address] [place] [address], [place], [address], 02/08/2019 07:38:57 02/08/2002/07/2019 CBC w/ auto diff platelet count 271 K/uL 130-40 0 Not Available [facility] [address] [place] [address], [place], [address], 02/08/2019 07:38:57 02/08/2002/07/2019 CBC w/ auto diff diff type Automa benny diff Not Available [facility] [address] [place] [address], [place], [address], 02/08/2019 07:38:57 02/08/2002/07/2019 CBC w/ auto diff abs neutrophils 2.8 K/uL 1.8-7. 7 Not Available [facility] [address] [place] [address], [place], [address], 02/08/2019 07:38:57 02/08/2002/07/2019 CBC w/ auto diff abs lymphocytes 1.8 K/uL 1.0-4. 8 Not Available [facility] [address] [place] [address], [place], [address], 02/08/2019 07:38:57 02/08/20 02/07/2019 CBC w/ auto diff abs monocytes 0.7 K/uL 0.1-1. 0 Not Available [facility] [address], [address], 02/08/2019 07:38:57 02/08/20 19 02/07/2019 CBC w/ auto diff abs eosinophils 0.1 K/uL 0.0-0. 6 Not Available [facility] [address] [place] [address], [address], 02/08/2019 07:38:57 02/08/20 19 02/07/2019 CBC w/ auto diff abs basophils 0.0 K/uL 0.0-0. 3 Not Available [facility] [address] [place] [address], [address], 02/08/2019 07:38:57 02/08/2002/07/2019 CBC w/ auto diff neutrophil 51 % 45-73 Not Available [facility] [address] [place] [address], [address], 02/08/2019 07:38:57 02/08/2002/07/2019 CBC w/ auto diff lymphocyte 33 % 18-44 Not Available [facility] [address] [place] [address], [address], 02/08/2019 07:38:57 02/08/2002/07/2019 CBC w/ auto diff monocyte 13 % 4-10 high Not Available [facility] [address] [address], [place], [address], 02/08/2019 07:38:57 02/08/2002/07/2019 CBC w/ auto diff eosinophil 2 % 0-4 Not Available [facility] [address], [address], 02/08/2019 07:38:57 02/08/2002/07/2019 CBC w/ auto diff basophil 1 % 0-1 [facility] med [facility] n 2501 [facility] 121,[address] [facility] [address] [phone] Ronald ramires MD Not Available [facility] [address] [place] [address], [place], [address], 02/08/2019 07:38:57 02/08/20 19 02/07/2019 urina lysis compl ete, refle x cultu re urine color Yellow yellow Not Available [facility] [address] [address], [place], [address], 02/08/2019 07:59:13 02/08/20 19 02/07/2019 urina lysis compl ete, refle x cultu re urine clarity Turbid clear abnormal Not Available [facility] [address] [address], [place], [address], 02/08/2019 07:59:13 02/08/2002/07/2019 urina lysis compl ete, refle x cultu re urine specific gravity 1.016 1.005- 1.030 Not Available [facility] [address] [place] [address], [place], [address], 02/08/2019 07:59:13 02/08/20 19 02/07/2019 urina lysis compl ete, refle x cultu re urine pH 6.5 5.0-8. 5 Not Available [address] [address], [place], [address], 02/08/2019 07:59:13 02/08/2002/07/2019 urina lysis compl ete, refle x cultu re urine glucose Negati ve mg/dL negati ve Not Available Med [address] [address], [place], [address], 02/08/2019 07:59:13 02/08/2002/07/2019 urina lysis compl ete, refle x cultu re urine ketones Negati ve mg/dL negati ve Not Available Med [address] [address], [place], [address], 02/08/2019 07:59:13 02/08/20 19 02/07/2019 urina lysis compl ete, refle x cultu re urobilinogen 0.2 eu/dL 0.2-1. 0 Not Available [facility] [address] [address], [place], [address], 02/08/2019 07:59:13 02/08/20 19 02/07/2019 urina lysis compl ete, refle x cultu re urine bilirubin Negati ve negati ve Not Available Med [address] [address], [place], [address], 02/08/2019 07:59:13 02/08/20 19 02/07/2019 urina lysis compl ete, refle x cultu re urine blood Negati ve negati ve Not Available [address] [address], [place], [address], 02/08/2019 07:59:13 02/08/20 19 02/07/2019 urina lysis compl ete, refle x cultu re urine protein Negati ve negati ve Not Available [facility] [address] [address], [place], [address], 02/08/2019 07:59:13 02/08/20 19 02/07/2019 urina lysis compl ete, refle x cultu re leukocyte esterase Negati ve negati ve Not Available [facility] [address] [address], [place], [address], 02/08/2019 07:59:13 02/08/2002/07/2019 urina lysis compl ete, refle x cultu re urine nitrites Negati ve negati ve Not Available [facility] [address] [address], [place], [address], 02/08/2019 07:59:13 02/08/2002/07/2019 urina lysis compl ete, refle x cultu re white blood cells <1 /hpf 0-4 Not Available [facility] ann [address] [address], [place], [address], 02/08/2019 07:59:13 02/08/20 19 02/07/2019 urina lysis compl ete, refle x cultu re red blood cells 2 /hpf 0-5 Not Available [facility] Sh[address] [place] [address], [place], [address], 02/08/2019 07:59:13 02/08/20 19 02/07/2019 urina lysis compl ete, refle x cultu re squamous epithelial cells 1 /hpf 0-2 Not Available [address] [address], [place], [address], 02/08/2019 07:59:13 02/08/20 19 02/07/2019 urina lysis compl ete, refle x cultu re urine bacteria Negati ve negati ve Not Available [facility] Olu [address] [place] [address], [place], [address], 02/08/2019 07:59:13 02/08/20 19 02/07/2019 urina lysis compl ete, refle x cultu re cast, hyaline <1 /lpf 0-2 Not Available [facility] Shadi [address] [place] [address], [place], [address], 02/08/2019 07:59:13 02/08/20 19 02/07/2019 urina lysis compl ete, refle x cultu re reflex to culture Result s Below CULTU RE NOT INDIC ATED MDF med fusio n [facility] ay [address] [facility] [place] [address] [phone] Ronald ramires MD Not Available [facility] Olu [address] [place] [address], [place], [address], 02/08/2019 07:59:13 02/08/20 19 02/07/2019 CMP, serum or plasm a glucose, fasting 111 mg/dL 70-99 high Not Available [facility] Shadi lee annmadison [address] [place] [address], [place], [address], 02/08/2019 08:53:20 02/08/2002/07/2019 CMP, serum or plasm a BUN 13 mg/dL 9-23 Not Available [facility] [address] [address], [place], [address], 02/08/2019 08:53:20 02/08/2002/07/2019 CMP, serum or plasm a creatinine 0.88 mg/dL 0.60-1 .30 Not Available [facility] [address] [address], [place], [address], 02/08/2019 08:53:20 02/08/2002/07/2019 CMP, serum or plasm a sodium 140 mEq/L 132-14 6 Not Available [facility] [address] [place] [address], [place], [address], 02/08/2019 08:53:20 02/08/2002/07/2019 CMP, serum or plasm a potassium 4.9 mEq/L 3.5-5. 5 Not Available [facility] [address] [place] [address], [place], [address], 02/08/2019 08:53:20 02/08/2002/07/2019 CMP, serum or plasm a chloride 104 mEq/L 99-109 Not Available [facility] [address] [place] [address], [place], [address], 02/08/2019 08:53:20 02/08/2002/07/2019 CMP, serum or plasm a CO2 29 mEq/L 22-33 Not Available [facility] [address] [place] [address], [place], [address], 02/08/2019 08:53:20 02/08/2002/07/2019 CMP, serum or plasm a anion gap 11.9 mEq/L 10-20 Not Available [facility] [address] [place] [address], [place], [address], 02/08/2019 08:53:20 02/08/2002/07/2019 CMP, serum or plasm a calcium 9.9 mg/dL 8.7-10 .4 Not Available [facility] [address], [place], [address], 02/08/2019 08:53:20 02/08/2002/07/2019 CMP, serum or plasm a albumin 4.6 g/dL 3.2-4. 8 Not Available [facility] [facility], [place], [address], 02/08/2019 08:53:20 02/08/2002/07/2019 CMP, serum or plasm a protein, total 6.6 g/dL 5.7-8. 2 Not Available [facility] [address], [place], [address], 02/08/2019 08:53:20 02/08/2002/07/2019 CMP, serum or plasm a bilirubin, total 0.7 mg/dL 0.3-1. 2 Not Available [facility] [address], [place], [address], 02/08/2019 08:53:20 02/08/2002/07/2019 CMP, serum or plasm a ALT (SGPT) 17 U/L 10-49 Not Available [facility] [address], [place], [address], 02/08/2019 08:53:20 02/08/2002/07/2019 CMP, serum or plasm a AST (SGOT) 25 U/L 15-40 Not Available [facility] [address], [place], [address], 02/08/2019 08:53:20 02/08/2002/07/2019 CMP, serum or plasm a alk phosphatase 46 U/L 45-129 Not Available [facility] [address], [place], [address], 02/08/2019 08:53:20 02/08/2002/07/2019 CMP, serum or plasm a BUN/creatini ne ratio 14.8 ratio 10-26 Not Available [facility] ann [address] [facility] 121, [place], [address], 02/08/2019 08:53:20 02/08/2002/07/2019 CMP, serum or plasm a globulin calculated 2.0 g/dL 2.0-3. 8 Not Available [facility] [address] [place] [address] 121, [place], [address], 02/08/2019 08:53:20 02/08/2002/07/2019 CMP, serum or plasm a A/G ratio 2.3 ratio 0.9-2. 5 Not Available [facility] [address] [place] [address] 121, [place], [address], 02/08/2019 08:53:20 02/08/2002/07/2019 CMP, serum or plasm a eGFR aa >90 mL/mi n/1.7 3m2 >60 Not Available [facility] [address] [place] [address] 121, [place], [address], 02/08/2019 08:53:20 02/08/2002/07/2019 CMP, serum or plasm [...] Ameri cans. [facility]io n [address] [facility] ay [address] [facility] [address] [phone] Ronald ramires MD Not Available [facility] [address] [facility] 121, [place], [address], 02/08/2019 08:53:20 02/08/2002/07/2019 lipid panel , serum [...] 240 mg/dL Not Available [facility] [address] [facility] 121, [place], [address], 02/08/2019 08:53:38 02/08/2002/07/2019 lipid panel , serum [...] = 500 mg/dL Not Available [facility] [address] [place] [address] 121, [place], [address], 02/08/2019 08:53:38 02/08/2002/07/2019 lipid panel , serum [...] 50 mg/dL Not Available [facility] [address] [facility] 121, [place], [address], 02/08/2019 08:53:38 02/08/2002/07/2019 lipid panel , serum LDL calculated 125 mg/dL <100 high The [employer] n[employer] Lip[employer] i[employer] n and the Natio nal Maria G st[employer] l [employer]ca tion Progr am (NCEP ) have set the [facility] lipid panel guide lines for adult s ages 20 and up: Khanh able: < 100 mg/dL Above Khanh able: 100 - 129 mg/dL Borde rline high: 130 - 159 mg/dL High: 160 - 189 mg/dL Very High: > or = 190 mg/dL Not Available [facility] [address] [address], [place], [address], 02/08/2019 08:53:38 02/08/2002/07/2019 lipid panel , serum ldlhdl 2.31 ratio Not Available [facility] [address] [address], [place], [address], 02/08/2019 08:53:38 02/08/2002/07/2019 lipid panel , serum LDL/HDL risk See Note (Note ) Male Femal e Below Corder ge Risk 0.00- 2.28 0.00- 2.34 Corder ge Risk 2.29- 4.90 2.35- 4.12 Moder ate Risk 4.91- 7.12 4.13- 5.56 High Risk 7.13- 20.00 5.57- 20.00 Not Available [facility] [address] [address], [place], [address], 02/08/2019 08:53:38 02/08/2002/07/2019 lipid panel , serum total chol/HDL ratio (calculat 3.6 ratio 0.0-5. 0 MDF med [facility]io n 2501 [facility] ay [address] [facility] [address] [phone] Ronald ramires MD Not Available [facility] [address] [address], [place], [address], 02/08/2019 08:53:38 02/08/2002/07/2019 uric acid, serum or plasm a uric acid 5.1 mg/dL 3.7-9. 2 [facility]F med [facility]io n 2501 [facility] [address] [facility] [address] [phone] Ronald ramires MD Not Available [facility] [address] [facility] 121, [place], [address], 02/08/2019 08:53:55 02/08/20 19 02/07/2019 HbA1c (hemo [...] cells . [facility]F med [facility]io n 2501 [facility] [address] [facility] [address] [phone] Ronald ramires MD Not Available [facility] [address] [facility] 121, [place], [address], 02/08/2019 12:57:27 08/10/19 20 08/10/2019 urina lysis compl ete, refle x cultu re urine color Yellow yellow Not Available [facility] [address] [facility] 121, [place], [address], 08/11/2019 06:00:12 08/10/1908/10/2019 urina lysis compl ete, refle x cultu re urine clarity Clear clear Not Available [facility] [address] [facility] 121, [place], [address], 08/11/2019 06:00:12 08/10/19 20 08/10/2019 urina lysis compl ete, refle x cultu re urine specific gravity 1.028 1.005- 1.030 Not Available [address] [address], [place], [address], 08/11/2019 06:00:12 08/10/19 20 08/10/2019 urina lysis compl ete, refle x cultu re urine pH 6.0 5.0-8. 5 Not Available [address] [address], [place], [address], 08/11/2019 06:00:12 08/10/1908/10/2019 urina lysis compl ete, refle x cultu re urine glucose Negati ve mg/dL negati ve Not Available [address] [address], [place], [address], 08/11/2019 06:00:12 08/10/19 20 08/10/2019 urina lysis compl ete, refle x cultu re urine ketones Negati ve mg/dL negati ve Not Available [address] [address], [place], [address], 08/11/2019 06:00:12 08/10/19 20 08/10/2019 urina lysis compl ete, refle x cultu re urobilinogen 1.0 eu/dL 0.2-1. 0 Not Available [address] [address], [place], [address], 08/11/2019 06:00:12 08/10/1908/10/2019 urina lysis compl ete, refle x cultu re urine bilirubin Negati ve negati ve Not Available [address] [address], [place], [address], 08/11/2019 06:00:12 08/10/19 20 08/10/2019 urina lysis compl ete, refle x cultu re urine blood Negati ve negati ve Not Available [address] [address], [place], [address], 08/11/2019 06:00:12 08/10/19 20 08/10/2019 urina lysis compl ete, refle x cultu re urine protein Negati ve negati ve Not Available [address] [address], [place], [address], 08/11/2019 06:00:12 08/10/19 20 08/10/2019 urina lysis compl ete, refle x cultu re leukocyte esterase Negati ve negati ve Not Available [address] [address], [place], [address], 08/11/2019 06:00:12 08/10/19 20 08/10/2019 urina lysis compl ete, refle x cultu re urine nitrites Negati ve negati ve Not Available [address] [address], [place], [address], 08/11/2019 06:00:12 08/10/19 20 08/10/2019 urina lysis compl ete, refle x cultu re white blood cells 1 /hpf 0-4 Not Available [address] [address], [place], [address], 08/11/2019 06:00:12 08/10/19 20 08/10/2019 urina lysis compl ete, refle x cultu re red blood cells 1 /hpf 0-5 Not Available [address] [address], [place], [address], 08/11/2019 06:00:12 08/10/19 20 08/10/2019 urina lysis compl ete, refle x cultu re squamous epithelial cells 1 /hpf 0-2 Not Available [address] [address], [place], [address], 08/11/2019 06:00:12 08/10/19 20 08/10/2019 urina lysis compl ete, refle x cultu re urine bacteria Negati ve negati ve Not Available [facility] [address] [address], [place], [address], 08/11/2019 06:00:12 08/10/19 20 08/10/2019 urina lysis compl ete, refle x cultu re cast, hyaline <1 /lpf 0-2 Not Available [facility] [address] [place] [address], [place], [address], 08/11/2019 06:00:12 08/10/19 20 08/10/2019 urina lysis compl ete, refle x cultu re reflex to culture Result s Below CULTU RE NOT INDIC ATED [facility] med fusio n 2501 [facility] [address] [facility] [address] [phone] Ronald ramires MD Not Available [facility] [address] [place] [address], [place], [address], 08/11/2019 06:00:12 08/10/19 20 08/10/2019 CBC w/ auto diff WBC 5.8 K/uL 3.8-10 .6 Not Available [facility] [address] [place] [address], [place], [address], 08/11/2019 06:22:37 08/10/19 20 08/10/2019 CBC w/ auto diff RBC 4.79 M/uL 4.40-5 .90 Not Available [facility] [address] [place] [address], [place], [address], 08/11/2019 06:22:37 08/10/19 20 08/10/2019 CBC w/ auto diff hemoglobin 15.4 g/dL 14.0-1 8.0 Not Available [facility] [address] [place] [address], [address], 08/11/2019 06:22:37 08/10/19 20 08/10/2019 CBC w/ auto diff hematocrit 45.4 % 40.0-5 2.0 Not Available [facility] [address] [place] [address], [address], 08/11/2019 06:22:37 08/10/19 20 08/10/2019 CBC w/ auto diff MCV 95 fL 80-100 Not Available [facility] [address] [address], [place], [address], 08/11/2019 06:22:37 08/10/1908/10/2019 CBC w/ auto diff MCH 32.2 pg 26.0-3 4.0 Not Available [facility] [address] [address], [place], [address], 08/11/2019 06:22:37 08/10/1908/10/2019 CBC w/ auto diff MCHC 33.9 g/dL 31.0-3 7.0 Not Available [facility] [address] [address], [place], [address], 08/11/2019 06:22:37 08/10/1908/10/2019 CBC w/ auto diff RDW 11.8 % 12.0-1 5.0 low Not Available [facility] [address] [place] [address], [place], [address], 08/11/2019 06:22:37 08/10/1908/10/2019 CBC w/ auto diff MPV 11.0 fL 8.8-12 .8 Not Available [facility] [address] [place] [address], [place], [address], 08/11/2019 06:22:37 08/10/1908/10/2019 CBC w/ auto diff platelet count 283 K/uL 130-40 0 Not Available [facility] [address] [address], [place], [address], 08/11/2019 06:22:37 08/10/1908/10/2019 CBC w/ auto diff diff type Automa benny diff Not Available [facility] [address] [place] [address], [place], [address], 08/11/2019 06:22:37 08/10/1908/10/2019 CBC w/ auto diff abs neutrophils 3.1 K/uL 1.8-7. 7 Not Available [facility] [address] [address], [place], [address], 08/11/2019 06:22:37 08/10/19 20 08/10/2019 CBC w/ auto diff abs lymphocytes 1.9 K/uL 1.0-4. 8 Not Available [facility] [address] [address], [place], [address], 08/11/2019 06:22:37 08/10/19 20 08/10/2019 CBC w/ auto diff abs monocytes 0.6 K/uL 0.1-1. 0 Not Available [facility] [address] [address], [place], [address], 08/11/2019 06:22:37 08/10/19 20 08/10/2019 CBC w/ auto diff abs eosinophils 0.2 K/uL 0.0-0. 6 Not Available [facility] [address] [address], [place], [address], 08/11/2019 06:22:37 08/10/19 20 08/10/2019 CBC w/ auto diff abs basophils 0.0 K/uL 0.0-0. 3 Not Available [facility] [address] [address], [place], [address], 08/11/2019 06:22:37 08/10/19 20 08/10/2019 CBC w/ auto diff neutrophil 54 % 45-73 Not Available [facility] [address] [address], [place], [address], 08/11/2019 06:22:37 08/10/19 20 08/10/2019 CBC w/ auto diff lymphocyte 32 % 18-44 Not Available [facility] [address] [address], [place], [address], 08/11/2019 06:22:37 08/10/19 20 08/10/2019 CBC w/ auto diff monocyte 10 % 4-10 Not Available [facility] 25[address] [facility] 121, [place], [address], 08/11/2019 06:22:37 08/10/19 20 08/10/2019 CBC w/ auto diff eosinophil 3 % 0-4 Not Available Med [facility] ion [address] [facility] 121, [place], [address], 08/11/2019 06:22:37 08/10/19 20 08/10/2019 CBC w/ auto diff basophil 1 % 0-1 MDF med fusio n 2501 [facility] [address] [place] [address] [phone] Ronald ramires MD Not Available [facility] [address] [facility] 121, [place], [address], 08/11/2019 06:22:37 08/10/19 20 08/10/2019 HbA1c (hemo [...] cells . [facility] [place] [address] [phone] Ronald ramires MD Not Available [facility] [address] [facility] 121, [place], [address], 08/11/2019 07:54:29 08/10/1908/10/2019 CMP, serum or plasm a glucose, fasting 116 mg/dL 70-99 high Not Available Med Shadi nance [address] [facility] [address], [place], [address], 08/11/2019 08:15:23 08/10/19 20 08/10/2019 CMP, serum or plasm a BUN 16 mg/dL 9-23 Not Available [facility] Fusion [facility] [address] [facility] [address], [place], [address], 08/11/2019 08:15:23 08/10/1908/10/2019 CMP, serum or plasm a creatinine 0.92 mg/dL 0.60-1 .30 Not Available [facility] Fusion [address] [place] [address] 121, [place], [address], 08/11/2019 08:15:23 08/10/19 20 08/10/2019 CMP, serum or plasm a sodium 137 mEq/L 132-14 6 Not Available [address], [place], [address], 08/11/2019 08:15:23 08/10/19 20 08/10/2019 CMP, serum or plasm a potassium 4.6 mEq/L 3.5-5. 5 Not Available [facility] [address] [place] [address] 121, [place], [address], 08/11/2019 08:15:23 08/10/1908/10/2019 CMP, serum or plasm a chloride 101 mEq/L 99-109 Not Available Med Vijayio n [address] [facility] [address], [place], [address], 08/11/2019 08:15:23 08/10/1908/10/2019 CMP, serum or plasm a CO2 28 mEq/L 22-33 Not Available [facility] Fusion [address] [place] [address] 121, [place], [address], 08/11/2019 08:15:23 08/10/1903 0808/10/2019 CMP, serum or plasm a anion gap 12.6 mEq/L 10-20 Not Available Med Fusi on [facility] [address] [address], [place], [address], 08/11/2019 08:15:23 08/10/19 20 08/10/2019 CMP, serum or plasm a calcium 10.0 mg/dL 8.7-10 .4 Not Available [facility] [address] [address], [place], [address], 08/11/2019 08:15:23 08/10/19 20 08/10/2019 CMP, serum or plasm a albumin 4.8 g/dL 3.2-4. 8 Not Available [facility] [address] [address], [place], [address], 08/11/2019 08:15:23 08/10/19 20 08/10/2019 CMP, serum or plasm a protein, total 6.7 g/dL 5.7-8. 2 Not Available [facility] [address] [address], [place], [address], 08/11/2019 08:15:23 08/10/19 20 08/10/2019 CMP, serum or plasm a bilirubin, total 0.9 mg/dL 0.3-1. 2 Not Available [facility] [address] [address], [place], [address], 08/11/2019 08:15:23 08/10/19 20 08/10/2019 CMP, serum or plasm a ALT (SGPT) 23 U/L 10-49 Not Available Med Fus ion [facility] [address] [address], [place], [address], 08/11/2019 08:15:23 08/10/19 20 08/10/2019 CMP, serum or plasm a AST (SGOT) 20 U/L 15-40 Not Available Med Fus ion [facility] [address] [address], [place], [address], 08/11/2019 08:15:23 08/10/19 20 08/10/2019 CMP, serum or plasm a alk phosphatase 45 U/L 45-129 Not Available [address] [address], [place], [address], 08/11/2019 08:15:23 08/10/19 20 08/10/2019 CMP, serum or plasm a BUN/creatini ne ratio 17.4 ratio 10-26 Not Available [facility] Shadi nance [facility] [address] [address], [place], [address], 08/11/2019 08:15:23 08/10/19 20 08/10/2019 CMP, serum or plasm a globulin calculated 1.9 g/dL 2.0-3. 8 low Not Available [address] [address], [place], [address], 08/11/2019 08:15:23 08/10/19 20 08/10/2019 CMP, serum or plasm a A/G ratio 2.5 ratio 0.9-2. 5 Not Available [address] [address], [place], [address], 08/11/2019 08:15:23 08/10/19 20 08/10/2019 CMP, serum or plasm a eGFR aa >90 mL/mi n/1.7 3m2 >60 Not Available [address] [address], [place], [address], 08/11/2019 08:15:23 08/10/19 20 08/10/2019 CMP, serum [...] [employer]. [facility] med fusio n [address] [facility] [address] [facility] [address] [phone] Ronald ramires MD Not Available [facility] [address] [facility] [address], [place], [address], 08/11/2019 08:15:23 08/10/19 20 08/10/2019 lipid panel [...] 240 mg/dL Not Available [facility] [address] [facility] [address], [place], [address], 08/11/2019 08:15:42 08/10/19 20 08/10/2019 lipid panel [...] 500 mg/dL Not Available [facility] [address] [facility] [address], [place], [address], 08/11/2019 08:15:42 08/10/19 20 08/10/2019 lipid panel [...] 50 mg/dL Not Available [facility] [address] [facility] [address], [place], [address], 08/11/2019 08:15:42 08/10/19 20 08/10/2019 lipid panel , serum LDL calculated 124 mg/dL <100 high The [facility] n and the Natio nal [employer] t[employer] am (NCEP ) have set the [facility] lipid panel guide lines for adult s ages 20 and up: Hkanh able: < 100 mg/dL Above Khanh able: 100 - 129 mg/dL Borde rline high: 130 - 159 mg/dL High: 160 - 189 mg/dL Very High: > or = 190 mg/dL Not Available [facility] [address] [place] [address], [place], [address], 08/11/2019 08:15:42 08/10/19 20 08/10/2019 lipid panel , serum ldlhdl 2.53 ratio Not Available [facility] [address] [place] [address], [place], [address], 08/11/2019 08:15:42 08/10/19 20 08/10/2019 lipid panel , serum LDL/HDL risk See Note (Note ) Male Femal e Below Corder ge Risk 0.00- 2.28 0.00- 2.34 Corder ge Risk 2.29- 4.90 2.35- 4.12 Moder ate Risk 4.91- 7.12 4.13- 5.56 High Risk 7.13- 20.00 5.57- 20.00 Not Available [facility] [address] [place] [address] [address], [place], [address], 08/11/2019 08:15:42 08/10/19 20 08/10/2019 lipid panel , serum total chol/HDL ratio (calculat 3.9 ratio 0.0-5. 0 [facility] [address] [place] [address] [address] [facility] [address] [phone] Ronald ramires MD Not Available [facility] [address] [place] [address] 121, [place], [address], 08/11/2019 08:15:42 08/10/19 20 08/10/2019 uric acid, serum or plasm a uric acid 6.1 mg/dL 3.7-9. 2 [facility] [address] [facility] [address] [facility] [address] [phone] Ronald ramires MD Not Available [facility] [address] [address], [place], [address], 08/11/2019 08:16:47 08/10/19 20 08/10/2019 micro album in, urine creatinine, urine 168.2 mg/dL (Note ) Range not estab lishe d for urine Not Available [facility] [address] [place] [address], [place], [address], 08/11/2019 15:08:31 08/10/19 20 08/10/2019 micro album in, urine microalbumin , urine 13 mg/L <30 Not Available [facility] [address] [address], [place], [address], 08/11/2019 15:08:31 08/10/19 20 08/10/2019 micro album in, urine microalbumin /creat ratio 8 mg/g_ cret 0-30 [facility] [address] [facility] [address] [facility] [address] [phone] Ronald ramires MD Not Available [facility] [address] [place] [address], [place], [address], 08/11/2019 15:08:31 08/13/19 18 08/12/2017 elect fridaar diogr am No observ ation record ed. [email or web address] Not Available 2017 09:12:09 08/18/19 18 XR, chest , 2 view No observ ation record ed. SONIDO Hernandez [address], [place], [address], 08/23/2017 11:16:36 Result Notes None recorded. Problems Name Problem SNOMED Code Status Onset Date Resolution Date Notes Provider Name and Address Organization Details Recorded Time Essential hypertension 74917346 Active 2016 [facility] 16:57:25 Diabetes mellitus 32078631 Active 2016 [facility] 16:57:33 Gastroesophage al reflux disease 895942114 Active 2016 [facility] 17:03:19 Problem Notes None recorded. Procedures Surgical History Date Name Laterality Status Provider Name and Address Organization Details Recorded Time 08/10/19 20 Pulse Oximetry completed [facility] 08/10/2019 10:55:59 08/17/19 19 Pulse Oximetry completed [facility] 08/16/2018 09:10:56 12/21/19 18 [facility]2017 10:09:57 08/13/19 18 Pulse Oximetry completed [facility] 08/12/2017 18:28:55 02/16/20 17 Pulse Oximetry completed [facility] 02/15/2017 17:09:33 01/09/20 12 Arthroscopic Surgery completed [facility] 08/16/2018 09:03:56 Appendectomy completed [facility] 02/15/2017 17:04:30 Hernia Repair completed [facility] 02/15/2017 17:04:49 Vasectomy completed [facility] 08/16/2018 09:03:56 Imaging Results Imaging Date Name Status LastModified by Organization Details LastModified Time 08/12/2017 electrocardiogram completed Informa tion not available 08/13/2017 09:12:09 08/17/2017 XR, chest, 2 view completed SONIDO Hernandez [address], [place], [address], 08/23/2017 11:16:36 Procedure Notes None recorded. Medical [...] cm 81 /min 98.5 [degF] 32.7 kg/m2 43033.3 6 g 98 % 98 % 130 mm[Hg] 78 mm[Hg] Elvira Call [facility] 9 11:39:38 Date Recorded Body height Body temperature Heart rate Body mass index (BMI) Body weight Oxygen saturation Oxygen saturation in Arterial blood by Pulse oximetry Systolic blood pressure Diastolic blood pressure Provider Name and Address Organization Details Last Updated DateTime 0 172.72 cm 98.1 [degF] 80 /min 33.5 kg/m2 93057.3 2 g 98 % 98 % 124 mm[Hg] 80 mm[Hg] Joaquina Schultz [facility] 0 10:58:59 Date Recorded Body height Heart rate Body temperature Body mass index (BMI) Body weight Oxygen saturation Oxygen saturation in Arterial blood by Pulse oximetry Systolic blood pressure Diastolic blood pressure Provider Name and Address Organization Details Last Updated DateTime 8 172.72 cm 92 /min 98.8 [degF] 37.1 kg/m2 121514. 54 g 97 % 97 % 128 mm[Hg] 82 mm[Hg] Joaquina Schultz [facility] 8 18:32:28 Date Recorded Body height Heart rate Body temperature Body mass index (BMI) Body weight Oxygen saturation Oxygen saturation in Arterial blood by Pulse oximetry Systolic blood pressure Diastolic blood pressure Provider Name and Address Organization Details Last Updated DateTime 8 172.72 cm 75 /min 98 [degF] 34.1 kg/m2 960019. 69 g 97 % 97 % 130 mm[Hg] 82 mm[Hg] Marky Ambrocio [facility] 8 10:12:07 Date Recorded Body height Heart rate Body temperature Body mass index (BMI) Body weight Oxygen saturation Oxygen saturation in Arterial blood by Pulse oximetry Systolic blood pressure Diastolic blood pressure Provider Name and Address Organization Details Last Updated DateTime 9 172.72 cm 80 /min 98.5 [degF] 33.9 kg/m2 160818. 1 g 98 % 98 % 138 mm[Hg] 82 mm[Hg] Joaquina Schultz [facility] 9 09:11:50 Social History Question Answer Notes LastModified by Organizat ion Details LastModified Time Tobacco Smoking Status Never Smoker Not Available [facility] 03/12/2020 03:15:14 What Is Your Level Of Alcohol Consumption? Occasional [id number] Information not available 03/12/2020 What Is Your Level Of Caffeine Consumption? Moderate [id number] Information not available 03/12/2020 What Was The Date Of Your Most Recent Tobacco Screening? 08/16/2018 [id number] Information not available 03/12/2020 Sex: Unknown Functional [...] History Condition Response Coronary Artery Disease N Gout N Other N Kidney Stones N Blood Diseases N Hyperthyroidism N Breast Cancer N Abuse/Domestic Violence (or history of) N Lung Disease N Hypothyroidism N Depression N COPD N Defects or Inherited Disease N Difficulty Swallowing N Anesthesia Complications N Headaches/Migraines N Anxiety Disorder N Meniere's disease N Breast Problem (or history of) N Muscle, Joint, or Bone Problems N Obesity N Vision or Eye Problems N Arthritis N Infertility N Polyps N Varicosities N Stroke N Endometriosis N Bladder or Kidney Problems N High Cholesterol N Liver Disease N Fibromyalgia N Kidney Disease N Allergies/Hayfever N Ear or Hearing Problems N Cancer (or history of) N Thyroid Problems N GI Problems N ADD/ADHD N Eating Disorder N Skin Problems N Anemia N MRSA exposure N Constipation N Mental Illness N Ovarian Cancer (or history of) N Diabetes Y Seizures/Epilepsy N Tuberculosis N AIDS/HIV N Congestive Heart Failure (CHF) N Eczema N Diverticulitis N Asthma N Reflux/GERD Y Hepatitis N Heart Disease N Pulmonary Embolism N Chronic Ear Infections N Hypertension Y Autism Spectrum Disorder (ASD) N Osteoporosis N Thrombophilias N Immunizations Vaccine Type Date Status Note Provider Nam e and Address Organization Details Recorded Time Hep B, adult 05/22/2015 [facility] 17:02:29 Hep A, adult 05/22/2015 completed [facility] 02/15/2017 17:02:44 Past Encounters Encounter ID Performer Location Encounter Start Date Encounter Closed Date Diagnosis/Indication Diagnosis SNOMED-CT Code Diagnosis ICD10 Code Diagnosis Note [id number] Jerry Ayoub MD Main Office [address] [facility] [address] [place] [address] 02/15/2017 16:54:19 02/15/2017 18:36:29 Essential hypertension 68035418 I10 Patient stable on current regimen. Discussed [...] ed understand ing. Gastroesop hageal reflux disease 182311652 K21.9 Patient stable on PPIs. Symptoms well-contr [...] Type 2 skyler betes mellitus without complication 473756738 E11.9 Pending labs. Discussed ADA recommenda tions concerning management of diabetes. Discussed with patient the current diagnosis, prognosis, and treatment plan including risks, benefits, alternativ es, contraindi cations of any medication (s). All questions answered. Patient [facility] ed understand ing. [id number] Jerry Ayoub MD Main Office [address] [address] 08/12/2017 18:20:53 08/12/2017 19:14:51 Pre-surgery evaluation 621666964 Z01.818 Pending CXR, labs as requested. Will provide medical clearance pending results. Patient to call Dr Davis for cardiac clearance. EKG within normal limits. Diabetes mellitus 397746 09 E11.9 Essential hypertension 95202192 I10 [id number] Jerry Ayoub MD Main Office [address] [address] 12/20/2017 09:56:30 12/20/2017 12:13:32 History of hepatitis C 2159617816 9101 Z86.19 Patient with a history of Hep C. Treated. Wants to check viral load. Diabetes mellitus 659854 09 E11.9 Pending labs for further eval. NO refills needed at this time. Discussed with patient the current diagnosis, prognosis, and treatment plan including risks, benefits, alternativ es, contraindi cations of any medication (s). All questions answered. [facility] F/U after labs if uncontroll ed or sooner for any symptoms, questiosn, or concerns. Otherwise f/u recommende d every 6 mo. Essential hypertension 75472683 I10 Patient stable on current regimen. NO [...] on current regimen. All questions answered. [facility] [id number] Jerry Ayoub MD Main Office [address] [facility] [address] [place] [address] 08/16/2018 09:00:24 08/16/2018 09:24:56 Type 2 diabetes mellitus without complication 570654400 E11.9 Patient stable on current regimen. Discussed [...] ing. Gastroesop hageal reflux disease without esophagitis 707895052 K21.9 Patient stable on PPIs. Symptoms well-contr [...] Patient demonstrat ed understand ing. Essential hypertension 96356042 I10 Patient stable on current regimen.Di scussed [...] on current regimen. All questions answered. Patient [facility] ed understand ing. Hyperlipidemia 99275530 E78.5 Not on statin at this time. [...] of any medication (s). All questions answered. [id number] [facility] Main Office [address] [facility] [address] [place] [address] 02/06/2019 11:19:57 02/06/2019 12:00:42 Gastroesophageal reflux disease 666254351 K21.9 Patient stable on PPIs. Symptoms well-contr [...] in 6 months. All questions answered. Patient [facility] ed understand ing. Essential hypertension 51042691 I10 Patient stable on current regimen. Will [...] on current regimen. All questions answered. Patient [facility] ed understand ing. Diabetes mellitus 205392 09 E11.9 Patient stable on current regimen. [...] on current regimen. All questions answered. [facility] [id number] Jerry Ayoub MD Main Office [address] [facility] [address] [place] [address] 08/10/2019 10:39:11 08/10/2019 11:23:17 Essential hypertension 76440005 I10 Patient stable on current regimen. Will [...] on current regimen. All questions answered. [facility] Type 2 skyler betes mellitus without complication 819371652 E11.9 Patient stable on current regimen. Diabetes [...] ing. Gastroesop hageal reflux disease without esophagitis 681699470 K21.9 Patient stable on PPIs. Symptoms well-contr [...] answered. Patient demonstrat ed understand ing. Obesity 223837161 E66.9 Patient is Class I obese by BMI. Body mass index 30+ - obesity 305462310 Z68.33 Depression screening 171 381787 Z13.31 Screen for depression with PHQ-2/PHQ- 9 with a NEGATIVE result. Score 0 Health Concerns Section Related Observation LastModified by Organization Detai ls LastModified Time None Recorded Concern Status LastModified by Organization Details LastModified Time None Recorded Advance Directives Directive None Recorded Payers Encounter Date Sequence Insurance Name Policy Number Policy Rudd Covered Member ID Rudd Member ID Guarantor Name 08/12/2017 1 [facility] [id number] Jessie Clement Isaias [id number] [employer]Gush[employer]Isaias 12/20/2017 1 [facility] [id number] Jessie Esparza [id number] Aquilino Isaias 08/16/2018 1 [facility] [id number] Jessie Esparza [id number] [facility] 02/06/2019 1 [facility] [id number] Jessie Esparza [id number] Aquilino Girdletree 08/10/2019 1 [facility] [id number] Jessie Esparza [id number] [facility] Notes Date Note Type Note Provider [...] to [place] [address], [address] 08/12/2017 19:13:37 12/21/19 18 text/htm l DiabetesReported [...] well-controlled [place] [address] [facility] [address], [place], [address], [place] [facility] 12/20/2017 12:12:36 08/17/19 19 text/htm l DiabetesReported [...] 1 [place] [address] [address], [place], [address], [facility] 08/16/2018 09:24:36 02/07/20 19 text/htm l [...] tab po dailymail order Shira Campo angelo [facility] 02/07/2019 10:13:43 08/10/19 20 text/htm l DiabetesReported [...] regimen. [place] [address] [address], [place], [address], [facility] 08/10/2019 13:41:07
[2024-08-17 19:27] LABS: Alanine Aminotransferase 28 U/L (6-50); Albumin Level 4.2 g/dL (3.5-5.1); Alkaline Phosphatase 66 U/L (38-126); Aspartate Amino Transferase 45 U/L (17-59); Bilirubin,Total 0.4 mg/dL (0.2-1.3)
== END 2024-08-17 10:18 | disposition home or self-care (01) ==
PROVIDERS: PCP Nurse Practitioner Adult Health; Visit Provider Nurse Practitioner Adult Health
DX: R74.01 Elevation of levels of liver transaminase levels (principal)
CPT/HCPCS: 36415; 80076

== ENCOUNTER 2024-09-12 09:48 | Day surgery (SDC) | payer MEDICARE, SELFPAY ==
[2024-08-23 11:11] VITALS: BMI 30.7
--- NOTE | ~2024-09-12 | XR_ITS ---
EXAMINATION: XR fluoroscopy no charge DATE: 09/12/2024 10:30 CDT INDICATION: DIAG/PROG NARESH L3,L4,L5 MEDIAL BRANCH/DORSAL RAMUS NERVE BLK . TECHNIQUE: 11 fluoroscopic images of the lumbar spine were obtained during diagnostic/prognostic bila teral L3, L4, L5 medial branch/dorsal ramus nerve block, performed by Jose Randhawa MD. I was not present during the procedure. Fluoroscopy exposure time was 20.9 seconds. Air Kerma 10.24 mGy. COMPARISON: 07/18/2024 FINDINGS/IMPRESSION: Fluoroscopic documentation of diagnostic/prognostic bilateral L3, L4, L5 medial branch/dorsal ramus nerve block . Please refer to the operative note for complete procedural details . Reviewed, dictated and finalized at location K.
--- NOTE | 2024-09-12 09:41 | PM.HPGS ---
History of Present Illness History of Present Illness Consent: Risks, benefits, and alternatives have been discussed and questions answered. Patient agrees to proceed with procedure. Chief complaint: Lumbosacral Spondylosis w/o Myelopathy/Radiculopat Narrative: Aquilino Esparza is a 69 year old male with chronic, recalcitrant and disabling bilateral lumbosacral back pain secondary to degenerative spondylosis with failure to respond to aggressive conservative measures including PT, oral and topical analgesics, opioid and nonopioid analgesics, rest, time and activity/behavioral modification over the past 1-2 years who presents for diagnostic/prognostic medial branch blocks of the bilateral L3, L4, L5 medial branches/dorsal ramus(#2) addressing the bilateral L4-5, L5-S1 facet joints under fluoroscopic guidance and with contrast control. Review of Systems Review of Systems: Patient denies any new infectious, allergic, cardiopulmonary, neurologic or constitutional symptoms or changes in activity tolerance or exercise capacity including new or progressive SOB/PICHARDO, peripheral edema, productive cough, dysuria, nausea/vomiting, diarrhea, weight change, fevers/chills/night sweats, new or progressive neurologic deficit, cognitive or mood changes since last seen, except as documented in the HPI. All systems reviewed & are unremarkable except as noted in HPI and below PMFSH Past Medical History Medical History Sacroiliitis Hypertension GERD (gastroesophageal reflux disease) Hepatitis C Diabetes Type 2 Surgical History Surgical History H/O inguinal hernia repair 05/03/24 robotic assisted laparoscopic incarcerated right inguinal hernia repair with Bard 3D mid weight mesh Dr. Burton History of ventral hernia repair Robotic assisted laparoscopic reducible ventral hernia repair with transabdominal pre-peritoneal placement (DYLAN) of Bard Soft Mesh (defect = 2 cm) on 03/19/23 History of hernia surgery 1983 History of rotator cuff surgery Both R and L shoulders in 2011 and 2016 History of appendectomy 1978 Family History Family History Father Alcohol abuse Asthma Cancer Hypertension Diabetes mellitus Mother Hypertension Cerebrovascular accident Grandparent Cancer Heart disease Grandparent Cancer Social History Social History Smoking status: Unknown if ever smoked Second hand tobacco smoke exposure: No Alcohol intake: unknown Substance use: unknown Substance use type: does not use Last use: 2X weekly Lack of Transportation: No Lack of Food: Never True Current Housing: I Have Housing Concerned About Future Housing: No Difficulty Paying Gas/Electric Bills: No Difficulty Paying for Meds: No Currently Unemployed: No Education: High School Diploma/GED Difficulty w/ Childcare or Family Care: No Living arrangements: with family Additional living arrangements comments: Occupation/Education: retired Gender identity (if verbalized by the patient): Male Spiritual care concerns: No Agree to blood products: Yes Meds Home Medications and Allergies Home Medications ?Medication ?Instructions ?Recorded ?Confirmed ?Type cholecalciferol (vitamin D3) 50 50 mcg PO DAILY 03/15/23 08/23/24 History mcg (2,000 unit) capsule multivit with minerals-iron 18 1 tablet PO DAILY 03/15/23 08/23/24 History mg-folic ac 400 mcg-vit K 25 mcg tablet (Adults Multivitamin) vitamin B complex 1 cap PO DAILY 09/06/23 08/23/24 History atorvastatin 20 mg tablet 20 mg PO DAILY #90 tabs 11/22/23 08/23/24 Rx pantoprazole 40 mg tablet,delayed See Rx Instructions .Route 01/18/24 08/23/24 Rx release .COMPLEX #90 tabs olmesartan 40 mg tablet 20 mg PO DAILY 07/31/24 08/23/24 History metformin 1,000 mg tablet 1,000 mg PO DAILY 08/23/24 08/23/24 History Allergies Allergy/AdvReac Type Severity Reaction Status Date / Time No Known Allergies Allergy Verified 08/23/24 10:31 Exam Narrative: The patient's physical exam is essentially unchanged from prior examination on 08/01/2019. Specifically, patient demonstrates normal lung capacity, tidal volume and respiratory rate without wheezes, crackles, rales or rubs. Heart rate and rhythm are regular without murmurs, gallops or rubs. No JVD. Pulses 2+ globally without increasing peripheral edema. AAOx3 with no evidence of confusion, intoxication or altered mental state, NC/AT without acute distress or altered consciousness. Speech, cognition, mood, insight and judgment at baseline and within normal limits. Assessment and Plan Assessment and plan (1) Lumbosacral spondylosis without myelopathy: Code(s): M47.817 - Spondylosis without myelopathy or radiculopathy, lumbosacral region Status: Acute Assessment and Plan: [facility]/prognostic medial branch blocks of the bilateral L3, L4, L5 medial branches/dorsal ramus(#2) addressing the bilateral L4-5, L5-S1 facet joints under fluoroscopic guidance and with contrast control. (2) Chronic low back pain: Code(s): M54.50 - Low back pain, unspecified; G89.29 - Other chronic pain Status: Acute
--- NOTE | 2024-09-12 09:43 | WPDHPUPDATE1 ---
History and Physical Update Update Date/Time: 09/12/24 09:43 History and Physical has been reviewed, including an updated exam of the patient. There are NO changes in the patient's condition. Risks, benefits, and alternatives have been discussed and questions answered. Patient agrees to proceed with procedure.
--- NOTE | 2024-09-12 09:44 | P.OP_ITS ---
Procedure Note - Detailed Date of Procedure 09/12/24 Pre-op Diagnosis Lumbosacral Spondylosis w/o Myelopathy/Radiculopat Post-op Diagnosis Same Procedure Performed Diagnostic bilateral Lumbar Medial Branch/Dorsal Ramus Blocks at L3, L4, L5 Treating the bilateral L4-5, L5-S1 Facet Joints Under Fluoroscopic Guidance and with Contrast Control. (4 levels blocked). Surgeon Jose Randhawa MD Power Transformer Repair Supervisor None. Anesthesia Local Description of Procedure INFORMED CONSENT: Risks, benefits and alternatives to the procedure were discussed in detail with the patient who expressed explicit understanding and consent to proceed. Patient was informed verbally and in written form regarding the risks associated with the procedure including the low risk of serious infection, bleeding/bruising, allergic reaction, nerve or organ injury, paralysis, procedural site pain or discomfort, worsening pain and/or mobility, failure to treat and/or disfigurement. The patient expressed explicit understanding and consent to proceed. All materials required for the procedure were available prior to procedure start. Site and side were marked prior to procedure and confirmed in the presence of the patient. PROCEDURE IN DETAIL: The patient was brought to the procedural suite and placed in the prone position. Patient was made comfortable with use of pillows under the head/chest, hips and ankles. Skin overlying the injection site on the affected side(s) was prepared broadly with ChloraPrep applicator and draped in a sterile manner. Aseptic technique was used throughout. The endplates of the vertebral bodies at the site(s) of interest were aligned in the AP view. I psilateral oblique angulation was utilized to optimize visualization of the intersection between the superior articulating process and transverse process at each target site. Local anesthesia was established by infiltration with approximately 5 mL of 1% lidocaine via a 1-1/2 inch 27-gauge needle. A 25-gauge 5.0 inch Quincke spinal needle was advanced until the needle tip contacted periosteum at the target site, right L3. Lateral view was utilized to confirm the appropriate placement of the needle tip just anterior to the facet line and superior to the pedicle. In the Lateral view, 0.25 mL of Omnipaque 300 contrast medium was injected after negative aspiration for CSF, blood or other bodily fluid, showing appropriate extra-articular spread of contrast without evidence of intravascular, foraminal or intrathecal placement. A 0.5 mL solution of 2.0% PF lidocaine was injected after negative repeat aspiration. Appropriate spread of the injectate was confirmed with washout of previously injected contrast. No parasthesias were elicited. Needle was removed completely intact without difficulty. The same exact procedure was repeated for all remaining levels on the ipsilateral side, right L4, L5 medial branches/dorsal ramus, modified as necessary to accommodate for the new target location with identical findings and results and no evidence of complication. The same exact procedure was repeated for all remaining levels on the contralateral side, left L3, L4, L5 medial branches/dorsal ramus, modified as necessary to accommodate for the new target location with identical findings and results and no evidence of complication. Images were saved and documented in the patient chart. Patient's skin was cleaned and sterile bandage applied. The patient tolerated the procedure well. The patient was transported to the recovery area in stable condition where they were observed for an appropriate amount of time prior to discharge, without evidence of complication. Patient was instructed on the appropriate completion of a pain diary over the next 12-24 hours. The patient was instructed to avoid excessive activity for the next 48 hours, including climbing and frequent use of stairs. Showers only for 48 hours. They were instructed not to drive or operate heavy machinery for 24 hours. They are to monitor for severe headaches, fevers, chills, night sweats, erythema/swelling at the site or any other signs of infection, bleeding/bruising, bowel or bladder changes as well as new pain, weakness or numbness in the upper or lower extremity. Should they notice these changes, they are instructed to call our office immediately or report directly to the nearest Emergency Department if no answer or if after posted office hours. COMPLICATIONS: None COMMENTS: None CONTRAST WASTED: 28.5mL Omnipaque 300. Complications No immediate complications Condition Stable Disposition Same day [facility] Billing Surgery - Charge Forward: Surgery Billing
[2024-09-12 10:27] VITALS: BMI 29.9
[2024-09-12 10:28] VITALS: BP 113/80; PULSE 58; RESP 16; TEMP 36.3; O2SAT 98
[2024-09-12 10:36] VITALS: BP 115/68; PULSE 61; RESP 14; O2SAT 97
[2024-09-12 10:46] VITALS: BP 113/70; PULSE 58; RESP 16; O2SAT 97
[2024-09-12] MEDS: LIDOCAINE 2% PF LOCAL INJ 5 ML VIAL INFILTRATE (10:46)
[2024-09-12] MEDS: LIDOCAINE 1% PF INJ 5 ML VIAL INFILTRATE (10:46)
[2024-09-12 10:51] VITALS: BP 111/74; PULSE 55; RESP 16; O2SAT 98
--- OUTSIDE RECORDS SUMMARY | 2024-09-12 11:14 | XMS_ITS | Encounter Summary ---
Author Organization [facility] Address [address] [place] [address] Care Team Providers Care Employment Officer Name Role Phone Unavailable Primary Care Provider Unavailabl e Prior Encounters Date Type Department Care Team Description 02/04/2022 8:30 AM CDT Office Visit [facility] [address] [place] [address] [place] [address] Rhea Meyer DDS 12/13/2021 11:00 AM CDT Office Visit [facility] [address] [place] [address] [place] [address] Rhea Meyer DDS 12/12/2021 9:15 AM CDT Office Visit [facility] [address] [place], [place] [address] [address] Rhea Meyer DDS 12/12/2021 9:00 AM CDT Office Visit [facility] [address] [place], [place] [address] [address] Blessing Carson RDH 09/18/2021 11:00 AM CDT Office Visit [facility] [address] [place], [place] [address] [address] 06/05/2019 Converted CPS Chart Documents [facility] [address] [place] [phone] <No scans attached> 06/05/2019 Converted 13x Documents [facility] [address], [place] [address] <No scans attached> Last Filed [...] - ESTABLISHED PATIENT Routine 06/11/2021 2:00 AM ECHOMETER ENGINEER PERIO MAINTENANCE Routine 06/11/2021 2:0 0 AM ECHOMETER ENGINEER ORAL HYGIENE INSTRUCTIONS Routine 2021 2:00 AM ECHOMETER ENGINEER 1 RADHA DECON Routine 06/11/2021 2:00 AM ECHOMETER ENGINEER CANCELLED APPOINTMENT Routine 05/30/2021 2:00 AM ECHOMETER ENGINEER 19 LIMITED ORAL EVALUATION - PROBLEM FOCUSED Routine 04/16/2021 2:00 AM ECHOMETER ENGINEER ADDITIONAL X-RAY Routine 04/16/2021 2:00 AM ECHOMETER ENGINEER SINGLE X-RAY Routine 04/16/2021 2:00 AM ECHOMETER ENGINEER INTRAORAL PHOTO Routine 04/16/2021 2:00 AM ECHOMETER ENGINEER PERIODIC ORAL EVALUATION - ESTABLISHED PATIENT Routine [...] ORAL HYGIENE INSTRUCTIONS Routine 2020 2:00 AM ECHOMETER ENGINEER LL RADHA DECON/QD Routine 07/22/2020 2:00 AM ECHOMETER ENGINEER LL PERIODONTAL SCALING AND ROOT PLANING - ONE TO THREE TEETH PER QUADRANT Routine 07/22/2020 2:00 AM ECHOMETER ENGINEER LL ANTIBACT IRR/QUAD Routine 07/22/2020 2:00 AM ECHOMETER ENGINEER PERIODIC ORAL EVALUATION - ESTABLISHED PATIENT Routine 06/26/2020 2:00 AM ECHOMETER ENGINEER ORAL HYGIENE INSTRUCTIONS Routine 2020 2:00 AM ECHOMETER ENGINEER LR RADHA DECON/QD Routine 06/26/2020 2:00 AM ECHOMETER ENGINEER UR RADHA DECON/QD Routine 06/26/2020 2:00 AM ECHOMETER ENGINEER UR PERIODONTAL SCALING AND ROOT PLANING - ONE TO THREE TEETH PER QUADRANT Routine 06/26/2020 2:00 AM ECHOMETER ENGINEER LR PERIODONTAL SCALING AND ROOT PLANING - ONE TO THREE TEETH PER QUADRANT Routine 06/26/2020 2:00 AM ECHOMETER ENGINEER UR ANTIBACT IRR/QUAD Routine 06/26/2020 2:00 AM ECHOMETER ENGINEER LR ANTIBACT IRR/QUAD Routine 06/26/2020 2:00 AM ECHOMETER ENGINEER CHLORHEXIDINE Routine 06/26/2020 2:00 AM ECHOMETER ENGINEER INTRAORAL - COMPREHENSIVE SERIES OF RADIOGRAPHIC IMAGES Routine 06/26/2020 2:00 AM ECHOMETER ENGINEER INTRAORAL PHOTO Routine 06/26/2020 2:00 AM ECHOMETER ENGINEER INTRAORAL PHOTO Routine 06/26/2020 2:00 AM ECHOMETER ENGINEER INTRAORAL PHOTO Routine 06/26/2020 2:00 AM ECHOMETER ENGINEER INTRAORAL PHOTO Routine 06/26/2020 2:00 AM ECHOMETER ENGINEER INTRAORAL PHOTO Routine 06/26/2020 2:00 AM ECHOMETER ENGINEER INTRAORAL PHOTO Routine 06/26/2020 2:00 AM ECHOMETER ENGINEER INTRAORAL PHOTO Routine 06/26/2020 2:00 AM ECHOMETER ENGINEER INTRAORAL PHOTO Routine 06/26/2020 2:00 AM ECHOMETER ENGINEER CANCELLED APPOINTMENT Routine 02/24/2020 2:00 AM CDT MISSED APPOINTMENT Routine 02/13/2020 2: 00 AM CDT PERIO CONSULT Routine 02/12/2020 2:00 AM CDT CANCELLED APPOINTMENT Routine 12/25/2019 2:00 AM CDT PERIODIC ORAL EVALUATION - ESTABLISHED PATIENT Routine 06/22/2019 2:00 AM ECHOMETER ENGINEER ORAL HYGIENE INSTRUCTIONS Routine 2019 2:00 AM ECHOMETER ENGINEER PROPHYLAXIS - ADULT Routine 06/22/2019 2 :00 AM ECHOMETER ENGINEER 13 DO AMALGAM 2 SURFACE Routine 11/12/19 19 2:00 AM CDT 31 O AMALGAM 1 SURFACE Routine 9 2:00 AM CDT 12 O AMALGAM 1 SURFACE Routine 9 2:00 AM CDT 4 O AMALGAM 1 SURFACE Routine 11/11/2018 2:00 AM CDT 29 ENDODONTIC THERAPY, MOLAR TOOTH (EXCLUDING FINAL CONGREGATIONAL) Routine 11/11/2018 2:00 AM CDT 14 ENDODONTIC THERAPY, MOLAR TOOTH (EXCLUDING FINAL CONGREGATIONAL) Routine 11/11/2018 2:00 AM CDT 14 CROWN [...] CDT Visit Diagnoses Not on file Insurance [address] [place], [place] [id number]
--- OUTSIDE RECORDS SUMMARY | 2024-09-12 11:15 | XMS_ITS | Clinical Summary ---
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
--- OUTSIDE RECORDS SUMMARY | 2024-09-12 11:15 | XMS_ITS | Data Portability ---
Author Organization [facility], Main Office Address [address] [address] Assessment Encounter Date Assessment Date Assessment LastModified by Organization Details LastModified Time 08/12/2017 08/12/2017 Pending labs for chronic medical conditions. Not available 08/12/2017 19:12:12 Plan of Treatment Reminders Order Date Submit Date Provider Last Modified By Organization Details Last Modified Time Details Appointments None recorded. Lab uric acid, serum or plasma 2019 020 [facility], [address], [address], 0 05:02:26 urinalysis complete, reflex culture 2019 020 [facility], [address] [address], [place], [address], 0 05:02:26 CBC w/ auto diff 2019 020 [facility], [address] [address], [place], [address], 0 05:02:26 lipid panel, serum 2019 020 [facility], [address] [address], [place], [address], 0 05:02:26 CMP, serum or plasma 2019 020 [facility], [address] [facility] [address], [place], [address], 0 05:02:26 microalbum in, urine 2019 020 [facility], [address], [place], [address], 0 05:02:26 HbA1c (hemoglobi n A1c), blood 2019 020 [facility], [address], [place], [address], 0 05:02:26 uric acid, serum or plasma 2018 019 [facility], [address], [place], [address], 0 05:02:57 CMP, serum or plasma 2018 019 [facility], [address] [facility], [place], [address], 0 05:02:57 lipid panel, serum 2018 019 [facility], [address], [place], [address], 0 05:02:57 CBC w/ auto diff 2018 019 [facility], [address] [facility], [place], [address], 0 05:02:57 glucose, fingerstic k, blood 2018 019 [email or web address] Main Office, [address] [facility], [address], [place], [address], 9 12:11:10 HbA1c (hemoglobi n A1c), blood 2018 019 [facility], [address], [place], [address], 0 05:02:57 microalbum in, urine 2018 019 [facility], [address], [place], [address], 0 05:02:57 uric acid, serum or plasma 2018 019 [facility], [address] [facility], [place], [address], 9 05:02:28 urinalysis complete, reflex culture 2018 019 [facility], [facility] [address] [facility], [place], [address], 9 05:02:28 CBC w/ auto diff 2018 019 [facility], [facility], [place], [address], 9 05:02:28 glucose, fingerstic k, blood 2018 019 [email or web address] Main Office, [address] [facility], [address], [place], [address], 9 09:24:19 microalbum in, urine 2018 019 [facility], [facility], [place], [address], 9 05:02:28 HbA1c (hemoglobi n A1c), blood 2018 019 [facility], [facility], [place], [address], 9 05:02:28 lipid panel, serum 2018 019 [facility], [facility] [address], [place], [address], 9 05:02:28 CMP, serum or plasma 2018 019 [facility], [facility] [address] [address], [place], [address], 9 05:02:28 hepatitis C RNA, quant, PCR, serum 2017 018 [facility], [facility] [address] [address], [place], [address], 9 05:00:49 uric acid, serum or plasma 2017 018 [facility], [facility] [address] [address], [place], [address], 9 05:00:48 urinalysis complete, reflex culture 2017 018 [facility], [facility] [address] [address], [place], [address], 9 05:00:48 CMP, serum or plasma 2017 018 [facility], [facility] [address] [address], [place], [address], 9 05:00:48 lipid panel, serum 2017 018 [facility], [facility] [address] [address], [place], [address], 9 05:00:49 microalbum in, urine 2017 018 [facility], [facility] [address] [address], [place], [address], 9 05:00:49 HbA1c (hemoglobi n A1c), blood 2017 018 [facility], [facility] [address] [address], [place], [address], 9 05:00:48 microalbum in, urine 2017 018 [facility], [facility] [address] [address], [place], [address], 8 05:00:43 HbA1c (hemoglobi n A1c), blood 2017 018 [facility], [address], [place], [address], 8 05:00:43 CMP, serum or plasma 2017 018 [facility], [address], [place], [address], 8 05:00:43 lipid panel, serum 2017 018 [facility], [address], [place], [address], 8 05:00:43 urinalysis complete, reflex culture 2017 018 [facility], [address], [place], [address], 8 05:00:44 uric acid, serum or plasma 2017 018 [facility], [address], [place], [address], 8 05:00:44 CBC w/ auto diff 2017 018 [facility], [address], [place], [address], 8 05:00:43 PT/PTT, plasma 2017 018 [facility], [address], [place], [address], 8 05:00:43 Referral None recorded. Procedures None recorded. Surgeries None recorded. Imaging XR, chest, 2 view 2017 018 SONIDO Ezchrist, [address], [place], [address], 8 17:42:07 Medication Orders olmesartan 40 mg tablet 2019 020 [id number] [address] [place], [address], 0 11:20:28 pantoprazo le 40 mg tablet,del ayed release 2019 020 [id number], [address] [place], [address], 0 12:46:10 metformin ER 1,000 mg tablet,ext ended release 24hr (osmotic) 2019 020 [id number], [address] [place], [address], 0 12:46:10 pantoprazo le 40 mg tablet,del ayed release 2018 019 INTERFACE [facility], [facility] [place], [address], 9 15:13:05 olmesartan 40 mg tablet 2018 019 INTERFACE [facility], [facility] [place], [address], 9 12:11:12 metformin ER 1,000 mg tablet,ext ended release 24hr (osmotic) 2018 019 [facility]FACE [facility], [facility] [place], [address], 9 15:13:05 irbesartan 300 mg tablet 2018 019 [email or web address] [facility], [facility] [place], [address], 9 11:39:49 pantoprazo le 40 mg tablet,del ayed release 2018 019 [facility]FACE [facility], [facility], [place], [address], 9 09:24:22 metformin ER 1,000 mg tablet,ext ended release 24hr (osmotic) 2018 019 INTERFACE [facility], [facility] [place], [address], 9 09:24:24 Patient TargetsNo targets recorded. Patient InstructionsNo instructions recorded. Reason for Referral None Reported. Results Created Date Observation Date Name Description Value Unit Range Abnormal Flag Note LastModifiedBy Organization Detail LastModifiedTime 02/07/20 19 02/06/2019 gluco love doane rstic k, blood Blood Glucose: mg/dl 126 Not Available Main O ffice [id number] [facility] [address], [place], [address], 02/06/2019 11:43:02 08/17/19 19 08/16/2018 gluco love doane rstic k, blood Blood Glucose: mg/dl 107 Not Available Main O ffice [id number] [facility] [address], [place], [address], 08/16/2018 09:11:53 08/14/19 18 08/13/2017 CBC w/ auto diff WBC 5.9 K/uL 3.8-10 .6 Not Available [facility] [address] [facility], [place], [address], 08/14/2017 06:09:41 08/14/19 18 08/13/2017 CBC w/ auto diff RBC 4.58 M/uL 4.40-5 .90 Not Available [facility] [address] [facility] [address], [place], [address], 08/14/2017 06:09:41 08/14/19 18 08/13/2017 CBC w/ auto diff hemoglobin 14.3 gm/dL 14.0-1 8.0 Not Available [facility] [address] [facility], [place], [address], 08/14/2017 06:09:41 08/14/19 18 08/13/2017 CBC w/ auto diff hematocrit 40.9 % 40.0-5 2.0 Not Available [facility] [address] [address], [place], [address], 08/14/2017 06:09:41 08/14/19 18 08/13/2017 CBC w/ auto diff MCV 89 fL 80-100 Not Available [facility] [address] [address], [place], [address], 08/14/2017 06:09:41 08/14/19 18 08/13/2017 CBC w/ auto diff MCH 31.2 pg 26.0-3 4.0 Not Available [facility] [address] [address], [place], [address], 08/14/2017 06:09:41 08/14/19 18 08/13/2017 CBC w/ auto diff MCHC 35.0 g/dL 31.0-3 7.0 Not Available [facility] [address] [place] [address], [place], [address], 08/14/2017 06:09:41 08/14/19 18 08/13/2017 CBC w/ auto diff RDW 11.8 % 12.0-1 5.0 low Not Available [facility] [address] [place] [address], [place], [address], 08/14/2017 06:09:41 08/14/19 18 08/13/2017 CBC w/ auto diff MPV 11.0 fL 9.4-12 .9 Not Available [facility] [address] [address], [place], [address], 08/14/2017 06:09:41 08/14/19 18 08/13/2017 CBC w/ auto diff platelet count 269 K/uL 130-40 0 Not Available [facility] [address] [address], [place], [address], 08/14/2017 06:09:41 08/14/19 18 08/13/2017 CBC w/ auto diff diff type Automa benny diff Not Available [facility] [address] [address], [place], [address], 08/14/2017 06:09:41 08/14/19 18 08/13/2017 CBC w/ auto diff abs neutrophils 2.9 K/uL 1.8-7. 7 Not Available [facility] [address] [address], [place], [address], 08/14/2017 06:09:41 08/14/19 18 08/13/2017 CBC w/ auto diff abs lymphocytes 2.0 K/uL 1.0-4. 8 Not Available [facility] [address] [address], [place], [address], 08/14/2017 06:09:41 08/14/19 18 08/13/2017 CBC w/ auto diff abs monocytes 0.8 K/uL 0.12-1 .00 Not Available [facility] [address] [address], [place], [address], 08/14/2017 06:09:41 08/14/19 18 08/13/2017 CBC w/ auto diff abs eosinophils 0.2 K/uL 0.00-0 .60 Not Available [facility] [address] [address], [place], [address], 08/14/2017 06:09:41 08/14/19 18 08/13/2017 CBC w/ auto diff abs basophils 0.1 K/uL 0.00-0 .30 Not Available [facility] [address] [address], [place], [address], 08/14/2017 06:09:41 08/14/19 18 08/13/2017 CBC w/ auto diff neutrophil 48 % 45-73 Not Available [facility] [address] [address], [place], [address], 08/14/2017 06:09:41 08/14/19 18 08/13/2017 CBC w/ auto diff lymphocyte 35 % 18-44 Not Available [facility] [address] [address], [place], [address], 08/14/2017 06:09:41 08/14/19 18 08/13/2017 CBC w/ auto diff monocyte 13 % 4-10 high Not Available [facility] [address] [address], [place], [address], 08/14/2017 06:09:41 08/14/19 18 08/13/2017 CBC w/ auto diff eosinophil 3 % 0-4 Not Available [facility] [address] [address], [place], [address], 08/14/2017 06:09:41 08/14/19 18 08/13/2017 CBC w/ auto diff basophil 1 % 0-1 [facility] n [address] [facility] [address] [facility] [address] [phone] Ronald ramires MD Not Available [facility] [address] [place] [address], [place], [address], 08/14/2017 06:09:41 08/14/19 18 08/13/2017 urina lysis compl ete, refle x cultu re urine color Yellow yellow Not Available [facility] [address] [place] [address], [place], [address], 08/14/2017 06:29:45 08/14/19 18 08/13/2017 urina lysis compl ete, refle x cultu re urine clarity Clear clear Not Available [facility] [address] [place] [address], [place], [address], 08/14/2017 06:29:45 08/14/19 18 08/13/2017 urina lysis compl ete, refle x cultu re urine specific gravity 1.019 1.005- 1.030 Not Available [facility] [address] [place] [address], [place], [address], 08/14/2017 06:29:45 08/14/19 18 08/13/2017 urina lysis compl ete, refle x cultu re urine pH 6.0 5.0-8. 5 Not Available [address] [address], [place], [address], 08/14/2017 06:29:45 08/14/19 18 08/13/2017 urina lysis compl ete, refle x cultu re urine glucose Negati ve mg/dL negati ve Not Available [address] [address], [place], [address], 08/14/2017 06:29:45 08/14/19 18 08/13/2017 urina lysis compl ete, refle x cultu re urine ketones Negati ve mg/dL negati ve Not Available [address] [address], [place], [address], 08/14/2017 06:29:45 08/14/19 18 08/13/2017 urina lysis compl ete, refle x cultu re urobilinogen 1.0 eu/dL 0.2-1. 0 Not Available [address] [address], [place], [address], 08/14/2017 06:29:45 08/14/19 18 08/13/2017 urina lysis compl ete, refle x cultu re urine bilirubin Negati ve negati ve Not Available [address] [address], [place], [address], 08/14/2017 06:29:45 08/14/19 18 08/13/2017 urina lysis compl ete, refle x cultu re urine blood Negati ve negati ve Not Available [address] [address], [place], [address], 08/14/2017 06:29:45 08/14/19 18 08/13/2017 urina lysis compl ete, refle x cultu re urine protein Negati ve negati ve Not Available [address] [address], [place], [address], 08/14/2017 06:29:45 08/14/19 18 08/13/2017 urina lysis compl ete, refle x cultu re leukocyte esterase Negati ve negati ve Not Available [facility] [address] [address], [place], [address], 08/14/2017 06:29:45 08/14/19 18 08/13/2017 urina lysis compl ete, refle x cultu re urine nitrates Negati ve negati ve Not Available [facility] [address] [address], [place], [address], 08/14/2017 06:29:45 08/14/19 18 08/13/2017 urina lysis compl ete, refle x cultu re white cells 1 /hpf 0-4 Not Available Med [facility] [address] [address], [place], [address], 08/14/2017 06:29:45 08/14/19 18 08/13/2017 urina lysis compl ete, refle x cultu re red cells 2 /hpf 0-5 Not Available [facility] [address] [address], [place], [address], 08/14/2017 06:29:45 08/14/19 18 08/13/2017 urina lysis compl ete, refle x cultu re squamous epithelial cells <1 /hpf 0-2 Not Available [facility] [address] [address], [place], [address], 08/14/2017 06:29:45 08/14/19 18 08/13/2017 urina lysis compl ete, refle x cultu re urine bacteria Negati ve negati ve Not Available [facility] [address] [facility] [address], [place], [address], 08/14/2017 06:29:45 08/14/19 18 08/13/2017 urina lysis compl ete, refle x cultu re cast <1 /lpf Not Available [facility] [address] [address], [place], [address], 08/14/2017 06:29:45 08/14/19 18 08/13/2017 urina lysis compl ete, refle x cultu re reflex to culture Result s Below CULTU RE NOT INDIC ATED [facility] [address] [facility] [address] [facility] [address] [phone] Ronald ramires MD Not Available [facility] [address] [place] [address], [place], [address], 08/14/2017 06:29:45 08/14/19 18 08/13/2017 micro album in, urine creatinine, urine 130.0 mg/dL (Note ) Range not estab lishe d for urine Not Available [facility] [address] [place] [address], [place], [address], 08/14/2017 06:49:42 08/14/19 18 08/13/2017 micro album in, urine microalbumin , urine 6 mg/L <30 Not Available Med Shadi nance [address] [place] [address], [place], [address], 08/14/2017 06:49:42 08/14/19 18 08/13/2017 micro album in, urine microalbumin /creat ratio 5 mg/g_ cret 0-30 [facility] [address] [facility] [address] [facility] [address] [phone] Ronald ramires MD Not Available [facility] [address] [place] [address], [place], [address], 08/14/2017 06:49:42 08/14/19 18 08/13/2017 CMP, serum or plasm a glucose, fasting 130 mg/dL 70-99 high Not Available [facility] [address] [place] [address], [place], [address], 08/14/2017 07:19:59 08/14/19 18 08/13/2017 CMP, serum or plasm a BUN 16 mg/dL 9-23 Not Available [facility] [address] [place] [address], [place], [address], 08/14/2017 07:19:59 08/14/19 18 08/13/2017 CMP, serum or plasm a creatinine 0.93 mg/dL 0.60-1 .30 Not Available [facility] [address] [facility] 121, [place], [address], 08/14/2017 07:19:59 08/14/19 18 08/13/2017 CMP, serum or plasm a sodium 138 mEq/L 132-14 6 Not Available [facility] [address] [address], [place], [address], 08/14/2017 07:19:59 08/14/19 18 08/13/2017 CMP, serum or plasm a potassium 4.2 mEq/L 3.5-5. 5 Not Available [facility] [address] [address], [place], [address], 08/14/2017 07:19:59 08/14/19 18 08/13/2017 CMP, serum or plasm a chloride 102 mEq/L 99-109 Not Available [facility] [address] [address], [place], [address], 08/14/2017 07:19:59 08/14/19 18 08/13/2017 CMP, serum or plasm a CO2 27 mEq/L 22-33 Not Available [facility] [address] [address], [place], [address], 08/14/2017 07:19:59 08/14/19 18 08/13/2017 CMP, serum or plasm a anion gap 13.2 mEq/L 10-20 Not Available Med [facility] on [address] [address], [place], [address], 08/14/2017 07:19:59 08/14/19 18 08/13/2017 CMP, serum or plasm a calcium 9.7 mg/dL 8.7-10 .4 Not Available [facility] [address] [address], [place], [address], 08/14/2017 07:19:59 08/14/19 18 08/13/2017 CMP, serum or plasm a albumin 4.3 g/dL 3.2-4. 8 Not Available [facility] [address], [place], [address], 08/14/2017 07:19:59 08/14/19 18 08/13/2017 CMP, serum or plasm a protein, total 6.4 g/dL 5.7-8. 2 Not Available [facility] [address], [place], [address], 08/14/2017 07:19:59 08/14/19 18 08/13/2017 CMP, serum or plasm a bilirubin, total 0.7 mg/dL 0.3-1. 2 Not Available [facility] [address] [facility] 121, [place], [address], 08/14/2017 07:19:59 08/14/19 18 08/13/2017 CMP, serum or plasm a ALT (SGPT) 34 U/L 10-49 Not Available [facility] [address] [facility] [address], [place], [address], 08/14/2017 07:19:59 08/14/19 18 08/13/2017 CMP, serum or plasm a AST (SGOT) 30 U/L 0-33 Not Available [facility] [address] [facility] 121, [place], [address], 08/14/2017 07:19:59 08/14/19 18 08/13/2017 CMP, serum or plasm a alk phosphatase 51 U/L 45-129 Not Available [facility] [address] [facility] 121, [place], [address], 08/14/2017 07:19:59 08/14/19 18 08/13/2017 CMP, serum or plasm a BUN/creatini ne ratio 17.2 ratio 10-26 Not Available [facility] ann [address] [facility] 121, [place], [address], 08/14/2017 07:19:59 08/14/19 18 08/13/2017 CMP, serum or plasm a globulin calculated 2.1 g/dL 2.0-3. 8 Not Available [facility] [address] [address], [place], [address], 08/14/2017 07:19:59 08/14/19 18 08/13/2017 CMP, serum or plasm a A/G ratio 2.0 ratio 0.9-2. 5 Not Available [facility] [address] [place] [address] [address], [place], [address], 08/14/2017 07:19:59 08/14/19 18 08/13/2017 CMP, serum or plasm a eGFR aa >90 mL/mi n/1.7 3m2 >60 Not Available [facility] [address] [place] [address], [place], [address], 08/14/2017 07:19:59 08/14/19 18 08/13/2017 CMP, serum [...] Ameri cans. F med fusio n [address] [facility] [address] [facility] [address] [phone] Ronald ramires MD Not Available [facility] [address] [place] [address] [address], [place], [address], 08/14/2017 07:19:59 08/14/19 18 08/13/2017 lipid panel [...] mg/dL Not Available [facility] [address] [facility] 121, [place], [address], 08/14/2017 07:20:01 08/14/19 18 08/13/2017 lipid panel [...] 500 mg/dL Not Available [facility] [address] [facility] 121, [place], [address], 08/14/2017 07:20:01 08/14/19 18 08/13/2017 lipid panel [...] 50 mg/dL Not Available [facility] [address] [facility] 121, [place], [address], 08/14/2017 07:20:01 08/14/19 18 08/13/2017 lipid panel [...] 190 mg/dL Not Available [facility] [address] [address], [place], [address], 08/14/2017 07:20:01 08/14/19 18 08/13/2017 lipid panel , serum ldlhdl 4.08 ratio Not Available [facility] [address] [address], [place], [address], 08/14/2017 07:20:01 08/14/19 18 08/13/2017 lipid panel , serum LDL/HDL risk See Note (Note ) Male Femal e Below [place] ge Risk 0.00- 2.28 0.00- 2.34 [place] Risk 2.29- 4.90 2.35- 4.12 Moder ate Risk 4.91- 7.12 4.13- 5.56 High Risk 7.13- 20.00 5.57- 20.00 Not Available [facility] [address] [address], [place], [address], 08/14/2017 07:20:01 08/14/19 18 08/13/2017 lipid panel , serum total chol/HDL ratio (calculat 5.5 ratio 0.0-5. 0 high [facility] med fusio n [address] [facility] [address] [facility] [address] [phone] Ronald ramires MD Not Available [facility] [address] [address], [place], [address], 08/14/2017 07:20:01 08/14/19 18 08/13/2017 uric acid, serum or plasm a uric acid 5.7 mg/dL 3.7-9. 2 MD[facility] med fusio n [address] [facility] [address] [facility] [place] [address] [phone] Ronald ramires MD Not Available [facility] [address], [address], 08/14/2017 07:20:04 08/14/19 18 08/13/2017 HbA1c (hemo [...] cells . [facility] med fusio n [address] [facility] [address] [facility] [address] [phone] Ronald ramires MD Not Available [facility] [address] [facility] 121, [place], [address], 08/14/2017 07:54:47 08/14/19 18 08/13/2017 PT/PT T, plasm a prothrombin time 11.7 sec 9.0-12 .0 Not Available [facility] [address] [facility], [place], [address], 08/14/2017 09:49:51 08/14/19 18 08/13/2017 PT/PT T, plasm a INR 1.1 (Note ) Couma rin Antic oagul ant Thera peuti c Range s (INR) : 2.0-3 .0 Proph ylaxi s and Treat ment of Venou s Throm boemb olism 2.5-3 .5 Preve ntion of Recur rent Throm boemb olism or treat ment for Prost hetic Heart Valve s Not Available [facility] [address] [place] [address], [place], [address], 08/14/2017 09:49:51 08/14/19 18 08/13/2017 PT/PT T, plasm a APTT 25.2 sec 22-32 [facility] med slim n [address] [facility] [address] [facility] [place] [address] [phone] Ronald ramires MD Not Available [facility] [address] [place] [address], [place], [address], 08/14/2017 09:49:51 12/21/19 18 12/20/2017 urina lysis compl ete, refle x cultu re urine color Yellow yellow Not Available Med Shadi Varela[address] [place] [address], [address], 12/21/2017 07:09:55 12/21/19 18 12/20/2017 urina lysis compl ete, refle x cultu re urine clarity Clear clear Not Available Med Shadi [address] [place] [address], [place], [address], 12/21/2017 07:09:55 12/21/19 18 12/20/2017 urina lysis compl ete, refle x cultu re urine specific gravity 1.014 1.005- 1.030 Not Available [facility] Nichole[address] [place] [address], [place], [address], 12/21/2017 07:09:55 12/21/19 18 12/20/2017 urina lysis compl ete, refle x cultu re urine pH 6.0 5.0-8. 5 Not Available [facility] [address] [place] [address], [place], [address], 12/21/2017 07:09:55 12/21/19 18 12/20/2017 urina lysis compl ete, refle x cultu re urine glucose Negati ve mg/dL negati ve Not Available [facility] [address] [place] [address] [address], [place], [address], 12/21/2017 07:09:55 12/21/19 18 12/20/2017 urina lysis compl ete, refle x cultu re urine ketones Negati ve mg/dL negati ve Not Available Med [address] [address], [place], [address], 12/21/2017 07:09:55 12/21/19 18 12/20/2017 urina lysis compl ete, refle x cultu re urobilinogen 0.2 eu/dL 0.2-1. 0 Not Available [address] [address], [place], [address], 12/21/2017 07:09:55 12/21/19 18 12/20/2017 urina lysis compl ete, refle x cultu re urine bilirubin Negati ve negati ve Not Available [address] [address], [place], [address], 12/21/2017 07:09:55 12/21/19 18 12/20/2017 urina lysis compl ete, refle x cultu re urine blood Negati ve negati ve Not Available [address] [address], [place], [address], 12/21/2017 07:09:55 12/21/19 18 12/20/2017 urina lysis compl ete, refle x cultu re urine protein Negati ve negati ve Not Available Med [address] [address], [place], [address], 12/21/2017 07:09:55 12/21/19 18 12/20/2017 urina lysis compl ete, refle x cultu re leukocyte esterase Negati ve negati ve Not Available Med [address] [address], [place], [address], 12/21/2017 07:09:55 12/21/19 18 12/20/2017 urina lysis compl ete, refle x cultu re urine nitrates Negati ve negati ve Not Available [facility] [address] [address], [place], [address], 12/21/2017 07:09:55 12/21/19 18 12/20/2017 urina lysis compl ete, refle x cultu re white cells <1 /hpf 0-4 Not Available Med [facility] [place] [address] [place] [address], [place], [address], 12/21/2017 07:09:55 12/21/19 18 12/20/2017 urina lysis compl ete, refle x cultu re red cells 1 /hpf 0-5 Not Available Med [facility] [address] [place] [address], [place], [address], 12/21/2017 07:09:55 12/21/19 18 12/20/2017 urina lysis compl ete, refle x cultu re squamous epithelial cells <1 /hpf 0-2 Not Available [facility] [place] [address] [place] [address], [place], [address], 12/21/2017 07:09:55 12/21/19 18 12/20/2017 urina lysis compl ete, refle x cultu re urine bacteria Negati ve negati ve Not Available [facility] [address] [place] [address], [place], [address], 12/21/2017 07:09:55 12/21/19 18 12/20/2017 urina lysis compl ete, refle x cultu re cast <1 /lpf Not Available [facility] [address] [place] [address], [address], 12/21/2017 07:09:55 12/21/19 18 12/20/2017 urina lysis compl ete, refle x cultu re reflex to culture Result s Below CULTU RE NOT INDIC ATED MDF med fusio n [address] [place] [address] [address] [facility] [address] [phone] Ronald ramires MD Not Available [facility] S [facility] 121, [place], [address], 12/21/2017 07:09:55 12/21/19 18 12/20/2017 CMP, serum or plasm a glucose, fasting 117 mg/dL 70-99 high Not Available [facility] Shadi nance [address] [facility] 121, [place], [address], 12/21/2017 08:19:58 12/21/19 18 12/20/2017 CMP, serum or plasm a BUN 10 mg/dL 9-23 Not Available [facility] S [facility] 121, [place], [address], 12/21/2017 08:19:58 12/21/19 18 12/20/2017 CMP, serum or plasm a creatinine 0.81 mg/dL 0.60-1 .30 Not Available [facility] Olu [address] [place] [address], [place], [address], 12/21/2017 08:19:58 12/21/1912/20/2017 CMP, serum or plasm a sodium 139 mEq/L 132-14 6 Not Available [address] [address] [address], [place], [address], 12/21/2017 08:19:58 12/21/1912/20/2017 CMP, serum or plasm a potassium 4.3 mEq/L 3.5-5. 5 Not Available [facility] [address] [address], [place], [address], 12/21/2017 08:19:58 12/21/19 18 12/20/2017 CMP, serum or plasm a chloride 104 mEq/L 99-109 Not Available Med Slim [address] [address], [place], [address], 12/21/2017 08:19:58 12/21/19 18 12/20/2017 CMP, serum or plasm a CO2 25 mEq/L 22-33 Not Available [facility] [address] [place] [address], [place], [address], 12/21/2017 08:19:58 12/21/19 18 12/20/2017 CMP, serum or plasm a anion gap 14.3 mEq/L 10-20 Not Available Med [facility] on [address] [facility] 121, [place], [address], 12/21/2017 08:19:58 12/21/19 18 12/20/2017 CMP, serum or plasm a calcium 9.3 mg/dL 8.7-10 .4 Not Available [facility] [address] [facility] 121, [place], [address], 12/21/2017 08:19:58 12/21/19 18 12/20/2017 CMP, serum or plasm a albumin 4.4 g/dL 3.2-4. 8 Not Available [facility] [address] [facility] 121, [place], [address], 12/21/2017 08:19:58 12/21/19 18 12/20/2017 CMP, serum or plasm a protein, total 6.9 g/dL 5.7-8. 2 Not Available [facility] [address] [facility] 121, [place], [address], 12/21/2017 08:19:58 12/21/19 18 12/20/2017 CMP, serum or plasm a bilirubin, total 0.8 mg/dL 0.3-1. 2 Not Available [facility] [address] [facility] 121, [place], [address], 12/21/2017 08:19:58 12/21/1912/20/2017 CMP, serum or plasm a ALT (SGPT) 29 U/L 10-49 Not Available Med [facility] [address] [facility] 121, [place], [address], 12/21/2017 08:19:58 12/21/19 18 12/20/2017 CMP, serum or plasm a AST (SGOT) 24 U/L 0-33 Not Available [facility] [address] [facility] 121, [place], [address], 12/21/2017 08:19:58 12/21/19 18 12/20/2017 CMP, serum or plasm a alk phosphatase 51 U/L 45-129 Not Available [facility] Olu Matthews S [facility] 121, [place], [address], 12/21/2017 08:19:58 12/21/19 18 12/20/2017 CMP, serum or plasm a BUN/creatini ne ratio 12.3 ratio 10-26 Not Available [facility] Shadi Varela S [facility] 121, [place], [address], 12/21/2017 08:19:58 12/21/19 18 12/20/2017 CMP, serum or plasm a globulin calculated 2.5 g/dL 2.0-3. 8 Not Available [facility] Olu Matthews S [facility] 121, [place], [address], 12/21/2017 08:19:58 12/21/19 18 12/20/2017 CMP, serum or plasm a A/G ratio 1.8 ratio 0.9-2. 5 Not Available [facility] Olu Varela S [facility] 121, [place], [address], 12/21/2017 08:19:58 12/21/19 18 12/20/2017 CMP, serum or plasm a eGFR aa >90 mL/mi n/1.7 3m2 >60 Not Available [facility] Olu Varela S [facility] 121, [place], [address], 12/21/2017 08:19:58 12/21/19 18 12/20/2017 CMP, serum [...] Ameri cans. MDF med fusio n [address] [facility] [address] [facility] [address] [phone] Ronald ramires MD Not Available [facility] [address] [facility] 121, [place], [address], 12/21/2017 08:19:58 12/21/19 18 12/20/2017 lipid panel [...] 240 mg/dL Not Available [facility] [address] [facility] 121, [place], [address], 12/21/2017 08:20:01 12/21/19 18 12/20/2017 lipid panel [...] 500 mg/dL Not Available [facility] [address] [facility] 121, [place], [address], 12/21/2017 08:20:01 12/21/19 18 12/20/2017 lipid panel [...] 50 mg/dL Not Available [facility] [address] [facility] 121, [place], [address], 12/21/2017 08:20:01 12/21/19 18 12/20/2017 lipid panel , serum LDL calculated 135 mg/dL <100 high The [facility] n[employer] [facility] n and the Natio nal Maria [employer] l [employer]ca tion [employer]gr am (NCEP ) have set the [facility] lipid panel guide lines for adult s ages 20 and up: Khanh able: < 100 mg/dL Above Khanh able: 100 - 129 mg/dL Borde rline high: 130 - 159 mg/dL High: 160 - 189 mg/dL Very High: > or = 190 mg/dL Not Available [facility] [address] [place] [address] 121, [place], [address], 12/21/2017 08:20:01 12/21/19 18 12/20/2017 lipid panel , serum ldlhdl 2.60 ratio Not Available [facility] [address] [place] [address] 121, [place], [address], 12/21/2017 08:20:01 12/21/19 18 12/20/2017 lipid panel , serum LDL/HDL risk See Note (Note ) Male Femal e Below [place] ge Risk 0.00- 2.28 0.00- 2.34 [place] ge Risk 2.29- 4.90 2.35- 4.12 Moder ate Risk 4.91- 7.12 4.13- 5.56 High Risk 7.13- 20.00 5.57- 20.00 Not Available [facility] [address] [place] [address] 121, [place], [address], 12/21/2017 08:20:01 12/21/19 18 12/20/2017 lipid panel , serum total chol/HDL ratio (calculat 3.9 ratio 0.0-5. 0 MDF med fusio n 2501 [facility] [address] [facility] [address] [phone] Ronald ramires MD Not Available [facility] [address] [facility] 121, [place], [address], 12/21/2017 08:20:01 12/21/19 18 12/20/2017 uric acid, serum or plasm a uric acid 6.3 mg/dL 3.7-9. 2 MD med fusio n [address] [facility] [address] [facility] [address] [phone] Ronald ramires MD Not Available [facility] [address] [place] [address] 121, [place], [address], 12/21/2017 08:20:03 12/21/19 18 12/20/2017 HbA1c (hemo [...] blood cells . med fusio n 25[address] [facility] [address] [facility] [address] [phone] Ronald ramires MD Not Available [facility] [address] [facility] 121, [place], [address], 12/21/2017 09:44:46 12/21/19 18 12/20/2017 micro album in, urine creatinine, urine 91.2 mg/dL (Note ) Range not estab lishe d for urine Not Available [facility] [address] [facility] 121, [place], [address], 12/21/2017 17:09:50 12/21/19 18 12/20/2017 micro album in, urine microalbumin , urine <6 mg/L <30 Not Available Med Shadi nance [address] [facility] 121, [place], [address], 12/21/2017 17:09:50 12/21/19 18 12/20/2017 micro album in, urine microalbumin /creat ratio <7 mg/g_ cret 0-30 MDF med vijayflorina n 2501 [facility] [address] [facility] [place] [address] [phone] Ronald ramires MD Not Available [facility] Olu [address] [place] [address] 121, [place], [address], 12/21/2017 17:09:50 12/21/19 18 12/20/2017 hepat itis C RNA, quant , PCR, serum specimen source Serum Not Available [facility] Shadi nance [address] [place] [address], [place], [address], 12/22/2017 16:24:46 12/21/19 18 12/20/2017 hepat itis C RNA, quant , PCR, serum result UnDete ct undete ct HCV RNA is Not-D etect ed Not Available [facility] Olu [address] [place] [address] 121, [place], [address], 12/22/2017 16:24:46 12/21/19 18 12/20/2017 hepat itis C RNA, quant , PCR, serum linearity range Result s Below 15 to 100,0 00,00 0 IU/mL (1.18 to 8.00 log IU/mL ) Not Available [facility] O[address] [place] [address] 121, [place], [address], 12/22/2017 16:24:46 12/21/19 18 12/20/2017 hepat itis [...] produ cts. MDF med fusio n [address] [facility] [address] [facility] [address] [phone] Ronald ramires MD Not Available [facility] [address] [facility] 121, [place], [address], 12/22/2017 16:24:46 08/17/19 19 08/16/2018 CBC w/ auto diff WBC 5.9 K/uL 3.8-10 .6 Not Available [facility] [address] [facility] 121, [place], [address], 08/17/2018 06:00:34 08/17/1908/16/2018 CBC w/ auto diff RBC 4.55 M/uL 4.40-5 .90 Not Available [facility] [address] [place] [address], [place], [address], 08/17/2018 06:00:34 08/17/19 19 08/16/2018 CBC w/ auto diff hemoglobin 14.6 g/dL 14.0-1 8.0 Not Available [facility] [address] [place] [address], [place], [address], 08/17/2018 06:00:34 08/17/1908/16/2018 CBC w/ auto diff hematocrit 43.4 % 40.0-5 2.0 Not Available [facility] [address] [place] [address], [place], [address], 08/17/2018 06:00:34 08/17/1908/16/2018 CBC w/ auto diff MCV 95 fL 80-100 Not Available [facility] [address] [place] [address], [place], [address], 08/17/2018 06:00:34 08/17/1908/16/2018 CBC w/ auto diff MCH 32.1 pg 26.0-3 4.0 Not Available [facility] [address] [place] [address], [place], [address], 08/17/2018 06:00:34 08/17/19 19 08/16/2018 CBC w/ auto diff MCHC 33.6 g/dL 31.0-3 7.0 Not Available [address], [address], 08/17/2018 06:00:34 08/17/19 19 08/16/2018 CBC w/ auto diff RDW 12.0 % 12.0-1 5.0 Not Available [address] [address], [place], [address], 08/17/2018 06:00:34 08/17/19 19 08/16/2018 CBC w/ auto diff MPV 10.7 fL 8.8-12 .8 Not Available [address], [address], 08/17/2018 06:00:34 08/17/1908/16/2018 CBC w/ auto diff platelet count 257 K/uL 130-40 0 Not Available [address], [address], 08/17/2018 06:00:34 08/17/1908/16/2018 CBC w/ auto diff diff type Automa benny diff Not Available [address], [address], 08/17/2018 06:00:34 08/17/19 19 08/16/2018 CBC w/ auto diff abs neutrophils 3.0 K/uL 1.8-7. 7 Not Available [address], [address], 08/17/2018 06:00:34 08/17/19 19 08/16/2018 CBC w/ auto diff abs lymphocytes 1.9 K/uL 1.0-4. 8 Not Available [address], [address], 08/17/2018 06:00:34 08/17/19 19 08/16/2018 CBC w/ auto diff abs monocytes 0.8 K/uL 0.1-1. 0 Not Available [facility] [address] [address], [place], [address], 08/17/2018 06:00:34 08/17/19 19 08/16/2018 CBC w/ auto diff abs eosinophils 0.2 K/uL 0.0-0. 6 Not Available [facility] [address] [address], [place], [address], 08/17/2018 06:00:34 08/17/19 19 08/16/2018 CBC w/ auto diff abs basophils 0.0 K/uL 0.0-0. 3 Not Available [facility] [address] [place] [address], [address], 08/17/2018 06:00:34 08/17/19 19 08/16/2018 CBC w/ auto diff neutrophil 50 % 45-73 Not Available [facility] [address], [address], 08/17/2018 06:00:34 08/17/19 19 08/16/2018 CBC w/ auto diff lymphocyte 32 % 18-44 Not Available [facility] [address] [address], [place], [address], 08/17/2018 06:00:34 08/17/19 19 08/16/2018 CBC w/ auto diff monocyte 13 % 4-10 high Not Available [facility] [address] [address], [place], [address], 08/17/2018 06:00:34 08/17/19 19 08/16/2018 CBC w/ auto diff eosinophil 4 % 0-4 Not Available [facility] [address], [address], 08/17/2018 06:00:34 08/17/19 19 08/16/2018 CBC w/ auto diff basophil 1 % 0-1 MDF med fusio n 2501 [facility] [address] [facility] [address] [phone] Ronald ramires MD Not Available [address] [address], [place], [address], 08/17/2018 06:00:34 08/17/1908/16/2018 urina lysis compl ete, refle x cultu re urine color Yellow yellow Not Available [address] [address], [place], [address], 08/17/2018 06:19:45 08/17/1908/16/2018 urina lysis compl ete, refle x cultu re urine clarity Clear clear Not Available [address] [address], [place], [address], 08/17/2018 06:19:45 08/17/1908/16/2018 urina lysis compl ete, refle x cultu re urine specific gravity 1.021 1.005- 1.030 Not Available [address] [address], [place], [address], 08/17/2018 06:19:45 08/17/1908/16/2018 urina lysis compl ete, refle x cultu re urine pH 6.0 5.0-8. 5 Not Available [address] [address], [place], [address], 08/17/2018 06:19:45 08/17/1908/16/2018 urina lysis compl ete, refle x cultu re urine glucose Negati ve mg/dL negati ve Not Available [address] [address], [place], [address], 08/17/2018 06:19:45 08/17/1908/16/2018 urina lysis compl ete, refle x cultu re urine ketones Negati ve mg/dL negati ve Not Available [address] [address], [place], [address], 08/17/2018 06:19:45 08/17/1908/1608/16/2018 urina lysis compl ete, refle x cultu re urobilinogen 0.2 eu/dL 0.2-1. 0 Not Available [facility] [address] [facility] 121, [place], [address], 08/17/2018 06:19:45 08/17/1908/16/2018 urina lysis compl ete, refle x cultu re urine bilirubin Negati ve negati ve Not Available [facility] S [facility] 121, [place], [address], 08/17/2018 06:19:45 08/17/1908/16/2018 urina lysis compl ete, refle x cultu re urine blood Negati ve negati ve Not Available [facility] S [facility] 121, [place], [address], 08/17/2018 06:19:45 08/17/1908/16/2018 urina lysis compl ete, refle x cultu re urine protein Negati ve negati ve Not Available [facility] S [facility] 121, [place], [address], 08/17/2018 06:19:45 08/17/1908/16/2018 urina lysis compl ete, refle x cultu re leukocyte esterase Negati ve negati ve Not Available [facility] S [facility] 121, [place], [address], 08/17/2018 06:19:45 08/17/1908/16/2018 urina lysis compl ete, refle x cultu re urine nitrates Negati ve negati ve Not Available [facility] S [facility] 121, [place], [address], 08/17/2018 06:19:45 08/17/1908/16/2018 urina lysis compl ete, refle x cultu re white cells <1 /hpf 0-4 Not Available Med Fu lee ann [address] [facility] 121, [place], [address], 08/17/2018 06:19:45 08/17/19 19 08/16/2018 urina lysis compl ete, refle x cultu re red cells 1 /hpf 0-5 Not Available Med [facility] on [address] [facility] 121, [place], [address], 08/17/2018 06:19:45 08/17/1908/16/2018 urina lysis compl ete, refle x cultu re squamous epithelial cells <1 /hpf 0-2 Not Available Med Fu lee ann 2501 [facility] 121, [place], [address], 08/17/2018 06:19:45 08/17/1908/16/2018 urina lysis compl ete, refle x cultu re urine bacteria Negati ve negati ve Not Available [facility] [address] [place] [address], [place], [address], 08/17/2018 06:19:45 08/17/1908/16/2018 urina lysis compl ete, refle x cultu re cast,hyaline <1 /lpf Not Available Med F usion [address] [address], [place], [address], 08/17/2018 06:19:45 08/17/1908/16/2018 urina lysis compl ete, refle x cultu re reflex to culture Result s Below CULTU RE NOT INDIC ATED MDF med fusio n 2501 [facility] [address] [facility] [address] [phone] Ronald ramires MD Not Available [facility] [address] [place] [address] 121, [place], [address], 08/17/2018 06:19:45 08/17/1908/16/2018 CMP, serum or plasm a glucose, fasting 106 mg/dL 70-99 high Not Available Med Fu lee ann [address] [place] [address] 121, [place], [address], 08/17/2018 08:10:04 08/17/19 19 08/16/2018 CMP, serum or plasm a BUN 11 mg/dL 9-23 Not Available [facility] [address] [address], [place], [address], 08/17/2018 08:10:04 08/17/19 19 08/16/2018 CMP, serum or plasm a creatinine 0.92 mg/dL 0.60-1 .30 Not Available [facility] [address] [place] [address], [place], [address], 08/17/2018 08:10:04 08/17/19 19 08/16/2018 CMP, serum or plasm a sodium 140 mEq/L 132-14 6 Not Available [facility] [address] [place] [address], [place], [address], 08/17/2018 08:10:04 08/17/19 19 08/16/2018 CMP, serum or plasm a potassium 4.6 mEq/L 3.5-5. 5 Not Available [facility] [address] [place] [address], [place], [address], 08/17/2018 08:10:04 08/17/19 19 08/16/2018 CMP, serum or plasm a chloride 105 mEq/L 99-109 Not Available [facility] F[facility] n [address] [place] [address], [place], [address], 08/17/2018 08:10:04 08/17/1908/16/2018 CMP, serum or plasm a CO2 28 mEq/L 22-33 Not Available [facility] [address] [place] [address], [place], [address], 08/17/2018 08:10:04 08/17/19 19 08/16/2018 CMP, serum or plasm a anion gap 11.6 mEq/L 10-20 Not Available Med [facility] on [address] [place] [address], [place], [address], 08/17/2018 08:10:04 08/17/19 19 08/16/2018 CMP, serum or plasm a calcium 9.4 mg/dL 8.7-10 .4 Not Available [facility] [address], [place], [address], 08/17/2018 08:10:04 08/17/1908/16/2018 CMP, serum or plasm a albumin 4.5 g/dL 3.2-4. 8 Not Available [facility] [address] [facility] 121, [place], [address], 08/17/2018 08:10:04 08/17/1908/16/2018 CMP, serum or plasm a protein, total 6.3 g/dL 5.7-8. 2 Not Available [facility] [address], [place], [address], 08/17/2018 08:10:04 08/17/1908/16/2018 CMP, serum or plasm a bilirubin, total 0.9 mg/dL 0.3-1. 2 Not Available [facility] [address] [facility] 121, [place], [address], 08/17/2018 08:10:04 08/17/1908/16/2018 CMP, serum or plasm a ALT (SGPT) 19 U/L 10-49 Not Available Med F[facility] ion [address] [facility] 121, [place], [address], 08/17/2018 08:10:04 08/17/1908/16/2018 CMP, serum or plasm a AST (SGOT) 24 U/L 15-40 Not Available [facility] [address] [facility] 121, [place], [address], 08/17/2018 08:10:04 08/17/1908/16/2018 CMP, serum or plasm a alk phosphatase 46 U/L 45-129 Not Available [facility] [address], [place], [address], 08/17/2018 08:10:04 08/17/1908/16/2018 CMP, serum or plasm a BUN/creatini ne ratio 12.0 ratio 10-26 Not Available Med Fu lee ann 2501 [facility], [place], [address], 08/17/2018 08:10:04 08/17/19 19 08/16/2018 CMP, serum or plasm a globulin calculated 1.8 g/dL 2.0-3. 8 low Not Available [facility] 2501 [facility] 121, [place], [address], 08/17/2018 08:10:04 08/17/19 19 08/16/2018 CMP, serum or plasm a A/G ratio 2.5 ratio 0.9-2. 5 Not Available [facility] [address] [place] [address] 121, [place], [address], 08/17/2018 08:10:04 08/17/19 19 08/16/2018 CMP, serum or plasm a eGFR aa >90 mL/mi n/1.7 3m2 >60 Not Available [facility] [address] [facility] 121, [place], [address], 08/17/2018 08:10:04 08/17/19 19 08/16/2018 CMP, serum [...] Ameri cans. ALEXI med fusio n 2501 [facility] [address] [facility] [address] [phone] Ronald ramires MD Not Available [facility] [address] [facility] 121, [place], [address], 08/17/2018 08:10:04 08/17/19 19 08/16/2018 lipid panel [...] mg/dL Not Available [facility] [address] [facility], [place], [address], 08/17/2018 08:10:07 08/17/1908/16/2018 lipid panel , serum [...] mg/dL Not Available [facility] [address] [facility] 121, [place], [address], 08/17/2018 08:10:07 08/17/1908/16/2018 lipid panel , serum [...] 50 mg/dL Not Available [facility] [address] [facility] 121, [place], [address], 08/17/2018 08:10:07 08/17/1908/16/2018 lipid panel , serum [...] 190 mg/dL Not Available [facility] [address] [address], [place], [address], 08/17/2018 08:10:07 08/17/19 19 08/16/2018 lipid panel , serum ldlhdl 2.17 ratio Not Available [facility] [address] [address], [place], [address], 08/17/2018 08:10:07 08/17/1908/16/2018 lipid panel , serum LDL/HDL risk See Note (Note ) Male Femal e Below [place] ge Risk 0.00- 2.28 0.00- 2.34 [place] Risk 2.29- 4.90 2.35- 4.12 Moder ate Risk 4.91- 7.12 4.13- 5.56 High Risk 7.13- 20.00 5.57- 20.00 Not Available [facility] [address] [address], [place], [address], 08/17/2018 08:10:07 08/17/19 19 08/16/2018 lipid panel , serum total chol/HDL ratio (calculat 3.5 ratio 0.0-5. 0 MDF med fusio n [address]01 [facility] [address] [facility] [address] [phone] Ronald ramires MD Not Available [facility] [address] [address], [place], [address], 08/17/2018 08:10:07 08/17/1908/16/2018 uric acid, serum or plasm a uric acid 5.4 mg/dL 3.7-9. 2 MDF med fusio n 2501 [facility] [address] [facility] [address] [phone] Ronald ramires MD Not Available [facility] [address] [address], [place], [address], 08/17/2018 08:10:09 08/17/19 19 08/16/2018 HbA1c (hemo [...] cells . [facility] [facility] [address] [phone] Ronald ramires MD Not Available [facility] [address] [facility] 121, [place], [address], 08/17/2018 08:30:01 08/17/19 19 08/16/2018 micro album in, urine creatinine, urine 158.1 mg/dL (Note ) Range not estab lishe d for urine Not Available [facility] [address] [facility] 121, [place], [address], 08/17/2018 11:29:55 08/17/1908/16/2018 micro album in, urine microalbumin , urine <6 mg/L <30 Not Available [facility] ann [address]01 [facility] 121, [place], [address], 08/17/2018 11:29:55 08/17/1908/16/2018 micro album in, urine microalbumin /creat ratio <4 mg/g_ cret 0-30 MDF med fusio n 2501 [facility] ay 121,[address] [facility] [address] [phone] Ronald ramires MD Not Available [facility] [address] [place] [address], [place], [address], 08/17/2018 11:29:55 02/08/2002/07/2019 CBC w/ auto diff WBC 5.4 K/uL 3.8-10 .6 Not Available [facility] [address] [place] [address], [place], [address], 02/08/2019 07:38:57 02/08/2002/07/2019 CBC w/ auto diff RBC 4.44 M/uL 4.40-5 .90 Not Available [facility] [address] [place] [address], [place], [address], 02/08/2019 07:38:57 02/08/2002/07/2019 CBC w/ auto diff hemoglobin 14.3 g/dL 14.0-1 8.0 Not Available [facility] [address] [place] [address], [place], [address], 02/08/2019 07:38:57 02/08/2002/07/2019 CBC w/ auto diff hematocrit 43.9 % 40.0-5 2.0 Not Available [facility] [address] [place] [address], [place], [address], 02/08/2019 07:38:57 02/08/2002/07/2019 CBC w/ auto diff MCV 99 fL 80-100 Not Available [facility] [address] [place] [address], [address], 02/08/2019 07:38:57 02/08/2002/07/2019 CBC w/ auto diff MCH 32.2 pg 26.0-3 4.0 Not Available [facility] [address] [place] [address], [place], [address], 02/08/2019 07:38:57 02/08/20 19 02/07/2019 CBC w/ auto diff MCHC 32.6 g/dL 31.0-3 7.0 Not Available [facility] [address] [address], [place], [address], 02/08/2019 07:38:57 02/08/2002/07/2019 CBC w/ auto diff RDW 11.9 % 12.0-1 5.0 low Not Available [facility] [address] [place] [address], [place], [address], 02/08/2019 07:38:57 02/08/2002/07/2019 CBC w/ auto diff MPV 10.9 fL 8.8-12 .8 Not Available [facility] [address] [place] [address], [place], [address], 02/08/2019 07:38:57 02/08/2002/07/2019 CBC w/ auto diff platelet count 271 K/uL 130-40 0 Not Available [facility] [address] [place] [address], [place], [address], 02/08/2019 07:38:57 02/08/2002/07/2019 CBC w/ auto diff diff type Automa benny diff Not Available [facility] [address] [place] [address], [place], [address], 02/08/2019 07:38:57 02/08/2002/07/2019 CBC w/ auto diff abs neutrophils 2.8 K/uL 1.8-7. 7 Not Available [facility] [address] [place] [address], [place], [address], 02/08/2019 07:38:57 02/08/2002/07/2019 CBC w/ auto diff abs lymphocytes 1.8 K/uL 1.0-4. 8 Not Available [facility] [address] [place] [address], [place], [address], 02/08/2019 07:38:57 02/08/20 02/07/2019 CBC w/ auto diff abs monocytes 0.7 K/uL 0.1-1. 0 Not Available [facility] [address], [address], 02/08/2019 07:38:57 02/08/20 19 02/07/2019 CBC w/ auto diff abs eosinophils 0.1 K/uL 0.0-0. 6 Not Available [facility] [address] [place] [address], [address], 02/08/2019 07:38:57 02/08/20 19 02/07/2019 CBC w/ auto diff abs basophils 0.0 K/uL 0.0-0. 3 Not Available [facility] [address] [place] [address], [address], 02/08/2019 07:38:57 02/08/2002/07/2019 CBC w/ auto diff neutrophil 51 % 45-73 Not Available [facility] [address] [place] [address], [address], 02/08/2019 07:38:57 02/08/2002/07/2019 CBC w/ auto diff lymphocyte 33 % 18-44 Not Available [facility] [address] [place] [address], [address], 02/08/2019 07:38:57 02/08/2002/07/2019 CBC w/ auto diff monocyte 13 % 4-10 high Not Available [facility] [address] [address], [place], [address], 02/08/2019 07:38:57 02/08/2002/07/2019 CBC w/ auto diff eosinophil 2 % 0-4 Not Available [facility] [address], [address], 02/08/2019 07:38:57 02/08/2002/07/2019 CBC w/ auto diff basophil 1 % 0-1 MDF med fusio n [address] [facility] 121,[address] [facility] [address] [phone] Ronald ramires MD Not Available [facility] [address] [place] [address], [place], [address], 02/08/2019 07:38:57 02/08/20 19 02/07/2019 urina lysis compl ete, refle x cultu re urine color Yellow yellow Not Available [address] [address], [place], [address], 02/08/2019 07:59:13 02/08/20 19 02/07/2019 urina lysis compl ete, refle x cultu re urine clarity Turbid clear abnormal Not Available [address] [address], [place], [address], 02/08/2019 07:59:13 02/08/2002/07/2019 urina lysis compl ete, refle x cultu re urine specific gravity 1.016 1.005- 1.030 Not Available [facility] [address] [place] [address], [place], [address], 02/08/2019 07:59:13 02/08/20 19 02/07/2019 urina lysis compl ete, refle x cultu re urine pH 6.5 5.0-8. 5 Not Available [address] [address], [place], [address], 02/08/2019 07:59:13 02/08/2002/07/2019 urina lysis compl ete, refle x cultu re urine glucose Negati ve mg/dL negati ve Not Available [address] [address], [place], [address], 02/08/2019 07:59:13 02/08/2002/07/2019 urina lysis compl ete, refle x cultu re urine ketones Negati ve mg/dL negati ve Not Available [address] [address], [place], [address], 02/08/2019 07:59:13 02/08/20 19 02/07/2019 urina lysis compl ete, refle x cultu re urobilinogen 0.2 eu/dL 0.2-1. 0 Not Available [facility] [address] [address], [place], [address], 02/08/2019 07:59:13 02/08/20 19 02/07/2019 urina lysis compl ete, refle x cultu re urine bilirubin Negati ve negati ve Not Available [address] [address] [address] [address], [place], [address], 02/08/2019 07:59:13 02/08/20 19 02/07/2019 urina lysis compl ete, refle x cultu re urine blood Negati ve negati ve Not Available [address] [address] [address] [address], [place], [address], 02/08/2019 07:59:13 02/08/20 19 02/07/2019 urina lysis compl ete, refle x cultu re urine protein Negati ve negati ve Not Available [facility] [address] [address], [place], [address], 02/08/2019 07:59:13 02/08/20 19 02/07/2019 urina lysis compl ete, refle x cultu re leukocyte esterase Negati ve negati ve Not Available [address] [address] [address] [address], [place], [address], 02/08/2019 07:59:13 02/08/2002/07/2019 urina lysis compl ete, refle x cultu re urine nitrites Negati ve negati ve Not Available [facility] [address] [address], [place], [address], 02/08/2019 07:59:13 02/08/2002/07/2019 urina lysis compl ete, refle x cultu re white blood cells <1 /hpf 0-4 Not Available [facility] [address] [address], [place], [address], 02/08/2019 07:59:13 02/08/20 19 02/07/2019 urina lysis compl ete, refle x cultu re red blood cells 2 /hpf 0-5 Not Available [facility] [address] [place] [address], [place], [address], 02/08/2019 07:59:13 02/08/20 19 02/07/2019 urina lysis compl ete, refle x cultu re squamous epithelial cells 1 /hpf 0-2 Not Available [address] [address], [place], [address], 02/08/2019 07:59:13 02/08/20 19 02/07/2019 urina lysis compl ete, refle x cultu re urine bacteria Negati ve negati ve Not Available [facility] [address] [place] [address], [place], [address], 02/08/2019 07:59:13 02/08/20 19 02/07/2019 urina lysis compl ete, refle x cultu re cast, hyaline <1 /lpf 0-2 Not Available [facility] [address] [place] [address], [place], [address], 02/08/2019 07:59:13 02/08/20 19 02/07/2019 urina lysis compl ete, refle x cultu re reflex to culture Result s Below CULTU RE NOT INDIC ATED MDF med fusio n [facility] ay 121,[address] [facility] [address] [phone] Ronald ramires MD Not Available [facility] Olu [address] [place] [address], [place], [address], 02/08/2019 07:59:13 02/08/20 19 02/07/2019 CMP, serum or plasm a glucose, fasting 111 mg/dL 70-99 high Not Available [facility] Shadi lee annmadison [address] [place] [address], [place], [address], 02/08/2019 08:53:20 02/08/2002/07/2019 CMP, serum or plasm a BUN 13 mg/dL 9-23 Not Available [facility] [address] [address], [place], [address], 02/08/2019 08:53:20 02/08/2002/07/2019 CMP, serum or plasm a creatinine 0.88 mg/dL 0.60-1 .30 Not Available [facility] [address] [address], [place], [address], 02/08/2019 08:53:20 02/08/2002/07/2019 CMP, serum or plasm a sodium 140 mEq/L 132-14 6 Not Available [facility] [address] [place] [address], [place], [address], 02/08/2019 08:53:20 02/08/2002/07/2019 CMP, serum or plasm a potassium 4.9 mEq/L 3.5-5. 5 Not Available [facility] [address] [place] [address], [place], [address], 02/08/2019 08:53:20 02/08/2002/07/2019 CMP, serum or plasm a chloride 104 mEq/L 99-109 Not Available [facility] [address] [place] [address], [place], [address], 02/08/2019 08:53:20 02/08/2002/07/2019 CMP, serum or plasm a CO2 29 mEq/L 22-33 Not Available [facility] [address] [place] [address], [place], [address], 02/08/2019 08:53:20 02/08/2002/07/2019 CMP, serum or plasm a anion gap 11.9 mEq/L 10-20 Not Available [facility] [address] [place] [address], [place], [address], 02/08/2019 08:53:20 02/08/2002/07/2019 CMP, serum or plasm a calcium 9.9 mg/dL 8.7-10 .4 Not Available [facility] [address], [place], [address], 02/08/2019 08:53:20 02/08/2002/07/2019 CMP, serum or plasm a albumin 4.6 g/dL 3.2-4. 8 Not Available [facility] [facility], [place], [address], 02/08/2019 08:53:20 02/08/2002/07/2019 CMP, serum or plasm a protein, total 6.6 g/dL 5.7-8. 2 Not Available [facility] [address], [place], [address], 02/08/2019 08:53:20 02/08/2002/07/2019 CMP, serum or plasm a bilirubin, total 0.7 mg/dL 0.3-1. 2 Not Available [facility] [address], [place], [address], 02/08/2019 08:53:20 02/08/2002/07/2019 CMP, serum or plasm a ALT (SGPT) 17 U/L 10-49 Not Available [facility] [address], [place], [address], 02/08/2019 08:53:20 02/08/2002/07/2019 CMP, serum or plasm a AST (SGOT) 25 U/L 15-40 Not Available [facility] [address], [place], [address], 02/08/2019 08:53:20 02/08/2002/07/2019 CMP, serum or plasm a alk phosphatase 46 U/L 45-129 Not Available [facility] [address], [place], [address], 02/08/2019 08:53:20 02/08/2002/07/2019 CMP, serum or plasm a BUN/creatini ne ratio 14.8 ratio 10-26 Not Available [facility] 2501 [facility] 121, [place], [address], 02/08/2019 08:53:20 02/08/2002/07/2019 CMP, serum or plasm a globulin calculated 2.0 g/dL 2.0-3. 8 Not Available [facility] [address] [place] [address] 121, [place], [address], 02/08/2019 08:53:20 02/08/2002/07/2019 CMP, serum or plasm a A/G ratio 2.3 ratio 0.9-2. 5 Not Available [facility] [address] [place] [address] 121, [place], [address], 02/08/2019 08:53:20 02/08/2002/07/2019 CMP, serum or plasm a eGFR aa >90 mL/mi n/1.7 3m2 >60 Not Available [facility] [address] [place] [address] 121, [place], [address], 02/08/2019 08:53:20 02/08/2002/07/2019 CMP, serum or plasm [...] Ameri cans. ALEXI med [facility]io n 2501 [facility] ay [address] [facility] [address] [phone] Ronald ramires MD Not Available [facility] [address] [facility] 121, [place], [address], 02/08/2019 08:53:20 02/08/2002/07/2019 lipid panel , serum [...] 240 mg/dL Not Available [facility] [address] [facility] 121, [place], [address], 02/08/2019 08:53:38 02/08/2002/07/2019 lipid panel , serum [...] = 500 mg/dL Not Available [facility] [address] [place] [address] 121, [place], [address], 02/08/2019 08:53:38 02/08/2002/07/2019 lipid panel , serum [...] 50 mg/dL Not Available [facility] [address] [facility] 121, [place], [address], 02/08/2019 08:53:38 02/08/2002/07/2019 lipid panel , serum LDL calculated 125 mg/dL <100 high The [facility] [facility] n and the Natio nal Maria [employer] l [employer] tion [employer] am (NCEP ) have set the [facility] lipid panel guide lines for adult s ages 20 and up: Khanh able: < 100 mg/dL Above Khanh able: 100 - 129 mg/dL Borde rline high: 130 - 159 mg/dL High: 160 - 189 mg/dL Very High: > or = 190 mg/dL Not Available [facility] [address] [address], [place], [address], 02/08/2019 08:53:38 02/08/2002/07/2019 lipid panel , serum ldlhdl 2.31 ratio Not Available [facility] [address] [address], [place], [address], 02/08/2019 08:53:38 02/08/2002/07/2019 lipid panel , serum LDL/HDL risk See Note (Note ) Male Femal e Below [place] ge Risk 0.00- 2.28 0.00- 2.34 [place] ge Risk 2.29- 4.90 2.35- 4.12 Moder ate Risk 4.91- 7.12 4.13- 5.56 High Risk 7.13- 20.00 5.57- 20.00 Not Available [facility] [address] [address], [place], [address], 02/08/2019 08:53:38 02/08/2002/07/2019 lipid panel , serum total chol/HDL ratio (calculat 3.6 ratio 0.0-5. 0 [facility]F med [facility] 2501 [facility] ay [address] [facility] [address] [phone] Ronald ramires MD Not Available [facility] [address] [address], [place], [address], 02/08/2019 08:53:38 02/08/2002/07/2019 uric acid, serum or plasm a uric acid 5.1 mg/dL 3.7-9. 2 MDF med fusio n [address] [facility] 121,[address] [facility] [address] [phone] Ronald ramires MD Not Available [facility] [address]01 [facility] 121, [place], [address], 02/08/2019 08:53:55 02/08/20 19 02/07/2019 HbA1c (hemo [...] cells . [facility] n 25[address] [facility] [address] [facility] [address] [phone] Ronald ramires MD Not Available [facility] [address] [facility] 121, [place], [address], 02/08/2019 12:57:27 08/10/19 20 08/10/2019 urina lysis compl ete, refle x cultu re urine color Yellow yellow Not Available [facility] [address] [facility] 121, [place], [address], 08/11/2019 06:00:12 08/10/1908/10/2019 urina lysis compl ete, refle x cultu re urine clarity Clear clear Not Available [facility] 2501 [facility] 121, [place], [address], 08/11/2019 06:00:12 08/10/19 20 08/10/2019 urina lysis compl ete, refle x cultu re urine specific gravity 1.028 1.005- 1.030 Not Available [address] [address], [place], [address], 08/11/2019 06:00:12 08/10/19 20 08/10/2019 urina lysis compl ete, refle x cultu re urine pH 6.0 5.0-8. 5 Not Available [address] [address], [place], [address], 08/11/2019 06:00:12 08/10/1908/10/2019 urina lysis compl ete, refle x cultu re urine glucose Negati ve mg/dL negati ve Not Available [address] [address], [place], [address], 08/11/2019 06:00:12 08/10/19 20 08/10/2019 urina lysis compl ete, refle x cultu re urine ketones Negati ve mg/dL negati ve Not Available [address] [address], [place], [address], 08/11/2019 06:00:12 08/10/19 20 08/10/2019 urina lysis compl ete, refle x cultu re urobilinogen 1.0 eu/dL 0.2-1. 0 Not Available [address] [address], [place], [address], 08/11/2019 06:00:12 08/10/1908/10/2019 urina lysis compl ete, refle x cultu re urine bilirubin Negati ve negati ve Not Available [address] [address], [place], [address], 08/11/2019 06:00:12 08/10/19 20 08/10/2019 urina lysis compl ete, refle x cultu re urine blood Negati ve negati ve Not Available [address] [address], [place], [address], 08/11/2019 06:00:12 08/10/19 20 08/10/2019 urina lysis compl ete, refle x cultu re urine protein Negati ve negati ve Not Available [address] [address], [place], [address], 08/11/2019 06:00:12 08/10/19 20 08/10/2019 urina lysis compl ete, refle x cultu re leukocyte esterase Negati ve negati ve Not Available [address] [address], [place], [address], 08/11/2019 06:00:12 08/10/19 20 08/10/2019 urina lysis compl ete, refle x cultu re urine nitrites Negati ve negati ve Not Available [address] [address], [place], [address], 08/11/2019 06:00:12 08/10/19 20 08/10/2019 urina lysis compl ete, refle x cultu re white blood cells 1 /hpf 0-4 Not Available [address] [address], [place], [address], 08/11/2019 06:00:12 08/10/19 20 08/10/2019 urina lysis compl ete, refle x cultu re red blood cells 1 /hpf 0-5 Not Available [address] [address], [place], [address], 08/11/2019 06:00:12 08/10/19 20 08/10/2019 urina lysis compl ete, refle x cultu re squamous epithelial cells 1 /hpf 0-2 Not Available [address] [address], [place], [address], 08/11/2019 06:00:12 08/10/19 20 08/10/2019 urina lysis compl ete, refle x cultu re urine bacteria Negati ve negati ve Not Available [facility] [address] [address], [place], [address], 08/11/2019 06:00:12 08/10/19 20 08/10/2019 urina lysis compl ete, refle x cultu re cast, hyaline <1 /lpf 0-2 Not Available [facility] [address] [place] [address], [place], [address], 08/11/2019 06:00:12 08/10/19 20 08/10/2019 urina lysis compl ete, refle x cultu re reflex to culture Result s Below CULTU RE NOT INDIC ATED [facility]F med fusio n [address] [facility] 121,[address] [facility] [address] [phone] Ronald ramires MD Not Available [facility] [address] [place] [address], [place], [address], 08/11/2019 06:00:12 08/10/19 20 08/10/2019 CBC w/ auto diff WBC 5.8 K/uL 3.8-10 .6 Not Available [facility] [address] [place] [address], [place], [address], 08/11/2019 06:22:37 08/10/19 20 08/10/2019 CBC w/ auto diff RBC 4.79 M/uL 4.40-5 .90 Not Available [facility] [address] [place] [address], [place], [address], 08/11/2019 06:22:37 08/10/19 20 08/10/2019 CBC w/ auto diff hemoglobin 15.4 g/dL 14.0-1 8.0 Not Available [facility] [address] [place] [address], [address], 08/11/2019 06:22:37 08/10/19 20 08/10/2019 CBC w/ auto diff hematocrit 45.4 % 40.0-5 2.0 Not Available [facility] [address] [place] [address], [address], 08/11/2019 06:22:37 08/10/19 20 08/10/2019 CBC w/ auto diff MCV 95 fL 80-100 Not Available [facility] [address] [address], [place], [address], 08/11/2019 06:22:37 08/10/1908/10/2019 CBC w/ auto diff MCH 32.2 pg 26.0-3 4.0 Not Available [facility] [address] [address], [place], [address], 08/11/2019 06:22:37 08/10/1908/10/2019 CBC w/ auto diff MCHC 33.9 g/dL 31.0-3 7.0 Not Available [facility] [address] [address], [place], [address], 08/11/2019 06:22:37 08/10/1908/10/2019 CBC w/ auto diff RDW 11.8 % 12.0-1 5.0 low Not Available [facility] [address] [place] [address], [place], [address], 08/11/2019 06:22:37 08/10/1908/10/2019 CBC w/ auto diff MPV 11.0 fL 8.8-12 .8 Not Available [facility] [address] [place] [address], [place], [address], 08/11/2019 06:22:37 08/10/1908/10/2019 CBC w/ auto diff platelet count 283 K/uL 130-40 0 Not Available [facility] [address] [address], [place], [address], 08/11/2019 06:22:37 08/10/1908/10/2019 CBC w/ auto diff diff type Automa benny diff Not Available [facility] [address] [place] [address], [place], [address], 08/11/2019 06:22:37 08/10/1908/10/2019 CBC w/ auto diff abs neutrophils 3.1 K/uL 1.8-7. 7 Not Available [facility] [address] [address], [place], [address], 08/11/2019 06:22:37 08/10/19 20 08/10/2019 CBC w/ auto diff abs lymphocytes 1.9 K/uL 1.0-4. 8 Not Available [facility] [address] [address], [place], [address], 08/11/2019 06:22:37 08/10/19 20 08/10/2019 CBC w/ auto diff abs monocytes 0.6 K/uL 0.1-1. 0 Not Available [facility] [address] [address], [place], [address], 08/11/2019 06:22:37 08/10/19 20 08/10/2019 CBC w/ auto diff abs eosinophils 0.2 K/uL 0.0-0. 6 Not Available [facility] [address] [address], [place], [address], 08/11/2019 06:22:37 08/10/19 20 08/10/2019 CBC w/ auto diff abs basophils 0.0 K/uL 0.0-0. 3 Not Available [facility] [address] [address], [place], [address], 08/11/2019 06:22:37 08/10/19 20 08/10/2019 CBC w/ auto diff neutrophil 54 % 45-73 Not Available [facility] [address] [address], [place], [address], 08/11/2019 06:22:37 08/10/19 20 08/10/2019 CBC w/ auto diff lymphocyte 32 % 18-44 Not Available [facility] [address] [address], [place], [address], 08/11/2019 06:22:37 08/10/19 20 08/10/2019 CBC w/ auto diff monocyte 10 % 4-10 Not Available [facility] 2501 [facility] 121, [place], [address], 08/11/2019 06:22:37 08/10/19 20 08/10/2019 CBC w/ auto diff eosinophil 3 % 0-4 Not Available [facility] 2501 [facility] 121, [place], [address], 08/11/2019 06:22:37 08/10/19 20 08/10/2019 CBC w/ auto diff basophil 1 % 0-1 MDF med fusio n 2501 [facility] [address] [facility] [place] [address] [phone] Ronald ramires MD Not Available [facility] 2501 [facility] 121, [place], [address], 08/11/2019 06:22:37 08/10/19 20 08/10/2019 HbA1c (hemo [...] cells . [facility] [place] [address] [phone] Ronald ramires MD Not Available [facility] 2501 [facility] 121, [place], [address], 08/11/2019 07:54:29 08/10/1908/10/2019 CMP, serum or plasm a glucose, fasting 116 mg/dL 70-99 high Not Available Med Shadi nance [address] [facility] 121, [place], [address], 08/11/2019 08:15:23 08/10/19 20 08/10/2019 CMP, serum or plasm a BUN 16 mg/dL 9-23 Not Available [facility] S [facility] 121, [place], [address], 08/11/2019 08:15:23 08/10/1908/10/2019 CMP, serum or plasm a creatinine 0.92 mg/dL 0.60-1 .30 Not Available [facility] [address] [place] [address] 121, [place], [address], 08/11/2019 08:15:23 08/10/19 20 08/10/2019 CMP, serum or plasm a sodium 137 mEq/L 132-14 6 Not Available [address], [place], [address], 08/11/2019 08:15:23 08/10/19 20 08/10/2019 CMP, serum or plasm a potassium 4.6 mEq/L 3.5-5. 5 Not Available [facility] [address] [place] [address] 121, [place], [address], 08/11/2019 08:15:23 08/10/1908/10/2019 CMP, serum or plasm a chloride 101 mEq/L 99-109 Not Available Med Vijayio n [address] [facility] 121, [place], [address], 08/11/2019 08:15:23 08/10/1908/10/2019 CMP, serum or plasm a CO2 28 mEq/L 22-33 Not Available [facility] [address] [place] [address] [address], [place], [address], 08/11/2019 08:15:23 08/10/1903 0808/10/2019 CMP, serum or plasm a anion gap 12.6 mEq/L 10-20 Not Available [facility] [address] [address], [place], [address], 08/11/2019 08:15:23 08/10/19 20 08/10/2019 CMP, serum or plasm a calcium 10.0 mg/dL 8.7-10 .4 Not Available [facility] [address] [address], [place], [address], 08/11/2019 08:15:23 08/10/19 20 08/10/2019 CMP, serum or plasm a albumin 4.8 g/dL 3.2-4. 8 Not Available [facility] [address] [address], [place], [address], 08/11/2019 08:15:23 08/10/19 20 08/10/2019 CMP, serum or plasm a protein, total 6.7 g/dL 5.7-8. 2 Not Available [facility] [address] [address], [place], [address], 08/11/2019 08:15:23 08/10/19 20 08/10/2019 CMP, serum or plasm a bilirubin, total 0.9 mg/dL 0.3-1. 2 Not Available [facility] [address] [address], [place], [address], 08/11/2019 08:15:23 08/10/19 20 08/10/2019 CMP, serum or plasm a ALT (SGPT) 23 U/L 10-49 Not Available [facility] [address] [address], [place], [address], 08/11/2019 08:15:23 08/10/19 20 08/10/2019 CMP, serum or plasm a AST (SGOT) 20 U/L 15-40 Not Available [facility] [address] [address], [place], [address], 08/11/2019 08:15:23 08/10/19 20 08/10/2019 CMP, serum or plasm a alk phosphatase 45 U/L 45-129 Not Available [address] [address] [address] [address], [place], [address], 08/11/2019 08:15:23 08/10/19 20 08/10/2019 CMP, serum or plasm a BUN/creatini ne ratio 17.4 ratio 10-26 Not Available [facility] [address] [address], [place], [address], 08/11/2019 08:15:23 08/10/19 20 08/10/2019 CMP, serum or plasm a globulin calculated 1.9 g/dL 2.0-3. 8 low Not Available [address] [address], [place], [address], 08/11/2019 08:15:23 08/10/19 20 08/10/2019 CMP, serum or plasm a A/G ratio 2.5 ratio 0.9-2. 5 Not Available [address] [address], [place], [address], 08/11/2019 08:15:23 08/10/19 20 08/10/2019 CMP, serum or plasm a eGFR aa >90 mL/mi n/1.7 3m2 >60 Not Available [address] [address], [place], [address], 08/11/2019 08:15:23 08/10/19 20 08/10/2019 CMP, serum [...] Ameri cans. MDF med [facility] n [address] [facility] [address] [facility] [address] [phone] Ronald ramires MD Not Available [facility] [address] [facility] [address], [place], [address], 08/11/2019 08:15:23 08/10/19 20 08/10/2019 lipid panel [...] 240 mg/dL Not Available [facility] [address] [facility] [address], [place], [address], 08/11/2019 08:15:42 08/10/19 20 08/10/2019 lipid panel [...] 500 mg/dL Not Available [facility] [address] [facility] [address], [place], [address], 08/11/2019 08:15:42 08/10/19 20 08/10/2019 lipid panel [...] 50 mg/dL Not Available [facility] [address] [facility] [address], [place], [address], 08/11/2019 08:15:42 08/10/19 20 08/10/2019 lipid panel , serum LDL calculated 124 mg/dL <100 high The [facility] n and the Natio nal Maria [employer]ca tion [employer] am (NCEP ) have set the [facility] lipid panel guide lines for adult s ages 20 and up: Khanh able: < 100 mg/dL Above Khanh able: 100 - 129 mg/dL Borde rline high: 130 - 159 mg/dL High: 160 - 189 mg/dL Very High: > or = 190 mg/dL Not Available [facility] [address] [place] [address], [place], [address], 08/11/2019 08:15:42 08/10/19 20 08/10/2019 lipid panel , serum ldlhdl 2.53 ratio Not Available [facility] [address] [place] [address], [place], [address], 08/11/2019 08:15:42 08/10/19 20 08/10/2019 lipid panel , serum LDL/HDL risk See Note (Note ) Male Femal e Below [place] ge Risk 0.00- 2.28 0.00- 2.34 [place] ge Risk 2.29- 4.90 2.35- 4.12 Moder ate Risk 4.91- 7.12 4.13- 5.56 High Risk 7.13- 20.00 5.57- 20.00 Not Available [facility] [address] [place] [address] [address], [place], [address], 08/11/2019 08:15:42 08/10/19 20 08/10/2019 lipid panel , serum total chol/HDL ratio (calculat 3.9 ratio 0.0-5. 0 [facility] n [address] [place] [address] [address] [facility] [address] [phone] Ronald ramires MD Not Available [facility] [address] [place] [address] [address], [place], [address], 08/11/2019 08:15:42 08/10/19 20 08/10/2019 uric acid, serum or plasm a uric acid 6.1 mg/dL 3.7-9. 2 [facility] med [facility] n [address] [facility] [address] [facility] [address] [phone] Ronald ramires MD Not Available [facility] [address] [address], [place], [address], 08/11/2019 08:16:47 08/10/19 20 08/10/2019 micro album in, urine creatinine, urine 168.2 mg/dL (Note ) Range not estab lishe d for urine Not Available [facility] [address] [place] [address], [place], [address], 08/11/2019 15:08:31 08/10/19 20 08/10/2019 micro album in, urine microalbumin , urine 13 mg/L <30 Not Available [facility] [address] [address], [place], [address], 08/11/2019 15:08:31 08/10/19 20 08/10/2019 micro album in, urine microalbumin /creat ratio 8 mg/g_ cret 0-30 [facility] [address] [facility] [address] [facility] [address] [phone] Ronald ramires MD Not Available [facility] [address] [place] [address], [place], [address], 08/11/2019 15:08:31 08/13/19 18 08/12/2017 elect fridaar diogr am No observ ation record ed. [email or web address] Not Available 2017 09:12:09 08/18/19 18 XR, chest , 2 view No observ ation record ed. SONIDO Hernandez [address], [place], [address], 08/23/2017 11:16:36 Result Notes None recorded. Problems Name Problem SNOMED Code Status Onset Date Resolution Date Notes Provider Name and Address Organization Details Recorded Time Essential hypertension 03714491 Active 2016 [facility] 16:57:25 Diabetes mellitus 46153429 Active 2016 [facility] 16:57:33 Gastroesophage al reflux disease 907471086 Active 2016 [facility] 17:03:19 Problem Notes None recorded. Procedures Surgical History Date Name Laterality Status Provider Name and Address Organization Details Recorded Time 08/10/19 20 Pulse Oximetry completed [facility] 08/10/2019 10:55:59 08/17/19 19 Pulse Oximetry completed [facility] 08/16/2018 09:10:56 12/21/19 18 [facility]2017 10:09:57 08/13/19 18 Pulse Oximetry completed [facility] 08/12/2017 18:28:55 02/16/20 17 Pulse Oximetry completed [facility] 02/15/2017 17:09:33 01/09/20 12 Arthroscopic Surgery completed [facility] 08/16/2018 09:03:56 Appendectomy completed [facility] 02/15/2017 17:04:30 Hernia Repair completed [facility] 02/15/2017 17:04:49 Vasectomy completed [facility] 08/16/2018 09:03:56 Imaging Results Imaging Date Name Status LastModified by Organization Details LastModified Time 08/12/2017 electrocardiogram completed Informa tion not available 08/13/2017 09:12:09 08/17/2017 XR, chest, 2 view completed SONIDO Hernandez [address], [place], [address], 08/23/2017 11:16:36 Procedure Notes None recorded. Medical [...] cm 81 /min 98.5 [degF] 32.7 kg/m2 54125.3 6 g 98 % 98 % 130 mm[Hg] 78 mm[Hg] Elvira Call [facility] 9 11:39:38 Date Recorded Body height Body temperature Heart rate Body mass index (BMI) Body weight Oxygen saturation Oxygen saturation in Arterial blood by Pulse oximetry Systolic blood pressure Diastolic blood pressure Provider Name and Address Organization Details Last Updated DateTime 0 172.72 cm 98.1 [degF] 80 /min 33.5 kg/m2 33782.3 2 g 98 % 98 % 124 mm[Hg] 80 mm[Hg] Joaquina Schultz [facility] 0 10:58:59 Date Recorded Body height Heart rate Body temperature Body mass index (BMI) Body weight Oxygen saturation Oxygen saturation in Arterial blood by Pulse oximetry Systolic blood pressure Diastolic blood pressure Provider Name and Address Organization Details Last Updated DateTime 8 172.72 cm 92 /min 98.8 [degF] 37.1 kg/m2 444018. 54 g 97 % 97 % 128 mm[Hg] 82 mm[Hg] Joaquina Schultz [facility] 8 18:32:28 Date Recorded Body height Heart rate Body temperature Body mass index (BMI) Body weight Oxygen saturation Oxygen saturation in Arterial blood by Pulse oximetry Systolic blood pressure Diastolic blood pressure Provider Name and Address Organization Details Last Updated DateTime 8 172.72 cm 75 /min 98 [degF] 34.1 kg/m2 703868. 69 g 97 % 97 % 130 mm[Hg] 82 mm[Hg] Marky Ambrocio [facility] 8 10:12:07 Date Recorded Body height Heart rate Body temperature Body mass index (BMI) Body weight Oxygen saturation Oxygen saturation in Arterial blood by Pulse oximetry Systolic blood pressure Diastolic blood pressure Provider Name and Address Organization Details Last Updated DateTime 9 172.72 cm 80 /min 98.5 [degF] 33.9 kg/m2 561146. 1 g 98 % 98 % 138 mm[Hg] 82 mm[Hg] Joaquina Schultz [facility] 9 09:11:50 Social History Question Answer Notes LastModified by Organizat ion Details LastModified Time Tobacco Smoking Status Never Smoker Not Available [facility] 03/12/2020 03:15:14 What Is Your Level Of Alcohol Consumption? Occasional [id number] Information not available 03/12/2020 What Is Your Level Of Caffeine Consumption? Moderate [id number] Information not available 03/12/2020 What Was The Date Of Your Most Recent Tobacco Screening? 08/16/2018 [id number] Information not available 03/12/2020 Sex: Unknown Functional [...] Stones N Blood Diseases N Hyperthyroidism N Abuse/Domestic Violence (or history of) N COPD N Depression N Headaches/Migraines N Breast Problem (or history of) N Anxiety Disorder N Muscle, Joint, or Bone Problems N Obesity N Vision or Eye Problems N Arthritis N Polyps N Infertility N Stroke N Varicosities N Fibromyalgia N Kidney Disease N Ear or Hearing Problems N Eating Disorder N Skin Problems N MRSA exposure N Constipation N Tuberculosis N AIDS/HIV N Asthma N Hepatitis N Pulmonary Embolism N Chronic Ear Infections N Autism Spectrum Disorder (ASD) N Thrombophilias N Breast Cancer N Lung Disease N Hypothyroidism N Defects or Inherited Disease N Difficulty Swallowing N Anesthesia Complications N Meniere's disease N Endometriosis N Bladder or Kidney Problems N High Cholesterol N Liver Disease N Allergies/Hayfever N Cancer (or history of) N Thyroid Problems N GI Problems N ADD/ADHD N Anemia N Mental Illness N Ovarian Cancer (or history of) N Diabetes Y Seizures/Epilepsy N Congestive Heart Failure (CHF) N Eczema N Diverticulitis N Reflux/GERD Y Heart Disease N Hypertension Y Osteoporosis N Immunizations Vaccine Type Date Status Note Provider Nam e and Address Organization Details Recorded Time Hep B, adult 05/22/2015 [facility]/15[facility]2017 17:02:29 Hep A, adult 05/22/2015 [facility] 02/15/2017 17:02:44 Past Encounters Encounter ID Performer Location Encounter Start Date Encounter Closed Date Diagnosis/Indication Diagnosis SNOMED-CT Code Diagnosis ICD10 Code Diagnosis Note [id number] Jerry Ayoub MD Main Office [address] [facility] [address] [place] [address] 02/15/2017 16:54:19 02/15/2017 18:36:29 Essential hypertension 10952323 I10 Patient stable on current regimen. Discussed [...] ed understand ing. Gastroesop hageal reflux disease 357639794 K21.9 Patient stable on PPIs. Symptoms well-contr [...] Type 2 skyler betes mellitus without complication 208913065 E11.9 Pending labs. Discussed ADA recommenda tions concerning management of diabetes. Discussed with patient the current diagnosis, prognosis, and treatment plan including risks, benefits, alternativ es, contraindi cations of any medication (s). All questions answered. Patient [facility] ed understand ing. [id number] Jerry Ayoub MD Main Office [address] [address] 08/12/2017 18:20:53 08/12/2017 19:14:51 Pre-surgery evaluation 063858767 Z01.818 Pending CXR, labs as requested. Will provide medical clearance pending results. Patient to call Dr Davis for cardiac clearance. EKG within normal limits. Diabetes mellitus 831674 09 E11.9 Essential hypertension 26440177 I10 [id number] Jerry Ayoub MD Main Office [address] [address] 12/20/2017 09:56:30 12/20/2017 12:13:32 History of hepatitis C 8905654500 9101 Z86.19 Patient with a history of Hep C. Treated. Wants to check viral load. Diabetes mellitus 212953 09 E11.9 Pending labs for further eval. NO refills needed at this time. Discussed with patient the current diagnosis, prognosis, and treatment plan including risks, benefits, alternativ es, contraindi cations of any medication (s). All questions answered. [facility] F/U after labs if uncontroll ed or sooner for any symptoms, questiosn, or concerns. Otherwise f/u recommende d every 6 mo. Essential hypertension 05880491 I10 Patient stable on current regimen. NO [...] on current regimen. All questions answered. [facility]. [id number] Jerry Ayoub MD Main Office [address] [facility] [address] [place] [address] 08/16/2018 09:00:24 08/16/2018 09:24:56 Type 2 diabetes mellitus without complication 685986660 E11.9 Patient stable on current regimen. Discussed [...] ing. Gastroesop hageal reflux disease without esophagitis 459273064 K21.9 Patient stable on PPIs. Symptoms well-contr [...] Patient demonstrat ed understand ing. Essential hypertension 07981815 I10 Patient stable on current regimen.Di scussed [...] on current regimen. All questions answered. Patient [facility] ed understand ing. Hyperlipidemia 20115374 E78.5 Not on statin at this time. [...] of any medication (s). All questions answered. [id number] [facility] Main Office [address] [facility] [address] [place] [address] 02/06/2019 11:19:57 02/06/2019 12:00:42 Gastroesophageal reflux disease 426834493 K21.9 Patient stable on PPIs. Symptoms well-contr [...] in 6 months. All questions answered. Patient [facility] ed understand ing. Essential hypertension 50538935 I10 Patient stable on current regimen. Will [...] on current regimen. All questions answered. Patient [facility] ed understand ing. Diabetes mellitus 833813 09 E11.9 Patient stable on current regimen. [...] on current regimen. All questions answered. [facility] [id number] Jerry Ayoub MD Main Office [address] [facility] [address] [place] [address] 08/10/2019 10:39:11 08/10/2019 11:23:17 Essential hypertension 94926034 I10 Patient stable on current regimen. Will [...] on current regimen. All questions answered. [facility] Type 2 skyler betes mellitus without complication 863143815 E11.9 Patient stable on current regimen. Diabetes [...] ing. Gastroesop hageal reflux disease without esophagitis 821093926 K21.9 Patient stable on PPIs. Symptoms well-contr [...] answered. Patient demonstrat ed understand ing. Obesity 612706965 E66.9 Patient is Class I obese by BMI. Body mass index 30+ - obesity 173557532 Z68.33 Depression screening 171 633764 Z13.31 Screen for depression with PHQ-2/PHQ- 9 with a NEGATIVE result. Score 0 Health Concerns Section Related Observation LastModified by Organization Detai ls LastModified Time None Recorded Concern Status LastModified by Organization Details LastModified Time None Recorded Advance Directives Directive None Recorded Payers Encounter Date Sequence Insurance Name Policy Number Policy Rudd Covered Member ID Rudd Member ID Guarantor Name 08/12/2017 1 [facility] [id number] Jessie Clement Isaias [id number] [employer] 12/20/2017 1 [facility] [id number] Jessie Esparza [id number] Aquilino Isaias 08/16/2018 1 [facility] [id number] Jessie Esparza [id number] [facility] 02/06/2019 1 [facility] [id number] Jessie Esparza [id number] Aquilino Isaias 08/10/2019 1 [facility] [id number] Jessie Esparza [id number] [facility] Notes Date Note Type Note Provider [...] [place] [address], [address] 08/12/2017 19:13:37 12/21/19 18 text/htm l DiabetesReported [...] well-controlled [place] [address] [facility] [address], [place], [address], [place] [facility] 12/20/2017 12:12:36 08/17/19 19 text/htm l [...] 1 [place] [address] [address], [place], [address], [facility] 08/16/2018 09:24:36 02/07/20 19 text/htm l [...] tab po dailymail order Shira Campo angelo [facility] 02/07/2019 10:13:43 08/10/19 20 text/htm l [...] regimen. [place] [address] [address] [address], [place], [address], [facility] 08/10/2019 13:41:07
== END 2024-09-12 11:06 | disposition home or self-care (01) ==
LOC: ASC 10:07
PROVIDERS: PCP Nurse Practitioner Adult Health; Visit Provider Anesthesiology Pain Medicine
PROC: (CPT 64493; principal; 2024-09-12 11:15)
DX: M47.817 Spondylosis without myelopathy or radiculopathy, lumbosacral region (principal); G89.29 Other chronic pain
CPT/HCPCS: 64493 ×2; 64494 ×2; 64495 ×2; 99199

== ENCOUNTER 2024-09-20 11:18 | Outpatient (CLI) | payer MEDICARE, SELFPAY ==
--- NOTE | ~2024-09-20 | XR_ITS ---
EXAMINATION: XR chest 2V 09/20/2024 12:01 INDICATION: Low back pain PROCEDURE: 2 view chest COMPARISON: 07/14/2022 FINDINGS: The lungs are clear. The lungs are hyperinflated which is consistent with, but not diagnost ic of chronic obstructive pulmonary disease. The cardiomediastinal silhouette is within normal limit s. There are no pleural effusions. There is no pneumothorax suspected. IMPRESSION: 1: NO ACUTE CARDIOPULMONARY DISEASE. Reviewed, dictated and finalized at location A.
[2024-09-20 11:50] LABS: Hematocrit 42.1 % (42.0-52.0); Hemoglobin 13.9 g/dL (14.0-18.0); Mean Corpuscular Hemoglobin 31.9 pg (26-34); Mean Corpuscular Volume 96.6 fl (80-100); Mean Platelet Volume 9.9 fl (7.4-10.4); Platelet Count Result 253 k/mm3 (150-375); Red Blood Count 4.36 M/mm3 (4.6-6.20); Red Cell Distribution Width 11.9 % (11.5-14.5); White Blood Count 4.9 K/mm3 (4.5-10.0)
[2024-09-20 12:00] LABS: Alanine Aminotransferase 37 U/L (6-50); Albumin Level 4.2 g/dL (3.5-5.1); Alkaline Phosphatase 69 U/L (38-126); Anion Gap 7 mmol/L (4-12); Aspartate Amino Transferase 37 U/L (17-59); Bilirubin,Total 0.6 mg/dL (0.2-1.3); Blood Urea Nitrogen 21 mg/dL (9-20); Calcium 9.3 mg/dL (8.4-10.2); Carbon Dioxide 27 mmol/L (22-30); Chloride 104 mmol/L (98-107); Estimated Glomerular Filt Rate 51; Glucose 91 mg/dL (65-110); Potassium 4.4 mmol/L (3.4-5.0); Sodium 138 mmol/L (137-145)
[2024-09-20 12:02] LABS: INR 1.1; Prothrombin Time 14.7 Seconds (11.1-14.7)
[2024-09-20 12:03] LABS: Partial Thromboplastin Time 29.3 Seconds (22.3-36.8)
--- OUTSIDE RECORDS SUMMARY | 2024-09-20 12:06 | XMS_ITS | Encounter Summary ---
Author Organization [facility] [place] [address] [place] [address] Care Team Providers Care Scrap Sawyer Name Role Phone Unavailable Primary Care Provider Unavailabl e Prior Encounters Date Type Department Care Team Description 02/04/2022 8:30 AM CDT Office Visit [facility] [address] [place] [phone] Rhea Meyer DDS 12/13/2021 11:00 AM CDT Office Visit [facility] [address] [place] [address] [place] [phone] Rhea Meyer DDS 12/12/2021 9:15 AM CDT Office Visit [facility] [address] [place] [phone] Rhea Meyer DDS 12/12/2021 9:00 AM CDT Office Visit [facility] [address] [place], [place] [address] [phone] 09/18/2021 11:00 AM CDT Office Visit [facility] [address] [place] [address] [place] [phone] 06/05/2019 Converted CPS Chart Documents [facility] [address] [place] [phone] <No scans attached> 06/05/2019 Converted 13x Documents [facility] [address], [place] [phone] <No scans attached> Last Filed [...] - ESTABLISHED PATIENT Routine 06/11/2021 2:00 AM FOOD STOREROOM CLERK PERIO MAINTENANCE Routine 06/11/2021 2:0 0 AM FOOD STOREROOM CLERK ORAL HYGIENE INSTRUCTIONS Routine 2021 2:00 AM FOOD STOREROOM CLERK 1 RADHA DECON Routine 06/11/2021 2:00 AM FOOD STOREROOM CLERK CANCELLED APPOINTMENT Routine 05/30/2021 2:00 AM FOOD STOREROOM CLERK 19 LIMITED ORAL EVALUATION - PROBLEM FOCUSED Routine 04/16/2021 2:00 AM FOOD STOREROOM CLERK ADDITIONAL X-RAY Routine 04/16/2021 2:00 AM FOOD STOREROOM CLERK SINGLE X-RAY Routine 04/16/2021 2:00 AM FOOD STOREROOM CLERK INTRAORAL PHOTO Routine 04/16/2021 2:00 AM FOOD STOREROOM CLERK PERIODIC ORAL EVALUATION - ESTABLISHED PATIENT Routine [...] ORAL HYGIENE INSTRUCTIONS Routine 2020 2:00 AM FOOD STOREROOM CLERK LL RADHA DECON/QD Routine 07/22/2020 2:00 AM FOOD STOREROOM CLERK LL PERIODONTAL SCALING AND ROOT PLANING - ONE TO THREE TEETH PER QUADRANT Routine 07/22/2020 2:00 AM FOOD STOREROOM CLERK LL ANTIBACT IRR/QUAD Routine 07/22/2020 2:00 AM FOOD STOREROOM CLERK PERIODIC ORAL EVALUATION - ESTABLISHED PATIENT Routine 06/26/2020 2:00 AM FOOD STOREROOM CLERK ORAL HYGIENE INSTRUCTIONS Routine 2020 2:00 AM FOOD STOREROOM CLERK LR RADHA DECON/QD Routine 06/26/2020 2:00 AM FOOD STOREROOM CLERK UR RADHA DECON/QD Routine 06/26/2020 2:00 AM FOOD STOREROOM CLERK UR PERIODONTAL SCALING AND ROOT PLANING - ONE TO THREE TEETH PER QUADRANT Routine 06/26/2020 2:00 AM FOOD STOREROOM CLERK LR PERIODONTAL SCALING AND ROOT PLANING - ONE TO THREE TEETH PER QUADRANT Routine 06/26/2020 2:00 AM FOOD STOREROOM CLERK UR ANTIBACT IRR/QUAD Routine 06/26/2020 2:00 AM FOOD STOREROOM CLERK LR ANTIBACT IRR/QUAD Routine 06/26/2020 2:00 AM FOOD STOREROOM CLERK CHLORHEXIDINE Routine 06/26/2020 2:00 AM FOOD STOREROOM CLERK INTRAORAL - COMPREHENSIVE SERIES OF RADIOGRAPHIC IMAGES Routine 06/26/2020 2:00 AM FOOD STOREROOM CLERK INTRAORAL PHOTO Routine 06/26/2020 2:00 AM FOOD STOREROOM CLERK INTRAORAL PHOTO Routine 06/26/2020 2:00 AM FOOD STOREROOM CLERK INTRAORAL PHOTO Routine 06/26/2020 2:00 AM FOOD STOREROOM CLERK INTRAORAL PHOTO Routine 06/26/2020 2:00 AM FOOD STOREROOM CLERK INTRAORAL PHOTO Routine 06/26/2020 2:00 AM FOOD STOREROOM CLERK INTRAORAL PHOTO Routine 06/26/2020 2:00 AM FOOD STOREROOM CLERK INTRAORAL PHOTO Routine 06/26/2020 2:00 AM FOOD STOREROOM CLERK INTRAORAL PHOTO Routine 06/26/2020 2:00 AM FOOD STOREROOM CLERK CANCELLED APPOINTMENT Routine 02/24/2020 2:00 AM CDT MISSED APPOINTMENT Routine 02/13/2020 2: 00 AM CDT PERIO CONSULT Routine 02/12/2020 2:00 AM CDT CANCELLED APPOINTMENT Routine 12/25/2019 2:00 AM CDT PERIODIC ORAL EVALUATION - ESTABLISHED PATIENT Routine 06/22/2019 2:00 AM FOOD STOREROOM CLERK ORAL HYGIENE INSTRUCTIONS Routine 2019 2:00 AM FOOD STOREROOM CLERK PROPHYLAXIS - ADULT Routine 06/22/2019 2 :00 AM FOOD STOREROOM CLERK 13 DO AMALGAM 2 SURFACE Routine 11/12/19 19 2:00 AM CDT 31 O AMALGAM 1 SURFACE Routine 9 2:00 AM CDT 12 O AMALGAM 1 SURFACE Routine 9 2:00 AM CDT 4 O AMALGAM 1 SURFACE Routine 11/11/2018 2:00 AM CDT 29 ENDODONTIC THERAPY, MOLAR TOOTH (EXCLUDING FINAL QUAKER) Routine 11/11/2018 2:00 AM CDT 14 ENDODONTIC THERAPY, MOLAR TOOTH (EXCLUDING FINAL QUAKER) Routine 11/11/2018 2:00 AM CDT 14 CROWN [...] CDT Visit Diagnoses Not on file Insurance [address] [place], [place] [id number]
--- OUTSIDE RECORDS SUMMARY | 2024-09-20 12:07 | XMS_ITS | Data Portability ---
Author Organization [facility], Main Office Address [address] [address] Assessment Encounter Date Assessment Date Assessment LastModified by Organization Details LastModified Time 08/12/2017 08/12/2017 Pending labs for chronic medical conditions. Not available 08/12/2017 19:12:12 Plan of Treatment Reminders Order Date Submit Date Provider Last Modified By Organization Details Last Modified Time Details Appointments None recorded. Lab uric acid, serum or plasma 2019 020 [facility], [address], [address], 0 05:02:26 urinalysis complete, reflex culture 2019 020 [facility], [address] [address], [place], [address], 0 05:02:26 CBC w/ auto diff 2019 020 [facility], [address] [address], [place], [address], 0 05:02:26 lipid panel, serum 2019 020 [facility], [address] [address], [place], [address], 0 05:02:26 CMP, serum or plasma 2019 020 [facility], [address] [facility] [address], [place], [address], 0 05:02:26 microalbum in, urine 2019 020 [facility], [address], [place], [address], 0 05:02:26 HbA1c (hemoglobi n A1c), blood 2019 020 [facility], [address], [place], [address], 0 05:02:26 uric acid, serum or plasma 2018 019 [facility], [address], [place], [address], 0 05:02:57 CMP, serum or plasma 2018 019 [facility], [address] [facility] 121, [place], [address], 0 05:02:57 lipid panel, serum 2018 019 [facility], [address], [place], [address], 0 05:02:57 CBC w/ auto diff 2018 019 [facility], [address] [facility] 121, [place], [address], 0 05:02:57 glucose, fingerstic k, blood 2018 019 [email or web address] Main Office, [address] [facility], [address], [place], [address], 9 12:11:10 HbA1c (hemoglobi n A1c), blood 2018 019 [facility], [address], [place], [address], 0 05:02:57 microalbum in, urine 2018 019 [facility], [address], [place], [address], 0 05:02:57 uric acid, serum or plasma 2018 019 [facility], [address] [facility] 121, [place], [address], 9 05:02:28 urinalysis complete, reflex culture 2018 019 [facility], [facility] [address] [facility] 121, [place], [address], 9 05:02:28 CBC w/ auto diff 2018 019 [facility], [facility] S [facility], [place], [address], 9 05:02:28 glucose, fingerstic k, blood 2018 019 [email or web address] Main Office, [address] [facility], [address], [place], [address], 9 09:24:19 microalbum in, urine 2018 019 [facility], [facility] S [facility], [place], [address], 9 05:02:28 HbA1c (hemoglobi n A1c), blood 2018 019 [facility], [facility] S [facility], [place], [address], 9 05:02:28 lipid panel, serum 2018 019 [facility], [facility] [address], [place], [address], 9 05:02:28 CMP, serum or plasma 2018 019 [facility], [facility] [address] [address], [place], [address], 9 05:02:28 hepatitis C RNA, quant, PCR, serum 2017 018 [facility], [facility] [address] [address], [place], [address], 9 05:00:49 uric acid, serum or plasma 2017 018 [facility], [facility] [address] [address], [place], [address], 9 05:00:48 urinalysis complete, reflex culture 2017 018 [facility], [facility] [address] [address], [place], [address], 9 05:00:48 CMP, serum or plasma 2017 018 [facility], [facility] [address] [address], [place], [address], 9 05:00:48 lipid panel, serum 2017 018 [facility], [facility] [address] [address], [place], [address], 9 05:00:49 microalbum in, urine 2017 018 [facility], [facility] [address] [address], [place], [address], 9 05:00:49 HbA1c (hemoglobi n A1c), blood 2017 018 [facility], [facility] [address] [address], [place], [address], 9 05:00:48 microalbum in, urine 2017 018 [facility], [facility] [address] [address], [place], [address], 8 05:00:43 HbA1c (hemoglobi n A1c), blood 2017 018 [facility], [address], [place], [address], 8 05:00:43 CMP, serum or plasma 2017 018 [facility], [address], [place], [address], 8 05:00:43 lipid panel, serum 2017 018 [facility], [address], [place], [address], 8 05:00:43 urinalysis complete, reflex culture 2017 018 [facility], [address], [place], [address], 8 05:00:44 uric acid, serum or plasma 2017 018 [facility], [address], [place], [address], 8 05:00:44 CBC w/ auto diff 2017 018 [facility], [address], [place], [address], 8 05:00:43 PT/PTT, plasma 2017 018 [facility], [address], [place], [address], 8 05:00:43 Referral None recorded. Procedures None recorded. Surgeries None recorded. Imaging XR, chest, 2 view 2017 018 SONIDO Ezchrist, [address], [place], [address], 8 17:42:07 Medication Orders olmesartan 40 mg tablet 2019 020 [id number] [address] [place], [address], 0 11:20:28 pantoprazo le 40 mg tablet,del ayed release 2019 020 [id number], [address] [place], [address], 0 12:46:10 metformin ER 1,000 mg tablet,ext ended release 24hr (osmotic) 2019 020 [id number], [address] [place], [address], 0 12:46:10 pantoprazo le 40 mg tablet,del ayed release 2018 019 INTERFACE [facility] [place], [address], 9 15:13:05 olmesartan 40 mg tablet 2018 019 INTERFACE [facility], [place], [address], 9 12:11:12 metformin ER 1,000 mg tablet,ext ended release 24hr (osmotic) 2018 019 INTERFACE [facility] [place], [address], 9 15:13:05 irbesartan 300 mg tablet 2018 019 [email or web address] [facility] [place], [address], 9 11:39:49 pantoprazo le 40 mg tablet,del ayed release 2018 019 INTERFACE [facility], [facility], [place], [address], 9 09:24:22 metformin ER 1,000 mg tablet,ext ended release 24hr (osmotic) 2018 019 INTERFACE [facility] [place], [address], 9 09:24:24 Patient TargetsNo targets recorded. Patient InstructionsNo instructions recorded. Reason for Referral None Reported. Results Created Date Observation Date Name Description Value Unit Range Abnormal Flag Note LastModifiedBy Organization Detail LastModifiedTime 02/07/20 19 02/06/2019 gluco love doane rstic k, blood Blood Glucose: mg/dl 126 Not Available Main O ffice [address] [facility] [address], [place], [address], 02/06/2019 11:43:02 08/17/19 19 08/16/2018 gluco love doane rstic k, blood Blood Glucose: mg/dl 107 Not Available Main O ffice [address] [facility] [address], [place], [address], 08/16/2018 09:11:53 08/14/19 18 08/13/2017 CBC w/ auto diff WBC 5.9 K/uL 3.8-10 .6 Not Available [facility] [address] [facility] [address], [place], [address], 08/14/2017 06:09:41 08/14/19 18 08/13/2017 CBC w/ auto diff RBC 4.58 M/uL 4.40-5 .90 Not Available [facility] [address] [facility] [address], [place], [address], 08/14/2017 06:09:41 08/14/19 18 08/13/2017 CBC w/ auto diff hemoglobin 14.3 gm/dL 14.0-1 8.0 Not Available [facility] [address] [facility] 121, [place], [address], 08/14/2017 06:09:41 08/14/19 18 08/13/2017 CBC w/ auto diff hematocrit 40.9 % 40.0-5 2.0 Not Available [facility] [address] [address], [place], [address], 08/14/2017 06:09:41 08/14/19 18 08/13/2017 CBC w/ auto diff MCV 89 fL 80-100 Not Available [facility] [address] [address], [place], [address], 08/14/2017 06:09:41 08/14/19 18 08/13/2017 CBC w/ auto diff MCH 31.2 pg 26.0-3 4.0 Not Available [facility] [address] [address], [place], [address], 08/14/2017 06:09:41 08/14/19 18 08/13/2017 CBC w/ auto diff MCHC 35.0 g/dL 31.0-3 7.0 Not Available [facility] [address] [place] [address], [place], [address], 08/14/2017 06:09:41 08/14/19 18 08/13/2017 CBC w/ auto diff RDW 11.8 % 12.0-1 5.0 low Not Available [facility] [address] [place] [address], [place], [address], 08/14/2017 06:09:41 08/14/19 18 08/13/2017 CBC w/ auto diff MPV 11.0 fL 9.4-12 .9 Not Available [facility] [address] [address], [place], [address], 08/14/2017 06:09:41 08/14/19 18 08/13/2017 CBC w/ auto diff platelet count 269 K/uL 130-40 0 Not Available [facility] [address] [address], [place], [address], 08/14/2017 06:09:41 08/14/19 18 08/13/2017 CBC w/ auto diff diff type Automa benny diff Not Available [facility] [address] [address], [place], [address], 08/14/2017 06:09:41 08/14/19 18 08/13/2017 CBC w/ auto diff abs neutrophils 2.9 K/uL 1.8-7. 7 Not Available [facility] [address] [address], [place], [address], 08/14/2017 06:09:41 08/14/19 18 08/13/2017 CBC w/ auto diff abs lymphocytes 2.0 K/uL 1.0-4. 8 Not Available [facility] [address] [address], [place], [address], 08/14/2017 06:09:41 08/14/19 18 08/13/2017 CBC w/ auto diff abs monocytes 0.8 K/uL 0.12-1 .00 Not Available [facility] [address] [address], [place], [address], 08/14/2017 06:09:41 08/14/19 18 08/13/2017 CBC w/ auto diff abs eosinophils 0.2 K/uL 0.00-0 .60 Not Available [facility] [address] [address], [place], [address], 08/14/2017 06:09:41 08/14/19 18 08/13/2017 CBC w/ auto diff abs basophils 0.1 K/uL 0.00-0 .30 Not Available [facility] [address] [address], [place], [address], 08/14/2017 06:09:41 08/14/19 18 08/13/2017 CBC w/ auto diff neutrophil 48 % 45-73 Not Available [facility] [address] [address], [place], [address], 08/14/2017 06:09:41 08/14/19 18 08/13/2017 CBC w/ auto diff lymphocyte 35 % 18-44 Not Available [facility] [address] [address], [place], [address], 08/14/2017 06:09:41 08/14/19 18 08/13/2017 CBC w/ auto diff monocyte 13 % 4-10 high Not Available [facility] [address] [address], [place], [address], 08/14/2017 06:09:41 08/14/19 18 08/13/2017 CBC w/ auto diff eosinophil 3 % 0-4 Not Available [facility] [address] [address], [place], [address], 08/14/2017 06:09:41 08/14/19 18 08/13/2017 CBC w/ auto diff basophil 1 % 0-1 [facility] n [address] [facility] [address] [facility] [address] [phone] Ronald ramires MD Not Available [facility] [address] [place] [address], [place], [address], 08/14/2017 06:09:41 08/14/19 18 08/13/2017 urina lysis compl ete, refle x cultu re urine color Yellow yellow Not Available [facility] [address] [place] [address], [place], [address], 08/14/2017 06:29:45 08/14/19 18 08/13/2017 urina lysis compl ete, refle x cultu re urine clarity Clear clear Not Available [facility] [address] [place] [address], [place], [address], 08/14/2017 06:29:45 08/14/19 18 08/13/2017 urina lysis compl ete, refle x cultu re urine specific gravity 1.019 1.005- 1.030 Not Available [facility] [address] [place] [address], [place], [address], 08/14/2017 06:29:45 08/14/19 18 08/13/2017 urina lysis compl ete, refle x cultu re urine pH 6.0 5.0-8. 5 Not Available [address] [address], [place], [address], 08/14/2017 06:29:45 08/14/19 18 08/13/2017 urina lysis compl ete, refle x cultu re urine glucose Negati ve mg/dL negati ve Not Available [address] [address], [place], [address], 08/14/2017 06:29:45 08/14/19 18 08/13/2017 urina lysis compl ete, refle x cultu re urine ketones Negati ve mg/dL negati ve Not Available [address] [address], [place], [address], 08/14/2017 06:29:45 08/14/19 18 08/13/2017 urina lysis compl ete, refle x cultu re urobilinogen 1.0 eu/dL 0.2-1. 0 Not Available [address] [address], [place], [address], 08/14/2017 06:29:45 08/14/19 18 08/13/2017 urina lysis compl ete, refle x cultu re urine bilirubin Negati ve negati ve Not Available [address] [address], [place], [address], 08/14/2017 06:29:45 08/14/19 18 08/13/2017 urina lysis compl ete, refle x cultu re urine blood Negati ve negati ve Not Available [address] [address], [place], [address], 08/14/2017 06:29:45 08/14/19 18 08/13/2017 urina lysis compl ete, refle x cultu re urine protein Negati ve negati ve Not Available [address] [address], [place], [address], 08/14/2017 06:29:45 08/14/19 18 08/13/2017 urina lysis compl ete, refle x cultu re leukocyte esterase Negati ve negati ve Not Available [facility] [address] [address], [place], [address], 08/14/2017 06:29:45 08/14/19 18 08/13/2017 urina lysis compl ete, refle x cultu re urine nitrates Negati ve negati ve Not Available [facility] [address] [address], [place], [address], 08/14/2017 06:29:45 08/14/19 18 08/13/2017 urina lysis compl ete, refle x cultu re white cells 1 /hpf 0-4 Not Available [facility] [address] [address], [place], [address], 08/14/2017 06:29:45 08/14/19 18 08/13/2017 urina lysis compl ete, refle x cultu re red cells 2 /hpf 0-5 Not Available [facility] [address] [address], [place], [address], 08/14/2017 06:29:45 08/14/19 18 08/13/2017 urina lysis compl ete, refle x cultu re squamous epithelial cells <1 /hpf 0-2 Not Available [facility] ann [address] [address], [place], [address], 08/14/2017 06:29:45 08/14/19 18 08/13/2017 urina lysis compl ete, refle x cultu re urine bacteria Negati ve negati ve Not Available [facility] [address] [facility] 121, [place], [address], 08/14/2017 06:29:45 08/14/19 18 08/13/2017 urina lysis compl ete, refle x cultu re cast <1 /lpf Not Available [facility] [address] [address], [place], [address], 08/14/2017 06:29:45 08/14/19 18 08/13/2017 urina lysis compl ete, refle x cultu re reflex to culture Result s Below CULTU RE NOT INDIC ATED [facility] n [address] [facility] [address] [facility] [address] [phone] Ronald ramires MD Not Available [facility] [address] [place] [address], [place], [address], 08/14/2017 06:29:45 08/14/19 18 08/13/2017 micro album in, urine creatinine, urine 130.0 mg/dL (Note ) Range not estab lishe d for urine Not Available [facility] [address] [place] [address], [place], [address], 08/14/2017 06:49:42 08/14/19 18 08/13/2017 micro album in, urine microalbumin , urine 6 mg/L <30 Not Available Med Shadi nance [address] [place] [address], [place], [address], 08/14/2017 06:49:42 08/14/19 18 08/13/2017 micro album in, urine microalbumin /creat ratio 5 mg/g_ cret 0-30 [facility] [address] [facility] [address] [facility] [address] [phone] Ronald ramires MD Not Available [facility] [address] [place] [address], [place], [address], 08/14/2017 06:49:42 08/14/19 18 08/13/2017 CMP, serum or plasm a glucose, fasting 130 mg/dL 70-99 high Not Available [facility] [address] [place] [address], [place], [address], 08/14/2017 07:19:59 08/14/19 18 08/13/2017 CMP, serum or plasm a BUN 16 mg/dL 9-23 Not Available [facility] [address] [place] [address], [place], [address], 08/14/2017 07:19:59 08/14/19 18 08/13/2017 CMP, serum or plasm a creatinine 0.93 mg/dL 0.60-1 .30 Not Available [facility] [address] [facility] 121, [place], [address], 08/14/2017 07:19:59 08/14/19 18 08/13/2017 CMP, serum or plasm a sodium 138 mEq/L 132-14 6 Not Available [facility] [address] [address], [place], [address], 08/14/2017 07:19:59 08/14/19 18 08/13/2017 CMP, serum or plasm a potassium 4.2 mEq/L 3.5-5. 5 Not Available [facility] [address] [address], [place], [address], 08/14/2017 07:19:59 08/14/19 18 08/13/2017 CMP, serum or plasm a chloride 102 mEq/L 99-109 Not Available [facility] [address] [address], [place], [address], 08/14/2017 07:19:59 08/14/19 18 08/13/2017 CMP, serum or plasm a CO2 27 mEq/L 22-33 Not Available [facility] [address] [address], [place], [address], 08/14/2017 07:19:59 08/14/19 18 08/13/2017 CMP, serum or plasm a anion gap 13.2 mEq/L 10-20 Not Available Med [facility] on [address] [address], [place], [address], 08/14/2017 07:19:59 08/14/19 18 08/13/2017 CMP, serum or plasm a calcium 9.7 mg/dL 8.7-10 .4 Not Available [facility] [address] [address], [place], [address], 08/14/2017 07:19:59 08/14/19 18 08/13/2017 CMP, serum or plasm a albumin 4.3 g/dL 3.2-4. 8 Not Available [facility] [address], [place], [address], 08/14/2017 07:19:59 08/14/19 18 08/13/2017 CMP, serum or plasm a protein, total 6.4 g/dL 5.7-8. 2 Not Available [facility] [address], [place], [address], 08/14/2017 07:19:59 08/14/19 18 08/13/2017 CMP, serum or plasm a bilirubin, total 0.7 mg/dL 0.3-1. 2 Not Available [facility] [address] [facility] 121, [place], [address], 08/14/2017 07:19:59 08/14/19 18 08/13/2017 CMP, serum or plasm a ALT (SGPT) 34 U/L 10-49 Not Available [facility] [address] [facility] 121, [place], [address], 08/14/2017 07:19:59 08/14/19 18 08/13/2017 CMP, serum or plasm a AST (SGOT) 30 U/L 0-33 Not Available [facility] [address] [facility] 121, [place], [address], 08/14/2017 07:19:59 08/14/19 18 08/13/2017 CMP, serum or plasm a alk phosphatase 51 U/L 45-129 Not Available [facility] [address] [facility] 121, [place], [address], 08/14/2017 07:19:59 08/14/19 18 08/13/2017 CMP, serum or plasm a BUN/creatini ne ratio 17.2 ratio 10-26 Not Available Med [facility] ann [address] [facility] 121, [place], [address], 08/14/2017 07:19:59 08/14/19 18 08/13/2017 CMP, serum or plasm a globulin calculated 2.1 g/dL 2.0-3. 8 Not Available [facility] [address] [address], [place], [address], 08/14/2017 07:19:59 08/14/19 18 08/13/2017 CMP, serum or plasm a A/G ratio 2.0 ratio 0.9-2. 5 Not Available [facility] [address] [place] [address] [address], [place], [address], 08/14/2017 07:19:59 08/14/19 18 08/13/2017 CMP, serum or plasm a eGFR aa >90 mL/mi n/1.7 3m2 >60 Not Available [facility] [address] [place] [address] 121, [place], [address], 08/14/2017 07:19:59 08/14/19 18 08/13/2017 CMP, serum [...] Ameri cans. F med fusio n [address] [facility] [address] [facility] [address] [phone] Ronald ramires MD Not Available [facility] [address] [place] [address] 121, [place], [address], 08/14/2017 07:19:59 08/14/19 18 08/13/2017 lipid panel , serum cholesterol, total 210 mg/dL <200 high The [facility] [employer] i[facility] n and the Natio nal Maira G st[employer] l [employer]ca tion Progr am (NCEP ) have set the follo wing lipid panel guide lines for adult s ages 20 and up: Khanh able: < 200 mg/dL Borde rline high: 200-2 39 mg/dL High: > or = 240 mg/dL Not Available [facility] [address] [facility] 121, [place], [address], 08/14/2017 07:20:01 08/14/19 18 08/13/2017 lipid panel [...] 500 mg/dL Not Available [facility] [address] [facility] [address], [place], [address], 08/14/2017 07:20:01 08/14/19 18 08/13/2017 lipid panel [...] 50 mg/dL Not Available [facility] [address] [facility] [address], [place], [address], 08/14/2017 07:20:01 08/14/19 18 08/13/2017 lipid panel [...] 190 mg/dL Not Available [facility] [address] [address], [place], [address], 08/14/2017 07:20:01 08/14/19 18 08/13/2017 lipid panel , serum ldlhdl 4.08 ratio Not Available [facility] [address] [address], [place], [address], 08/14/2017 07:20:01 08/14/19 18 08/13/2017 lipid panel , serum LDL/HDL risk See Note (Note ) Male Femal e Below [place] ge Risk 0.00- 2.28 0.00- 2.34 [place] ge Risk 2.29- 4.90 2.35- 4.12 Moder ate Risk 4.91- 7.12 4.13- 5.56 High Risk 7.13- 20.00 5.57- 20.00 Not Available [facility] [address] [address], [place], [address], 08/14/2017 07:20:01 08/14/19 18 08/13/2017 lipid panel , serum total chol/HDL ratio (calculat 5.5 ratio 0.0-5. 0 high [facility] med fusio n [address] [facility] [address] [facility] [address] [phone] Ronald ramires MD Not Available [facility] [address] [address], [place], [address], 08/14/2017 07:20:01 08/14/19 18 08/13/2017 uric acid, serum or plasm a uric acid 5.7 mg/dL 3.7-9. 2 MDF med fusio n [address] [facility] [address] [facility] [place] [address] [phone] Ronald ramires MD Not Available [facility] [address], [address], 08/14/2017 07:20:04 08/14/19 18 08/13/2017 HbA1c (hemo [...] cells . MDF med fusio n [address] [facility] [address] [facility] [address] [phone] Ronald ramires MD Not Available [facility] [address] [facility] 121, [place], [address], 08/14/2017 07:54:47 08/14/19 18 08/13/2017 PT/PT T, plasm a prothrombin time 11.7 sec 9.0-12 .0 Not Available [facility] [address] [facility] 121, [place], [address], 08/14/2017 09:49:51 08/14/19 18 08/13/2017 PT/PT T, plasm a INR 1.1 (Note ) Couma rin Antic oagul ant Thera peuti c Range s (INR) : 2.0-3 .0 Proph ylaxi s and Treat ment of Venou s Throm boemb olism 2.5-3 .5 Preve ntion of Recur rent Throm boemb olism or treat ment for Prost hetic Heart Valve s Not Available [facility] [address] [place] [address], [place], [address], 08/14/2017 09:49:51 08/14/19 18 08/13/2017 PT/PT T, plasm a APTT 25.2 sec 22-32 MDF med slim n [address] [facility] [address] [facility] [place] [address] [phone] Ronald ramires MD Not Available [facility] [address] [place] [address], [place], [address], 08/14/2017 09:49:51 12/21/19 18 12/20/2017 urina lysis compl ete, refle x cultu re urine color Yellow yellow Not Available Med Shadi Vare[address] [place] [address], [address], 12/21/2017 07:09:55 12/21/19 18 12/20/2017 urina lysis compl ete, refle x cultu re urine clarity Clear clear Not Available Med Shadi [address] [place] [address], [place], [address], 12/21/2017 07:09:55 12/21/19 18 12/20/2017 urina lysis compl ete, refle x cultu re urine specific gravity 1.014 1.005- 1.030 Not Available [facility] [address] [place] [address], [place], [address], 12/21/2017 07:09:55 12/21/19 18 12/20/2017 urina lysis compl ete, refle x cultu re urine pH 6.0 5.0-8. 5 Not Available [facility] [address] [place] [address], [place], [address], 12/21/2017 07:09:55 12/21/19 18 12/20/2017 urina lysis compl ete, refle x cultu re urine glucose Negati ve mg/dL negati ve Not Available [facility] [address] [place] [address] 121, [place], [address], 12/21/2017 07:09:55 12/21/19 18 12/20/2017 urina lysis compl ete, refle x cultu re urine ketones Negati ve mg/dL negati ve Not Available Med [address] [address], [place], [address], 12/21/2017 07:09:55 12/21/19 18 12/20/2017 urina lysis compl ete, refle x cultu re urobilinogen 0.2 eu/dL 0.2-1. 0 Not Available [address] [address], [place], [address], 12/21/2017 07:09:55 12/21/19 18 12/20/2017 urina lysis compl ete, refle x cultu re urine bilirubin Negati ve negati ve Not Available [address] [address], [place], [address], 12/21/2017 07:09:55 12/21/19 18 12/20/2017 urina lysis compl ete, refle x cultu re urine blood Negati ve negati ve Not Available [address] [address], [place], [address], 12/21/2017 07:09:55 12/21/19 18 12/20/2017 urina lysis compl ete, refle x cultu re urine protein Negati ve negati ve Not Available [facility] [address] [address], [place], [place], [address], 12/21/2017 07:09:55 12/21/19 18 12/20/2017 urina lysis compl ete, refle x cultu re leukocyte esterase Negati ve negati ve Not Available Med [address] [address], [place], [address], 12/21/2017 07:09:55 12/21/19 18 12/20/2017 urina lysis compl ete, refle x cultu re urine nitrates Negati ve negati ve Not Available [facility] [address] [address], [place], [address], 12/21/2017 07:09:55 12/21/19 18 12/20/2017 urina lysis compl ete, refle x cultu re white cells <1 /hpf 0-4 Not Available Med [facility] [place] [address] [place] [address], [place], [address], 12/21/2017 07:09:55 12/21/19 18 12/20/2017 urina lysis compl ete, refle x cultu re red cells 1 /hpf 0-5 Not Available Med [facility] [address] [place] [address], [place], [address], 12/21/2017 07:09:55 12/21/19 18 12/20/2017 urina lysis compl ete, refle x cultu re squamous epithelial cells <1 /hpf 0-2 Not Available Med [facility] [place] [address] [place] [address], [place], [address], 12/21/2017 07:09:55 12/21/19 18 12/20/2017 urina lysis compl ete, refle x cultu re urine bacteria Negati ve negati ve Not Available [facility] [address] [place] [address], [place], [address], 12/21/2017 07:09:55 12/21/19 18 12/20/2017 urina lysis compl ete, refle x cultu re cast <1 /lpf Not Available [facility] [address] [place] [address], [address], 12/21/2017 07:09:55 12/21/19 18 12/20/2017 urina lysis compl ete, refle x cultu re reflex to culture Result s Below CULTU RE NOT INDIC ATED MDF med fusio n [address] [place] [address] [address] [facility] [place] [address] [phone] Ronald ramires MD Not Available [facility] [address] [facility] 121, [place], [address], 12/21/2017 07:09:55 12/21/19 18 12/20/2017 CMP, serum or plasm a glucose, fasting 117 mg/dL 70-99 high Not Available [facility] Shadi nance [address] [facility] 121, [place], [address], 12/21/2017 08:19:58 12/21/19 18 12/20/2017 CMP, serum or plasm a BUN 10 mg/dL 9-23 Not Available [facility] [address] [facility] 121, [place], [address], 12/21/2017 08:19:58 12/21/19 18 12/20/2017 CMP, serum or plasm a creatinine 0.81 mg/dL 0.60-1 .30 Not Available [facility] Olu [address] [place] [address], [place], [address], 12/21/2017 08:19:58 12/21/1912/20/2017 CMP, serum or plasm a sodium 139 mEq/L 132-14 6 Not Available [address] [address] [address], [place], [address], 12/21/2017 08:19:58 12/21/1912/20/2017 CMP, serum or plasm a potassium 4.3 mEq/L 3.5-5. 5 Not Available [facility] [address] [address], [place], [address], 12/21/2017 08:19:58 12/21/19 18 12/20/2017 CMP, serum or plasm a chloride 104 mEq/L 99-109 Not Available Med Slim [address] [address], [place], [address], 12/21/2017 08:19:58 12/21/19 18 12/20/2017 CMP, serum or plasm a CO2 25 mEq/L 22-33 Not Available [facility] Fusion [address] [place] [address], [place], [address], 12/21/2017 08:19:58 12/21/19 18 12/20/2017 CMP, serum or plasm a anion gap 14.3 mEq/L 10-20 Not Available Med [facility] [address] [facility] 121, [place], [address], 12/21/2017 08:19:58 12/21/19 18 12/20/2017 CMP, serum or plasm a calcium 9.3 mg/dL 8.7-10 .4 Not Available [facility] [address] [facility] 121, [place], [address], 12/21/2017 08:19:58 12/21/19 18 12/20/2017 CMP, serum or plasm a albumin 4.4 g/dL 3.2-4. 8 Not Available [facility] [address] [facility] 121, [place], [address], 12/21/2017 08:19:58 12/21/19 18 12/20/2017 CMP, serum or plasm a protein, total 6.9 g/dL 5.7-8. 2 Not Available [facility] [address] [facility] 121, [place], [address], 12/21/2017 08:19:58 12/21/19 18 12/20/2017 CMP, serum or plasm a bilirubin, total 0.8 mg/dL 0.3-1. 2 Not Available [facility] [address] [facility] 121, [place], [address], 12/21/2017 08:19:58 12/21/1912/20/2017 CMP, serum or plasm a ALT (SGPT) 29 U/L 10-49 Not Available Med [facility] [address] [facility] 121, [place], [address], 12/21/2017 08:19:58 12/21/19 18 12/20/2017 CMP, serum or plasm a AST (SGOT) 24 U/L 0-33 Not Available Med [facility] [address] [facility] 121, [place], [address], 12/21/2017 08:19:58 12/21/19 18 12/20/2017 CMP, serum or plasm a alk phosphatase 51 U/L 45-129 Not Available [facility] Olu Matthews [address] [facility] 121, [place], [address], 12/21/2017 08:19:58 12/21/19 18 12/20/2017 CMP, serum or plasm a BUN/creatini ne ratio 12.3 ratio 10-26 Not Available [facility] Shadi Varela [address] [facility] 121, [place], [address], 12/21/2017 08:19:58 12/21/19 18 12/20/2017 CMP, serum or plasm a globulin calculated 2.5 g/dL 2.0-3. 8 Not Available [facility] Olu Matthews [address] [facility] 121, [place], [address], 12/21/2017 08:19:58 12/21/19 18 12/20/2017 CMP, serum or plasm a A/G ratio 1.8 ratio 0.9-2. 5 Not Available [facility] Olu Varela [address] [facility] 121, [place], [address], 12/21/2017 08:19:58 12/21/19 18 12/20/2017 CMP, serum or plasm a eGFR aa >90 mL/mi n/1.7 3m2 >60 Not Available [facility] Olu Varela [address] [facility] 121, [place], [address], 12/21/2017 08:19:58 12/21/19 18 12/20/2017 CMP, serum [...] Ameri cans. MDF med fusio n [address] [facility] [address] [facility] [address] [phone] Ronald ramires MD Not Available [facility] [address] [facility] [address], [place], [address], 12/21/2017 08:19:58 12/21/19 18 12/20/2017 lipid panel [...] 240 mg/dL Not Available [facility] [address] [facility] [address], [place], [address], 12/21/2017 08:20:01 12/21/19 18 12/20/2017 lipid panel [...] 500 mg/dL Not Available [facility] [address] [facility] [address], [place], [address], 12/21/2017 08:20:01 12/21/19 18 12/20/2017 lipid panel [...] 50 mg/dL Not Available [facility] [address] [facility] [address], [place], [address], 12/21/2017 08:20:01 12/21/19 18 12/20/2017 lipid panel , serum LDL calculated 135 mg/dL <100 high The Natio nal Lipid Assoc iatio n and the Natio nal Maria G stero l Educa tion Progr am (NCEP ) have set the [facility] lipid panel guide lines for adult s ages 20 and up: Khanh able: < 100 mg/dL Above Khanh able: 100 - 129 mg/dL Borde rline high: 130 - 159 mg/dL High: 160 - 189 mg/dL Very High: > or = 190 mg/dL Not Available [facility] [address] [place] [address] 121, [place], [address], 12/21/2017 08:20:01 12/21/19 18 12/20/2017 lipid panel , serum ldlhdl 2.60 ratio Not Available [facility] [address] [place] [address] 121, [place], [address], 12/21/2017 08:20:01 12/21/19 18 12/20/2017 lipid panel , serum LDL/HDL risk See Note (Note ) Male Femal e Below [place] ge Risk 0.00- 2.28 0.00- 2.34 [place] Risk 2.29- 4.90 2.35- 4.12 Moder ate Risk 4.91- 7.12 4.13- 5.56 High Risk 7.13- 20.00 5.57- 20.00 Not Available [facility] [address] [place] [address] 121, [place], [address], 12/21/2017 08:20:01 12/21/19 18 12/20/2017 lipid panel , serum total chol/HDL ratio (calculat 3.9 ratio 0.0-5. 0 MDF med fusio n 2501 [facility] [address] [facility] [address] [phone] Ronald ramires MD Not Available [facility] [address] [facility] [address], [place], [address], 12/21/2017 08:20:01 12/21/19 18 12/20/2017 uric acid, serum or plasm a uric acid 6.3 mg/dL 3.7-9. 2 MD med fusio n [address] [facility] 121,[address] [facility] [place] [address] [phone] Ronald ramires MD Not Available [facility] [address] [place] [address] 121, [place], [address], 12/21/2017 08:20:03 12/21/19 18 12/20/2017 HbA1c (hemo [...] blood cells . med fusio n [address] [facility] 121,[address] [facility] [place] [address] [phone] Ronald ramires MD Not Available [facility] [address] [facility] [address], [place], [address], 12/21/2017 09:44:46 12/21/19 18 12/20/2017 micro album in, urine creatinine, urine 91.2 mg/dL (Note ) Range not estab lishe d for urine Not Available [facility] [address] [facility] [address], [place], [address], 12/21/2017 17:09:50 12/21/19 18 12/20/2017 micro album in, urine microalbumin , urine <6 mg/L <30 Not Available Med Shadi nance [address] [facility] [address], [place], [address], 12/21/2017 17:09:50 12/21/19 18 12/20/2017 micro album in, urine microalbumin /creat ratio <7 mg/g_ cret 0-30 MDF med vijayflorina n 25[address] [facility] ay [address] [facility] [place] [address] [phone] Ronald ramires MD Not Available [facility] Olu [address] [place] [address] 121, [place], [address], 12/21/2017 17:09:50 12/21/19 18 12/20/2017 hepat itis C RNA, quant , PCR, serum specimen source Serum Not Available [facility] Shadi nance [address] [place] [address], [place], [address], 12/22/2017 16:24:46 12/21/19 18 12/20/2017 hepat itis C RNA, quant , PCR, serum result UnDete ct undete ct HCV RNA is Not-D etect ed Not Available [facility] Olu [address] [place] [address] 121, [place], [address], 12/22/2017 16:24:46 12/21/19 18 12/20/2017 hepat itis C RNA, quant , PCR, serum linearity range Result s Below 15 to 100,0 00,00 0 IU/mL (1.18 to 8.00 log IU/mL ) Not Available [facility] Olu [address] [place] [address] 121, [place], [address], 12/22/2017 16:24:46 12/21/19 18 12/20/2017 hepat itis [...] produ cts. MDF med fusio n [address] [facility] [address] [facility] [place] [address] [phone] Ronald ramires MD Not Available [facility] [address] [facility] [address], [place], [address], 12/22/2017 16:24:46 08/17/19 19 08/16/2018 CBC w/ auto diff WBC 5.9 K/uL 3.8-10 .6 Not Available [facility] [address] [facility] [address], [place], [address], 08/17/2018 06:00:34 08/17/1908/16/2018 CBC w/ auto diff RBC 4.55 M/uL 4.40-5 .90 Not Available [facility] [address] [place] [address], [place], [address], 08/17/2018 06:00:34 08/17/19 19 08/16/2018 CBC w/ auto diff hemoglobin 14.6 g/dL 14.0-1 8.0 Not Available [facility] [address] [place] [address], [place], [address], 08/17/2018 06:00:34 08/17/1908/16/2018 CBC w/ auto diff hematocrit 43.4 % 40.0-5 2.0 Not Available [facility] [address] [place] [address], [place], [address], 08/17/2018 06:00:34 08/17/1908/16/2018 CBC w/ auto diff MCV 95 fL 80-100 Not Available [facility] [address] [place] [address], [place], [address], 08/17/2018 06:00:34 08/17/1908/16/2018 CBC w/ auto diff MCH 32.1 pg 26.0-3 4.0 Not Available [facility] [address] [place] [address], [place], [address], 08/17/2018 06:00:34 08/17/19 19 08/16/2018 CBC w/ auto diff MCHC 33.6 g/dL 31.0-3 7.0 Not Available [address], [address], 08/17/2018 06:00:34 08/17/19 19 08/16/2018 CBC w/ auto diff RDW 12.0 % 12.0-1 5.0 Not Available [address] [address], [place], [address], 08/17/2018 06:00:34 08/17/19 19 08/16/2018 CBC w/ auto diff MPV 10.7 fL 8.8-12 .8 Not Available [address], [address], 08/17/2018 06:00:34 08/17/1908/16/2018 CBC w/ auto diff platelet count 257 K/uL 130-40 0 Not Available [address], [address], 08/17/2018 06:00:34 08/17/1908/16/2018 CBC w/ auto diff diff type Automa benny diff Not Available [address], [address], 08/17/2018 06:00:34 08/17/19 19 08/16/2018 CBC w/ auto diff abs neutrophils 3.0 K/uL 1.8-7. 7 Not Available [address], [address], 08/17/2018 06:00:34 08/17/19 19 08/16/2018 CBC w/ auto diff abs lymphocytes 1.9 K/uL 1.0-4. 8 Not Available [address], [address], 08/17/2018 06:00:34 08/17/19 19 08/16/2018 CBC w/ auto diff abs monocytes 0.8 K/uL 0.1-1. 0 Not Available [facility] [address] [address], [place], [address], 08/17/2018 06:00:34 08/17/19 19 08/16/2018 CBC w/ auto diff abs eosinophils 0.2 K/uL 0.0-0. 6 Not Available [facility] [address] [address], [place], [address], 08/17/2018 06:00:34 08/17/19 19 08/16/2018 CBC w/ auto diff abs basophils 0.0 K/uL 0.0-0. 3 Not Available [facility] [address] [place] [address], [address], 08/17/2018 06:00:34 08/17/19 19 08/16/2018 CBC w/ auto diff neutrophil 50 % 45-73 Not Available Med [facility] [address], [address], 08/17/2018 06:00:34 08/17/19 19 08/16/2018 CBC w/ auto diff lymphocyte 32 % 18-44 Not Available [facility] [address] [address], [place], [address], 08/17/2018 06:00:34 08/17/19 19 08/16/2018 CBC w/ auto diff monocyte 13 % 4-10 high Not Available [facility] n [address] [address], [place], [address], 08/17/2018 06:00:34 08/17/19 19 08/16/2018 CBC w/ auto diff eosinophil 4 % 0-4 Not Available Med [facility] [address], [address], 08/17/2018 06:00:34 08/17/19 19 08/16/2018 CBC w/ auto diff basophil 1 % 0-1 MDF med fusio n 2501 [facility] [address] [facility] [address] [phone] Ronald ramires MD Not Available [address] [address], [place], [address], 08/17/2018 06:00:34 08/17/1908/16/2018 urina lysis compl ete, refle x cultu re urine color Yellow yellow Not Available [address] [address], [place], [address], 08/17/2018 06:19:45 08/17/1908/16/2018 urina lysis compl ete, refle x cultu re urine clarity Clear clear Not Available [address] [address], [place], [address], 08/17/2018 06:19:45 08/17/1908/16/2018 urina lysis compl ete, refle x cultu re urine specific gravity 1.021 1.005- 1.030 Not Available [address] [address], [place], [address], 08/17/2018 06:19:45 08/17/1908/16/2018 urina lysis compl ete, refle x cultu re urine pH 6.0 5.0-8. 5 Not Available [address] [address], [place], [address], 08/17/2018 06:19:45 08/17/1908/16/2018 urina lysis compl ete, refle x cultu re urine glucose Negati ve mg/dL negati ve Not Available [address] [address], [place], [address], 08/17/2018 06:19:45 08/17/1908/16/2018 urina lysis compl ete, refle x cultu re urine ketones Negati ve mg/dL negati ve Not Available [address] [address], [place], [address], 08/17/2018 06:19:45 08/17/1908/1608/16/2018 urina lysis compl ete, refle x cultu re urobilinogen 0.2 eu/dL 0.2-1. 0 Not Available [facility] [address] [facility] 121, [place], [address], 08/17/2018 06:19:45 08/17/1908/16/2018 urina lysis compl ete, refle x cultu re urine bilirubin Negati ve negati ve Not Available [facility] S [facility] 121, [place], [address], 08/17/2018 06:19:45 08/17/1908/16/2018 urina lysis compl ete, refle x cultu re urine blood Negati ve negati ve Not Available [facility] [address] [facility] 121, [place], [address], 08/17/2018 06:19:45 08/17/1908/16/2018 urina lysis compl ete, refle x cultu re urine protein Negati ve negati ve Not Available Med [facility] [address] [facility] 121, [place], [address], 08/17/2018 06:19:45 08/17/1908/16/2018 urina lysis compl ete, refle x cultu re leukocyte esterase Negati ve negati ve Not Available [facility] [address] [facility] 121, [place], [address], 08/17/2018 06:19:45 08/17/1908/16/2018 urina lysis compl ete, refle x cultu re urine nitrates Negati ve negati ve Not Available [facility] [address] [facility] 121, [place], [address], 08/17/2018 06:19:45 08/17/1908/16/2018 urina lysis compl ete, refle x cultu re white cells <1 /hpf 0-4 Not Available Med Fu lee ann [address] [facility] 121, [place], [address], 08/17/2018 06:19:45 08/17/19 19 08/16/2018 urina lysis compl ete, refle x cultu re red cells 1 /hpf 0-5 Not Available Med [facility] on [address] [facility] 121, [place], [address], 08/17/2018 06:19:45 08/17/1908/16/2018 urina lysis compl ete, refle x cultu re squamous epithelial cells <1 /hpf 0-2 Not Available Med Fu lee ann [address] [facility] [address], [place], [address], 08/17/2018 06:19:45 08/17/1908/16/2018 urina lysis compl ete, refle x cultu re urine bacteria Negati ve negati ve Not Available [facility] [address] [place] [address], [place], [address], 08/17/2018 06:19:45 08/17/1908/16/2018 urina lysis compl ete, refle x cultu re cast,hyaline <1 /lpf Not Available Med F usion [address] [address], [place], [address], 08/17/2018 06:19:45 08/17/1908/16/2018 urina lysis compl ete, refle x cultu re reflex to culture Result s Below CULTU RE NOT INDIC ATED MDF med fusio n [address]01 [facility] [address] [facility] [place] [address] [phone] Ronald ramires MD Not Available [facility] [address] [place] [address] 121, [place], [address], 08/17/2018 06:19:45 08/17/1908/16/2018 CMP, serum or plasm a glucose, fasting 106 mg/dL 70-99 high Not Available Med Fu lee ann [address] [place] [address] 121, [place], [address], 08/17/2018 08:10:04 08/17/19 19 08/16/2018 CMP, serum or plasm a BUN 11 mg/dL 9-23 Not Available [facility] [address] [address], [place], [address], 08/17/2018 08:10:04 08/17/19 19 08/16/2018 CMP, serum or plasm a creatinine 0.92 mg/dL 0.60-1 .30 Not Available [facility] [address] [place] [address], [place], [address], 08/17/2018 08:10:04 08/17/19 19 08/16/2018 CMP, serum or plasm a sodium 140 mEq/L 132-14 6 Not Available [facility] [address] [place] [address], [place], [address], 08/17/2018 08:10:04 08/17/19 19 08/16/2018 CMP, serum or plasm a potassium 4.6 mEq/L 3.5-5. 5 Not Available [facility] [address] [place] [address], [place], [address], 08/17/2018 08:10:04 08/17/19 19 08/16/2018 CMP, serum or plasm a chloride 105 mEq/L 99-109 Not Available Med Fus[facility] n [address] [place] [address], [place], [address], 08/17/2018 08:10:04 08/17/1908/16/2018 CMP, serum or plasm a CO2 28 mEq/L 22-33 Not Available [facility] [address] [place] [address], [place], [address], 08/17/2018 08:10:04 08/17/19 19 08/16/2018 CMP, serum or plasm a anion gap 11.6 mEq/L 10-20 Not Available Med F[facility] on [address] [place] [address], [place], [address], 08/17/2018 08:10:04 08/17/19 19 08/16/2018 CMP, serum or plasm a calcium 9.4 mg/dL 8.7-10 .4 Not Available [facility] [address], [place], [address], 08/17/2018 08:10:04 08/17/1908/16/2018 CMP, serum or plasm a albumin 4.5 g/dL 3.2-4. 8 Not Available [facility] [address] [facility] 121, [place], [address], 08/17/2018 08:10:04 08/17/1908/16/2018 CMP, serum or plasm a protein, total 6.3 g/dL 5.7-8. 2 Not Available [facility] [address], [place], [address], 08/17/2018 08:10:04 08/17/1908/16/2018 CMP, serum or plasm a bilirubin, total 0.9 mg/dL 0.3-1. 2 Not Available [facility] [address] [facility] 121, [place], [address], 08/17/2018 08:10:04 08/17/1908/16/2018 CMP, serum or plasm a ALT (SGPT) 19 U/L 10-49 Not Available Med Fus ion [address] [facility] 121, [place], [address], 08/17/2018 08:10:04 08/17/1908/16/2018 CMP, serum or plasm a AST (SGOT) 24 U/L 15-40 Not Available Med [facility] [address] [facility] 121, [place], [address], 08/17/2018 08:10:04 08/17/1908/16/2018 CMP, serum or plasm a alk phosphatase 46 U/L 45-129 Not Available [facility] [address], [place], [address], 08/17/2018 08:10:04 08/17/1908/16/2018 CMP, serum or plasm a BUN/creatini ne ratio 12.0 ratio 10-26 Not Available Med Fu lee ann [address] [facility] 121, [place], [address], 08/17/2018 08:10:04 08/17/19 19 08/16/2018 CMP, serum or plasm a globulin calculated 1.8 g/dL 2.0-3. 8 low Not Available [facility] [address] [facility] 121, [place], [address], 08/17/2018 08:10:04 08/17/19 19 08/16/2018 CMP, serum or plasm a A/G ratio 2.5 ratio 0.9-2. 5 Not Available [facility] [address] [place] [address] 121, [place], [address], 08/17/2018 08:10:04 08/17/19 19 08/16/2018 CMP, serum or plasm a eGFR aa >90 mL/mi n/1.7 3m2 >60 Not Available [facility] [address] [facility] [address], [place], [address], 08/17/2018 08:10:04 08/17/19 19 08/16/2018 CMP, serum [...] Ameri cans. ALEXI med fusio n 2501 [facility] [address] [facility] [address] [phone] Ronald ramires MD Not Available [facility] [address] [facility] [address], [place], [address], 08/17/2018 08:10:04 08/17/19 19 08/16/2018 lipid panel [...] [facility] 121, [place], [address], 08/17/2018 08:10:07 08/17/1908/16/2018 lipid panel , serum [...] mg/dL Not Available [facility] [address] [facility] 121, [place], [address], 08/17/2018 08:10:07 08/17/1908/16/2018 lipid panel , serum [...] 50 mg/dL Not Available [facility] [address] [facility] 121, [place], [address], 08/17/2018 08:10:07 08/17/1908/16/2018 lipid panel , serum LDL calculated 115 mg/dL <100 high The Natio nal Lipid Assoc iatio n and the Natio nal Maira G stero l Educa tion Progr am (NCEP ) have set the follo wing lipid panel guide lines for adult s ages 20 and up: Khanh able: < 100 mg/dL Above Khanh able: 100 - 129 mg/dL Borde rline high: 130 - 159 mg/dL High: 160 - 189 mg/dL Very High: > or = 190 mg/dL Not Available [facility] [address] [address], [place], [address], 08/17/2018 08:10:07 08/17/19 19 08/16/2018 lipid panel , serum ldlhdl 2.17 ratio Not Available [facility] [address] [address], [place], [address], 08/17/2018 08:10:07 08/17/1908/16/2018 lipid panel , serum LDL/HDL risk See Note (Note ) Male Femal e Below [place] ge Risk 0.00- 2.28 0.00- 2.34 [place] Risk 2.29- 4.90 2.35- 4.12 Moder ate Risk 4.91- 7.12 4.13- 5.56 High Risk 7.13- 20.00 5.57- 20.00 Not Available [facility] [address] [address], [place], [address], 08/17/2018 08:10:07 08/17/19 19 08/16/2018 lipid panel , serum total chol/HDL ratio (calculat 3.5 ratio 0.0-5. 0 MDF med fusio n 2501 [facility] [address] [facility] [address] [phone] Ronald ramires MD Not Available [facility] [address] [address], [place], [address], 08/17/2018 08:10:07 08/17/1908/16/2018 uric acid, serum or plasm a uric acid 5.4 mg/dL 3.7-9. 2 MDF med fusio n 2501 [facility] [address] [facility] [address] [phone] Ronald ramires MD Not Available [facility] [address] [address], [place], [address], 08/17/2018 08:10:09 08/17/19 19 08/16/2018 HbA1c (hemo [...] cells . MDF med fusio n [facility] [facility] [address] [facility] [address] [phone] Ronald ramires MD Not Available [facility] [address] [facility] [address], [place], [address], 08/17/2018 08:30:01 08/17/19 19 08/16/2018 micro album in, urine creatinine, urine 158.1 mg/dL (Note ) Range not estab lishe d for urine Not Available [facility] [address] [facility] [address], [place], [address], 08/17/2018 11:29:55 08/17/1908/16/2018 micro album in, urine microalbumin , urine <6 mg/L <30 Not Available [facility] ann [address] [facility] [address], [place], [address], 08/17/2018 11:29:55 08/17/1908/16/2018 micro album in, urine microalbumin /creat ratio <4 mg/g_ cret 0-30 MD[facility] med [facility]io n [address] [facility] [address] [facility] [address] [phone] Ronald ramires MD Not Available [facility] [address] [place] [address], [place], [address], 08/17/2018 11:29:55 02/08/2002/07/2019 CBC w/ auto diff WBC 5.4 K/uL 3.8-10 .6 Not Available [facility] [address] [place] [address], [place], [address], 02/08/2019 07:38:57 02/08/2002/07/2019 CBC w/ auto diff RBC 4.44 M/uL 4.40-5 .90 Not Available [facility] [address] [place] [address], [place], [address], 02/08/2019 07:38:57 02/08/2002/07/2019 CBC w/ auto diff hemoglobin 14.3 g/dL 14.0-1 8.0 Not Available [facility] [address] [place] [address], [place], [address], 02/08/2019 07:38:57 02/08/2002/07/2019 CBC w/ auto diff hematocrit 43.9 % 40.0-5 2.0 Not Available [facility] [address] [place] [address], [place], [address], 02/08/2019 07:38:57 02/08/2002/07/2019 CBC w/ auto diff MCV 99 fL 80-100 Not Available [facility] [address] [place] [address], [address], 02/08/2019 07:38:57 02/08/2002/07/2019 CBC w/ auto diff MCH 32.2 pg 26.0-3 4.0 Not Available [facility] [address] [place] [address], [place], [address], 02/08/2019 07:38:57 02/08/20 19 02/07/2019 CBC w/ auto diff MCHC 32.6 g/dL 31.0-3 7.0 Not Available [facility] [address] [address], [place], [address], 02/08/2019 07:38:57 02/08/2002/07/2019 CBC w/ auto diff RDW 11.9 % 12.0-1 5.0 low Not Available [facility] [address] [place] [address], [place], [address], 02/08/2019 07:38:57 02/08/2002/07/2019 CBC w/ auto diff MPV 10.9 fL 8.8-12 .8 Not Available [facility] [address] [place] [address], [place], [address], 02/08/2019 07:38:57 02/08/2002/07/2019 CBC w/ auto diff platelet count 271 K/uL 130-40 0 Not Available [facility] [address] [place] [address], [place], [address], 02/08/2019 07:38:57 02/08/2002/07/2019 CBC w/ auto diff diff type Automa benny diff Not Available [facility] [address] [place] [address], [place], [address], 02/08/2019 07:38:57 02/08/2002/07/2019 CBC w/ auto diff abs neutrophils 2.8 K/uL 1.8-7. 7 Not Available [facility] [address] [place] [address], [place], [address], 02/08/2019 07:38:57 02/08/2002/07/2019 CBC w/ auto diff abs lymphocytes 1.8 K/uL 1.0-4. 8 Not Available [facility] [address] [place] [address], [place], [address], 02/08/2019 07:38:57 02/08/20 02/07/2019 CBC w/ auto diff abs monocytes 0.7 K/uL 0.1-1. 0 Not Available [facility] [address], [address], 02/08/2019 07:38:57 02/08/20 19 02/07/2019 CBC w/ auto diff abs eosinophils 0.1 K/uL 0.0-0. 6 Not Available [facility] [address] [place] [address], [address], 02/08/2019 07:38:57 02/08/20 19 02/07/2019 CBC w/ auto diff abs basophils 0.0 K/uL 0.0-0. 3 Not Available [facility] [address] [place] [address], [address], 02/08/2019 07:38:57 02/08/2002/07/2019 CBC w/ auto diff neutrophil 51 % 45-73 Not Available [facility] [address] [place] [address], [address], 02/08/2019 07:38:57 02/08/2002/07/2019 CBC w/ auto diff lymphocyte 33 % 18-44 Not Available [facility] [address] [place] [address], [address], 02/08/2019 07:38:57 02/08/2002/07/2019 CBC w/ auto diff monocyte 13 % 4-10 high Not Available [facility] [address] [address], [place], [address], 02/08/2019 07:38:57 02/08/2002/07/2019 CBC w/ auto diff eosinophil 2 % 0-4 Not Available [facility] [address], [address], 02/08/2019 07:38:57 02/08/2002/07/2019 CBC w/ auto diff basophil 1 % 0-1 MDF med [facility]io n 2501 [facility] [address] [facility] [address] [phone] Ronald ramires MD Not Available [facility] [address] [place] [address], [place], [address], 02/08/2019 07:38:57 02/08/20 19 02/07/2019 urina lysis compl ete, refle x cultu re urine color Yellow yellow Not Available [facility] [address] [address], [place], [address], 02/08/2019 07:59:13 02/08/20 19 02/07/2019 urina lysis compl ete, refle x cultu re urine clarity Turbid clear abnormal Not Available [facility] [address] [address], [place], [address], 02/08/2019 07:59:13 02/08/2002/07/2019 urina lysis compl ete, refle x cultu re urine specific gravity 1.016 1.005- 1.030 Not Available [facility] [address] [place] [address], [place], [address], 02/08/2019 07:59:13 02/08/20 19 02/07/2019 urina lysis compl ete, refle x cultu re urine pH 6.5 5.0-8. 5 Not Available Med [address] [address], [place], [address], 02/08/2019 07:59:13 02/08/2002/07/2019 urina lysis compl ete, refle x cultu re urine glucose Negati ve mg/dL negati ve Not Available Med [address] [address], [place], [address], 02/08/2019 07:59:13 02/08/2002/07/2019 urina lysis compl ete, refle x cultu re urine ketones Negati ve mg/dL negati ve Not Available Med [address] [address], [place], [address], 02/08/2019 07:59:13 02/08/20 19 02/07/2019 urina lysis compl ete, refle x cultu re urobilinogen 0.2 eu/dL 0.2-1. 0 Not Available [facility] [address] [address], [place], [address], 02/08/2019 07:59:13 02/08/20 19 02/07/2019 urina lysis compl ete, refle x cultu re urine bilirubin Negati ve negati ve Not Available Med [address] [address] [address], [place], [address], 02/08/2019 07:59:13 02/08/20 19 02/07/2019 urina lysis compl ete, refle x cultu re urine blood Negati ve negati ve Not Available [address] [address], [place], [address], 02/08/2019 07:59:13 02/08/20 19 02/07/2019 urina lysis compl ete, refle x cultu re urine protein Negati ve negati ve Not Available [facility] [address] [address], [place], [address], 02/08/2019 07:59:13 02/08/20 19 02/07/2019 urina lysis compl ete, refle x cultu re leukocyte esterase Negati ve negati ve Not Available Med [address] [address] [address] [address], [place], [address], 02/08/2019 07:59:13 02/08/2002/07/2019 urina lysis compl ete, refle x cultu re urine nitrites Negati ve negati ve Not Available [facility] [address] [address], [place], [address], 02/08/2019 07:59:13 02/08/2002/07/2019 urina lysis compl ete, refle x cultu re white blood cells <1 /hpf 0-4 Not Available [facility] [address] [address], [place], [address], 02/08/2019 07:59:13 02/08/20 19 02/07/2019 urina lysis compl ete, refle x cultu re red blood cells 2 /hpf 0-5 Not Available [facility] [address] [place] [address], [place], [address], 02/08/2019 07:59:13 02/08/20 19 02/07/2019 urina lysis compl ete, refle x cultu re squamous epithelial cells 1 /hpf 0-2 Not Available [address] [address], [place], [address], 02/08/2019 07:59:13 02/08/20 19 02/07/2019 urina lysis compl ete, refle x cultu re urine bacteria Negati ve negati ve Not Available [facility] Olu [address] [place] [address], [place], [address], 02/08/2019 07:59:13 02/08/20 19 02/07/2019 urina lysis compl ete, refle x cultu re cast, hyaline <1 /lpf 0-2 Not Available [facility] Shadi [address] [place] [address], [place], [address], 02/08/2019 07:59:13 02/08/20 19 02/07/2019 urina lysis compl ete, refle x cultu re reflex to culture Result s Below CULTU RE NOT INDIC ATED MDF med fusio n [facility] ay [address] [facility] [place] [address] [phone] Ronald ramires MD Not Available [facility] Olu [address] [place] [address], [place], [address], 02/08/2019 07:59:13 02/08/20 19 02/07/2019 CMP, serum or plasm a glucose, fasting 111 mg/dL 70-99 high Not Available [facility] Shadi lee annmadison [address] [place] [address], [place], [address], 02/08/2019 08:53:20 02/08/2002/07/2019 CMP, serum or plasm a BUN 13 mg/dL 9-23 Not Available [facility] [address] [address], [place], [address], 02/08/2019 08:53:20 02/08/2002/07/2019 CMP, serum or plasm a creatinine 0.88 mg/dL 0.60-1 .30 Not Available [facility] [address] [address], [place], [address], 02/08/2019 08:53:20 02/08/2002/07/2019 CMP, serum or plasm a sodium 140 mEq/L 132-14 6 Not Available [facility] [address] [place] [address], [place], [address], 02/08/2019 08:53:20 02/08/2002/07/2019 CMP, serum or plasm a potassium 4.9 mEq/L 3.5-5. 5 Not Available [facility] [address] [place] [address], [place], [address], 02/08/2019 08:53:20 02/08/2002/07/2019 CMP, serum or plasm a chloride 104 mEq/L 99-109 Not Available [facility] [address] [place] [address], [place], [address], 02/08/2019 08:53:20 02/08/2002/07/2019 CMP, serum or plasm a CO2 29 mEq/L 22-33 Not Available [facility] [address] [place] [address], [place], [address], 02/08/2019 08:53:20 02/08/2002/07/2019 CMP, serum or plasm a anion gap 11.9 mEq/L 10-20 Not Available [facility] on [address] [place] [address], [place], [address], 02/08/2019 08:53:20 02/08/2002/07/2019 CMP, serum or plasm a calcium 9.9 mg/dL 8.7-10 .4 Not Available [facility] [address], [place], [address], 02/08/2019 08:53:20 02/08/2002/07/2019 CMP, serum or plasm a albumin 4.6 g/dL 3.2-4. 8 Not Available [facility] [address] [facility] 121, [place], [address], 02/08/2019 08:53:20 02/08/2002/07/2019 CMP, serum or plasm a protein, total 6.6 g/dL 5.7-8. 2 Not Available [facility] [address], [place], [address], 02/08/2019 08:53:20 02/08/2002/07/2019 CMP, serum or plasm a bilirubin, total 0.7 mg/dL 0.3-1. [address] [facility], [place], [address], 02/08/2019 08:53:20 02/08/2002/07/2019 CMP, serum or plasm a ALT (SGPT) 17 U/L 10-49 Not Available [facility] [address], [place], [address], 02/08/2019 08:53:20 02/08/2002/07/2019 CMP, serum or plasm a AST (SGOT) 25 U/L 15-40 Not Available [facility] [address], [place], [address], 02/08/2019 08:53:20 02/08/2002/07/2019 CMP, serum or plasm a alk phosphatase 46 U/L 45-129 Not Available [facility] [address], [place], [address], 02/08/2019 08:53:20 02/08/2002/07/2019 CMP, serum or plasm a BUN/creatini ne ratio 14.8 ratio 10-26 Not Available [facility] ann [address]01 [facility] [address], [place], [address], 02/08/2019 08:53:20 02/08/2002/07/2019 CMP, serum or plasm a globulin calculated 2.0 g/dL 2.0-3. 8 Not Available [facility] [address] [place] [address] 121, [place], [address], 02/08/2019 08:53:20 02/08/2002/07/2019 CMP, serum or plasm a A/G ratio 2.3 ratio 0.9-2. 5 Not Available [facility] [address] [place] [address] 121, [place], [address], 02/08/2019 08:53:20 02/08/2002/07/2019 CMP, serum or plasm a eGFR aa >90 mL/mi n/1.7 3m2 >60 Not Available [facility] [address] [place] [address] 121, [place], [address], 02/08/2019 08:53:20 02/08/2002/07/2019 CMP, serum or plasm [...] Ameri [employer]. ALEXI med fusio n 2501 [facility] [address] [facility] [address] [phone] Ronald ramires MD Not Available [facility] [address] [facility] [address], [place], [address], 02/08/2019 08:53:20 02/08/2002/07/2019 lipid panel , serum [...] 240 mg/dL Not Available [facility] [address] [facility] [address], [place], [address], 02/08/2019 08:53:38 02/08/2002/07/2019 lipid panel , serum [...] = 500 mg/dL Not Available [facility] [address] [place] [address] 121, [place], [address], 02/08/2019 08:53:38 02/08/2002/07/2019 lipid panel , serum [...] 50 mg/dL Not Available [facility] [address] [facility] [address], [place], [address], 02/08/2019 08:53:38 02/08/2002/07/2019 lipid panel , serum LDL calculated 125 mg/dL <100 high The [facility] [facility] [employer] n and the [facility]io n[facility] [employer] tion [employer] am (NCEP ) have set the [facility] lipid panel guide lines for adult s ages 20 and up: Khanh able: < 100 mg/dL Above Khanh able: 100 - 129 mg/dL Borde rline high: 130 - 159 mg/dL High: 160 - 189 mg/dL Very High: > or = 190 mg/dL Not Available [facility] [address] [address], [place], [address], 02/08/2019 08:53:38 02/08/2002/07/2019 lipid panel , serum ldlhdl 2.31 ratio Not Available [facility] [address] [address], [place], [address], 02/08/2019 08:53:38 02/08/2002/07/2019 lipid panel , serum LDL/HDL risk See Note (Note ) Male Femal e Below [place] ge Risk 0.00- 2.28 0.00- 2.34 [place] ge Risk 2.29- 4.90 2.35- 4.12 Moder ate Risk 4.91- 7.12 4.13- 5.56 High Risk 7.13- 20.00 5.57- 20.00 Not Available [facility] [address] [address], [place], [address], 02/08/2019 08:53:38 02/08/2002/07/2019 lipid panel , serum total chol/HDL ratio (calculat 3.6 ratio 0.0-5. 0 MDF med fusio n 2501 [facility] [address] [facility] [address] [phone] Ronald ramires MD Not Available [facility] [address] [address], [place], [address], 02/08/2019 08:53:38 02/08/2002/07/2019 uric acid, serum or plasm a uric acid 5.1 mg/dL 3.7-9. 2 MDF med fusio n 2501 [facility] 121,[address] [facility] [address] [phone] Ronald ramires MD Not Available [facility] [facility], [place], [address], 02/08/2019 08:53:55 02/08/20 19 02/07/2019 HbA1c (hemo [...] cells . MDF med fusio n 2501 [facility] [address] [facility] [address] [phone] Ronald ramires MD Not Available [facility] [address] [facility], [place], [address], 02/08/2019 12:57:27 08/10/19 20 08/10/2019 urina lysis compl ete, refle x cultu re urine color Yellow yellow Not Available [facility] ann [address] [facility] [address], [place], [address], 08/11/2019 06:00:12 08/10/1908/10/2019 urina lysis compl ete, refle x cultu re urine clarity Clear clear Not Available Med [facility] ann 2501 [facility] [address], [place], [address], 08/11/2019 06:00:12 08/10/19 20 08/10/2019 urina lysis compl ete, refle x cultu re urine specific gravity 1.028 1.005- 1.030 Not Available [address] [address], [place], [address], 08/11/2019 06:00:12 08/10/19 20 08/10/2019 urina lysis compl ete, refle x cultu re urine pH 6.0 5.0-8. 5 Not Available [address] [address], [place], [address], 08/11/2019 06:00:12 08/10/1908/10/2019 urina lysis compl ete, refle x cultu re urine glucose Negati ve mg/dL negati ve Not Available [address] [address], [place], [address], 08/11/2019 06:00:12 08/10/19 20 08/10/2019 urina lysis compl ete, refle x cultu re urine ketones Negati ve mg/dL negati ve Not Available [address] [address], [place], [address], 08/11/2019 06:00:12 08/10/19 20 08/10/2019 urina lysis compl ete, refle x cultu re urobilinogen 1.0 eu/dL 0.2-1. 0 Not Available [address] [address], [place], [address], 08/11/2019 06:00:12 08/10/1908/10/2019 urina lysis compl ete, refle x cultu re urine bilirubin Negati ve negati ve Not Available [address] [address], [place], [address], 08/11/2019 06:00:12 08/10/19 20 08/10/2019 urina lysis compl ete, refle x cultu re urine blood Negati ve negati ve Not Available [address] [address], [place], [address], 08/11/2019 06:00:12 08/10/19 20 08/10/2019 urina lysis compl ete, refle x cultu re urine protein Negati ve negati ve Not Available [address] [address], [place], [address], 08/11/2019 06:00:12 08/10/19 20 08/10/2019 urina lysis compl ete, refle x cultu re leukocyte esterase Negati ve negati ve Not Available [address] [address], [place], [address], 08/11/2019 06:00:12 08/10/19 20 08/10/2019 urina lysis compl ete, refle x cultu re urine nitrites Negati ve negati ve Not Available [address] [address], [place], [address], 08/11/2019 06:00:12 08/10/19 20 08/10/2019 urina lysis compl ete, refle x cultu re white blood cells 1 /hpf 0-4 Not Available [address] [address], [place], [address], 08/11/2019 06:00:12 08/10/19 20 08/10/2019 urina lysis compl ete, refle x cultu re red blood cells 1 /hpf 0-5 Not Available [address] [address], [place], [address], 08/11/2019 06:00:12 08/10/19 20 08/10/2019 urina lysis compl ete, refle x cultu re squamous epithelial cells 1 /hpf 0-2 Not Available [address] [address], [place], [address], 08/11/2019 06:00:12 08/10/19 20 08/10/2019 urina lysis compl ete, refle x cultu re urine bacteria Negati ve negati ve Not Available [facility] [address] [address], [place], [address], 08/11/2019 06:00:12 08/10/19 20 08/10/2019 urina lysis compl ete, refle x cultu re cast, hyaline <1 /lpf 0-2 Not Available [facility] [address] [place] [address], [place], [address], 08/11/2019 06:00:12 08/10/19 20 08/10/2019 urina lysis compl ete, refle x cultu re reflex to culture Result s Below CULTU RE NOT INDIC ATED MDF med fusio n 2501 [facility] [address] [facility] [address] [phone] Ronald ramires MD Not Available [facility] [address] [place] [address], [place], [address], 08/11/2019 06:00:12 08/10/19 20 08/10/2019 CBC w/ auto diff WBC 5.8 K/uL 3.8-10 .6 Not Available [facility] [address] [place] [address], [place], [address], 08/11/2019 06:22:37 08/10/19 20 08/10/2019 CBC w/ auto diff RBC 4.79 M/uL 4.40-5 .90 Not Available [facility] [address] [place] [address], [place], [address], 08/11/2019 06:22:37 08/10/19 20 08/10/2019 CBC w/ auto diff hemoglobin 15.4 g/dL 14.0-1 8.0 Not Available [facility] [address] [place] [address], [address], 08/11/2019 06:22:37 08/10/19 20 08/10/2019 CBC w/ auto diff hematocrit 45.4 % 40.0-5 2.0 Not Available [facility] [address] [place] [address], [address], 08/11/2019 06:22:37 08/10/19 20 08/10/2019 CBC w/ auto diff MCV 95 fL 80-100 Not Available [facility] [address] [address], [place], [address], 08/11/2019 06:22:37 08/10/1908/10/2019 CBC w/ auto diff MCH 32.2 pg 26.0-3 4.0 Not Available [facility] [address] [address], [place], [address], 08/11/2019 06:22:37 08/10/1908/10/2019 CBC w/ auto diff MCHC 33.9 g/dL 31.0-3 7.0 Not Available [facility] [address] [address], [place], [address], 08/11/2019 06:22:37 08/10/1908/10/2019 CBC w/ auto diff RDW 11.8 % 12.0-1 5.0 low Not Available [facility] [address] [place] [address], [place], [address], 08/11/2019 06:22:37 08/10/1908/10/2019 CBC w/ auto diff MPV 11.0 fL 8.8-12 .8 Not Available [facility] [address] [place] [address], [place], [address], 08/11/2019 06:22:37 08/10/1908/10/2019 CBC w/ auto diff platelet count 283 K/uL 130-40 0 Not Available [facility] [address] [address], [place], [address], 08/11/2019 06:22:37 08/10/1908/10/2019 CBC w/ auto diff diff type Automa benny diff Not Available [facility] [address] [place] [address], [place], [address], 08/11/2019 06:22:37 08/10/1908/10/2019 CBC w/ auto diff abs neutrophils 3.1 K/uL 1.8-7. 7 Not Available [facility] [address] [address], [place], [address], 08/11/2019 06:22:37 08/10/19 20 08/10/2019 CBC w/ auto diff abs lymphocytes 1.9 K/uL 1.0-4. 8 Not Available [facility] [address] [address], [place], [address], 08/11/2019 06:22:37 08/10/19 20 08/10/2019 CBC w/ auto diff abs monocytes 0.6 K/uL 0.1-1. 0 Not Available [facility] [address] [address], [place], [address], 08/11/2019 06:22:37 08/10/19 20 08/10/2019 CBC w/ auto diff abs eosinophils 0.2 K/uL 0.0-0. 6 Not Available [facility] [address] [address], [place], [address], 08/11/2019 06:22:37 08/10/19 20 08/10/2019 CBC w/ auto diff abs basophils 0.0 K/uL 0.0-0. 3 Not Available [facility] [address] [address], [place], [address], 08/11/2019 06:22:37 08/10/19 20 08/10/2019 CBC w/ auto diff neutrophil 54 % 45-73 Not Available [facility] [address] [address], [place], [address], 08/11/2019 06:22:37 08/10/19 20 08/10/2019 CBC w/ auto diff lymphocyte 32 % 18-44 Not Available [facility] [address] [address], [place], [address], 08/11/2019 06:22:37 08/10/19 20 08/10/2019 CBC w/ auto diff monocyte 10 % 4-10 Not Available [facility] [address] [facility] 121, [place], [address], 08/11/2019 06:22:37 08/10/19 20 08/10/2019 CBC w/ auto diff eosinophil 3 % 0-4 Not Available Med [facility] 2501 [facility] [address], [place], [address], 08/11/2019 06:22:37 08/10/19 20 08/10/2019 CBC w/ auto diff basophil 1 % 0-1 MDF med fusio n 2501 [facility] [address] [place] [address] [phone] Ronald ramires MD Not Available [facility] [address] [facility] [address], [place], [address], 08/11/2019 06:22:37 08/10/19 20 08/10/2019 HbA1c (hemo [...] cells . [facility] med [facility]io n [facility] [facility] [place] [address] [phone] Ronald ramires MD Not Available [facility] [address] [facility] [address], [place], [address], 08/11/2019 07:54:29 08/10/1908/10/2019 CMP, serum or plasm a glucose, fasting 116 mg/dL 70-99 high Not Available Med Shadi nance [address] [facility] 121, [place], [address], 08/11/2019 08:15:23 08/10/19 20 08/10/2019 CMP, serum or plasm a BUN 16 mg/dL 9-23 Not Available [facility] Fusion [facility] S [facility] 121, [place], [address], 08/11/2019 08:15:23 08/10/1908/10/2019 CMP, serum or plasm a creatinine 0.92 mg/dL 0.60-1 .30 Not Available [facility] Fusion [address] [place] [address] 121, [place], [address], 08/11/2019 08:15:23 08/10/19 20 08/10/2019 CMP, serum or plasm a sodium 137 mEq/L 132-14 6 Not Available [address], [place], [address], 08/11/2019 08:15:23 08/10/19 20 08/10/2019 CMP, serum or plasm a potassium 4.6 mEq/L 3.5-5. 5 Not Available [facility] Fusion [address] [place] [address] 121, [place], [address], 08/11/2019 08:15:23 08/10/1908/10/2019 CMP, serum or plasm a chloride 101 mEq/L 99-109 Not Available Med Vijayio n [address] [facility] 121, [place], [address], 08/11/2019 08:15:23 08/10/1908/10/2019 CMP, serum or plasm a CO2 28 mEq/L 22-33 Not Available [facility] Fusion [address] [place] [address] 121, [place], [address], 08/11/2019 08:15:23 08/10/1903 0808/10/2019 CMP, serum or plasm a anion gap 12.6 mEq/L 10-20 Not Available Med Fusi on [facility] [address] [address], [place], [address], 08/11/2019 08:15:23 08/10/19 20 08/10/2019 CMP, serum or plasm a calcium 10.0 mg/dL 8.7-10 .4 Not Available [facility] [address] [address], [place], [address], 08/11/2019 08:15:23 08/10/19 20 08/10/2019 CMP, serum or plasm a albumin 4.8 g/dL 3.2-4. 8 Not Available [facility] [address] [address], [place], [address], 08/11/2019 08:15:23 08/10/19 20 08/10/2019 CMP, serum or plasm a protein, total 6.7 g/dL 5.7-8. 2 Not Available [facility] [address] [address], [place], [address], 08/11/2019 08:15:23 08/10/19 20 08/10/2019 CMP, serum or plasm a bilirubin, total 0.9 mg/dL 0.3-1. 2 Not Available [facility] [address] [address], [place], [address], 08/11/2019 08:15:23 08/10/19 20 08/10/2019 CMP, serum or plasm a ALT (SGPT) 23 U/L 10-49 Not Available [facility] [address] [address], [place], [address], 08/11/2019 08:15:23 08/10/19 20 08/10/2019 CMP, serum or plasm a AST (SGOT) 20 U/L 15-40 Not Available [facility] [address] [address], [place], [address], 08/11/2019 08:15:23 08/10/19 20 08/10/2019 CMP, serum or plasm a alk phosphatase 45 U/L 45-129 Not Available [address] [id number] [address] [address], [place], [address], 08/11/2019 08:15:23 08/10/19 20 08/10/2019 CMP, serum or plasm a BUN/creatini ne ratio 17.4 ratio 10-26 Not Available [facility] [address] [address], [place], [address], 08/11/2019 08:15:23 08/10/19 20 08/10/2019 CMP, serum or plasm a globulin calculated 1.9 g/dL 2.0-3. 8 low Not Available [address] [id number], [place], [address], 08/11/2019 08:15:23 08/10/19 20 08/10/2019 CMP, serum or plasm a A/G ratio 2.5 ratio 0.9-2. 5 Not Available [address] [address], [place], [address], 08/11/2019 08:15:23 08/10/19 20 08/10/2019 CMP, serum or plasm a eGFR aa >90 mL/mi n/1.7 3m2 >60 Not Available [address] [address], [place], [address], 08/11/2019 08:15:23 08/10/19 20 08/10/2019 CMP, serum [...] Ameri cans. MDF med fusio n [address] [facility] [address] [facility] [address] [phone] Ronald ramires MD Not Available [facility] [address] [facility] [address], [place], [address], 08/11/2019 08:15:23 08/10/19 20 08/10/2019 lipid panel [...] 240 mg/dL Not Available [facility] [address] [facility] [address], [place], [address], 08/11/2019 08:15:42 08/10/19 20 08/10/2019 lipid panel [...] 500 mg/dL Not Available [facility] [address] [facility] [address], [place], [address], 08/11/2019 08:15:42 08/10/19 20 08/10/2019 lipid panel [...] 50 mg/dL Not Available [facility] [address] [facility] [address], [place], [address], 08/11/2019 08:15:42 08/10/19 20 08/10/2019 lipid panel , serum LDL calculated 124 mg/dL <100 high The [facility] n and the Natio n[facility] Maria [employer]ca tion [employer]gr am (NCEP ) have set the [facility] lipid panel guide lines for adult s ages 20 and up: Khanh able: < 100 mg/dL Above Khanh able: 100 - 129 mg/dL Borde rline high: 130 - 159 mg/dL High: 160 - 189 mg/dL Very High: > or = 190 mg/dL Not Available [facility] [address] [place] [address], [place], [address], 08/11/2019 08:15:42 08/10/19 20 08/10/2019 lipid panel , serum ldlhdl 2.53 ratio Not Available [facility] [address] [place] [address], [place], [address], 08/11/2019 08:15:42 08/10/19 20 08/10/2019 lipid panel , serum LDL/HDL risk See Note (Note ) Male Femal e Below [place] ge Risk 0.00- 2.28 0.00- 2.34 [place] ge Risk 2.29- 4.90 2.35- 4.12 Moder ate Risk 4.91- 7.12 4.13- 5.56 High Risk 7.13- 20.00 5.57- 20.00 Not Available [facility] [address] [place] [address] 121, [place], [address], 08/11/2019 08:15:42 08/10/19 20 08/10/2019 lipid panel , serum total chol/HDL ratio (calculat 3.9 ratio 0.0-5. 0 MDF med fusio n [address] [place] [address] [address] [facility] [address] [phone] Ronald ramires MD Not Available [facility] [address] [place] [address] 121, [place], [address], 08/11/2019 08:15:42 08/10/19 20 08/10/2019 uric acid, serum or plasm a uric acid 6.1 mg/dL 3.7-9. 2 MDF med fusio n [address] [facility] [address] [facility] [address] [phone] Ronald ramires MD Not Available [facility] [address] [address], [place], [address], 08/11/2019 08:16:47 08/10/19 20 08/10/2019 micro album in, urine creatinine, urine 168.2 mg/dL (Note ) Range not estab lishe d for urine Not Available [facility] [address] [place] [address], [place], [address], 08/11/2019 15:08:31 08/10/19 20 08/10/2019 micro album in, urine microalbumin , urine 13 mg/L <30 Not Available [facility] ann [address] [address], [place], [address], 08/11/2019 15:08:31 08/10/19 20 08/10/2019 micro album in, urine microalbumin /creat ratio 8 mg/g_ cret 0-30 MDF med fusio n [address] [facility] [address] [facility] [address] [phone] Ronald ramires MD Not Available [facility] [address] [place] [address], [place], [address], 08/11/2019 15:08:31 08/13/19 18 08/12/2017 elect fridaar diogr am No observ ation record ed. [email or web address] Not Available 2017 09:12:09 08/18/19 18 XR, chest , 2 view No observ ation record ed. SONIDO Hernandez [address], [place], [address], 08/23/2017 11:16:36 Result Notes None recorded. Problems Name Problem SNOMED Code Status Onset Date Resolution Date Notes Provider Name and Address Organization Details Recorded Time Essential hypertension 97203761 Active 2016 [facility] 16:57:25 Diabetes mellitus 99642415 Active 2016 [facility] 16:57:33 Gastroesophage al reflux disease 163316439 Active 2016 [facility] 17:03:19 Problem Notes None recorded. Procedures Surgical History Date Name Laterality Status Provider Name and Address Organization Details Recorded Time 08/10/19 20 Pulse Oximetry completed [facility] 08/10/2019 10:55:59 08/17/19 19 Pulse Oximetry completed [facility] 08/16/2018 09:10:56 12/21/19 18 [facility] 12/20[facility]2017 10:09:57 08/13/19 18 Pulse Oximetry completed [facility] 08/12/2017 18:28:55 02/16/20 17 Pulse Oximetry completed [facility] 02/15/2017 17:09:33 01/09/20 12 Arthroscopic Surgery completed [facility] 08/16/2018 09:03:56 Appendectomy completed [facility] 02/15/2017 17:04:30 Hernia Repair completed [facility] 02/15/2017 17:04:[address] [facility] 08/16/2018 09:03:56 Imaging Results Imaging Date Name Status LastModified by Organization Details LastModified Time 08/12/2017 electrocardiogram completed Informa tion not available 08/13/2017 09:12:09 08/17/2017 XR, chest, 2 view completed SONIDO Hernandez [address], [place], [address], 08/23/2017 11:16:36 Procedure Notes None recorded. Medical [...] cm 81 /min 98.5 [degF] 32.7 kg/m2 40117.3 6 g 98 % 98 % 130 mm[Hg] 78 mm[Hg] Elvira Call [facility] 9 11:39:38 Date Recorded Body height Body temperature Heart rate Body mass index (BMI) Body weight Oxygen saturation Oxygen saturation in Arterial blood by Pulse oximetry Systolic blood pressure Diastolic blood pressure Provider Name and Address Organization Details Last Updated DateTime 0 172.72 cm 98.1 [degF] 80 /min 33.5 kg/m2 38358.3 2 g 98 % 98 % 124 mm[Hg] 80 mm[Hg] Joaquina Schultz [facility] 0 10:58:59 Date Recorded Body height Heart rate Body temperature Body mass index (BMI) Body weight Oxygen saturation Oxygen saturation in Arterial blood by Pulse oximetry Systolic blood pressure Diastolic blood pressure Provider Name and Address Organization Details Last Updated DateTime 8 172.72 cm 92 /min 98.8 [degF] 37.1 kg/m2 004082. 54 g 97 % 97 % 128 mm[Hg] 82 mm[Hg] Joaquina Schultz [facility] 8 18:32:28 Date Recorded Body height Heart rate Body temperature Body mass index (BMI) Body weight Oxygen saturation Oxygen saturation in Arterial blood by Pulse oximetry Systolic blood pressure Diastolic blood pressure Provider Name and Address Organization Details Last Updated DateTime 8 172.72 cm 75 /min 98 [degF] 34.1 kg/m2 062551. 69 g 97 % 97 % 130 mm[Hg] 82 mm[Hg] Marky Ambrocio [facility] 8 10:12:07 Date Recorded Body height Heart rate Body temperature Body mass index (BMI) Body weight Oxygen saturation Oxygen saturation in Arterial blood by Pulse oximetry Systolic blood pressure Diastolic blood pressure Provider Name and Address Organization Details Last Updated DateTime 9 172.72 cm 80 /min 98.5 [degF] 33.9 kg/m2 859747. 1 g 98 % 98 % 138 mm[Hg] 82 mm[Hg] Joaquina Schultz [facility] 9 09:11:50 Social History Question Answer Notes LastModified by Organizat ion Details LastModified Time Tobacco Smoking Status Never Smoker Not Available [facility] 03/12/2020 03:15:14 What Is Your Level Of Alcohol Consumption? Occasional [id number] Information not available 03/12/2020 What Is Your Level Of Caffeine Consumption? Moderate [id number] Information not available 03/12/2020 What Was The Date Of Your Most Recent Tobacco Screening? 08/16/2018 [id number] Information not available 03/12/2020 Sex: Unknown Functional [...] Time Hep [facility], adult 05[facility]22[facility]2015 [facility] 17:02:29 Hep A, adult 05/22/2015 [facility]2017 17:02:44 Past Encounters Encounter ID Performer Location Encounter Start Date Encounter Closed Date Diagnosis/Indication Diagnosis SNOMED-CT Code Diagnosis ICD10 Code Diagnosis Note [id number] Jerry Ayoub MD Main Office [id number] [facility] [address] [place] [address] 02/15/2017 16:54:19 02/15/2017 18:36:29 Essential hypertension 85481617 I10 Patient stable on current regimen. Discussed [...] ed understand ing. Gastroesop hageal reflux disease 213594757 K21.9 Patient stable on PPIs. Symptoms well-contr [...] Type 2 skyler betes mellitus without complication 124088241 E11.9 Pending labs. Discussed ADA recommenda tions concerning management of diabetes. Discussed with patient the current diagnosis, prognosis, and treatment plan including risks, benefits, alternativ es, contraindi cations of any medication (s). All questions answered. Patient community health ed understand ing. [id number] Jerry Ayoub MD Main Office [address] [address] 08/12/2017 18:20:53 08/12/2017 19:14:51 Pre-surgery evaluation 146317512 Z01.818 Pending CXR, labs as requested. Will provide medical clearance pending results. Patient to call Dr Davis for cardiac clearance. EKG within normal limits. Diabetes mellitus 334645 09 E11.9 Essential hypertension 74464012 I10 [id number] Jerry Ayoub MD Main Office [address] [address] 12/20/2017 09:56:30 12/20/2017 12:13:32 History of hepatitis C 7956190616 9101 Z86.19 Patient with a history of Hep C. Treated. Wants to check viral load. Diabetes mellitus 731519 09 E11.9 Pending labs for further eval. NO refills needed at this time. Discussed with patient the current diagnosis, prognosis, and treatment plan including risks, benefits, alternativ es, contraindi cations of any medication (s). All questions answered. [facility]. F/U after labs if uncontroll ed or sooner for any symptoms, questiosn, or concerns. Otherwise f/u recommende d every 6 mo. Essential hypertension 11574112 I10 Patient stable on current regimen. NO [...] on current regimen. All questions answered. [facility] understand ing. [id number] Jerry Ayoub MD Main Office [id number] [facility] [address] [place] [address] 08/16/2018 09:00:24 08/16/2018 09:24:56 Type 2 diabetes mellitus without complication 288781987 E11.9 Patient stable on current regimen. Discussed [...] ing. Gastroesop hageal reflux disease without esophagitis 425422900 K21.9 Patient stable on PPIs. Symptoms well-contr [...] Patient demonstrat ed understand ing. Essential hypertension 93582243 I10 Patient stable on current regimen.Di scussed [...] on current regimen. All questions answered. Patient community health ed understand ing. Hyperlipidemia 86243148 E78.5 Not on statin at this time. [...] of any medication (s). All questions answered. [id number] Shira [facility] Main Office [id number] [facility] [address] [place] [address] 02/06/2019 11:19:57 02/06/2019 12:00:42 Gastroesophageal reflux disease 875601264 K21.9 Patient stable on PPIs. Symptoms well-contr [...] in 6 months. All questions answered. [facility] understand [facility]. Essential hypertension 65151810 I10 Patient stable on current regimen. Will [...] on current regimen. All questions answered. [facility] understand ing. Diabetes mellitus 272057 09 E11.9 Patient stable on current regimen. [...] on current regimen. All questions answered. Patient community health ed understand ing. [id number] Jerry Ayoub MD Main Office [address] [facility] [address] [place] [address] 08/10/2019 10:39:11 08/10/2019 11:23:17 Essential hypertension 93066395 I10 Patient stable on current regimen. Will [...] on current regimen. All questions answered. Patient community health ed understand ing. Type 2 skyler betes mellitus without complication 707004347 E11.9 Patient stable on current regimen. Diabetes [...] ing. Gastroesop hageal reflux disease without esophagitis 133055997 K21.9 Patient stable on PPIs. Symptoms well-contr [...] answered. Patient demonstrat ed understand ing. Obesity 611379281 E66.9 Patient is Class I obese by BMI. Body mass index 30+ - obesity 926650053 Z68.33 Depression screening 171 507174 Z13.31 Screen for depression with PHQ-2/PHQ- 9 with a NEGATIVE result. Score 0 Health Concerns Section Related Observation LastModified by Organization Detai ls LastModified Time None Recorded Concern Status LastModified by Organization Details LastModified Time None Recorded Advance Directives Directive None Recorded Payers Encounter Date Sequence Insurance Name Policy Number Policy Rudd Covered Member ID Rudd Member ID Guarantor Name 08/12/2017 1 [facility] [id number] Jessie Clement [place] [id number] [facility] 12/20/2017 1 [facility] [id number] Jessie Esparza [id number] [facility] 08/16/2018 1 [facility] [id number] Jessie Esparza [id number] [facility] 02/06/2019 1 [facility] [id number] Jessie Esparza [id number] Aquilino Isaias 08/10/2019 1 [facility] [id number] Jessie Esparza [id number] [facility] Notes Date Note Type Note Provider Name [...] to [place] [address], [address] 08/12/2017 19:13:37 12/21/19 18 text/htm l [...] well-controlled [place] [address] [facility] [address], [place], [address], [place] [facility] 12/20/2017 12:12:36 08/17/19 19 text/htm l DiabetesReported [...] 1 [place] [address] [facility] [address], [place], [address], [facility] 08/16/2018 09:24:36 02/07/20 19 text/htm l [...] tab po dailymail order Shira Campo angelo [facility] 02/07/2019 10:13:43 08/10/19 20 text/htm l DiabetesReported [...] regimen. [place] [address] [address] [address], [place], [address], [facility] 08/10/2019 13:41:07
--- OUTSIDE RECORDS SUMMARY | 2024-09-20 12:07 | XMS_ITS | Clinical Summary ---
Author Organization [facility] Address [address] [place] [address] Care Team Providers Care Sleep Manager Name Role Phone Unavailable Primary Care Provider [...] TEETH PER QUADRANT Routine 07/22/2020 2:00 AM ADJUNCT LECTURER INTRAORAL - COMPREHENSIVE SERIES OF RADIOGRAPHIC IMAGES Routine 06/26/2020 2:00 AM ADJUNCT LECTURER PANORAMIC RADIOGRAPHIC IMAGE Routine 11/11/2018 2:00 AM CDT from Last 3 Months or Most Recently Relevant to Health Maintenance Insurance [address] [place], [place] [address]
== END 2024-09-20 11:19 | disposition home or self-care (01) ==
LOC: ANHSURGERY 11:24
PROVIDERS: PCP Nurse Practitioner Adult Health; Visit Provider Anesthesiology Pain Medicine
DX: M54.51 Vertebrogenic low back pain (principal); Z01.818 Encounter for other preprocedural examination
CPT/HCPCS: 36415; 71046; 80053; 85027; 85610; 85730

== ENCOUNTER 2024-10-03 00:15 | Day surgery (SDC) | payer MEDICARE, SELFPAY ==
[2024-09-19 09:40] VITALS: BMI 29.1
--- NOTE | 2024-09-19 09:49 | PC.NURSE ---
Report to the Outpatient Waiting Room, entrance under the green pavilion located off [facility], at time __1215pm on date __10/03/24 . Planned Procedure Time: ___2:15 . Time changes happen often and if your time is changed the preop area will call you the afternoon before. - You and your visitor will be asked to self-screen and do not enter if you have any COVID symptoms. Please call surgeon if you need to reschedule. - A mask is optional within the hospital at this time. Patients may - No food or drink from midnight until time of surgery and no smoking, or chewing tobacco (or any form of nicotine). No chewing gum, candy or mints. Take only the following medications with a SIP of water on the morning of surgery: __Tylenol if needed DO NOT STOP ANY OF YOUR OTHER PRESCRIPTION MEDICATIONS PRIOR TO SURGERY EXCEPT THE FOLLOWING Hold all vitamins and supplements for 3 days per anesthesiologist.Date of last dose is 09/29/24 Medications to discontinue per physician None Date to take last dose None Please no make-up, nail romansh, hairspray, perfume, deodorant, or body powder the day of surgery. No jewelry (including any body piercings) or valuables the day of surgery, leave them at home. Please take a shower or bath the night before, or the morning of, surgery with an antibacterial soap. Wear comfortable, loose fitting clothing. - Jewelry must be removed prior to entering the operating room. Rings and piercings that are not removed may be cut off. - The hospital will not accept responsibility for valuables. - Please leave all valuables, including medications, at home the day of surgery. If you are going home after surgery, a licensed tour bus driver must drive you home. - NO public transportation without another adult if you receive anesthesia. - We recommend that an adult stay with you for 24 hours following discharge. - We also recommend that you do not drive, make important decision, drink alcoholic beverages, or take any drugs that were not prescribed by your health care provider for at least 24 hours after your discharge time. Follow any additional instructions given to you from your surgeon. Telephone instructions given to _Patient and asked if any additional questions and then verbalized understanding. Patient advised to call surgeon office or pre surgery nurse liaison [phone] if any additional questions.
[2024-10-03] VITALS (8 sets, daily range): BP systolic 111–154; BP diastolic 67–99; PULSE 49–58; RESP 13–18; TEMP 36.2–36.3; O2SAT 99–100; BMI 30.3
--- NOTE | ~2024-10-03 | XR_ITS ---
EXAMINATION: XR fluoroscopy no charge DATE: 10/03/2024 9:20 CDT INDICATION: INTRACEPT PROCEDURE L4,L5, S1 . TECHNIQUE: 32 fluoroscopic images of the lumbar spine were obtained during L4, L5, S1 Intracept proce dure, performed by Jose Randhawa MD. I was not present during the procedure. Fluoroscopy exposure time was 4 minutes 6.1 seconds. Air Kerma 204.87 mGy. DAP 40.063 mGym2. COMPARISON: None FINDINGS/IMPRESSION: Fluoroscopic documentation of L4, L5, S1 Intracept procedure. Please refer to the operative note for complete procedural details . Reviewed, dictated and finalized at location K.
--- OUTSIDE RECORDS SUMMARY | 2024-10-03 00:18 | XMS_ITS | Encounter Summary ---
Author Organization [facility] Address [address] [place] [address] Care Team Providers Care Brick Maker Name Role Phone Unavailable Primary Care Provider Unavailabl e Prior Encounters Date Type Department Care Team Description 02/04/2022 8:30 AM CDT Office Visit [facility] [address] [place] [address] [place] [address] Rhea Meyer DDS 12/13/2021 11:00 AM CDT Office Visit [facility] [address] [place] [address] [place] [address] Rhea Meyer DDS 12/12/2021 9:15 AM CDT Office Visit [facility] [address] [place] [address] Rhea Meyer DDS 12/12/2021 9:00 AM CDT Office Visit [facility] [address] [place], [place] [address] [address] Blessing Carson RDH 09/18/2021 11:00 AM CDT Office Visit [facility] [address] [place], [place] [address] [address] 06/05/2019 Converted CPS Chart Documents [facility] [address] [place] [phone] <No scans attached> 06/05/2019 Converted 13x Documents [facility] [address], [place] [address] <No scans attached> Last Filed [...] - ESTABLISHED PATIENT Routine 06/11/2021 2:00 AM PROTECTIVE SIGNAL INSTALLER HELPER PERIO MAINTENANCE Routine 06/11/2021 2:0 0 AM PROTECTIVE SIGNAL INSTALLER HELPER ORAL HYGIENE INSTRUCTIONS Routine 2021 2:00 AM PROTECTIVE SIGNAL INSTALLER HELPER 1 RADHA DECON Routine 06/11/2021 2:00 AM PROTECTIVE SIGNAL INSTALLER HELPER CANCELLED APPOINTMENT Routine 05/30/2021 2:00 AM PROTECTIVE SIGNAL INSTALLER HELPER 19 LIMITED ORAL EVALUATION - PROBLEM FOCUSED Routine 04/16/2021 2:00 AM PROTECTIVE SIGNAL INSTALLER HELPER ADDITIONAL X-RAY Routine 04/16/2021 2:00 AM PROTECTIVE SIGNAL INSTALLER HELPER SINGLE X-RAY Routine 04/16/2021 2:00 AM PROTECTIVE SIGNAL INSTALLER HELPER INTRAORAL PHOTO Routine 04/16/2021 2:00 AM PROTECTIVE SIGNAL INSTALLER HELPER PERIODIC ORAL EVALUATION - ESTABLISHED PATIENT Routine [...] ORAL HYGIENE INSTRUCTIONS Routine 2020 2:00 AM PROTECTIVE SIGNAL INSTALLER HELPER LL RADHA DECON/QD Routine 07/22/2020 2:00 AM PROTECTIVE SIGNAL INSTALLER HELPER LL PERIODONTAL SCALING AND ROOT PLANING - ONE TO THREE TEETH PER QUADRANT Routine 07/22/2020 2:00 AM PROTECTIVE SIGNAL INSTALLER HELPER LL ANTIBACT IRR/QUAD Routine 07/22/2020 2:00 AM PROTECTIVE SIGNAL INSTALLER HELPER PERIODIC ORAL EVALUATION - ESTABLISHED PATIENT Routine 06/26/2020 2:00 AM PROTECTIVE SIGNAL INSTALLER HELPER ORAL HYGIENE INSTRUCTIONS Routine 2020 2:00 AM PROTECTIVE SIGNAL INSTALLER HELPER LR RADHA DECON/QD Routine 06/26/2020 2:00 AM PROTECTIVE SIGNAL INSTALLER HELPER UR RADHA DECON/QD Routine 06/26/2020 2:00 AM PROTECTIVE SIGNAL INSTALLER HELPER UR PERIODONTAL SCALING AND ROOT PLANING - ONE TO THREE TEETH PER QUADRANT Routine 06/26/2020 2:00 AM PROTECTIVE SIGNAL INSTALLER HELPER LR PERIODONTAL SCALING AND ROOT PLANING - ONE TO THREE TEETH PER QUADRANT Routine 06/26/2020 2:00 AM PROTECTIVE SIGNAL INSTALLER HELPER UR ANTIBACT IRR/QUAD Routine 06/26/2020 2:00 AM PROTECTIVE SIGNAL INSTALLER HELPER LR ANTIBACT IRR/QUAD Routine 06/26/2020 2:00 AM PROTECTIVE SIGNAL INSTALLER HELPER CHLORHEXIDINE Routine 06/26/2020 2:00 AM PROTECTIVE SIGNAL INSTALLER HELPER INTRAORAL - COMPREHENSIVE SERIES OF RADIOGRAPHIC IMAGES Routine 06/26/2020 2:00 AM PROTECTIVE SIGNAL INSTALLER HELPER INTRAORAL PHOTO Routine 06/26/2020 2:00 AM PROTECTIVE SIGNAL INSTALLER HELPER INTRAORAL PHOTO Routine 06/26/2020 2:00 AM PROTECTIVE SIGNAL INSTALLER HELPER INTRAORAL PHOTO Routine 06/26/2020 2:00 AM PROTECTIVE SIGNAL INSTALLER HELPER INTRAORAL PHOTO Routine 06/26/2020 2:00 AM PROTECTIVE SIGNAL INSTALLER HELPER INTRAORAL PHOTO Routine 06/26/2020 2:00 AM PROTECTIVE SIGNAL INSTALLER HELPER INTRAORAL PHOTO Routine 06/26/2020 2:00 AM PROTECTIVE SIGNAL INSTALLER HELPER INTRAORAL PHOTO Routine 06/26/2020 2:00 AM PROTECTIVE SIGNAL INSTALLER HELPER INTRAORAL PHOTO Routine 06/26/2020 2:00 AM PROTECTIVE SIGNAL INSTALLER HELPER CANCELLED APPOINTMENT Routine 02/24/2020 2:00 AM CDT MISSED APPOINTMENT Routine 02/13/2020 2: 00 AM CDT PERIO CONSULT Routine 02/12/2020 2:00 AM CDT CANCELLED APPOINTMENT Routine 12/25/2019 2:00 AM CDT PERIODIC ORAL EVALUATION - ESTABLISHED PATIENT Routine 06/22/2019 2:00 AM PROTECTIVE SIGNAL INSTALLER HELPER ORAL HYGIENE INSTRUCTIONS Routine 2019 2:00 AM PROTECTIVE SIGNAL INSTALLER HELPER PROPHYLAXIS - ADULT Routine 06/22/2019 2 :00 AM PROTECTIVE SIGNAL INSTALLER HELPER 13 DO AMALGAM 2 SURFACE Routine 11/12/19 19 2:00 AM CDT 31 O AMALGAM 1 SURFACE Routine 9 2:00 AM CDT 12 O AMALGAM 1 SURFACE Routine 9 2:00 AM CDT 4 O AMALGAM 1 SURFACE Routine 11/11/2018 2:00 AM CDT 29 ENDODONTIC THERAPY, MOLAR TOOTH (EXCLUDING FINAL CONFUCIANIST) Routine 11/11/2018 2:00 AM CDT 14 ENDODONTIC THERAPY, MOLAR TOOTH (EXCLUDING FINAL CONFUCIANIST) Routine 11/11/2018 2:00 AM CDT 14 CROWN [...] CDT Visit Diagnoses Not on file Insurance [address] [place], [place] [id number]
--- OUTSIDE RECORDS SUMMARY | 2024-10-03 00:18 | XMS_ITS | Clinical Summary ---
Author Organization [facility] Address [address] [place] [address] Care Team Providers Care Ethanol Quality Leader Name Role Phone Unavailable Primary Care Provider [...] TEETH PER QUADRANT Routine 07/22/2020 2:00 AM BISQUE CLEANER INTRAORAL - COMPREHENSIVE SERIES OF RADIOGRAPHIC IMAGES Routine 06/26/2020 2:00 AM BISQUE CLEANER PANORAMIC RADIOGRAPHIC IMAGE Routine 11/11/2018 2:00 AM CDT from Last 3 Months or Most Recently Relevant to Health Maintenance Insurance [address] [place], [place] [id number]
--- OUTSIDE RECORDS SUMMARY | 2024-10-03 00:18 | XMS_ITS | Data Portability ---
Author Organization [facility], Main Office Address [address] [address] Assessment Encounter Date Assessment Date Assessment LastModified by Organization Details LastModified Time 08/12/2017 08/12/2017 Pending labs for chronic medical conditions. [email or web address] Not available 08/12/2017 19:12:12 Plan of Treatment Reminders Order Date Submit Date Provider Last Modified By Organization Details Last Modified Time Details Appointments None recorded. Lab uric acid, serum or plasma 2019 020 [facility], [address], [address], 0 05:02:26 urinalysis complete, reflex culture 2019 020 [facility], [address] [address], [place], [address], 0 05:02:26 CBC w/ auto diff 2019 020 [facility], [address] [address], [place], [address], 0 05:02:26 lipid panel, serum 2019 020 [facility], [address] [address], [place], [address], 0 05:02:26 CMP, serum or plasma 2019 020 [facility], [address] [facility] [address], [place], [address], 0 05:02:26 microalbum in, urine 2019 020 [facility], [address], [place], [address], 0 05:02:26 HbA1c (hemoglobi n A1c), blood 2019 020 [facility], [address], [place], [address], 0 05:02:26 uric acid, serum or plasma 2018 019 [facility], [address], [place], [address], 0 05:02:57 CMP, serum or plasma 2018 019 [facility], [address] [facility], [place], [address], 0 05:02:57 lipid panel, serum 2018 019 [facility], [address], [place], [address], 0 05:02:57 CBC w/ auto diff 2018 019 [facility], [address] [facility], [place], [address], 0 05:02:57 glucose, fingerstic k, blood 2018 019 [email or web address] Main Office, [address] [facility], [address], [place], [address], 9 12:11:10 HbA1c (hemoglobi n A1c), blood 2018 019 [facility], [address], [place], [address], 0 05:02:57 microalbum in, urine 2018 019 [facility], [address], [place], [address], 0 05:02:57 uric acid, serum or plasma 2018 019 [facility], [address], [place], [address], 9 05:02:28 urinalysis complete, reflex culture 2018 019 [facility], [address], [place], [address], 9 05:02:28 CBC w/ auto diff 2018 019 [facility], [facility] [address] [facility], [place], [address], 9 05:02:28 glucose, fingerstic k, blood 2018 019 [email or web address] Main Office, [address] [facility], [address], [place], [address], 9 09:24:19 microalbum in, urine 2018 019 [facility], [facility] [address] [facility], [place], [address], 9 05:02:28 HbA1c (hemoglobi n A1c), blood 2018 019 [facility], [facility] [address] [facility], [place], [address], 9 05:02:28 lipid panel, serum 2018 019 [facility], [facility] [address], [place], [address], 9 05:02:28 CMP, serum or plasma 2018 019 [facility], [facility] [address] [address], [place], [address], 9 05:02:28 hepatitis C RNA, quant, PCR, serum 2017 018 [facility], [facility] [address] [address], [place], [address], 9 05:00:49 uric acid, serum or plasma 2017 018 [facility], [facility] [address] [address], [place], [address], 9 05:00:48 urinalysis complete, reflex culture 2017 018 [facility], [facility] [address] [address], [place], [address], 9 05:00:48 CMP, serum or plasma 2017 018 [facility], [facility] [address] [address], [place], [address], 9 05:00:48 lipid panel, serum 2017 018 [facility], [facility] [address] [address], [place], [address], 9 05:00:49 microalbum in, urine 2017 018 [facility], [facility] [address] [address], [place], [address], 9 05:00:49 HbA1c (hemoglobi n A1c), blood 2017 018 [facility], [facility] [address] [address], [place], [address], 9 05:00:48 microalbum in, urine 2017 018 [facility], [facility] [address] [address], [place], [address], 8 05:00:43 HbA1c (hemoglobi n A1c), blood 2017 018 [facility], [address], [place], [address], 8 05:00:43 CMP, serum or plasma 2017 018 [facility], [address], [place], [address], 8 05:00:43 lipid panel, serum 2017 018 [facility], [address], [place], [address], 8 05:00:43 urinalysis complete, reflex culture 2017 018 [facility], [address], [place], [address], 8 05:00:44 uric acid, serum or plasma 2017 018 [facility], [address], [place], [address], 8 05:00:44 CBC w/ auto diff 2017 018 [facility], [address], [place], [address], 8 05:00:43 PT/PTT, plasma 2017 018 [facility], [address], [place], [address], 8 05:00:43 Referral None recorded. Procedures None recorded. Surgeries None recorded. Imaging XR, chest, 2 view 2017 018 [facility], [address], [place], [address], 8 17:42:07 Medication Orders olmesartan 40 mg tablet 2019 020 [id number] [address] [place], [address], 0 11:20:28 pantoprazo le 40 mg tablet,del ayed release 2019 020 [id number], [address] [place], [address], 0 12:46:10 metformin ER 1,000 mg tablet,ext ended release 24hr (osmotic) 2019 020 [id number], [address] [place], [address], 0 12:46:10 pantoprazo le 40 mg tablet,del ayed release 2018 019 INTERFACE [facility] [place], [address], 9 15:13:05 olmesartan 40 mg tablet 2018 019 INTERFACE [facility], [place], [address], 9 12:11:12 metformin ER 1,000 mg tablet,ext ended release 24hr (osmotic) 2018 019 INTERFACE [facility], [place], [address], 9 15:13:05 irbesartan 300 mg tablet 2018 019 [email or web address] [facility], [place], [address], 9 11:39:49 pantoprazo le 40 mg tablet,del ayed release 2018 019 INTERFACE [facility], [facility], [place], [address], 9 09:24:22 metformin ER 1,000 mg tablet,ext ended release 24hr (osmotic) 2018 019 INTERFACE [facility], [facility], [place], [address], 9 09:24:24 Patient TargetsNo targets recorded. Patient InstructionsNo instructions recorded. Reason for Referral None Reported. Results Created Date Observation Date Name Description Value Unit Range Abnormal Flag Note LastModifiedBy Organization Detail LastModifiedTime 02/07/20 19 02/06/2019 gluco se finge rstic k, blood Blood Glucose: mg/dl 126 Not Available Main O ffice [id number] [facility] [address], [place], [address], 02/06/2019 11:43:02 08/17/19 19 08/16/2018 gluco se finge rstic k, blood Blood Glucose: mg/dl 107 Not Available Main O ffice [address] [facility] [address], [place], [address], 08/16/2018 09:11:53 08/14/19 18 08/13/2017 CBC w/ auto diff WBC 5.9 K/uL 3.8-10 .6 Not Available [facility] [address] [facility] [address], [place], [address], 08/14/2017 06:09:41 08/14/19 18 08/13/2017 CBC w/ auto diff RBC 4.58 M/uL 4.40-5 .90 Not Available [facility] [address] [facility] [address], [place], [address], 08/14/2017 06:09:41 08/14/19 18 08/13/2017 CBC w/ auto diff hemoglobin 14.3 gm/dL 14.0-1 8.0 Not Available [facility] [address] [facility] [address], [place], [address], 08/14/2017 06:09:41 08/14/19 18 08/13/2017 CBC w/ auto diff hematocrit 40.9 % 40.0-5 2.0 Not Available [facility] [address] [address], [place], [address], 08/14/2017 06:09:41 08/14/19 18 08/13/2017 CBC w/ auto diff MCV 89 fL 80-100 Not Available [facility] [address] [address], [place], [address], 08/14/2017 06:09:41 08/14/19 18 08/13/2017 CBC w/ auto diff MCH 31.2 pg 26.0-3 4.0 Not Available [facility] [address] [address], [place], [address], 08/14/2017 06:09:41 08/14/19 18 08/13/2017 CBC w/ auto diff MCHC 35.0 g/dL 31.0-3 7.0 Not Available [facility] [address] [place] [address], [place], [address], 08/14/2017 06:09:41 08/14/19 18 08/13/2017 CBC w/ auto diff RDW 11.8 % 12.0-1 5.0 low Not Available [facility] [address] [place] [address], [place], [address], 08/14/2017 06:09:41 08/14/19 18 08/13/2017 CBC w/ auto diff MPV 11.0 fL 9.4-12 .9 Not Available [facility] [address] [address], [place], [address], 08/14/2017 06:09:41 08/14/19 18 08/13/2017 CBC w/ auto diff platelet count 269 K/uL 130-40 0 Not Available [facility] [address] [address], [place], [address], 08/14/2017 06:09:41 08/14/19 18 08/13/2017 CBC w/ auto diff diff type Automa benny diff Not Available [facility] [address] [address], [place], [address], 08/14/2017 06:09:41 08/14/19 18 08/13/2017 CBC w/ auto diff abs neutrophils 2.9 K/uL 1.8-7. 7 Not Available [facility] [address] [address], [place], [address], 08/14/2017 06:09:41 08/14/19 18 08/13/2017 CBC w/ auto diff abs lymphocytes 2.0 K/uL 1.0-4. 8 Not Available [facility] [address] [address], [place], [address], 08/14/2017 06:09:41 08/14/19 18 08/13/2017 CBC w/ auto diff abs monocytes 0.8 K/uL 0.12-1 .00 Not Available [facility] [address] [address], [place], [address], 08/14/2017 06:09:41 08/14/19 18 08/13/2017 CBC w/ auto diff abs eosinophils 0.2 K/uL 0.00-0 .60 Not Available [facility] [address] [address], [place], [address], 08/14/2017 06:09:41 08/14/19 18 08/13/2017 CBC w/ auto diff abs basophils 0.1 K/uL 0.00-0 .30 Not Available [facility] [address] [address], [place], [address], 08/14/2017 06:09:41 08/14/19 18 08/13/2017 CBC w/ auto diff neutrophil 48 % 45-73 Not Available [facility] [address] [address], [place], [address], 08/14/2017 06:09:41 08/14/19 18 08/13/2017 CBC w/ auto diff lymphocyte 35 % 18-44 Not Available [facility] [address] [place], [address], 08/14/2017 06:09:41 08/14/19 18 08/13/2017 CBC w/ auto diff monocyte 13 % 4-10 high Not Available [facility] [address] [address], [place], [address], 08/14/2017 06:09:41 08/14/19 18 08/13/2017 CBC w/ auto diff eosinophil 3 % 0-4 Not Available [facility] [address] [place] [address], [place], [address], 08/14/2017 06:09:41 08/14/19 18 08/13/2017 CBC w/ auto diff basophil 1 % 0-1 [facility] [place] [address] [place] [address] [address] [facility] [address] [phone] Ronald ramires MD Not Available [facility] [address] [place] [address], [place], [address], 08/14/2017 06:09:41 08/14/19 18 08/13/2017 urina lysis compl ete, refle x cultu re urine color Yellow yellow Not Available [facility] [place] [address] [place] [address], [place], [address], 08/14/2017 06:29:45 08/14/19 18 08/13/2017 urina lysis compl ete, refle x cultu re urine clarity Clear clear Not Available [facility] ann [address] [place] [address], [place], [address], 08/14/2017 06:29:45 08/14/19 18 08/13/2017 urina lysis compl ete, refle x cultu re urine specific gravity 1.019 1.005- 1.030 Not Available [facility] [address] [place] [address], [place], [address], 08/14/2017 06:29:45 08/14/19 18 08/13/2017 urina lysis compl ete, refle x cultu re urine pH 6.0 5.0-8. 5 Not Available [address] [address], [place], [address], 08/14/2017 06:29:45 08/14/19 18 08/13/2017 urina lysis compl ete, refle x cultu re urine glucose Negati ve mg/dL negati ve Not Available [address] [address], [place], [address], 08/14/2017 06:29:45 08/14/19 18 08/13/2017 urina lysis compl ete, refle x cultu re urine ketones Negati ve mg/dL negati ve Not Available [address] [address], [place], [address], 08/14/2017 06:29:45 08/14/19 18 08/13/2017 urina lysis compl ete, refle x cultu re urobilinogen 1.0 eu/dL 0.2-1. 0 Not Available [address] [address], [place], [address], 08/14/2017 06:29:45 08/14/19 18 08/13/2017 urina lysis compl ete, refle x cultu re urine bilirubin Negati ve negati ve Not Available [address] [address], [place], [address], 08/14/2017 06:29:45 08/14/19 18 08/13/2017 urina lysis compl ete, refle x cultu re urine blood Negati ve negati ve Not Available [address] [address], [place], [address], 08/14/2017 06:29:45 08/14/19 18 08/13/2017 urina lysis compl ete, refle x cultu re urine protein Negati ve negati ve Not Available [address] [address], [place], [address], 08/14/2017 06:29:45 08/14/19 18 08/13/2017 urina lysis compl ete, refle x cultu re leukocyte esterase Negati ve negati ve Not Available [facility] [address] [address], [place], [address], 08/14/2017 06:29:45 08/14/19 18 08/13/2017 urina lysis compl ete, refle x cultu re urine nitrates Negati ve negati ve Not Available [facility] [address] [address], [place], [address], 08/14/2017 06:29:45 08/14/19 18 08/13/2017 urina lysis compl ete, refle x cultu re white cells 1 /hpf 0-4 Not Available [facility] [address] [address], [place], [address], 08/14/2017 06:29:45 08/14/19 18 08/13/2017 urina lysis compl ete, refle x cultu re red cells 2 /hpf 0-5 Not Available [facility] [address] [address], [place], [address], 08/14/2017 06:29:45 08/14/19 18 08/13/2017 urina lysis compl ete, refle x cultu re squamous epithelial cells <1 /hpf 0-2 Not Available [facility] [address] [address], [place], [address], 08/14/2017 06:29:45 08/14/19 18 08/13/2017 urina lysis compl ete, refle x cultu re urine bacteria Negati ve negati ve Not Available [facility] [address] [address], [place], [address], 08/14/2017 06:29:45 08/14/19 18 08/13/2017 urina lysis compl ete, refle x cultu re cast <1 /lpf Not Available [facility] [address] [address], [place], [address], 08/14/2017 06:29:45 08/14/19 18 08/13/2017 urina lysis compl ete, refle x cultu re reflex to culture Result s Below CULTU RE NOT INDIC ATED [facility] [address] [facility] [address] [place] [address] [phone] Ronald ramires MD Not Available [facility] [address] [place] [address], [place], [address], 08/14/2017 06:29:45 08/14/19 18 08/13/2017 micro album in, urine creatinine, urine 130.0 mg/dL (Note ) Range not estab lishe d for urine Not Available [facility] [address] [place] [address], [place], [address], 08/14/2017 06:49:42 08/14/19 18 08/13/2017 micro album in, urine microalbumin , urine 6 mg/L <30 Not Available [facility] [address] [place] [address], [place], [address], 08/14/2017 06:49:42 08/14/19 18 08/13/2017 micro album in, urine microalbumin /creat ratio 5 mg/g_ cret 0-30 [facility] [address] [facility] [address] [facility] [address] [phone] Ronald ramires MD Not Available [facility] [address] [place] [address], [place], [address], 08/14/2017 06:49:42 08/14/19 18 08/13/2017 CMP, serum or plasm a glucose, fasting 130 mg/dL 70-99 high Not Available [facility] [address] [place] [address], [place], [address], 08/14/2017 07:19:59 08/14/19 18 08/13/2017 CMP, serum or plasm a BUN 16 mg/dL 9-23 Not Available [facility] [address] [place] [address], [place], [address], 08/14/2017 07:19:59 08/14/19 18 08/13/2017 CMP, serum or plasm a creatinine 0.93 mg/dL 0.60-1 .30 Not Available [facility] S [facility] 121, [place], [address], 08/14/2017 07:19:59 08/14/19 18 08/13/2017 CMP, serum or plasm a sodium 138 mEq/L 132-14 6 Not Available [facility] [address] [place] [address], [place], [address], 08/14/2017 07:19:59 08/14/19 18 08/13/2017 CMP, serum or plasm a potassium 4.2 mEq/L 3.5-5. 5 Not Available [facility] [address] [place] [address], [place], [address], 08/14/2017 07:19:59 08/14/19 18 08/13/2017 CMP, serum or plasm a chloride 102 mEq/L 99-109 Not Available [facility] [address] [address], [place], [address], 08/14/2017 07:19:59 08/14/19 18 08/13/2017 CMP, serum or plasm a CO2 27 mEq/L 22-33 Not Available [facility] [address] [place] [address], [place], [address], 08/14/2017 07:19:59 08/14/19 18 08/13/2017 CMP, serum or plasm a anion gap 13.2 mEq/L 10-20 Not Available [facility] [address] [address], [place], [address], 08/14/2017 07:19:59 08/14/19 18 08/13/2017 CMP, serum or plasm a calcium 9.7 mg/dL 8.7-10 .4 Not Available [facility] [address] [place] [address], [place], [address], 08/14/2017 07:19:59 08/14/19 18 08/13/2017 CMP, serum or plasm a albumin 4.3 g/dL 3.2-4. 8 Not Available [facility] [address], [place], [address], 08/14/2017 07:19:59 08/14/19 18 08/13/2017 CMP, serum or plasm a protein, total 6.4 g/dL 5.7-8. 2 Not Available [facility] [address] [facility] [address], [place], [address], 08/14/2017 07:19:59 08/14/19 18 08/13/2017 CMP, serum or plasm a bilirubin, total 0.7 mg/dL 0.3-1. 2 Not Available [facility] [address] [facility] 121, [place], [address], 08/14/2017 07:19:59 08/14/19 18 08/13/2017 CMP, serum or plasm a ALT (SGPT) 34 U/L 10-49 Not Available [facility] [address] [facility] [address], [place], [address], 08/14/2017 07:19:59 08/14/19 18 08/13/2017 CMP, serum or plasm a AST (SGOT) 30 U/L 0-33 Not Available [facility] [address] [facility] [address], [place], [address], 08/14/2017 07:19:59 08/14/19 18 08/13/2017 CMP, serum or plasm a alk phosphatase 51 U/L 45-129 Not Available [facility] [address] [facility] [address], [place], [address], 08/14/2017 07:19:59 08/14/19 18 08/13/2017 CMP, serum or plasm a BUN/creatini ne ratio 17.2 ratio 10-26 Not Available [facility] [address] [facility] 121, [place], [address], 08/14/2017 07:19:59 08/14/19 18 08/13/2017 CMP, serum or plasm a globulin calculated 2.1 g/dL 2.0-3. 8 Not Available [facility] [address] [address], [place], [address], 08/14/2017 07:19:59 08/14/19 18 08/13/2017 CMP, serum or plasm a A/G ratio 2.0 ratio 0.9-2. 5 Not Available [facility] [address] [place] [address] [address], [place], [address], 08/14/2017 07:19:59 08/14/19 18 08/13/2017 CMP, serum or plasm a eGFR aa >90 mL/mi n/1.7 3m2 >60 Not Available [facility] [address] [place] [address] [address], [place], [address], 08/14/2017 07:19:59 08/14/19 18 08/13/2017 CMP, serum [...] Ameri cans. F med fusio n [address] [facility] [address] [facility] [address] [phone] Ronald ramires MD Not Available [facility] [address] [place] [address] [address], [place], [address], 08/14/2017 07:19:59 08/14/19 18 08/13/2017 lipid panel [...] mg/dL Not Available [facility] [address] [facility] 121, [place], [address], 08/14/2017 07:20:01 08/14/19 18 08/13/2017 lipid panel [...] 500 mg/dL Not Available [facility] [address] [facility] 121, [place], [address], 08/14/2017 07:20:01 08/14/19 18 08/13/2017 lipid panel [...] 50 mg/dL Not Available [facility] [address] [facility] [address], [place], [address], 08/14/2017 07:20:01 08/14/19 18 08/13/2017 lipid panel [...] 190 mg/dL Not Available [facility] [address] [address], [place], [address], 08/14/2017 07:20:01 08/14/19 18 08/13/2017 lipid panel , serum ldlhdl 4.08 ratio Not Available [facility] [address] [address], [place], [address], 08/14/2017 07:20:01 08/14/19 18 08/13/2017 lipid panel , serum LDL/HDL risk See Note (Note ) Male Femal e Below [place] ge Risk 0.00- 2.28 0.00- 2.34 [place] ge Risk 2.29- 4.90 2.35- 4.12 Moder ate Risk 4.91- 7.12 4.13- 5.56 High Risk 7.13- 20.00 5.57- 20.00 Not Available [facility] [address] [address], [place], [address], 08/14/2017 07:20:01 08/14/19 18 08/13/2017 lipid panel , serum total chol/HDL ratio (calculat 5.5 ratio 0.0-5. 0 high [facility] n [address] [facility] [address] [facility] [address] [phone] Ronald ramires MD Not Available [facility] [address] [address], [place], [address], 08/14/2017 07:20:01 08/14/19 18 08/13/2017 uric acid, serum or plasm a uric acid 5.7 mg/dL 3.7-9. 2 [facility] n [address] [facility] [address] [place] [address] [phone] Ronald ramires MD Not Available [facility] [address], [address], 08/14/2017 07:20:04 08/14/19 18 08/13/2017 HbA1c (hemo [...] cells . [facility] med [facility] n [address] [facility] [address] [facility] [address] [phone] Ronald ramires MD Not Available [facility] [address] [facility] 121, [place], [address], 08/14/2017 07:54:47 08/14/19 18 08/13/2017 PT/PT T, plasm a prothrombin time 11.7 sec 9.0-12 .0 Not Available [facility] [address] [facility], [place], [address], 08/14/2017 09:49:51 08/14/19 18 08/13/2017 PT/PT T, plasm a INR 1.1 (Note ) Couma rin Antic oagul ant Thera peuti c Range s (INR) : 2.0-3 .0 Proph ylaxi s and Treat ment of Venou s Throm boemb olism 2.5-3 .5 Preve ntion of Recur rent Throm boemb olism or treat ment for Prost hetic Heart Valve s Not Available [facility] [address], [place], [address], 08/14/2017 09:49:51 08/14/19 18 08/13/2017 PT/PT T, plasm a APTT 25.2 sec 22-32 [facility] med [facility] n [id number]|2024-10-03 08:20:12|2024-10-03 08:20:12|[id number]||||"Anes - Initial Pre Proc Eval Procedure: Operation Date: 10/03/24 09:15 Proposed Procedures p Intracept Procedure at L4, L5, S1 Under Fluoroscopic Guidance - Jose Randhawa MD Date/Time: 10/03/24 08:20 Surgeon: Jose Randhawa MD Pre Op Diagnosis: vertebrogenic low back pain Patient Data Age: 69 Gender: M Height: 1.73 m Weight: 90.5 kg Last Vital Signs Temp 36.3 C L 10/03/24 07:15 Pulse 58 L 10/03/24 07:15 Resp 16 10/03/24 07:15 BP 125/80 10/03/24 07:15 Pulse Ox 99 10/03/24 07:15 Allergies Allergy/AdvReac Type Severity Reaction Status Date / Time No Known Allergies Allergy Verified 10/03/24 07:50 Home Medications Medication Instructions Recorded Confirmed Type cholecalciferol (vitamin D3) 50 50 mcg PO DAILY 03/15/23 10/03/24 History mcg (2,000 unit) capsule vitamin B complex 1 cap PO DAILY 09/06/23 10/03/24 History pantoprazole 40 mg tablet,delayed See Rx Instructions .Route 01/18/24 10/03/24 Rx release .COMPLEX #90 tabs olmesartan 40 mg tablet 20 mg PO DAILY 07/31/24 10/03/24 History metformin 1,000 mg tablet 1,000 mg PO DAILY 08/23/24 09/19/24 History atorvastatin 20 mg tablet 20 mg PO DAILY #90 tabs 09/21/24 10/03/24 Rx hydrocodone 5 mg-acetaminophen 325 1 tablet PO Q6H PRN pain 5 days 10/03/24 Rx mg tablet #20 tabs Laboratory Tests 10/03/24 07:24 POC Capillary Glucose 125 H mg/dl (65-105) Patient hx anesthesia problems: none Family hx anesthesia problems: none Results Review: All pre-operative results and documents have been reviewed as part of the pre-operative evaluation. [facility] Past Medical History Medical History Sacroiliitis Hypertension GERD (gastroesophageal reflux disease) Hepatitis C Diabetes Type 2 Surgical History Surgical History H/O inguinal hernia repair 05/03/24 robotic assisted laparoscopic incarcerated right inguinal hernia repair with Bard 3D mid weight mesh Dr. Burton History of ventral hernia repair Robotic assisted laparoscopic reducible ventral hernia repair with transabdominal pre-peritoneal placement (DYLAN) of Bard Soft Mesh (defect = 2 cm) on 03/19/23 History of hernia surgery 1983 History of rotator cuff surgery Both R and L shoulders in 2011 and 2015 History of appendectomy 1979 Family History Family History Father Alcohol abuse Asthma Cancer Hypertension Diabetes mellitus Mother Hypertension Cerebrovascular accident Grandparent Cancer Heart disease Grandparent Cancer Social History Social History Smoking status: Never smoker Second hand tobacco smoke exposure: No Alcohol intake: never Substance use: never Substance use type: does not use Last use: 2X weekly Lack of Transportation: No Lack of Food: Never True Current Housing: I Have Housing Concerned About Future Housing: No Difficulty Paying Gas/Electric Bills: No Difficulty Paying for Meds: No Currently Unemployed: No Education: High School Diploma/GED Difficulty w/ Childcare or Family Care: No Living arrangements: with family Additional living arrangements comments: Occupation/Education: retired Gender identity (if verbalized by the patient): Male Spiritual care concerns: No Agree to blood products: Yes Anes - Eval Final PreProcedure Day of Procedure 10/03/24 08:20 Patient weight: obese Heart: regular rate and rhythm Lungs: clear to auscultation Airway: Mallampati scale class II Neurological: alert and oriented Last oral intake: >/= 8 hours ASA classification: III Emergent: no Anesthetic plan: proceed Anesthesia type and monitoring: general ETT and standard monitoring Results Review: All pre-operative results and documents have been reviewed as part of the pre-operative evaluation. Informed Consent: The patient's anesthetic plan and its attendant risks and benefits were discussed with the patient/family/POA. Questions were solicited and answers provided to the satisfaction of the patient/family/POA."
--- NOTE | 2024-10-03 07:16 | WPDHPUPDATE1 ---
History and Physical Update Update Date/Time: 10/03/24 07:16 History and Physical has been reviewed, including an updated exam of the patient. There are NO changes in the patient's condition. Risks, benefits, and alternatives have been discussed and questions answered. Patient agrees to proceed with procedure.
--- NOTE | 2024-10-03 07:20 | W.PM.PROC2 ---
Procedure Note - Detailed Date of Procedure 10/03/24 Pre-op Diagnosis vertebrogenic low back pain Post-op Diagnosis Same Procedure Performed Percutaneous transpedicular intraosseous basivertebral nerve thermal radiofrequency ablation (Intracept procedure) at L4, L5, S1 under fluoroscopic guidance. Surgeon Jose Randhawa MD Pipe Coverer None. Anesthesia General (GETA] in the [prone] position with infiltration of local anesthetic. 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 They are significantly limited in their daily and/or work-related activities as a result, including sitting, standing, lifting/carrying and sleeping, with failure to respond to and/or tolerate extensive efforts at more conservative management (i.e. oral and topical analgesics including NSAIDs, acetaminophen and opioids, Physical Therapy and modalities, time/rest, interventional procedures/corticosteroid injections) for greater than 6 months prior to today's procedure establishing medical necessity for this well-studied and FDA-approved pain-relieving procedure. INFORMED CONSENT: Procedure was discussed in detail with the patient at a previous visit and at the time of surgery. During this discussion, the risks, benefits, and alternatives to the procedure, including doing nothing, were thoroughly described to the patient, who expressed explicit understanding and consent to proceed. Specific risks discussed with the patient included, but were not limited to the risk of serious local or systemic infection, skin burn/scarring, major or minor bleeding/bruising, allergic reaction to medications or materials, inadvertent lung or other organ injury, new or worsening spinal fracture, inadvertent thermal or mechanical nerve or spinal cord injury resulting in increased pain, weakness, numbness or loss of bowel or bladder control, the need for repeat or additional surgery, inadvertent dural puncture resulting in acute or chronic CSF leak and post-dural puncture headache, failure to treat pain, and risks associated with general anesthesia in the prone position including eye, dental, joint, nerve, spine or soft tissue injury/pain related to positioning, heart attack, respiratory failure, aspiration, pneumonia, DVT/PE or thrombosis, hemorrhagic or ischemic stroke, hypoxia, hypo- or hypertension, seizure, coma and . Patient understands these risks and agrees that the opportunity for benefit outweighs the potential risk of harm. Procedure specific informed consent form was read, reviewed, signed by the patient and surgeon and witnessed in the pre-operative area. All pertinent questions were asked and answered to the patient's satisfaction. Surgical site was pre-treated with chlorhexidine wipes. All materials required for the procedure were available and site and side of procedure was marked prior to procedure start. Appropriate timeout was conducted by all participants in the OR (patient's ID, procedure to be performed, procedure site and side, allergies and appropriate medications including pre-operative antibiotics were verified) prior to incision. PROCEDURE IN DETAIL: After full informed consent and adequate IV access was obtained without difficulty; the patient was escorted to the procedural suite. ASA standard monitors were applied and utilized throughout the case. Prophylactic antibiotics were administered prior to procedure start. GETA was initiated without difficulty or event. Eyes were protected. Patient was converted to the prone position in optimal flexion using pillows under the abdomen, hips and ankles. Pressure points were padded, cervical spine and joints were placed in neutral position. Eyes, breasts and genitals were evaluated and protected as appropriate. The thoracolumbar spine to the sacrum was prepared in the usual manner using alcohol scrub followed by broad application of ChloraPrep, and allowed to dry completely for over 3 minutes. Surgical site and C-arm was sterilely draped in the typical fashion. Aseptic technique and strict fluoroscopic guidance was utilized throughout. Fluoroscope was moved into position to visualize the vertebral bodies of interest in the AP and lateral plane, obtaining true linear projections of the endplates at each level, and was rotated in the ipsilateral oblique view approximately 35 degrees from true AP to visualize the vertebrae with respective ipsilateral facet joints visualized bisecting the superior disk space at the midpoint of the vertebral body. The superolateral border of the pedicle of each level treated was identified. After adequate general anesthesia was confirmed, the skin entry point was located and infiltrated with an adequate amount of a 1:1 admixture of 0.5% preservative free bupivacaine and 2.0% preservative-free lidocaine using a 27 gauge 1.5-inch hypodermic needle after negative aspiration for blood or bodily fluid. Appropriate introducer cannula trajectory was identified in the AP, oblique and lateral views, and local anesthesia was extended to periosteum in a similar fashion at each level treated using a 3.5 inch, 22-gauge Quincke spinal needle. A stab skin decision was made with a #11 scalpel blade and an 8-gauge introducer cannula with beveled tip was then introduced through the skin, subcutaneous tissue and paraspinal muscle until contact was made with the bony surface of the pedicle at the target level. Appropriate position was confirmed in both the AP and lateral views. Using a 24-ounce surgical mallet, the trocar was advanced through the right pedicle to the posterior aspect of the vertebral body using a combination of AP and lateral views to ensure appropriate travel through the pedicle without breach of its medial wall or entry into the epidural/neuroforaminal space. Once the trocar had entered the posterior aspect of the S1 vertebral body, the trocar was removed from the cannula and the curved cannula assembly was inserted followed by replacement of the original straight stylette with the Nitinol J – stylette without difficulty. The wingnut on the device was rotated counterclockwise to its endpoint permitting excursion of the J – stylette. The curved cannula assembly was then advanced under intermittent fluoroscopic guidance, using the surgical mallet, in 1 to 2 mm increments with observed travel anteriorly and medially through the vertebral body in both the AP and lateral views. When necessary, the J-stylette was intermittently removed and replaced with the straight stylette during advancement to reach the basivertebral nerve target near the center point of the vertebral body. Target was reached when the tip of the stylette was noted to be a minimum of 1 cm anterior to the posterior wall and approximately 30 to 50% of the posterior to anterior diameter of the targeted vertebral body and at the midpoint of the distance between the superior and inferior endplates, with tip of the stylette crossing midline as represented by the spinous process in the carefully aligned AP projection. J-stylette was then removed and the bipolar radiofrequency probe was connected to the generator and inserted into the introducer cannula until the proximal and distal electrodes straddled the midpoint of the vertebral body. The wingnut was then rotated clockwise to retract the PEEK sleeve and expose the proximal electrode on the radiofrequency probe. The basivertebral nerve was then ablated through activation of the probe and generator. At each level treated, ablation was performed at 85 degrees centigrade for 15 minutes using [facility]'s RFG standard intraosseous ablation algorithm while simultaneously monitoring for any sign of motor or sensory nerve stimulation. While ablative lesioning was progressing to completion at the initial level, the fluoroscope was adjusted to successively visualize the target of entry at the superolateral aspect of the pedicle at each additional level treated, (L4, L5), with each vertebral body subsequently and sequentially accessed and target nerve ablated in a similar manner modified only to accommodate for specific level, location and anatomical variation, alternating the site and side of entry to facilitate cannula placement. This was achieved in all cases without difficulty. Location of each entry point, final cannula and probe position was documented by fluoroscopy in the AP and lateral views with respective images recorded in the patient's chart. In all cases, once intraosseous access was obtained, needle tip remained intraosseous without violation of the pedicular wall, vertebral wall, neuroforamen and/or spinal canal. Once all ablations were complete, instruments were removed from the vertebral bodies without difficulty under direct visualization and fluoroscopic guidance. Pressure was held at each entry site until hemostasis was confirmed. Skin was cleaned with alcohol -soaked gauze and dried with a sterile towel. Surgical wounds were then closed with mastisol and Steri-Strips placed in a crisscrossing fashion and covered with a sterile Telfa and Tegaderm dressing. The patient was returned to the supine position and anesthesia was reversed without difficulty or event. The patient tolerated the procedure well with no evidence of complication. Patient was transported to the recovery room where they were monitored for an appropriate period of time prior to discharge. During this time, the patient demonstrated no evidence of new neurologic symptom or injury, uncontrolled pain, postsurgical or post anesthetic complication. The patient was eventually discharged with both written and verbal instructions for appropriate wound care and activity restriction and with instructions to contact the office or report directly to the emergency department if no immediate response or if after hours with any signs of urgent or emergent complication including but not limited to excessive discharge or bleeding, new focal or diffuse neurologic weakness, numbness or other sensory change in the upper or lower extremities, severe headaches, intractable nausea/vomiting, fevers, chills, night sweats, increasing pain or loss of bowel or bladder control. Patient will otherwise follow-up in person at the clinic in 7 to 10 days for wound check and reevaluation. COMPLICATIONS: None. COMMENTS: None. IV FLUIDS: On Chart. EBL: 10 ml. DRAINS: None. PACKING: None. SPECIMEN: None. Pathology None sent Complications No immediate complications Condition Stable Disposition PACU [facility] Billing Surgery - Charge Forward: Surgery Billing
[2024-10-03 07:28] LABS: Glucose Point of Care 125 mg/dl (65-105)
[2024-10-03] MEDS: LACTATED RINGERS 1,000 ML 30 ML IV CONT (07:30)
--- NOTE | 2024-10-03 08:20 | P.PNAN_ITS ---
Anes - Initial Pre Proc Eval Procedure: Operation Date: 10/03/24 09:15 Proposed Procedures p Intracept Procedure at L4, L5, S1 Under Fluoroscopic Guidance - Jose Randhawa MD Date/Time: 10/03/24 08:20 Surgeon: Jose Randhawa MD Pre Op Diagnosis: vertebrogenic low back pain Patient Data Age: 69 Gender: M Height: 1.73 m Weight: 90.5 kg Last Vital Signs Temp 36.3 C L 10/03/24 07:15 Pulse 58 L 10/03/24 07:15 Resp 16 10/03/24 07:15 BP 125/80 10/03/24 07:15 Pulse Ox 99 10/03/24 07:15 Allergies Allergy/AdvReac Type Severity Reaction Status Date / Time No Known Allergies Allergy Verified 10/03/24 07:50 Home Medications Medication Instructions Recorded Confirmed Type cholecalciferol (vitamin D3) 50 50 mcg PO DAILY 03/15/23 10/03/24 History mcg (2,000 unit) capsule vitamin B complex 1 cap PO DAILY 09/06/23 10/03/24 History pantoprazole 40 mg tablet,delayed See Rx Instructions .Route 01/18/24 10/03/24 Rx release .COMPLEX #90 tabs olmesartan 40 mg tablet 20 mg PO DAILY 07/31/24 10/03/24 History metformin 1,000 mg tablet 1,000 mg PO DAILY 08/23/24 09/19/24 History atorvastatin 20 mg tablet 20 mg PO DAILY #90 tabs 09/21/24 10/03/24 Rx hydrocodone 5 mg-acetaminophen 325 1 tablet PO Q6H PRN pain 5 days 10/03/24 Rx mg tablet #20 tabs Laboratory Tests 10/03/24 07:24 POC Capillary Glucose 125 H mg/dl (65-105) Patient hx anesthesia problems: none Family hx anesthesia problems: none Results Review: All pre-operative results and documents have been reviewed as part of the pre- operative evaluation. [facility] Past Medical History Medical History Sacroiliitis Hypertension GERD (gastroesophageal reflux disease) Hepatitis C Diabetes Type 2 Surgical History Surgical History H/O inguinal hernia repair 05/03/24 robotic assisted laparoscopic incarcerated right inguinal hernia repair with Bard 3D mid weight mesh Dr. Burton History of ventral hernia repair Robotic assisted laparoscopic reducible ventral hernia repair with transabdominal pre-peritoneal placement (DYLAN) of Bard Soft Mesh (defect = 2 cm) on 03/19/23 History of hernia surgery 1983 History of rotator cuff surgery Both R and L shoulders in 2011 and 2016 History of appendectomy 1979 Family History Family History Father Alcohol abuse Asthma Cancer Hypertension Diabetes mellitus Mother Hypertension Cerebrovascular accident Grandparent Cancer Heart disease Grandparent Cancer Social History Social History Smoking status: Never smoker Second hand tobacco smoke exposure: No Alcohol intake: never Substance use: never Substance use type: does not use Last use: 2X weekly Lack of Transportation: No Lack of Food: Never True Current Housing: I Have Housing Concerned About Future Housing: No Difficulty Paying Gas/Electric Bills: No Difficulty Paying for Meds: No Currently Unemployed: No Education: High School Diploma/GED Difficulty w/ Childcare or Family Care: No Living arrangements: with family Additional living arrangements comments: Occupation/Education: retired Gender identity (if verbalized by the patient): Male Spiritual care concerns: No Agree to blood products: Yes Anes - Eval Final PreProcedure Day of Procedure 10/03/24 08:20 Patient weight: obese Heart: regular rate and rhythm Lungs: clear to auscultation Airway: Mallampati scale class II Neurological: alert and oriented Last oral intake: >/= 8 hours ASA classification: III Emergent: no Anesthetic plan: proceed Anesthesia type and monitoring: general ETT and standard monitoring Results Review: All pre-operative results and documents have been reviewed as part of the pre- operative evaluation. Informed Consent: The patient's anesthetic plan and its attendant risks and benefits were discussed with the patient/family/POA. Questions were solicited and answers provided to the satisfaction of the patient/family/POA.
[2024-10-03] MEDS: ceFAZolin 2 GM/D5W 50 ML 2 GM/50 ML BAG IVPB (09:13)
[2024-10-03] MEDS: LIDOCAINE 1% LOCAL INJ 10 ML VIAL INFILTRATE (09:39)
[2024-10-03] MEDS: BUPIVACAINE/EPINEPHRINE 0.5% 30 ML VIAL 10 ML INFILTRATE (09:40)
[2024-10-03 10:56] LABS: Glucose Point of Care 115 mg/dl (65-105)
== END 2024-10-03 12:30 | disposition home or self-care (01) ==
PROVIDERS: PCP Nurse Practitioner Adult Health; Visit Provider Anesthesiology Pain Medicine
PROC: (CPT 64628; principal; 2024-10-03 09:15)
DX: M47.817 Spondylosis without myelopathy or radiculopathy, lumbosacral region (principal); M46.1 Sacroiliitis, not elsewhere classified; G89.29 Other chronic pain; I10 Essential (primary) hypertension; K21.9 Gastro-esophageal reflux disease without esophagitis; E11.9 Type 2 diabetes mellitus without complications; E66.9 Obesity, unspecified; Z68.30 Body mass index [BMI] 30.0-30.9, adult; Z79.84 Long term (current) use of oral hypoglycemic drugs; Z79.891 Long term (current) use of opiate analgesic; Z98.890 Other specified postprocedural states; Z80.9 Family history of malignant neoplasm, unspecified; Z82.49 Family history of ischemic heart disease and other diseases of the circulatory system
CPT/HCPCS: 64628; 64629; 82948; 99199; C1889; J0690; J1100; J2003; J2405; J2704; J3010; J7120

== ENCOUNTER 2025-01-25 08:50 | Outpatient (CLI) | payer MEDICARE, SELFPAY ==
--- OUTSIDE RECORDS SUMMARY | 2024-07-03 03:15 | XMS_ITS | Continuity of Care Document ---
Author Organization [facility] Address [address] [place] [address] Phone Care Team Providers Care Terminal Gauger Name Role Phone Hayden OD, Jeremi Unavailable Unavailable Allergies, Adverse Reactions, Alerts Substance Reaction Status Criticality No Known Allergies Active No Inform ation Medications Medication Instructions Dosage Effective Dates (start - stop) Status Comments prednisolone acetate 1 % eye drops,suspension Instill 1 drop QID to the operative eye starting 2 days before surgery, continue for 7 days after, then BID until advised otherwise by physician Disp 10 ml - Active Breo Ellipta 100 mcg-25 mcg/dose powder for inhalation inhale 1 puff by inhalation route every day at the same time each day 1.00 puff - Active rosuvastatin 5 mg tablet take 2 tablet by oral route every day 10 MG - Active ofloxacin 0.3 % eye drops instill i gt to operative eye QID x 9 days starting 2 days before surgery Disp 5ml - No Longer Active ketorolac 0.5 % eye drops instill 1 drop in operative eye QID for 9 days starting 2 days prior to surgery Disp 5ml - No Longer Active Procedures Procedure Date REFRACTION POSTOP FOLLOW-UP VISIT POSTOP FOLLOW-UP VISIT CATARACT SURG W/IOL IOL MASTER, PROF COMP ONLY POSTOP FOLLOW-UP VISIT Postoperative Exam CATARACT SURG W/IOL IOL MASTER CORNEAL TOPOGRAPHY Scan Image OCT/Retinal EYE EXAM ESTABLISHED PATIENT Post Operative Kit / Medical Supply By P rescription POSTOP FOLLOW-UP VISIT Postoperative Exam IRIDOTOMY/IRIDECTOMY BY LASER SURGERY Yarely EYE EXAM ESTABLISHED PAT GONIOSCOPY IRIDOTOMY/IRIDECTOMY BY LASER SURGERY Yarely FUNDUS PHOTOGRAPHY EYE EXAM NEW PATIENT Advance Directives Directive Yes / No Effective Date File Name No Information Encounters Encounter Description Practice Location Reason(s) For Visit Diagnoses Date Provider Providers Copied on Encounter [facility], [facility], [address] [place] [address], [id number] , [place] tel:[phone] [facility] Post-op cataract surgery (chief complaint) Regular astigmatism, bilateralPresb yopiaPresence of intraocular lens 5 Hayden Blood. [address] [place] [address], [id number], [place]. tel:[phone] Referring Provider: Jeremi Clement, [address] [place] [address], [id number]. tel:[phone] [facility], [facility], [address] [place] [address], [id number] , [place] tel:[phone] [facility] Post-op cataract surgery (chief complaint) No Information 5 Hayden Blood. [address] [place] [address], [id number], [place]. tel:[phone] Referring Provider: Jeremi Clement, [address] [place] [address], [id number]. tel:[phone] [facility], [address] [place] [address], [id number] , [place] tel:[phone] [facility], [facility] No Information 5 Oneil Diaz. [address] [place] [address], [id number], [place]. tel:[phone] Referring Provider: Joe Solorio, [address] [place] [address], [id number]. tel:[phone] [facility], [address] [place] [address], [id number] , [place] tel:[phone] [facility] No Information 5 Oneil Diaz. [address] [place] [address], [id number], [place]. tel:[phone] [facility], [address] [place] [address], [id number] , [place] tel:[phone] [facility]- PO 2 (chief complaint) No Information 5 Oneil Joe. [address] [place] [address], [id number], [place]. tel:[phone] Referring Provider: Joe Solorio, [address] [place] [address], [id number]. tel:[phone] [facility], [address] [place] [address], [id number] , [place] tel:[phone] [facility]- Post-op cataract surgery (chief complaint) Presence of intraocular lens 5 Desean Miller. [address] [place] [address], [id number], [place]. tel:[phone] Referring Provider: Paul Villaseñor, [address] [place] [address], [id number]. tel:[phone] [facility], [address] [place] [address], [id number] , [place] tel:[phone] [facility], [facility] No Information 5 Oneil Diaz. [address] [place] [address], [id number], [place]. tel:[phone] Referring Provider: Joe Solorio, [address] [place] [address], [id number]. tel:[phone] [facility], [address] [place] [address], [id number] , [place] tel:[phone] [facility] No Information 4 Oneil Diaz. [address] [place] [address], [id number], [place]. tel:[phone] Referring Provider: Joe Solorio, [address] [place] [address], [id number]. tel:[phone] [facility], [address] [place] [address], [id number] , [place] tel:[phone] [facility] No Information 4 Oneil Diaz. [address] [place] [address], [id number], [place]. tel:[phone] [facility], [address] [place] [address], [id number] , [place] tel:[phone] [facility] cataract evaluation (chief complaint) Anatomical narrow angle, bilateralPucke ring of macula, left eyeRegular astigmatism, bilateral 4 Oneil Joe. [address] [place] [address], [id number], [place]. tel:[phone] Referring Provider: Joe Solorio, [address] [place] [address], [id number]. tel:[phone] [facility], [address] [place] [address], [id number] , [place] tel:[phone] [facility] PO YAG PI (chief complaint) No Information 4 Oneil Diaz. [address] [place] [address], [id number], [place]. tel:[phone] Referring Provider: Joe Solorio, [address] [place] [address], [id number]. tel:[phone] [facility], [address] [place] [address], [id number] , tel:[phone] [facility] Emergency care (chief complaint) No Information 4 Wesley Brambila. [address] [place] [address], [id number], [place]. tel:[phone] Referring Provider: Patty Norman, [address] [place] [address], [id number]. tel:[phone] [facility], [address] [place] [address], [id number] , [place] tel:[phone] [facility] YAG PI OD (chief complaint) No Information 4 Oneil Diaz. [address] [place] [address], [id number], [place]. tel:[phone] Referring Provider: Joe Solorio, [address] [place] [address], [id number]. tel:[phone] [facility], [address] [place] [address], [id number] , [place] tel:[phone] [facility] YAG PI eval (chief complaint) No Information 4 Oneil Diaz. [address] [place] [address], [id number], [place]. tel:[phone] Referring Provider: Joe Solorio, [address] [place] [address], [id number]. tel:[phone] [facility], [address] [place] [address], [id number] , [place] tel:[phone] [facility] floaters (chief complaint) No Information Hyaden Blood. [address], [place], [id number], [place]. tel:[phone] Referring Provider: Jeremi Clement, [address] [place], [address]. tel:[phone] Family History Family Member Type Diagnosis Age At Onset Problem No family history of Glaucom a Problem No family history of Hyperte nsion Mother Problem Cataracts Maternal grandmother Problem Diabetes mellitus Problem No family history of Macular degeneration Payers Payer name Insurance type Covered libertarian ID Authoriza tion(s) No Information Social History Type Description Quantity Date Captured Comments Alcohol Use Details Unknown Caffeine Use Details Unknown Tobacco Use Status Current non-smoker Smoking Status Never smoker Non-Smoking Tobacco Use Details : No Details Available : No Details Available Sex Male Chief Complaint And Reason For Visit From encounter dated '07/03/2024 08:15'. Post-op cataract surgery (chief complaint). Description: The 69 year old patient presents for evaluation of Post-op Basic cataract surgery in the right eye ( 06/14/24) and left eye (06/01/24) c KRB. Ptreports improved and brighter VA OU since surgery. Patient denies: pain or discomfort and non-compliance with meds. Using Pred BID OU. Has used OTC AT prn OU, but not since surgery. Reason For Referral Reason For Referral No Information History Of Present Illness Encounter Date Complaint History Of Prese nt Illness Post-op cataract surgery The 69 year old patient presents for evaluation of Post-op Basic cataract surgery in the right eye ( 06/14/24) and left eye (06/01/24) c KRB. Pt reports improved and brighter VA OU since surgery. Patient denies: pain or discomfort and non-compliance with meds. Using Pred BID OU. Has used OTC AT prn OU, but not since surgery. Post-op cataract surgery The 69 year old patient presents for Post- op cataract surgery in the right eye. Pt states VA OD is bright and but fuzzy. OS VA is good and pt is very pleased. He states OS still has the flickering in his VA. Patient denies: pain or discomfort.Using drops as directed OD and OS. PO 2 The 69 year old patient presents for evaluation of PO 2 in the left eye. Pt states VA is good OS D and N, does feel VA is a little choppy. Pt states he has no pain or discomfort. Pt using PO drops. Post-op cataract surgery The 69 year old patient presents for Post- op STD IOL OS. Pt reports cloudy vision in the left eye. It affects distance vision. Pt has not felt well since getting home from surgery, he knows its from the anesthesia. Patient denies: headaches. Glare in OD. cataract evaluation The 68 year old patient presents for evaluation of cataract evaluation in the right eye and left eye. Pt reports decrease vision OS>OD while driving and watching TV. Pt having glare OU. PT not using eye meds or art tears OU. Pt has Narrow Angles OU. Pt had YAG PI OU September of 2023 and LASIK OU 2007. PO YAG PI The 68 year old patient presents for PO YAG PI in the right eye and left eye. Both near and far vision is better since upping the drops on 10-18-23. The symptom is constant. Patient denies: pain or discomfort. Using Prednisolone QID OD. Emergency care The 68 year old patient presents for Emergency care. Pt reports sudden cloudy vision and pain in the right eye. The onset was this morning. It affects both near and far vision. The symptom is constant. Pt says the pain is lessening. Patient denies: non-compliance with meds. Pt said vision was completely cleared up by noon Sat after PI Laser OD was done Wednesday. 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 Pt had YAG PI OS a few weeks ago, states VA is blurry still OS and he has a a dark floater in the center of VA. Pt states he had a lot of pain after OS, lasted for a few days. Pt is concerned about OD and worried VA will not be good after. Pt denies current pain or discomfort OU. Pt not currently using any eye drops. YAG PI eval The 68 year old patient presents for evaluation of YAG PI eval in the right eye and left eye. Pt referred by K for PI eval. Pt does not complain headaches, blurry VA D and N OU. Ptr denies pain or discomfort OU. Pt was in for a yearly eye exam 09/06, was having no problems OU. Pt states VA is great. Pt does not use eye drops. floaters The 68 year old patient presents for evaluation of floaters in the right > left. Pt reports has floaters that have become bothersome, notices mostly OD. Has had floaters for at least 20 years, but bothersome for 2 yrs. 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 Otherwise, vision is good. Last eye exam was 10 yrs ago. Uses cheaters for reading. Functional Status Date Functional Assessmen t No Information Instructions Date Instruction Additional Infor estherion Impression/Plan Impression/Plan Related to Catar act extraction status, right eye Impression/Plan Impression/Plan Related to Prese nce of intraocular lens Impression/Plan Impression/Plan Related to Combi alexis forms of age-related cataract, bilateral Impression/Plan Related to Other specified postprocedural states Impression/Plan Related to Anato mical narrow angle, bilateral Impression/Plan Impression/Plan Impression/Plan Assessments Type Assessment Date assessment Regular astigmatism, bilateral F assessment Presbyopia assessment Presence of intraocular lens Jun Patient Care Teams Name Effective Dates (start - stop) Status Members No Information
--- OUTSIDE RECORDS SUMMARY | 2025-01-25 09:20 | XMS_ITS | Clinical Summary ---
Author Organization [facility] [address] [facility] [address] Care Team Providers Care Molded Goods Operator Name Role Phone Unavailable Primary Care [...] history exists Scaling and Root Planing 08/05/2022 07/22/2020, 06/17, 06/26/2020 Dental X-Ray: Panoramic 12/29/2022 12/29/2019, 11/11 Dental X-Ray: Full Mouth 06/28/2024 06/27/2021, 06/17, 11/11/2018 Procedures Procedure Name Priority Date/Time Associated Diagnosis Comments PERIODIC ORAL EVALUATION - ESTABLISHED PATIENT Routine 12/12/2021 9:15 AM CDT PERIO MAINTENANCE Routine 12/12/2021 9:0 0 AM CDT LL PERIODONTAL SCALING AND ROOT PLANING - ONE TO THREE TEETH PER QUADRANT Routine 07/22/2020 2:00 AM SCHOOL AGE PROGRAM ASSOCIATE INTRAORAL - COMPREHENSIVE SERIES OF RADIOGRAPHIC IMAGES Routine 06/26/2020 2:00 AM SCHOOL AGE PROGRAM ASSOCIATE PANORAMIC RADIOGRAPHIC IMAGE Routine 11/11/2018 2:00 AM CDT from Last 3 Months or Most Recently Relevant to Health Maintenance Insurance [address] [place], [place] [id number]
--- OUTSIDE RECORDS SUMMARY | 2025-01-25 09:20 | XMS_ITS | Encounter Summary ---
Author Organization [facility] Address [address] [place] [address] Care Team Providers Care Patient Services Technician Name Role Phone Unavailable Primary Care Provider Unavailabl e Prior Encounters Date Type Department Care Team Description 02/04/2022 8:30 AM CDT [facility] [address] [place] [phone] Rhea Meyer DDS 12/13/2021 11:00 AM CDT [facility] [address] [place] [phone] Rhea Meyer DDS 12/12/2021 9:15 AM CDT Office Visit [facility] [address] [place] [phone] Rhea Meyer DDS 12/12/2021 9:00 AM CDT [facility] [address] [place], [place] [address] [address] Blessing Carson RDH 09/18/2021 11:00 AM CDT [facility] [address] [place] [phone] Blessing Carson RDH 06/05/2019 Converted CPS Chart Documents [facility] [address] [place] [phone] <No scans attached> 06/05/2019 Converted 13x Documents [facility] [address], [place] [address] <No scans attached> Last Filed [...] - ESTABLISHED PATIENT Routine 06/11/2021 2:00 AM GROUNDS MANAGER PERIO MAINTENANCE Routine 06/11/2021 2:0 0 AM GROUNDS MANAGER ORAL HYGIENE INSTRUCTIONS Routine 2021 2:00 AM GROUNDS MANAGER 1 RADHA DECON Routine 06/11/2021 2:00 AM GROUNDS MANAGER CANCELLED APPOINTMENT Routine 05/30/2021 2:00 AM GROUNDS MANAGER 19 LIMITED ORAL EVALUATION - PROBLEM FOCUSED Routine 04/16/2021 2:00 AM GROUNDS MANAGER ADDITIONAL X-RAY Routine 04/16/2021 2:00 AM GROUNDS MANAGER SINGLE X-RAY Routine 04/16/2021 2:00 AM GROUNDS MANAGER INTRAORAL PHOTO Routine 04/16/2021 2:00 AM GROUNDS MANAGER PERIODIC ORAL EVALUATION - ESTABLISHED PATIENT Routine [...] ORAL HYGIENE INSTRUCTIONS Routine 2020 2:00 AM GROUNDS MANAGER LL RADHA DECON/QD Routine 07/22/2020 2:00 AM GROUNDS MANAGER LL PERIODONTAL SCALING AND ROOT PLANING - ONE TO THREE TEETH PER QUADRANT Routine 07/22/2020 2:00 AM GROUNDS MANAGER LL ANTIBACT IRR/QUAD Routine 07/22/2020 2:00 AM GROUNDS MANAGER PERIODIC ORAL EVALUATION - ESTABLISHED PATIENT Routine 06/26/2020 2:00 AM GROUNDS MANAGER ORAL HYGIENE INSTRUCTIONS Routine 2020 2:00 AM GROUNDS MANAGER LR RADHA DECON/QD Routine 06/26/2020 2:00 AM GROUNDS MANAGER UR RADHA DECON/QD Routine 06/26/2020 2:00 AM GROUNDS MANAGER UR PERIODONTAL SCALING AND ROOT PLANING - ONE TO THREE TEETH PER QUADRANT Routine 06/26/2020 2:00 AM GROUNDS MANAGER LR PERIODONTAL SCALING AND ROOT PLANING - ONE TO THREE TEETH PER QUADRANT Routine 06/26/2020 2:00 AM GROUNDS MANAGER UR ANTIBACT IRR/QUAD Routine 06/26/2020 2:00 AM GROUNDS MANAGER LR ANTIBACT IRR/QUAD Routine 06/26/2020 2:00 AM GROUNDS MANAGER CHLORHEXIDINE Routine 06/26/2020 2:00 AM GROUNDS MANAGER INTRAORAL - COMPREHENSIVE SERIES OF RADIOGRAPHIC IMAGES Routine 06/26/2020 2:00 AM GROUNDS MANAGER INTRAORAL PHOTO Routine 06/26/2020 2:00 AM GROUNDS MANAGER INTRAORAL PHOTO Routine 06/26/2020 2:00 AM GROUNDS MANAGER INTRAORAL PHOTO Routine 06/26/2020 2:00 AM GROUNDS MANAGER INTRAORAL PHOTO Routine 06/26/2020 2:00 AM GROUNDS MANAGER INTRAORAL PHOTO Routine 06/26/2020 2:00 AM GROUNDS MANAGER INTRAORAL PHOTO Routine 06/26/2020 2:00 AM GROUNDS MANAGER INTRAORAL PHOTO Routine 06/26/2020 2:00 AM GROUNDS MANAGER INTRAORAL PHOTO Routine 06/26/2020 2:00 AM GROUNDS MANAGER CANCELLED APPOINTMENT Routine 02/24/2020 2:00 AM CDT MISSED APPOINTMENT Routine 02/13/2020 2: 00 AM CDT PERIO CONSULT Routine 02/12/2020 2:00 AM CDT CANCELLED APPOINTMENT Routine 12/25/2019 2:00 AM CDT PERIODIC ORAL EVALUATION - ESTABLISHED PATIENT Routine 06/22/2019 2:00 AM GROUNDS MANAGER ORAL HYGIENE INSTRUCTIONS Routine 2019 2:00 AM GROUNDS MANAGER PROPHYLAXIS - ADULT Routine 06/22/2019 2 :00 AM GROUNDS MANAGER 13 DO AMALGAM 2 SURFACE Routine 11/12/19 19 2:00 AM CDT 31 O AMALGAM 1 SURFACE Routine 9 2:00 AM CDT 12 O AMALGAM 1 SURFACE Routine 9 2:00 AM CDT 4 O AMALGAM 1 SURFACE Routine 11/11/2018 2:00 AM CDT 29 ENDODONTIC THERAPY, MOLAR TOOTH (EXCLUDING FINAL YAZDANISM) Routine 11/11/2018 2:00 AM CDT 14 ENDODONTIC THERAPY, MOLAR TOOTH (EXCLUDING FINAL YAZDANISM) Routine 11/11/2018 2:00 AM CDT 14 CROWN [...] CDT Visit Diagnoses Not on file Insurance [address] [place], [place] [id number]
[2025-01-25 19:16] LABS: Hematocrit 46.0 % (42.0-52.0); Hemoglobin 14.6 g/dL (14.0-18.0); Mean Corpuscular HGB Conc 31.7 g/dl (32-36); Mean Corpuscular Hemoglobin 31.6 pg (26-34); Mean Corpuscular Volume 99.6 fl (80-100); Platelet Count Result 260 k/mm3 (150-375); Red Blood Count 4.62 M/mm3 (4.6-6.20); White Blood Count 4.7 K/mm3 (4.5-10.0)
[2025-01-25 19:35] LABS: Alanine Aminotransferase 34 U/L (6-50); Albumin Level 4.3 g/dL (3.5-5.1); Alkaline Phosphatase 57 U/L (38-126); Anion Gap 6 mmol/L (4-12); Aspartate Amino Transferase 63 U/L (17-59); Bilirubin,Total 0.8 mg/dL (0.2-1.3); Blood Urea Nitrogen 19 mg/dL (9-20); Calcium 9.4 mg/dL (8.4-10.2); Carbon Dioxide 30 mmol/L (22-30); Chloride 101 mmol/L (98-107); Cholesterol 227 mg/dL (0-200); Estimated Glomerular Filt Rate > 60; Glucose 107 mg/dL (65-110); HDL Direct 61 mg/dL; Potassium 4.6 mmol/L (3.4-5.0); Sodium 137 mmol/L (137-145); Total Protein 7.2 g/dL (6.3-8.2); Triglycerides 84 mg/dL (<150)
[2025-01-25 20:54] LABS: Hemoglobin A1C 5.7 % (<5.7)
[2025-01-25 21:15] LABS: MALB Creatinine Ratio < 9.5 mg/g (0-30)
== END 2025-01-25 08:51 | disposition home or self-care (01) ==
PROVIDERS: PCP Nurse Practitioner Adult Health; Visit Provider Nurse Practitioner Adult Health
DX: E55.9 Vitamin D deficiency, unspecified (principal); E11.9 Type 2 diabetes mellitus without complications; R74.01 Elevation of levels of liver transaminase levels; L98.9 Disorder of the skin and subcutaneous tissue, unspecified
CPT/HCPCS: 36415; 80053; 80061; 82043; 82306; 82565; 83036; 85027

== ENCOUNTER 2025-04-03 13:21 | Outpatient (CLI) | payer MEDICARE, SELFPAY | END 2025-04-03 13:22 | disposition home or self-care (01) | PROVIDERS: PCP Nurse Practitioner Adult Health; Visit Provider Otolaryngology Otolaryngology/Facial Plastic Surgery | DX: H90.3 Sensorineural hearing loss, bilateral (principal); H93.12 Tinnitus, left ear | CPT/HCPCS: 92557; 92567 ==

== ENCOUNTER 2025-04-06 14:29 | Outpatient (CLI) | payer MEDICARE, SELFPAY ==
--- NOTE | ~2025-04-06 | CT_ITS ---
EXAM/PROCEDURE: CT sinus wo con HISTORY: J32.9 - Chronic sinusitis, unspecified COMPARISON: March 21, [address] TECHNIQUE: Paranasal sinus CT FINDINGS: Moderate congestion and/or mucoperiosteal thickening in the ethmoidal air cells present. Minimal mucoperiosteal thickening in the left frontal sinus. The remainder of the frontal, sphenoid and maxillary sinuses are fully aerated. No air-fluid level present. The ostiomeatal complexes are patent bilaterally. Mild septal deviation to the left with small to moderate spur along the left side. Turbinates are unremarkable. Bones and soft tissues about the sinuses appear grossly normal. IMPRESSION: Minimal paranasal sinus disease. No air-fluid level to confirm acute sinusitis. Reviewed, dictated and finalized at location A. RANCE APPLICATION INVESTIGATOR IMPRESSION: Minimal paranasal sinus disease. No air-fluid level to confirm acut e sinusitis.
--- OUTSIDE RECORDS SUMMARY | 2025-04-06 14:33 | XMS_ITS | Patient Health Record ---
Author Organization [facility] ([address]) Address [address] [place] [address] Care Team Providers Care Oceanographer Physical Name Role Phone Heather Caruso Primary Care Provider Nickie Harvey Unavailable [phone] Allergies No Known Allergies Reason For Referral No Information Medications Medication SIG (Take, Route, Frequency, Duration) Notes Start Date End Date Status Azelastine HCl 137 MCG/SPRAY 2 sprays in each nostril Nasally Twice a day; Duration: 30 days 03/28/2025 Active Doxycycline Hyclate 100 MG Oral; Duration: 22 Days Active Flonase Allergy Relief 50 MCG/ACT 1 spray in each nostril Nasally Twice a day Active Levocetirizine Dihydrochloride 5 MG 1 tablet in the evening Orally Once a day; Duration: 30 days 03/28/2025 Active Azelastine HCl 137 MCG/SPRAY Nasal; Dura tion: 90 Days Active Immunizations Vaccine Route Administration Date Status Comme nts Hepatitis B (20 and more) Unknown 04/03/2020 Administer ed Portal Information NOC Pneumovax 23 Unknown 06/06/2024 Administered Portal Information NOC Tdap Unknown 03/31/2023 Administered Portal Infor mation Social History Tobacco Use: Social History Observation Description Date Details (start date - stop date) Never Smoker NA - NA Sex Assigned At : Social History Observation Description Sex Assigned At Male Tobacco Control (Standard) Question Answer Notes Tobacco use: Nonsmoker AUDIT-C (Standard) Question Answer Notes Did you have a drink containing alcohol in the p ast year? No Points 0 Interpretation Negative Problems Problem Type SNOMED Code ICD Code Onset Dates Problem Status W/U Status Risk Notes Problem Chronic allergic conjunctivitis (12800416) Other chronic allergic conjunctivitis (H10.45) Active confirmed Problem Allergic rhinitis caused by pollen (disorder) (75635849) Allergic rhinitis due to pollen (J30.1) Active confirmed Problem Allergic rhinitis (06390298) Other allergic rhinitis (J30.89) Active confirmed Problem Allergic rhinitis caused by animal hair and dander (292102105398711) Allergic rhinitis due to animal (cat) (dog) hair and dander (J30.81) Active confirmed Vital Signs Blood pressure diastolic 76 mm Hg 03/28/2025 Oximetry 97 % 03/28/2025 Height 68 in 03/28/2025 Blood pressure systolic 142 mm Hg 03/28/2025 Weight 187.0 lbs 03/28/2025 BMI 28.43 kg/m2 03/28/2025 Encounters Encounter Location Date Provider Diagnosis [facility] [address] [phone] 03/28/2025 Nickie Tirado Allergic rhinitis du e to pollen J30.1 ; Allergic rhinitis due to animal (cat) (dog) hair and dander J30.81 ; Other allergic rhinitis J30.89 and Other chronic allergic conjunctivitis H10.45 Assessments Encounter Date Diagnosis (ICD Code) Assessment Notes Treatment Notes Treatment Clinical Notes Section Notes 03/28/2025 Allergic rhinitis due to pollen (ICD-10 - J30.1) Given the history and symptoms, skin testing was performed to common aeroallergens to determine atopic status. clearly suffers from atopic disease based upon our skin testing and clinical history. Accordingly, we have introduced a new, aggressive medication regimen, discussed nasal washes and allergy-specific avoidance measures. We also discussed adjunctive therapies including subcutaneous, specific allergen immunotherapy as relates to the treatment and prevention of atopic disease. They are currently considering the risks, benefits and alternatives to this care. Risks: bleeding, infection, allergic reaction, anaphylaxis; Benefits: reduced need for medications, improved symptoms, disease modification. Alternatives: watch/wait, change medication regimen, improve allergy avoidance measures. Follow-up in 1 month for interval evaluation and management 03/28/2025 Allergic rhinitis due to animal (cat) (dog) hair and dander (ICD-10 - J30.81) Follow allergen avoidance, meds and consider SCIT as an adjunctive treatment to current regimen 03/28/2025 Other allergic rhinitis (ICD-10 - J30.89) Follow allergen avoidance, meds and consider SCIT as an adjunctive treatment to current regimen 03/28/2025 Other chronic allergic conjunctivitis (ICD-10 - H10.45) Given ocular signs and symptoms I encouraged allergy avoidance measures and meds as above. If symptoms persist, consider adding additional medications including intraocular antihistamine/mas t cell stabilizer, PRN and consider SCIT as an adjunctive measure Plan Of Treatment Next Appt Details Provider Name:Nickie shirley, 04/25/2025 01:30:00 PM, [address] [facility], [address], [address], Insurance Providers Payer Name Payer Address Payer Phone Subscriber Number Group Number Insured Name Patient Relationship to Insured Coverage Start Date Coverage End Date [employer] Medicare [address] [address] [place] [address] [id number] Aquilino Esparza Self - patient is the insured Medical (General) History Medical History History ICD Code Chronic rhinitis J31.0 Surgical History Surgery Date(Month/Year) Inguinal hernia 05/03/2023 Ventral hernia 03/19/2023 Rotator cuff left 03/31/2012 Rotator cuff right 09/01/2017 Appendectomy 11/23/1978 Hospitalization History Reason Date(Month/Year) SEE ABOVE
--- OUTSIDE RECORDS SUMMARY | 2025-04-06 14:33 | XMS_ITS | Encounter Summary ---
Author Organization [facility] Address [address] [place] [address] Care Team Providers Care Sweeping Compound Blender Name Role Phone Unavailable Primary Care Provider Unavailabl e Prior Encounters Date Type Department Care Team Description 02/04/2022 8:30 AM CDT [facility] [address] [place] [phone] Rhea Meyer DDS 12/13/2021 11:00 AM CDT Office [facility] [address] [place] [phone] Rhea Meyer DDS 12/12/2021 9:15 AM CDT Office Visit [facility] [address] [place] [phone] Rhea Meyer DDS 12/12/2021 9:00 AM CDT Office [facility] [address] [place] [phone] Blessing Carson RDH 09/18/2021 11:00 AM CDT Office [facility] [address] [place] [phone] Blessing Carson RDH 06/05/2019 Converted CPS Chart Documents [facility] [address] [place] [phone] <No scans attached> 06/05/2019 Converted 13x Documents [facility] [address], [place] [address] <No scans attached> Last Filed [...] - ESTABLISHED PATIENT Routine 06/11/2021 2:00 AM RESIDENCY PROGRAM COORDINATOR PERIO MAINTENANCE Routine 06/11/2021 2:0 0 AM RESIDENCY PROGRAM COORDINATOR ORAL HYGIENE INSTRUCTIONS Routine 2021 2:00 AM RESIDENCY PROGRAM COORDINATOR 1 RADHA DECON Routine 06/11/2021 2:00 AM RESIDENCY PROGRAM COORDINATOR CANCELLED APPOINTMENT Routine 05/30/2021 2:00 AM RESIDENCY PROGRAM COORDINATOR 19 LIMITED ORAL EVALUATION - PROBLEM FOCUSED Routine 04/16/2021 2:00 AM RESIDENCY PROGRAM COORDINATOR ADDITIONAL X-RAY Routine 04/16/2021 2:00 AM RESIDENCY PROGRAM COORDINATOR SINGLE X-RAY Routine 04/16/2021 2:00 AM RESIDENCY PROGRAM COORDINATOR INTRAORAL PHOTO Routine 04/16/2021 2:00 AM RESIDENCY PROGRAM COORDINATOR PERIODIC ORAL EVALUATION - ESTABLISHED PATIENT Routine [...] ORAL HYGIENE INSTRUCTIONS Routine 2020 2:00 AM RESIDENCY PROGRAM COORDINATOR LL RADHA DECON/QD Routine 07/22/2020 2:00 AM RESIDENCY PROGRAM COORDINATOR LL PERIODONTAL SCALING AND ROOT PLANING - ONE TO THREE TEETH PER QUADRANT Routine 07/22/2020 2:00 AM RESIDENCY PROGRAM COORDINATOR LL ANTIBACT IRR/QUAD Routine 07/22/2020 2:00 AM RESIDENCY PROGRAM COORDINATOR PERIODIC ORAL EVALUATION - ESTABLISHED PATIENT Routine 06/26/2020 2:00 AM RESIDENCY PROGRAM COORDINATOR ORAL HYGIENE INSTRUCTIONS Routine 2020 2:00 AM RESIDENCY PROGRAM COORDINATOR LR RADHA DECON/QD Routine 06/26/2020 2:00 AM RESIDENCY PROGRAM COORDINATOR UR RADHA DECON/QD Routine 06/26/2020 2:00 AM RESIDENCY PROGRAM COORDINATOR UR PERIODONTAL SCALING AND ROOT PLANING - ONE TO THREE TEETH PER QUADRANT Routine 06/26/2020 2:00 AM RESIDENCY PROGRAM COORDINATOR LR PERIODONTAL SCALING AND ROOT PLANING - ONE TO THREE TEETH PER QUADRANT Routine 06/26/2020 2:00 AM RESIDENCY PROGRAM COORDINATOR UR ANTIBACT IRR/QUAD Routine 06/26/2020 2:00 AM RESIDENCY PROGRAM COORDINATOR LR ANTIBACT IRR/QUAD Routine 06/26/2020 2:00 AM RESIDENCY PROGRAM COORDINATOR CHLORHEXIDINE Routine 06/26/2020 2:00 AM RESIDENCY PROGRAM COORDINATOR INTRAORAL - COMPREHENSIVE SERIES OF RADIOGRAPHIC IMAGES Routine 06/26/2020 2:00 AM RESIDENCY PROGRAM COORDINATOR INTRAORAL PHOTO Routine 06/26/2020 2:00 AM RESIDENCY PROGRAM COORDINATOR INTRAORAL PHOTO Routine 06/26/2020 2:00 AM RESIDENCY PROGRAM COORDINATOR INTRAORAL PHOTO Routine 06/26/2020 2:00 AM RESIDENCY PROGRAM COORDINATOR INTRAORAL PHOTO Routine 06/26/2020 2:00 AM RESIDENCY PROGRAM COORDINATOR INTRAORAL PHOTO Routine 06/26/2020 2:00 AM RESIDENCY PROGRAM COORDINATOR INTRAORAL PHOTO Routine 06/26/2020 2:00 AM RESIDENCY PROGRAM COORDINATOR INTRAORAL PHOTO Routine 06/26/2020 2:00 AM RESIDENCY PROGRAM COORDINATOR INTRAORAL PHOTO Routine 06/26/2020 2:00 AM RESIDENCY PROGRAM COORDINATOR CANCELLED APPOINTMENT Routine 02/24/2020 2:00 AM CDT MISSED APPOINTMENT Routine 02/13/2020 2: 00 AM CDT PERIO CONSULT Routine 02/12/2020 2:00 AM CDT CANCELLED APPOINTMENT Routine 12/25/2019 2:00 AM CDT PERIODIC ORAL EVALUATION - ESTABLISHED PATIENT Routine 06/22/2019 2:00 AM RESIDENCY PROGRAM COORDINATOR ORAL HYGIENE INSTRUCTIONS Routine 2019 2:00 AM RESIDENCY PROGRAM COORDINATOR PROPHYLAXIS - ADULT Routine 06/22/2019 2 :00 AM RESIDENCY PROGRAM COORDINATOR 13 DO AMALGAM 2 SURFACE Routine 11/12/19 19 2:00 AM CDT 31 O AMALGAM 1 SURFACE Routine 9 2:00 AM CDT 12 O AMALGAM 1 SURFACE Routine 9 2:00 AM CDT 4 O AMALGAM 1 SURFACE Routine 11/11/2018 2:00 AM CDT 29 ENDODONTIC THERAPY, MOLAR TOOTH (EXCLUDING FINAL ADVENTIST) Routine 11/11/2018 2:00 AM CDT 14 ENDODONTIC THERAPY, MOLAR TOOTH (EXCLUDING FINAL ADVENTIST) Routine 11/11/2018 2:00 AM CDT 14 CROWN [...] CDT Visit Diagnoses Not on file Insurance [address] [place], [place] [id number]
--- OUTSIDE RECORDS SUMMARY | 2025-04-06 14:33 | XMS_ITS | Clinical Summary ---
Author Organization [facility] [address] [address] Care Team Providers Care Radio Rigger Name Role Phone Unavailable Primary Care Provider [...] TEETH PER QUADRANT Routine 07/22/2020 2:00 AM BAGGAGEMASTER INTRAORAL - COMPREHENSIVE SERIES OF RADIOGRAPHIC IMAGES Routine 06/26/2020 2:00 AM BAGGAGEMASTER PANORAMIC RADIOGRAPHIC IMAGE Routine 11/11/2018 2:00 AM CDT from Last 3 Months or Most Recently Relevant to Health Maintenance Insurance [address] [place], [place] [id number]
== END 2025-04-06 14:30 | disposition home or self-care (01) ==
PROVIDERS: PCP Nurse Practitioner Adult Health; Visit Provider Otolaryngology Otolaryngology/Facial Plastic Surgery
DX: R09.81 Nasal congestion (principal); J34.2 Deviated nasal septum
CPT/HCPCS: 70486